=== PATIENT | female | born 1955 | race Caucasian/White ===

== ENCOUNTER → 2020-03-14 11:18 | Outpatient (BNVA) | payer MEDICARE, SELFPAY | PROVIDERS: Family Provider Family Medicine; PCP Family Medicine; Visit Provider Podiatrist Foot & Ankle Surgery | DX: L97.522 Non-pressure chronic ulcer of other part of left foot with fat layer exposed (principal); M21.41 Flat foot [pes planus] (acquired), right foot | CPT/HCPCS: 73630; 87070; 87077; 87186; 87205 ==

== ENCOUNTER → 2021-01-17 15:15 | Outpatient (BNVA) | payer MEDICARE, SELFPAY | PROVIDERS: Family Provider Family Medicine; PCP Family Medicine; Visit Provider Podiatrist Foot & Ankle Surgery | DX: L97.212 Non-pressure chronic ulcer of right calf with fat layer exposed (principal); I87.2 Venous insufficiency (chronic) (peripheral); I73.9 Peripheral vascular disease, unspecified; M25.572 Pain in left ankle and joints of left foot | CPT/HCPCS: 73610 ==

== ENCOUNTER 2021-01-27 13:17 | Outpatient (CLI) | payer MEDICARE, SELFPAY | END 2021-01-27 13:18 | disposition home or self-care (01) | LOC: WOUND 13:20 | PROVIDERS: Family Provider Family Medicine; PCP Family Medicine; Visit Provider Thoracic Surgery (Cardiothoracic Vascular Surgery) | DX: L97.812 Non-pressure chronic ulcer of other part of right lower leg with fat layer exposed (principal) | CPT/HCPCS: 11042; 99212 ==

== ENCOUNTER 2021-02-03 13:55 | Outpatient (CLI) | payer MEDICARE, SELFPAY | END 2021-02-03 13:56 | disposition home or self-care (01) | LOC: WOUND 13:56 | PROVIDERS: Family Provider Family Medicine; PCP Family Medicine; Visit Provider Nurse Practitioner Family | DX: L97.822 Non-pressure chronic ulcer of other part of left lower leg with fat layer exposed (principal) | CPT/HCPCS: 11042; 87070; 87077; 87176; 87186; 87205 ==

== ENCOUNTER 2021-02-10 13:49 | Outpatient (CLI) | payer MEDICARE, SELFPAY | END 2021-02-10 13:50 | disposition home or self-care (01) | LOC: WOUND 13:51 | PROVIDERS: Family Provider Family Medicine; PCP Family Medicine; Visit Provider Nurse Practitioner Family | DX: I96 Gangrene, not elsewhere classified (principal); L97.822 Non-pressure chronic ulcer of other part of left lower leg with fat layer exposed | CPT/HCPCS: 11042 ==

== ENCOUNTER 2021-02-17 13:50 | Outpatient (RCR) | payer MEDICARE, MEDICAID, SELFPAY | END 2021-02-19 23:59 | disposition home or self-care (01) | LOC: WOUND 13:50 | PROVIDERS: Family Provider Family Medicine; PCP Family Medicine; Visit Provider Nurse Practitioner Family | DX: L97.812 Non-pressure chronic ulcer of other part of right lower leg with fat layer exposed (principal) | CPT/HCPCS: 11042 ==

== ENCOUNTER 2021-02-22 11:22 | Emergency (ER) | payer MEDICARE, MEDICAID, SELFPAY ==
[2021-02-22 11:23] VITALS: BP 180/98; PULSE 93; RESP 18; TEMP 36.3; O2SAT 95; BMI 31.0
--- NOTE | 2021-02-22 11:37 | XRR_ITS ---
PROCEDURE INFORMATION: Exam: XR Right Knee Exam date and time: 02/22/2021 12:03 PM Age: 66 years old Clinical indication: Injury or trauma; Fall; Blunt trauma; Knee; Right; Additional info: Fall, RT knee pain TECHNIQUE: Imaging protocol: XR Right knee. Views: 3 views. COMPARISON: CR Tibia and Fibula RIGHT [id number] 11/05/2014 3:14 PM FINDINGS: Bones/joints: There is no knee joint effusion. No acute fracture or dislocation. Soft tissues: Multiple soft tissue clips are noted along the medial proximal leg. Probable soft tissue laceration or defect with subcutaneous emphysema versus air trapped beneath the bandage is noted. Vasculature: There are vascular calcifications and phleboliths. Other findings: There is a bandage medial to the knee. No gas in the knee joint. XR/XR knee RT 3V* [id number] IMPRESSION: Soft tissue abnormalities with an overlying bandage. No acute bony abnormality.
--- NOTE | 2021-02-22 11:37 | XRR_ITS ---
PROCEDURE INFORMATION: Exam: XR Right Shoulder Exam date and time: 02/22/2021 12:03 PM Age: 66 years old Clinical indication: Injury or trauma; Fall; Blunt trauma (contusions or hematomas); Shoulder; Right; Additional info: Fall, RT shoulder pain TECHNIQUE: Imaging protocol: XR Right shoulder. Views: 2 or more views. COMPARISON: No relevant prior studies available. FINDINGS: Bones/joints: There are findings consistent with chronic osteonecrosis of the right humeral head with collapse and secondary severe osteoarthritic changes of the glenohumeral joint. There are moderate to severe degenerative changes of the acromioclavicular joint. Multiple old right rib fractures are noted with mature bridging bone including the right 4th through 7th ribs. There is no dislocation. No acute bony fracture. Lungs: The right lung apex is clear. Soft tissues: Normal. XR/XR shoulder RT min 2V* [id number] IMPRESSION: 1. There are findings consistent with chronic osteonecrosis of the right humeral head with collapse and secondary severe osteoarthritic changes of the glenohumeral joint. 2. No acute bony abnormality is identified.
--- NOTE | 2021-02-22 11:38 | ED_ITS ---
HPI - Wound/Laceration General: Chief Complaint: Wound/Laceration Stated Complaint: Rt leg lac/Fall Time Seen by Provider: 02/22/21 11:30 Source: patient Mode of arrival: ambulatory Limitations: no limitations History of Present Illness: HPI narrative: 66-year-old female patient presents to the emergency department status post fall she sustained at home. She received a laceration to the right knee and is complaining of right shoulder pain, she reports her right shoulder pain is chronic but did fall on it. She reports limited range of motion chronically of the right shoulder, not able to raise her shoulder to do her hair. States need shoulder replacement but is not in good condition to have it done. She sustained right knee laceration, remains on aspirin. States bandage did the best she could, reports chronic stasis wound to the right upper leg just below the knee, she reports under the care of wound care for management. She states this morning, approximately 30 minutes to an hour prior to arrival to the ED, she let the dog in and lost her balance, she reports chronic neuropathy to the bilateral lower extremities, she states did not lose consciousness and did not hit her head. She denies neck pain headache or other injuries. Extremity Location: Right: shoulder and knee Place: home Patient tetanus UTD: No Context: accidental Associated symptoms: Reports no associated symptoms; Denies chills, fever(s), nausea or vomiting Treatments prior to arrival: bandage Review of Systems General: Reports: 10 or more systems reviewed and unremarkable except in HPI and below Const: Denies: fever(s), chills or diaphoresis Eyes: Denies: blurry vision or eye redness ENMT: Denies: throat pain, dental pain or disequilibrium Card: Denies: chest pain, palpitations or irregular heart rhythm Resp: Denies: dyspnea, productive cough, non-productive cough or wheezing GI: Denies: abdominal pain, nausea or vomiting : Denies: difficulty voiding or dysuria Musc: Reports: joint pain (rt knee and rt shoulder); Denies: neck pain, back pain, joint warmth or muscle cramps Skin/Breast: Reports: skin tenderness and other (rt knee laceration); Denies: rash or pruritus Neuro: Denies: headache(s), weakness in extremities or behavioral changes Psych: Denies: anxiety, depression or change in appetite John Paul/Lymph: Denies: easy bruising PFSH ED PFSH: Medical History Cellulitis COPD (chronic obstructive pulmonary disease) Osteoporosis Peripheral arterial disease Rheumatoid arthritis Thoracic spine pain Surgical History H/O elbow surgery LEFT nerve decomp[place] [address] Zaidi H/O hand surgery Left hand in 1984 x3, had infection drained by H/O shoulder surgery RIGHT- by Dr. Bergman in 2003 Family History Family/Other Heart disease Denies family history of Diabetes CAD (coronary artery disease) Clotting disorder Dementia Hyperlipidemia Psychiatric illness Chronic kidney disease (CKD) Suicide Anesthesia complication Bleeding disorder Family history of premature coronary artery disease Lung disease Cancer Hypertension Stroke Social History Smoking and tobacco status: former smoker Quit status (tobacco): has quit using tobacco Year quit tobacco: 1997 Alcohol intake: never Current occupational status: disabled Physical Exam Const: COMMON NORMALS: no acute distress, patient oriented x3, healthy appearing, alert and well nourished GENERAL APPEARANCE: cooperative, comfortable, well kempt, well developed and well hydrated; not ill appearing NUTRITIONAL APPEARANCE: thin ORIENTATION/CONSCIOUSNESS: Yes awake, Yes oriented to person, Yes oriented to place and Yes oriented to time HENMT: COMMON NORMALS: normocephalic, atraumatic, Normal external nose present and moist oral mucous membranes HEAD & SCALP: normal to inspection, normoc ephalic and atraumatic FACE & SINUS: normal facial exam and face symmetric NOSE: Normal external nose present THROAT: posterior oropharynx normal, tonsils normal and uvula midline Eye: COMMON NORMALS: Equal, round and reactive pupils present and EOMs intact bilaterally GENERAL EYE: appearance normal, both eyes and all related structures PUPIL: Yes Equal, round and reactive pupils present Neck/C-Spine: COMMON NORMALS: full ROM, no lymphadenopathy and supple GENERAL: Yes normal visual inspection and Yes trachea midline CERVICAL SPINE: Yes cervical ROM normal, No Cervical spine tenderness, No Paracervical muscle tenderness, No Paracervical spasm and No Trapezius muscle tenderness Lymph: LYMPHATIC: no lymphadenopathy noted Chest: COMMONS NORMALS: normal inspection of the chest Resp: COMMON NORMALS: normal respiratory effort, No retractions, No use of accessory muscles and clear to auscultation bilaterally EFFORT & INSPECTION: Yes able to speak in complete sentences AUSCULTATION: clear to auscultation bilaterally Cardio: COMMON NORMALS: regular rhythm, S1 normal heart sound present and S2 normal heart sound present RHYTHM: regular rhythm HEART SOUNDS: S1 normal heart sound present and S2 normal heart sound present GI: COMMON NORMALS: Soft to palpation and non-tender INSPECTION: Yes normal to inspection PALPATION: Yes Soft to palpation : COMMON NORMALS: Yes no CVA tenderness BLADDER/KIDNEY EXAM: Yes no CVA tenderness Back/Pelvis: COMMON NORMALS: no CVA tenderness and thoracic and lumbar spine normal to inspection Extremity: COMMON NORMALS: normal to inspection, capillary refill normal and no pedal edema GENERAL: Yes normal exam except as noted RIGHT UPPER EXTREMITY: Yes shoulder joint (pain to the anterior ac) Right shoulder: Yes Right shoulder joint inspection exam (normal), Yes palpation, Yes Right shoulder joint ROM exam (limited abduction) and Yes Right shoulder joint neurovascular exam (distally intact) EXTREMITY IMAGE (FRONT): 1. 17 cm x 4 cm laceration, SQ tissue exposed. Patella exposed, wound extends across the mid patella and medially, gaped wound with ecchymosis -not able to appreciate the patellar tendon, suspect tendon laceration Neuro: COMMON NORMALS: patient oriented x3 and no focal motor deficits S ENSORIUM/ORIENTATION: Yes alert, Yes oriented to person, Yes oriented to place and Yes oriented to time Psych: COMMON NORMALS: mental status grossly normal, Normal thought process present and cooperative APPEARANCE: Yes well kempt ACTIVITY/MOTOR BEHAVIOR: Yes appropriate eye contact THOUGHT PROCESS: Normal thought process present Skin: COMMON NORMALS: no rashes or lesions noted and turgor normal GENERAL SKIN EXAM: no rashes or lesions noted and turgor normal WOUNDS: Yes wounds noted (Chronic wound, covered to the medial upper tibia right leg, no tenderness o) OTHER: BLE with chronic venous stasis appearance, skin is thin. Course ED course: Laceration is large and deep, will need possible surgical consult due to exposed patella. Dr. Glover has assumed care due to extensive laceration identified. Vital Signs: Vital signs: Vital Signs Temperature 97.3 F L 02/22/21 11:23 Pulse Rate 93 02/22/21 11:23 Respiratory Rate 18 02/22/21 11:23 Blood Pressure 180/98 02/22/21 11:23 Pulse Oximetry 95 02/22/21 11:23 Discharge Plan Discharge Prescriptions: No Action mupirocin 2 % ointment 1 applic TOPICAL BID Qty: 30 RF: 0 cholecalciferol (vitamin D3) 350 mcg (14,000 unit) capsule PO RF: 0 cefadroxil 1 gram tablet 1,000 mg PO DAILY 14 Days Qty: 14 RF: 0 MediHoney (honey) 80 % gel 1 applic topical DAILY Qty: 44 RF: 0 Santyl 250 unit/gram ointment 1 applic TOPICAL DAILY Qty: 30 RF: 1 gabapentin 400 mg capsule 400 mg PO DAILY RF: 0 prednisone 20 mg tablet 20 mg PO DAILY RF: 0 folic acid 1 mg tablet 1 mg PO DAILY RF: 0 sulfasalazine [Azulfidine] 500 mg tablet 1 gm PO TID RF: 0 aspirin 325 mg tablet 650 mg PO Q4H RF: 0 ascorbate calcium (vitamin C) 500 mg tablet 500 mg PO DAILY RF: 0 albuterol sulfate [ProAir HFA] 90 mcg/actuation HFA aerosol inhaler 2 puff INHALATION Q6H PRNRF: 0 duloxetine 20 mg capsule,delayed release(DR/EC) 40 mg PO BID RF: 0 Coding Level of Care Code ED Vascular Sonographer for Chg Fwd Exam Comprehensive
[2021-02-22] MEDS: lidocaine 1% INJ 20 mL INJECTION (11:47)
[2021-02-22] MEDS: tetanus-dipt-pertussis 0.5 mL SDV IM (11:47)
[2021-02-22 15:07] VITALS: RESP 18
[2021-02-22] MEDS: morphine 4 mg/mL SDV 1 mL IM (15:07)
[2021-02-22] MEDS: ceFAZolin 1,000 MG in sodium chloride 0.9% (plus) 50 ML 100 MG IV (15:51)
--- NOTE | 2021-02-22 16:13 | ED_ITS ---
HPI - Wound/Laceration General: Chief Complaint: Wound/Laceration Stated Complaint: Rt leg lac/Fall Time Seen by Provider: 02/22/21 11:30 Source: patient Mode of arrival: ambulatory Limitations: no limitations History of Present Illness: HPI narrative: I took over care from Ms. Handley after the wound was too large for her to feel comfortable taking care of. Please read her note for further details. The patient has a 13 cm x 3 or 4 cm wide S shaped laceration to her right knee after a fall. Major ligaments appear intact. No fracture on x-ray Place: home Review of Systems General: Reports: 10 or more systems reviewed and unremarkable except in HPI and below Const: Denies: fatigue Eyes: Denies: change in vision, blurry vision or eye redness ENMT: Denies: throat pain, swelling of lips/tongue, ear or mastoid pain or nasal congestion Card: Denies: chest pain, palpitations, irregular heart rhythm, edema, dyspnea on exertion or orthopnea Resp: Denies: dyspnea, productive cough or non-productive cough GI: Denies: abdominal pain, diarrhea or GI cramping : Denies: flank pain, difficulty voiding, urinary frequency or urinary urgency Musc: Reports: extremity pain; Denies: neck pain, back pain, joint pain, joint redness, limited range of motion or muscle weakness Skin/Breast: Denies: rash, pruritus, erythema, skin pain or skin tenderness Neuro: Denies: headache(s), numbness in extremities, weakness in extremities, sensory changes, difficulty walking, dizziness, confusion or Slurred speech present Psych: Denies: anxiety or depression Endo: Denies: polyuria All/Imm: Denies: urticaria, throat swelling or tongue swelling PFSH ED PFSH: Medical History (Updated 02/22/21 @ 16:23 by Anthony Spicer MD) Cellulitis COPD (chronic obstructive pulmonary disease) Osteoporosis Peripheral arterial disease Rheumatoid arthritis Thoracic spine pain Surgical History H/O elbow surgery [place] [address] Zaidi H/O hand surgery Left hand in 1984 x3, had infection drained by H/O shoulder surgery RIGHT- by Dr. Bergman in 2003 Family History (Reviewed 01/17/21 @ 14:58 by JUAN Moreno Family/Other Heart disease Denies family history of Diabetes CAD (coronary artery disease) Clotting disorder Dementia Hyperlipidemia Psychiatric illness Chronic kidney disease (CKD) Suicide Anesthesia complication Bleeding disorder Family history of premature coronary artery disease Lung disease Cancer Hypertension Stroke Social History Smoking and tobacco status: former smoker Quit status (tobacco): has quit using tobacco Year quit tobacco: 1997 Alcohol intake: never Current occupational status: disabled Physical Exam Const: COMMON NORMALS: no acute distress, average body habitus, patient oriented x3, no limitations, healthy appearing, alert and well nourished GENERAL APPEARANCE: cooperative, comfortable, well kempt and well developed ORIENTATION/CONSCIOUSNESS: Yes awake, Yes oriented to person, Yes oriented to place and Yes oriented to time HENMT: COMMON NORMALS: normocephalic, external ears normal and Normal external nose present HEAD & SCALP: normal to inspection and normocephalic NOSE: Normal external nose present EXTERNAL EAR: Yes external ears normal MOUTH: Normal oral and palatal mucosa present THROAT: posterior oropharynx normal Eye: COMMON NORMALS: Equal, round and reactive pupils present and EOMs intact bilaterally GENERAL EYE: appearance normal, both eyes and all related structures PUPIL: Yes Equal, round and reactive pupils present Neck/C-Spine: COMMON NORMALS: full ROM, no lymphadenopathy, no meningeal signs and no JVD GENERAL: Yes normal visual inspection Lymph: LYMPHATIC: no lymphadenopathy noted Chest: COMMONS NORMALS: normal inspection of the chest and normal palpation of entire chest wall Resp: COMMON NORMALS: normal respiratory effort, No retractions, No use of accessory muscles, clear to auscultation bilaterally and percussion normal EFFORT & INSPECTION: Yes able to speak in complete sentences AUSCULTATION: clear to auscultation bilaterally PERCUSSION: percussion normal Cardio: COMMON NORMALS: no JVD, regular rate, regular rhythm, S1 normal heart sound present, S2 normal heart sound present and Peripheral pulses 2+ throughout RATE: regular rate RHYTHM: regular rhythm HEART SOUNDS: S1 normal heart sound present and S2 normal heart sound present PERIPHERAL PULSES: Peripheral pulses 2+ throughout GI: COMMON NORMALS: Normal to inspection, nondistended, normoactive bowel sounds present, Soft to palpation, non-tender and no masses INSPECTION: Yes normal to inspection PALPATION: Yes Soft to palpation : COMMON NORMALS: Yes no CVA tenderness BLADDER/KIDNEY EXAM: Yes no CVA tenderness Back/Pelvis: COMMON NORMALS: no CVA tenderness, thoracic and lumbar spine normal to inspection, no thoracic nor lumbar tenderness and thoraco-lumbar ROM normal Extremity: COMMON NORMALS: normal to inspection, full ROM, capillary refill normal, no joint enlargement and no pedal edema NARRATIVE EXTREMITY EXAM: Normal except right knee has a 13 x 3 to 4 cm wide S shaped laceration with a large skin flap. The patella is open. Major ligaments are intact. Neurovascularly intact distal to injury. No significant bleeding. The wound was sutured closed. I took over care from Ms. Handley after the injury was deemed too much for her to treat adequately. I discussed with Dr. Craft the patient's care and the major ligaments appear intact in the right knee however she does have a significant laceration that was 17 cm x 3 cm and irregularly S shaped with a large skin flap and exposed patella. He recommended closure with local anesthetic. I flushed the wound with 2 L sterile saline and cleaned the wound with Betadine. Used approximately 6 cc of 1% lidocaine to anesthetize as best as possible. Used 1-0 Prolene and 13 interrupted sutures to help with closure. The medial aspect of the wound has a gap which will allow for drainage as I was instructed to close it loosely for drainage. I discussed with Dr. Craft again who recommends follow-up in his clinic in 1 week. Gave her 1 g of Ancef and will discharge with Keflex to prevent infection. Also will place in a straight leg brace to help prevent tension on the wound. Recommend she follow-up with Dr. Craft in 1 week and return to the ER with any worsening symptoms or signs of infection. GENERAL: Yes normal exam except as noted Neuro: COMMON NORMALS: patient oriented x3, CN's II-XII intact bilaterally, moves all extremities, no focal motor deficits, no sensory deficits noted and gait normal SENSORIUM/ORIENTATION: Yes alert, Yes oriented to person, Yes oriented to place and Yes oriented to time MENINGEAL SIGNS: Yes no meningeal signs Psych: COMMON NORMALS: mental status grossly normal, Normal thought process present, cooperative, normal affect and speech normal APPEARANCE: Yes well kempt ATTITUDE: Yes calm SPEECH: Yes normal speech THOUGHT PROCESS: Normal thought process present Skin: COMMON NORMALS: no rashes or lesions noted GENERAL SKIN EXAM: no rashes or lesions noted Procedures Laceration Right knee: Site: lower extremity Side (If applicable): right Size (cm): 13 Description: irregular Depth: simple, single layer Local Anesthetic: lidocaine 1% Amount of anesthesia used (mL): 6 Pre-repair: wound explored and irrigated extensively Skin layer closed with: other (Prolene 1-0) Number of sutures: 13 Technique: simple, interrupted Course Vital Signs: Vital signs: Vital Signs Temperature 97.3 F L 02/22/21 11:23 Pulse Rate 93 02/22/21 11:23 Respiratory Rate 18 02/22/21 15:07 Blood Pressure 180/98 02/22/21 11:23 Pulse Oximetry 95 02/22/21 11:23 MDM - Wound/Laceration MDM Narrative: Medical decision making narrative: I took over care from Ms. Handley after the injury was deemed too much for her to treat adequately. I discussed with Dr. Craft the patient's care and the major ligaments appear intact in the right knee however she does have a significant laceration that was 17 cm x 3 cm and irregularly S shaped with a large skin flap and exposed patella. He recommended closure with local anesthetic. I flushed the wound with 2 L sterile saline and cleaned the wound with Betadine. Used approximately 6 cc of 1% lidocaine to anesthetize as best as possible. Used 1-0 Prolene and 13 interrupted sutures to help with closure. The medial aspect of the wound has a gap which will allow for drainage as I was instructed to close it loosely for drainage. I discussed with Dr. Craft again who recommends follow-up in his clinic in 1 week. Gave her 1 g of Ancef and will discharge with Keflex to prevent infection. Also will place in a straight leg brace to help prevent tension on the wound. Recommend she follow-up with Dr. Craft in 1 week and return to the ER with any worsening symptoms or signs of infection. Discharge Plan Discharge Patient Disposition: Home Clinical Impression: Laceration Condition: Stable Prescriptions: New cephalexin 500 mg capsule 500 mg PO Q12H 14 Days Qty: 28 RF: 0 hydrocodone-acetaminophen 5-325 mg tablet 1 tab PO Q6H PRN (Reason: pain) Qty: 16 RF: 0 No Action mupirocin 2 % ointment 1 applic TOPICAL BID Qty: 30 RF: 0 MediHoney (honey) 80 % gel 1 applic topical DAILY Qty: 44 RF: 0 Santyl 250 unit/gram ointment 1 applic TOPICAL DAILY Qty: 30 RF: 1 gabapentin 400 mg capsule 400 mg PO BID RF: 0 prednisone 20 mg tablet 20 mg PO DAILY RF: 0 folic acid 1 mg tablet 1 mg PO DAILY RF: 0 sulfasalazine [Azulfidine] 500 mg tablet 1 gm PO TID RF: 0 aspirin 325 mg tablet 650 mg PO Q4H RF: 0 albuterol sulfate [ProAir HFA] 90 mcg/actuation HFA aerosol inhaler 2 puff INHALATION Q6H PRN (Reason: Shortness Of Breath) RF: 0 duloxetine 20 mg capsule,delayed release(DR/EC) 40 mg PO BID RF: 0 Calcium + Vitamin D 600 mg calcium- 200 unit Tablet 1 tab PO DAILY RF: 0 Vitamin D3 25 mcg (1,000 unit) Capsule 25 mcg PO DAILY RF: 0 Discharge Orders: Discharge ED (Routine); Ordered 02/22/21 Ordered By: Anthony Spicer Referrals: Maciej West DO [Primary Care Provider] - Discharge Diet: Advance as tolerated Discharge Activity: Resume usual activity Patient Instructions: Laceration (ED), Opioid Safety Activity Restrictions/Additional Instructions: We have repaired your knee with 13 sutures. Please take the Keflex to help prevent an infection and follow-up with Dr. Craft in a week. I have placed a case management referral to help you get this appointment and if your symptoms worsen or it appears like the wound is getting infected or increasing in pain, swelling, redness or having discharge come out of it please return to the ER at any time. You may replace the bandage 2-3 times a day for the first couple days as the drainage may be significant and then go down to 2 or once a day after that if the drainage lessens. Wear the knee immobilizer to keep your knee straight so that way there is less tension on the wound and it is less likely to break open the stitches. Coding Level of Care Code ED Commercial Lending Vice President for Cristal Fwprieto Exam Comprehensive
[2021-02-22 17:11] VITALS: BP 134/74; PULSE 98; RESP 18; O2SAT 98
--- NOTE | 2021-02-26 11:20 | DCPLANNER ---
late entry - transplant case manager had message to schedule a follow up appointment for patient with ortho. radiology manager called the ortho clinic, spoke with Lynne, gave clinic patients information. radiology manager was told that patients information would be printed and reviewed. Clinic will call patient with appointment information. radiology manager also had message to schedule a follow up appointment for patient with Wound Care. Patient had a follow up appointment scheduled for 02.24.21 at [facility] - patient did attend appointment.
--- NOTE | 2021-02-28 08:33 | DCPLANNER ---
Patient has a follow up appointment scheduled for Wednesday, March 03, 2021 at 1:[address] Craft at the ortho clinic. Clinic will call patient with appointment information.
--- NOTE | 2021-03-04 15:35 | DCPLANNER ---
Patient had a follow up appointment scheduled for 03.03.[address] Craft at [facility] - patient did attend appointment.
== END 2021-02-22 17:15 | disposition home or self-care (01) ==
PROVIDERS: Emergency Provider Family Medicine; PCP Family Medicine
DX: S81.011A Laceration without foreign body, right knee, initial encounter (principal); J44.9 Chronic obstructive pulmonary disease, unspecified; Z87.891 Personal history of nicotine dependence; W19.XXXA Unspecified fall, initial encounter; Z23 Encounter for immunization
CPT/HCPCS: 12005; 29530; 73030; 73562; 90471; 90715; 96365; 99284; 99291; 99292; J0690; J2270

== ENCOUNTER 2021-02-24 15:06 | Outpatient (CLI) | payer MEDICARE, MEDICAID, SELFPAY | END 2021-02-24 15:07 | disposition home or self-care (01) | LOC: WOUND 15:09 | PROVIDERS: PCP Family Medicine; Visit Provider Nurse Practitioner Family | DX: L97.822 Non-pressure chronic ulcer of other part of left lower leg with fat layer exposed (principal) | CPT/HCPCS: 11042 ==

== ENCOUNTER 2021-03-03 14:32 | Outpatient (CLI) | payer MEDICARE, MEDICAID, SELFPAY | END 2021-03-03 14:33 | disposition home or self-care (01) | LOC: WOUND 14:33 | PROVIDERS: PCP Family Medicine; Visit Provider Nurse Practitioner Family | DX: I96 Gangrene, not elsewhere classified (principal); L97.822 Non-pressure chronic ulcer of other part of left lower leg with fat layer exposed | CPT/HCPCS: 11042 ==

== ENCOUNTER 2021-03-10 13:08 | Outpatient (CLI) | payer MEDICARE, MEDICAID, SELFPAY | END 2021-03-10 13:09 | disposition home or self-care (01) | LOC: WOUND 13:09 | PROVIDERS: PCP Family Medicine; Visit Provider Nurse Practitioner Family | DX: I73.9 Peripheral vascular disease, unspecified (principal); L97.812 Non-pressure chronic ulcer of other part of right lower leg with fat layer exposed | CPT/HCPCS: 11042 ==

== ENCOUNTER 2021-03-17 14:09 | Outpatient (CLI) | payer MEDICARE, MEDICAID, SELFPAY | END 2021-03-17 14:10 | disposition home or self-care (01) | LOC: WOUND 14:10 | PROVIDERS: PCP Family Medicine; Visit Provider Thoracic Surgery (Cardiothoracic Vascular Surgery) | DX: I73.9 Peripheral vascular disease, unspecified (principal); L97.812 Non-pressure chronic ulcer of other part of right lower leg with fat layer exposed | CPT/HCPCS: 11042 ==

== ENCOUNTER 2021-03-18 10:02 | Outpatient (CLI) | payer MEDICARE, MEDICAID, SELFPAY ==
--- NOTE | 2021-03-18 10:13 | CT_ITS ---
WS: [id number] Exam: CT chest w con* [id number] Date/Time of Exam: 03/18/2021 10:14 AM Reason For Exam: DYSPNEA, CHRONIC OBSTRUCTIVE PULMONARY DISEASE DLP: 980.[address] scans at [facility] use at least one of these dose optimization techniques: automat ed exposure control; mA and/or kV adjustment per patient size (includes targeted exams where dose is matched to clinical indication); or iterative reconstruction. 100 mL of nonionic contrast administere d intravenously for this exam. A cluster of subcentimeter micronodules identified in the lateral aspect of the right upper lobe. Als o a 7 mm pleural-based noncalcified soft tissue nodule in the posterior aspect of the right upper lob e. The lungs are fully expanded. Moderate emphysematous changes are noted. No focal infiltrate seen. No pleural or pericardial effusion. No mediastinal or hilar lymphadenopathy. The thoracic aorta is no rmal in caliber. The central pulmonary arteries are clear. The airway is patent. Mild coronary artery calcifications. There are insufficiency compression fractures involving the upper plate of T2, T4 an d T5. The fracture of the upper plate of T4 shows evidence of bony sclerosis suggesting that this cou ld be a healing or subacute fracture. No displacement noted. Advanced degeneration of the right gleno humeral joint with large joint effusion. Old bilateral rib fractures are seen. No destructive bone le sions are seen. The chest wall is intact. CT/CT chest w con* [id number] IMPRESSION: 1. Clustering of the subcentimeter subpleural micronodules seen in the lateral aspect of the right upper lobe. There is also a 7 mm noncalcified pleural-based nodule seen in the posterior aspect of the right upper lobe. Six-month follow- up chest CT recommended for surveillance. 2. No lymphadenopathy in the chest. 3. Moderate emphysematous changes noted. 4. Insufficiency compression fractures of T2, T4 and T5. The T4 fracture may re present a healing fracture or subacute fracture. No displacement noted. Advance d degenerative changes of the right glenohumeral joint.
[2021-03-18] MEDS: iohexol 300 mg/mL 100 mL Btl IV (10:54)
== END 2021-03-18 10:03 | disposition home or self-care (01) ==
LOC: RADWPI 10:06
PROVIDERS: PCP Family Medicine; Visit Provider Family Medicine
DX: R06.02 Shortness of breath (principal); J44.9 Chronic obstructive pulmonary disease, unspecified; S22.020A Wedge compression fracture of second thoracic vertebra, initial encounter for closed fracture; S22.040A Wedge compression fracture of fourth thoracic vertebra, initial encounter for closed fracture; S22.050A Wedge compression fracture of T5-T6 vertebra, initial encounter for closed fracture; X58.XXXA Exposure to other specified factors, initial encounter
CPT/HCPCS: 71260; Q9967

== ENCOUNTER 2021-03-24 14:55 | Outpatient (CLI) | payer MEDICARE, MEDICAID, SELFPAY | END 2021-03-24 14:56 | disposition home or self-care (01) | LOC: WOUND 14:56 | PROVIDERS: PCP Family Medicine; Visit Provider Thoracic Surgery (Cardiothoracic Vascular Surgery) | DX: I73.9 Peripheral vascular disease, unspecified (principal); L97.812 Non-pressure chronic ulcer of other part of right lower leg with fat layer exposed; L97.822 Non-pressure chronic ulcer of other part of left lower leg with fat layer exposed | CPT/HCPCS: 11042; 11045; 87070; 87075; 87077; 87186; 87205 ==

== ENCOUNTER 2021-03-31 14:59 | Outpatient (CLI) | payer MEDICARE, MEDICAID, SELFPAY | END 2021-03-31 15:00 | disposition home or self-care (01) | LOC: WOUND 15:01 | PROVIDERS: PCP Family Medicine; Visit Provider Thoracic Surgery (Cardiothoracic Vascular Surgery) | DX: I73.9 Peripheral vascular disease, unspecified (principal); L97.812 Non-pressure chronic ulcer of other part of right lower leg with fat layer exposed; L97.822 Non-pressure chronic ulcer of other part of left lower leg with fat layer exposed | CPT/HCPCS: 11042; 11045 ==

== ENCOUNTER 2021-04-07 15:29 | Outpatient (CLI) | payer MEDICARE, MEDICAID, SELFPAY | END 2021-04-07 15:30 | disposition home or self-care (01) | LOC: WOUND 15:30 | PROVIDERS: PCP Family Medicine; Visit Provider Thoracic Surgery (Cardiothoracic Vascular Surgery) | DX: I73.9 Peripheral vascular disease, unspecified (principal); L97.812 Non-pressure chronic ulcer of other part of right lower leg with fat layer exposed; L97.822 Non-pressure chronic ulcer of other part of left lower leg with fat layer exposed | CPT/HCPCS: 11042; 11045 ==

== ENCOUNTER 2021-04-15 10:50 | Outpatient (CLI) | payer MEDICARE, MEDICAID, SELFPAY | END 2021-04-15 10:51 | disposition home or self-care (01) | LOC: WOUND 10:51 | PROVIDERS: PCP Family Medicine; Visit Provider Nurse Practitioner Family | DX: I73.9 Peripheral vascular disease, unspecified (principal); L97.812 Non-pressure chronic ulcer of other part of right lower leg with fat layer exposed; L97.822 Non-pressure chronic ulcer of other part of left lower leg with fat layer exposed | CPT/HCPCS: 11042; 11045 ==

== ENCOUNTER 2021-04-24 13:22 | Outpatient (CLI) | payer MEDICARE, MEDICAID, SELFPAY | END 2021-04-24 13:23 | disposition home or self-care (01) | LOC: WOUND 13:23 | PROVIDERS: PCP Family Medicine; Visit Provider Thoracic Surgery (Cardiothoracic Vascular Surgery) | DX: I73.9 Peripheral vascular disease, unspecified (principal); L97.812 Non-pressure chronic ulcer of other part of right lower leg with fat layer exposed; L97.822 Non-pressure chronic ulcer of other part of left lower leg with fat layer exposed | CPT/HCPCS: 11042; 11045 ==

== ENCOUNTER 2021-05-01 14:11 | Outpatient (CLI) | payer MEDICARE, MEDICAID, SELFPAY | END 2021-05-01 14:12 | disposition home or self-care (01) | LOC: WOUND 14:11 | PROVIDERS: PCP Family Medicine; Visit Provider Thoracic Surgery (Cardiothoracic Vascular Surgery) | DX: I73.9 Peripheral vascular disease, unspecified (principal); L97.812 Non-pressure chronic ulcer of other part of right lower leg with fat layer exposed; L97.822 Non-pressure chronic ulcer of other part of left lower leg with fat layer exposed | CPT/HCPCS: 11042; 11045 ==

== ENCOUNTER 2021-05-08 14:57 | Outpatient (CLI) | payer MEDICARE, MEDICAID, SELFPAY | END 2021-05-08 14:58 | disposition home or self-care (01) | LOC: WOUND 14:58 | PROVIDERS: PCP Family Medicine; Visit Provider Thoracic Surgery (Cardiothoracic Vascular Surgery) | DX: I73.9 Peripheral vascular disease, unspecified (principal); L97.812 Non-pressure chronic ulcer of other part of right lower leg with fat layer exposed; L97.822 Non-pressure chronic ulcer of other part of left lower leg with fat layer exposed | CPT/HCPCS: 11042; 11045 ==

== ENCOUNTER 2021-05-15 08:34 | Outpatient (CLI) | payer MEDICARE, MEDICAID, SELFPAY | END 2021-05-15 08:35 | disposition home or self-care (01) | LOC: WOUND 08:35 | PROVIDERS: PCP Family Medicine; Visit Provider Nurse Practitioner Family | DX: I73.9 Peripheral vascular disease, unspecified (principal); L97.812 Non-pressure chronic ulcer of other part of right lower leg with fat layer exposed; L97.822 Non-pressure chronic ulcer of other part of left lower leg with fat layer exposed | CPT/HCPCS: 11042; 11045 ==

== ENCOUNTER 2021-05-22 08:37 | Outpatient (CLI) | payer MEDICARE, MEDICAID, SELFPAY | END 2021-05-22 08:38 | disposition home or self-care (01) | LOC: WOUND 08:38 | PROVIDERS: PCP Family Medicine; Visit Provider Nurse Practitioner Family | DX: L97.812 Non-pressure chronic ulcer of other part of right lower leg with fat layer exposed (principal); L97.822 Non-pressure chronic ulcer of other part of left lower leg with fat layer exposed | CPT/HCPCS: 11042; 11045 ==

== ENCOUNTER 2021-05-29 08:40 | Outpatient (CLI) | payer MEDICARE, MEDICAID, SELFPAY | END 2021-05-29 08:41 | disposition home or self-care (01) | LOC: WOUND 08:41 | PROVIDERS: PCP Family Medicine; Visit Provider Nurse Practitioner Family | DX: L97.812 Non-pressure chronic ulcer of other part of right lower leg with fat layer exposed (principal); L97.822 Non-pressure chronic ulcer of other part of left lower leg with fat layer exposed | CPT/HCPCS: 11042; 11045 ==

== ENCOUNTER 2021-06-06 13:17 | Outpatient (CLI) | payer MEDICARE, MEDICAID, SELFPAY ==
--- NOTE | 2021-06-06 13:32 | US_ITS ---
WS: [id number] TRANSABDOMINAL PELVIC AND TRANSVAGINAL PELVIC ULTRASOUND HISTORY: LOOSE stool, generalized ABD PAIN COMPARISON: None available. Uterus: 5.1 cm x 3.2 cm x 1.9 cm. Atrophic anteverted uterus as expected. No fibroid or mass. Endometrium: 0.2 cm. Thin homogeneous endometrium. No increased vascularity. Neither ovary is identified. No adnexal masses. No free fluid. US/US pelvic with transvaginal IMPRESSION: Age-appropriate pelvic ultrasound. No abnormality seen.
== END 2021-06-06 13:18 | disposition home or self-care (01) ==
LOC: RAD 13:20
PROVIDERS: PCP Family Medicine; Visit Provider Family Medicine
DX: R19.7 Diarrhea, unspecified (principal); R10.84 Generalized abdominal pain
CPT/HCPCS: 76830; 76856

== ENCOUNTER 2021-06-12 08:58 | Outpatient (CLI) | payer MEDICARE, MEDICAID, SELFPAY | END 2021-06-12 08:59 | disposition home or self-care (01) | LOC: WOUND 08:59 | PROVIDERS: PCP Family Medicine; Visit Provider Nurse Practitioner Family | DX: L97.812 Non-pressure chronic ulcer of other part of right lower leg with fat layer exposed (principal); L97.122 Non-pressure chronic ulcer of left thigh with fat layer exposed | CPT/HCPCS: 11042; 11045 ==

== ENCOUNTER 2021-06-13 09:06 | Outpatient (CLI) | payer MEDICARE, MEDICAID, SELFPAY ==
--- NOTE | 2021-06-13 09:12 | US_ITS ---
WS: [id number] ULTRASOUND ABDOMEN CLINICAL INFORMATION: LOOSE STOOLS/GENERALIZED ABDOMINAL PAIN COMPARISON: None. FINDINGS: Liver Size: Mild hepatomegaly Craniocaudal length: 16.4 cm. Echogenicity: Coarse Surface nodularity: None. Mass (size and location): None. Bile ducts Intrahepatic ducts: Normal. Common bile duct diameter: 0.7 cm. Gallbladder Fluid distended hydropic gallbladder measuring 11 cm in craniocaudal dimension Gallstones: None. Gallbladder sludge: None. Gallbladder wall thickening: None. Pericholecystic fluid: None. Sonographic Mata sign: Absent. Pancreas Fatty infiltration Spleen Splenomegaly: Mild Craniocaudal length: 13.1 cm. Right kidney: Normal. Hydronephrosis: None. Size: 10.0 cm x 5.3 cm x 6.1 cm Left kidney: Mild left hydronephrosis Hydronephrosis: Mild Size: 10.5 cm x 5.9 cm x 6.3 cm. Abdominal aorta and IVC Visualized portions are normal. Ascites: None. US/US abdomen complete* [id number] IMPRESSION: 1. Mild hepatomegaly and splenomegaly. Diffuse fatty infiltration liver. 2. Fluid distended gallbladder measuring 11 cm. No cholelithiasis. Normal comm on bile duct. No gallbladder wall thickening. 3. Mild hydronephrosis left kidney. Normal right kidney.
== END 2021-06-13 09:07 | disposition home or self-care (01) ==
PROVIDERS: PCP Family Medicine; Visit Provider Family Medicine
DX: R19.7 Diarrhea, unspecified (principal); R53.81 Other malaise; R10.84 Generalized abdominal pain; R16.2 Hepatomegaly with splenomegaly, not elsewhere classified; K76.0 Fatty (change of) liver, not elsewhere classified; N13.30 Unspecified hydronephrosis
CPT/HCPCS: 76700

== ENCOUNTER 2021-06-19 09:05 | Outpatient (CLI) | payer MEDICARE, MEDICAID, SELFPAY | END 2021-06-19 09:06 | disposition home or self-care (01) | LOC: WOUND 09:06 | PROVIDERS: PCP Family Medicine; Visit Provider Nurse Practitioner Family | DX: L97.812 Non-pressure chronic ulcer of other part of right lower leg with fat layer exposed (principal); L97.822 Non-pressure chronic ulcer of other part of left lower leg with fat layer exposed | CPT/HCPCS: 11042; 11045 ==

== ENCOUNTER 2021-06-26 09:08 | Outpatient (CLI) | payer MEDICARE, MEDICAID, SELFPAY | END 2021-06-26 09:09 | disposition home or self-care (01) | LOC: WOUND 09:09 | PROVIDERS: PCP Family Medicine; Visit Provider Nurse Practitioner Family | DX: L97.812 Non-pressure chronic ulcer of other part of right lower leg with fat layer exposed (principal); Z87.891 Personal history of nicotine dependence | CPT/HCPCS: 11042 ==

== ENCOUNTER 2021-07-03 09:07 | Outpatient (CLI) | payer MEDICARE, MEDICAID, SELFPAY | END 2021-07-03 09:08 | disposition home or self-care (01) | LOC: WOUND 09:08 | PROVIDERS: PCP Family Medicine; Visit Provider Emergency Medicine | DX: I87.2 Venous insufficiency (chronic) (peripheral) (principal); L97.812 Non-pressure chronic ulcer of other part of right lower leg with fat layer exposed; Z87.891 Personal history of nicotine dependence | CPT/HCPCS: 11042 ==

== ENCOUNTER 2021-07-10 08:42 | Outpatient (CLI) | payer MEDICARE, MEDICAID, SELFPAY | END 2021-07-10 08:43 | disposition home or self-care (01) | LOC: WOUND 08:43 | PROVIDERS: PCP Family Medicine; Visit Provider Nurse Practitioner Family | DX: L97.812 Non-pressure chronic ulcer of other part of right lower leg with fat layer exposed (principal); Z87.891 Personal history of nicotine dependence | CPT/HCPCS: 11042 ==

== ENCOUNTER 2021-07-17 08:01 | Outpatient (CLI) | payer MEDICARE, MEDICAID, SELFPAY | END 2021-07-17 08:02 | disposition home or self-care (01) | LOC: WOUND 08:02 | PROVIDERS: PCP Family Medicine; Visit Provider Emergency Medicine | DX: L97.822 Non-pressure chronic ulcer of other part of left lower leg with fat layer exposed (principal); Z87.891 Personal history of nicotine dependence | CPT/HCPCS: 11042 ==

== ENCOUNTER 2021-07-24 07:58 | Outpatient (CLI) | payer MEDICARE, MEDICAID, SELFPAY | END 2021-07-24 07:59 | disposition home or self-care (01) | LOC: WOUND 07:59 | PROVIDERS: PCP Family Medicine; Visit Provider Emergency Medicine | DX: M06.9 Rheumatoid arthritis, unspecified (principal); L97.812 Non-pressure chronic ulcer of other part of right lower leg with fat layer exposed; Z87.891 Personal history of nicotine dependence | CPT/HCPCS: 11042 ==

== ENCOUNTER 2021-07-31 07:52 | Outpatient (CLI) | payer MEDICARE, MEDICAID, SELFPAY | END 2021-07-31 07:53 | disposition home or self-care (01) | LOC: WOUND 07:53 | PROVIDERS: PCP Family Medicine; Visit Provider Emergency Medicine | DX: L97.822 Non-pressure chronic ulcer of other part of left lower leg with fat layer exposed (principal); Z87.891 Personal history of nicotine dependence | CPT/HCPCS: 11042 ==

== ENCOUNTER 2021-08-07 07:56 | Outpatient (CLI) | payer MEDICARE, MEDICAID, SELFPAY | END 2021-08-07 07:57 | disposition home or self-care (01) | LOC: WOUND 07:57 | PROVIDERS: PCP Family Medicine; Visit Provider Emergency Medicine | DX: L97.812 Non-pressure chronic ulcer of other part of right lower leg with fat layer exposed (principal); L97.821 Non-pressure chronic ulcer of other part of left lower leg limited to breakdown of skin; Z87.891 Personal history of nicotine dependence | CPT/HCPCS: 11042 ==

== ENCOUNTER 2021-08-14 08:10 | Outpatient (CLI) | payer MEDICARE, MEDICAID, SELFPAY | END 2021-08-14 08:11 | disposition home or self-care (01) | LOC: WOUND 08:12 | PROVIDERS: PCP Family Medicine; Visit Provider Emergency Medicine | DX: S81.822A Laceration with foreign body, left lower leg, initial encounter (principal); X58.XXXA Exposure to other specified factors, initial encounter; L97.812 Non-pressure chronic ulcer of other part of right lower leg with fat layer exposed | CPT/HCPCS: 11042; 99212 ==

== ENCOUNTER 2021-08-21 08:05 | Outpatient (CLI) | payer MEDICARE, MEDICAID, SELFPAY | END 2021-08-21 08:06 | disposition home or self-care (01) | LOC: WOUND 08:07 | PROVIDERS: PCP Family Medicine; Visit Provider Emergency Medicine | DX: I96 Gangrene, not elsewhere classified (principal); L97.812 Non-pressure chronic ulcer of other part of right lower leg with fat layer exposed; L97.821 Non-pressure chronic ulcer of other part of left lower leg limited to breakdown of skin; Z87.891 Personal history of nicotine dependence; S81.812A Laceration without foreign body, left lower leg, initial encounter; W26.8XXA Contact with other sharp object(s), not elsewhere classified, initial encounter | CPT/HCPCS: 11042; 87070; 87077; 87176; 87186; 87205; 99212 ==

== ENCOUNTER 2021-08-26 11:19 | Outpatient (CLI) | payer MEDICARE, MEDICAID, SELFPAY ==
--- NOTE | 2021-08-26 11:37 | CT_ITS ---
WS: [id number] CT scan of the chest with IV contrast, additional two-dimensional coronal and sagittal reconstruction was performed. 08/26/2021 Clinical Data: Lung nodule Comparison: CT chest, 03/18/2021 DLP: 744.[address] scans at [facility] use at least one of these dose optimization techniques: automated e xposure control; mA and/or kV adjustment per patient size (includes targeted exams where dose is matc hed to clinical indication); or iterative reconstruction. Findings: The pleural-based nodule at the posterior aspect of the right upper lobe measuring 0.6 cm is seen bes t on image 13 of 63. There has been no change. No new nodules are seen. The small micronodules at the periphery of the right upper lobe have not changed. The remainder of the lungs is clear. No masses or effusions are seen. The heart size is normal with no pericardial effusion. Minimal coron karin artery calcification is present. No pneumonia or pneumothorax is seen. The pulmonary arterial sys tem and thoracic aorta demonstrate no abnormalities or dilatations. There is no axillary or significa nt mediastinal adenopathy. The upper abdomen shows no change. The wedge compression fractures in the upper thoracic spine and os teoarthritis of the right shoulder remain the same. CT/CT chest wo con [id number] Impression: 1. No change in pleural based nodule in the posterior aspect of the right upper lobe and recommend CT follow-up in 1 year. 2. Negative for acute cardiopulmonary disease.
== END 2021-08-26 11:20 | disposition home or self-care (01) ==
PROVIDERS: PCP Family Medicine; Visit Provider Internal Medicine Critical Care Medicine
DX: R91.1 Solitary pulmonary nodule (principal)
CPT/HCPCS: 71250

== ENCOUNTER 2021-08-28 07:57 | Outpatient (CLI) | payer MEDICARE, MEDICAID, SELFPAY | END 2021-08-28 07:58 | disposition home or self-care (01) | LOC: WOUND 08:02 | PROVIDERS: PCP Family Medicine; Visit Provider Emergency Medicine | DX: A49.02 Methicillin resistant Staphylococcus aureus infection, unspecified site (principal); L97.812 Non-pressure chronic ulcer of other part of right lower leg with fat layer exposed; L97.821 Non-pressure chronic ulcer of other part of left lower leg limited to breakdown of skin; Z87.891 Personal history of nicotine dependence | CPT/HCPCS: 11042 ==

== ENCOUNTER 2021-09-04 08:04 | Outpatient (CLI) | payer MEDICARE, MEDICAID, SELFPAY | END 2021-09-04 08:05 | disposition home or self-care (01) | LOC: WOUND 08:05 | PROVIDERS: PCP Family Medicine; Visit Provider Emergency Medicine | DX: L97.812 Non-pressure chronic ulcer of other part of right lower leg with fat layer exposed (principal); L97.821 Non-pressure chronic ulcer of other part of left lower leg limited to breakdown of skin; Z87.891 Personal history of nicotine dependence; M79.662 Pain in left lower leg | CPT/HCPCS: 11042; 93971 ==

== ENCOUNTER 2021-09-04 09:05 | Outpatient (CLI) | payer MEDICARE, MEDICAID, SELFPAY ==
--- NOTE | 2021-09-04 09:12 | USCV_ITS ---
Boubacar Jenna Age: 66 Gender: F : 1955 Exam Date: 09/04/2021 09:21 Ordering Phys: Pearl Aldana DO Technologist: Asim Serrano Exam [place]: [facility] [place] Indication: LLE PAIN HISTORY: Lower extremity pain. PROCEDURES: Venous duplex imaging was performed in only the left lower extremity. The following venous structures were evaluated: common femoral vein, profunda vein, proximal portion of the greater saphenous vein, superficial femoral vein, and the popliteal vein. In addition, the posterior tibial and peroneal trunk were evaluated. Serial compression, augmentation maneuvers, and spectral Doppler flow evaluation were performed. FINDINGS: Normal 2-D Doppler and augmentation and compressibility throughout the lower extremity venous structures. Additional imaging through the proximal calf veins also reveals no thrombus. Limited evaluation of the greater saphenous vein is patent with no thrombus. There is subcutaneous left lower extremity edema noted. CONCLUSIONS No DVT left lower extremity. Dr. Antionette Miranda DO (Electronically Signed) Final Date: 04 September 2021 11:31 S
== END 2021-09-04 09:06 | disposition home or self-care (01) ==
LOC: RAD 09:08
PROVIDERS: PCP Family Medicine; Visit Provider Emergency Medicine
DX: M79.662 Pain in left lower leg (principal)
CPT/HCPCS: 93971

== ENCOUNTER 2021-09-11 08:40 | Outpatient (CLI) | payer MEDICARE, MEDICAID, SELFPAY | END 2021-09-11 08:41 | disposition home or self-care (01) | LOC: WOUND 08:41 | PROVIDERS: PCP Family Medicine; Visit Provider Emergency Medicine | DX: L97.812 Non-pressure chronic ulcer of other part of right lower leg with fat layer exposed (principal); L97.821 Non-pressure chronic ulcer of other part of left lower leg limited to breakdown of skin; Z87.891 Personal history of nicotine dependence | CPT/HCPCS: 11042 ==

== ENCOUNTER 2021-09-15 07:53 | Outpatient (CLI) | payer MEDICARE, MEDICAID, SELFPAY ==
--- NOTE | 2021-09-15 08:00 | MR_ITS ---
WS: [id number] MRI LUMBAR SPINE NONCONTRAST TECHNIQUE: Sagittal T1, T2 and STIR imaging. Axial T1 and T2 imaging. CLINICAL INFORMATION: LBP W RADICULOPATHY COMPARISON: None. FINDINGS: Mild lumbar curve. No acute compression fractures. Disc space narrowing throughout the lumbar spine. Degenerative endplate-type edema involving the inferior endplate T12-L1. L1-L2: Mild disc bulging with slight effacement of ventral thecal sac. Moderate central canal stenosi s. Mild facet arthropathy. Mild bilateral foraminal narrowing left greater than right. L2-L3: Mild disc bulging with moderate to severe central canal stenosis. Dorsal epidural fat contribu dustin to stenosis with flattening of the cauda equina nerve rootlets. Advanced facet arthropathy. Moder ate left foraminal narrowing. L3-L4: Slight anterolisthesis. Severe central canal stenosis due to mild disc bulging with facet arth ropathy and prominent dorsal epidural fat. Moderate facet arthropathy. Moderate left foraminal narrow ing. Right foramen is patent. L4-L5: Mild disc bulging with severe central canal narrowing. Prominent epidural fat narrows the thec al sac. Advanced facet arthropathy. Small bilateral foraminal protrusions with severe right and mild left foraminal narrowing. L5-S1: Grade 1 anterolisthesis with tapered narrowing of the thecal sac. Moderate right and mild left foraminal narrowing. Moderate facet arthropathy. 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 Chronic anterior wedging in the upper thoraci c spine. MR/MR lumbar spine wo con* [id number] IMPRESSION: 1. Mild lumbar curve. No acute compression. Degenerative endplate-type edema a t T12-L1 worse involving the T12 inferior endplate. 2. Multilevel moderate to severe central canal stenosis due to disc bulging an d facet arthropathy with ligamentum flavum hypertrophy in combination with prom inent epidural fat. 3. Moderate central canal stenosis L1-2, severe central canal stenosis L2-L3 L 3-L4 and L4-L5. 4. Tapered narrowing of the thecal sac at L4-L5 and L5-S1. 5. Multilevel foraminal narrowing described above worse at left L2-3, left L3- 4 and right L4-5. 6. Grade 1 anterolisthesis L5 on S1.
== END 2021-09-15 07:54 | disposition home or self-care (01) ==
PROVIDERS: PCP Family Medicine; Visit Provider Family Medicine
DX: M54.16 Radiculopathy, lumbar region (principal); G60.9 Hereditary and idiopathic neuropathy, unspecified; R60.0 Localized edema; M48.061 Spinal stenosis, lumbar region without neurogenic claudication; M47.896 Other spondylosis, lumbar region; M51.26 Other intervertebral disc displacement, lumbar region
CPT/HCPCS: 72148

== ENCOUNTER 2021-09-18 08:37 | Outpatient (CLI) | payer MEDICARE, MEDICAID, SELFPAY | END 2021-09-18 08:38 | disposition home or self-care (01) | LOC: WOUND 08:39 | PROVIDERS: PCP Family Medicine; Visit Provider Nurse Practitioner Family | DX: L97.821 Non-pressure chronic ulcer of other part of left lower leg limited to breakdown of skin (principal); M06.9 Rheumatoid arthritis, unspecified | CPT/HCPCS: 11042; 87070; 87077; 87176; 87186; 87205 ==

== ENCOUNTER → 2021-09-19 09:28 | Outpatient (BNVA) | payer MEDICARE, MEDICAID, SELFPAY | PROVIDERS: PCP Family Medicine; Visit Provider Internal Medicine Critical Care Medicine | DX: Z01.812 Encounter for preprocedural laboratory examination (principal); Z20.822 Contact with and (suspected) exposure to COVID-19 | CPT/HCPCS: 87635 ==

== ENCOUNTER → 2021-09-24 09:43 | Outpatient (BNVA) | payer MEDICARE, MEDICAID, SELFPAY | PROVIDERS: PCP Family Medicine; Visit Provider Internal Medicine Rheumatology | DX: M06.041 Rheumatoid arthritis without rheumatoid factor, right hand (principal); M06.042 Rheumatoid arthritis without rheumatoid factor, left hand; Z79.899 Other long term (current) drug therapy; M19.90 Unspecified osteoarthritis, unspecified site; Z11.59 Encounter for screening for other viral diseases; Z11.1 Encounter for screening for respiratory tuberculosis; Z79.52 Long term (current) use of systemic steroids; R91.1 Solitary pulmonary nodule; L97.212 Non-pressure chronic ulcer of right calf with fat layer exposed; L97.512 Non-pressure chronic ulcer of other part of right foot with fat layer exposed; Z71.85 Encounter for immunization safety counseling; Z87.891 Personal history of nicotine dependence; M79.89 Other specified soft tissue disorders | CPT/HCPCS: 36415; 73130; 73562; 73630; 80076; 82306; 82565; 84439; 84443; 85025; 85651; 86140; 86200; 86431; 86480; 86704; 86803; 87340; 99204; 99205 ==

== ENCOUNTER 2021-09-24 11:28 | Outpatient (CLI) | payer MEDICARE, MEDICAID, SELFPAY ==
--- NOTE | 2021-09-24 11:44 | XR_ITS ---
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 Findings: No fractures or dislocations are seen. No bone destruction or erosion is noted. There is a small buni on at the head of the left first metatarsal There is minimal calcification of the shelton of small vess els. There is a plantar spur. XR/XR foot LT min 3V* [id number] Impression: Small bunion at head of the left first metatarsal.
--- NOTE | 2021-09-24 11:44 | XR_ITS ---
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 Findings: No fractures or dislocations are seen. No bone destruction or erosion is noted. There is a small buni on at the head of the right first metatarsal.There is a plantar spur. There is minimal calcification in the shelton of small vessels. XR/XR foot RT min 3V* [id number] Impression: Small bunion at the head of the right first metatarsal.
--- NOTE | 2021-09-24 11:44 | XR_ITS ---
WS: [id number] Left knee, 3 views 09/24/2021 Clinical Data: Z79.899 - Other jail (current) drug therapy Comparison: None. Findings: No fractures or dislocations are seen. The joint spaces are normal. The patella is intact. The soft t issues are unremarkable. XR/XR knee LT 3V* [id number] Impression: Negative left knee. Kellgren-Giovany Classification: grade 0 (none): definite absence of x-ray marva nges of osteoarthritis
--- NOTE | 2021-09-24 11:44 | XR_ITS ---
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 Findings: No fractures or dislocations are seen. The soft tissues are unremarkable. The left second MCP joint i s fused. There is osteoarthritic change of the left third DIP joint. There is osteoarthritis of the base of th e left first metacarpal. There are calcifications of the shelton of small vessels. There are phlebolith s in the subcutaneous tissue adjacent to the junction of the middle and distal thirds of the ulna. XR/XR hand LT min 3V* [id number] Impression: 1. Fusion of left second MCP joint. 2. Osteoarthritis of the left third DIP joint and base of the left first metaca rpal.
--- NOTE | 2021-09-24 11:44 | XR_ITS ---
WS: [email or web address] Right hand, 3 views, 09/24/2021 Clinical Data: Z79.899 - Other rn long term care (current) drug therapy Comparison: None. Findings: No fractures or dislocations are seen. The soft tissues are unremarkable. There is osteoa rthritic narrowing of the right first through third MCP joints. There is osteoarthritis of the right third through fifth PIP joints and the second through fifth DIP joints. No periarticular demineraliza tion is present. XR/XR hand RT min 3V* [id number] Impression: Multi joint osteoarthritis.
--- NOTE | 2021-09-24 11:44 | XR_ITS ---
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 Findings: No fractures or dislocations are seen. The joint spaces are normal. The patella is intact. The soft t issues are unremarkable. There are vascular clips in the medial soft tissue of the knee proximal right leg. XR/XR knee RT 3V* [id number] Impression: Negative right knee. Kellgren-Giovany Classification: grade 0 (none): definite absence of x-ray marva nges of osteoarthritis
[2021-09-24 12:36] LABS: Basophils # 0.1 10^3/uL (0.0-0.1); Basophils % 0.9 %; Eosinophils # 0.3 10^3/uL (0.0-0.8); Eosinophils % 4.1 %; Hematocrit 39.9 % (37.0-47.0); Hemoglobin 12.7 g/dL (11.5-15.3); Lymphocytes # 1.2 10^3/uL (0.8-4.8); Lymphocytes % 17.3 %; Mean Corpuscular HGB Conc 31.8 g/dL (30.0-36.0); Mean Corpuscular Volume 97.3 fl (81-99); Mean Platelet Volume 10.1 fL (7.4-10.4); Monocytes # 0.5 10^3/uL (0.2-0.9); Monocytes % 7.2 %; Neutrophils # 4.67 10^3/uL (1.8-7.7); Neutrophils % 70.2 %; Nucleated Red Blood Cells % 0 %; Platelet Count 219 10^3/cmm (130-400); Red Cell Distribution Width 14.1 % (12.1-15.1); White Blood Count 6.7 10^3/uL (4.0-10.0)
[2021-09-24 13:38] LABS: Hepatitis B Surface Antigen Non-Reactive (Nonreactive); Hepatitis C Virus Antibody Non-Reactive (Nonreactive)
[2021-09-24 13:41] LABS: 25 Hydroxy Vitamin D 33 ng/mL (30-100); Alanine Aminotransferase 19 U/L (0-33); Albumin Level 3.8 g/dL (3.5-5.2); Alkaline Phosphatase 84 IU/L (35-105); Aspartate Amino Transferase 31 U/L (0-32); Globulin 2.8 g/dL (1.3-4.6); Glomerular Filtration Rate 123.1 mL/min (90-130); Thyroid Stimulating Hormone 2.81 uIU/mL (0.27-4.20); Total Bilirubin 0.2 mg/dL (0.15-1.2); Total Protein 6.6 g/dL (6.6-8.7)
[2021-09-24 14:11] LABS: Hepatitis B Core AB, Total Reactive (Nonreactive)
[2021-09-24 14:15] LABS: Free T4 Free Thyroxine 1.03 ng/dL (0.82-1.77)
[2021-09-25 14:05] LABS: Erythrocyte Sedimentation Rate 9 mm/hr (0-15)
[2021-09-25 16:53] LABS: Cyclic Citrullinated Peptide <16 UNITS
[2021-09-26 15:02] LABS: Quantiferon Mitogen >10.00 IU/mL; Quantiferon Nil 0.02 IU/mL; Quantiferon Plus TB1 <0.00 IU/mL; Quantiferon Plus TB2 2.94 IU/mL; Quantiferon TB Gold POSITIVE (NEGATIVE)
== END 2021-09-24 11:29 | disposition home or self-care (01) ==
LOC: RAD 11:38
PROVIDERS: PCP Family Medicine; Visit Provider Internal Medicine Rheumatology
DX: M19.90 Unspecified osteoarthritis, unspecified site (principal); Z79.899 Other long term (current) drug therapy; Z11.59 Encounter for screening for other viral diseases; M79.89 Other specified soft tissue disorders; Z11.1 Encounter for screening for respiratory tuberculosis
CPT/HCPCS: 36415; 73130; 73562; 73630; 80076; 82306; 82565; 84439; 84443; 85025; 85651; 86140; 86200; 86431; 86480; 86704; 86803; 87340

== ENCOUNTER 2021-09-25 08:19 | Outpatient (CLI) | payer MEDICARE, MEDICAID, SELFPAY | END 2021-09-25 08:20 | disposition home or self-care (01) | LOC: WOUND 08:20 | PROVIDERS: PCP Family Medicine; Visit Provider Nurse Practitioner Family | DX: L97.821 Non-pressure chronic ulcer of other part of left lower leg limited to breakdown of skin (principal); Z87.891 Personal history of nicotine dependence | CPT/HCPCS: 11042 ==

== ENCOUNTER 2021-09-25 13:54 | Outpatient (CLI) | payer MEDICARE, MEDICAID, SELFPAY ==
--- NOTE | 2021-09-25 14:15 | PFTS_ITS ---
Date of Study:09/25/21 Date of Dictation: MECHANICS: Forced vital capacity (FVC) is reduced. Forced expiratory volume in one second (FEV1) is reduced. FEV1/FVC is normal. FLOW VOLUME LOOP: Mild scooping. LUNG VOLUMES: Not measured DIFFUSING CAPACITY FOR CARBON MONOXIDE: Mild reduced. INTERPRETATION: The postbronchodilator spirometry is consistent with moderate restriction. No significant postbronchodilator response. Evidence of small airways disease by scooping of flow volume loop. Gas exchange (DLCO) is mildly reduced. MTDD
== END 2021-09-25 13:55 | disposition home or self-care (01) ==
LOC: RT 14:00
PROVIDERS: PCP Family Medicine; Visit Provider Internal Medicine Critical Care Medicine
DX: R91.1 Solitary pulmonary nodule (principal)
CPT/HCPCS: 94060; 94729; J7611

== ENCOUNTER 2021-10-02 09:25 | Outpatient (CLI) | payer MEDICARE, MEDICAID, SELFPAY | END 2021-10-02 09:26 | disposition home or self-care (01) | LOC: WOUND 09:26 | PROVIDERS: PCP Family Medicine; Visit Provider Emergency Medicine | DX: I96 Gangrene, not elsewhere classified (principal); L97.811 Non-pressure chronic ulcer of other part of right lower leg limited to breakdown of skin; L97.821 Non-pressure chronic ulcer of other part of left lower leg limited to breakdown of skin; J44.9 Chronic obstructive pulmonary disease, unspecified; M06.9 Rheumatoid arthritis, unspecified; Z87.891 Personal history of nicotine dependence | CPT/HCPCS: 97597; 99212 ==

== ENCOUNTER 2021-10-09 08:13 | Outpatient (CLI) | payer MEDICARE, MEDICAID, SELFPAY | END 2021-10-09 08:14 | disposition home or self-care (01) | LOC: WOUND 08:14 | PROVIDERS: PCP Family Medicine; Visit Provider Nurse Practitioner Family | DX: S81.822A Laceration with foreign body, left lower leg, initial encounter (principal); S81.001A Unspecified open wound, right knee, initial encounter; X58.XXXA Exposure to other specified factors, initial encounter; J44.9 Chronic obstructive pulmonary disease, unspecified; M06.9 Rheumatoid arthritis, unspecified; Z87.891 Personal history of nicotine dependence | CPT/HCPCS: 11042 ==

== ENCOUNTER 2021-10-09 11:32 | Outpatient (CLI) | payer MEDICARE, MEDICAID, SELFPAY ==
[2021-10-11 11:33] LABS: Hepatitis B Virus DNA <10 NOT DETECTED IU/mL (NOT DETECTED); Hepatitis B Virus DNA PCR <1.00 NOT DETECTED Log IU/mL (NOT DETECTED)
== END 2021-10-09 11:33 | disposition home or self-care (01) ==
LOC: LAB 11:36
PROVIDERS: PCP Family Medicine; Visit Provider Internal Medicine Rheumatology
DX: M06.041 Rheumatoid arthritis without rheumatoid factor, right hand (principal); M06.042 Rheumatoid arthritis without rheumatoid factor, left hand; R76.8 Other specified abnormal immunological findings in serum; Z79.899 Other long term (current) drug therapy; Z11.59 Encounter for screening for other viral diseases
CPT/HCPCS: 36415; 87517

== ENCOUNTER 2021-10-10 09:52 | Outpatient (CLI) | payer MEDICARE, MEDICAID, SELFPAY ==
--- NOTE | 2021-10-10 16:15 | XR_ITS ---
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 This corresponds to a T score of 2.8 and Z score of 3.7. Left femoral neck bone mineral density measures 0.783 g/cm2. This corresponds to T score of -1.8 and Z score of -0.9. Right femoral neck bone mineral density measures 0.749 g/cm2. This corresponds to a T score of -2.0 a nd Z score of -1.2. Mean femoral neck bone mineral density measures 0.766 g/cm2. This corresponds to a T score of -1.9 an d Z score of -1.1 XR/XR DEXA axial skeleton* [id number] IMPRESSION: Bone mineral density lies in the osteopenic range. Refer to detailed summary.
== END 2021-10-10 09:53 | disposition home or self-care (01) ==
PROVIDERS: PCP Family Medicine; Visit Provider Internal Medicine Rheumatology
DX: Z79.52 Long term (current) use of systemic steroids (principal); M81.0 Age-related osteoporosis without current pathological fracture
CPT/HCPCS: 77080

== ENCOUNTER → 2021-10-21 13:30 | Outpatient (BNVA) | payer MEDICARE, MEDICAID, SELFPAY | PROVIDERS: PCP Family Medicine; Referring Provider Family Medicine; Visit Provider Orthopaedic Surgery | DX: M54.9 Dorsalgia, unspecified (principal); M48.062 Spinal stenosis, lumbar region with neurogenic claudication | CPT/HCPCS: 72110 ==

== ENCOUNTER 2021-10-23 08:32 | Outpatient (CLI) | payer MEDICARE, MEDICAID, SELFPAY | END 2021-10-23 08:33 | disposition home or self-care (01) | LOC: WOUND 08:34 | PROVIDERS: PCP Family Medicine; Visit Provider Emergency Medicine | DX: S81.822A Laceration with foreign body, left lower leg, initial encounter (principal); W45.8XXA Other foreign body or object entering through skin, initial encounter; W22.8XXA Striking against or struck by other objects, initial encounter; J44.9 Chronic obstructive pulmonary disease, unspecified; M06.9 Rheumatoid arthritis, unspecified; Z87.891 Personal history of nicotine dependence | CPT/HCPCS: 11042 ==

== ENCOUNTER → 2021-11-04 08:33 | Outpatient (BNVA) | payer MEDICARE, MEDICAID, SELFPAY | PROVIDERS: PCP Family Medicine; Referring Provider Orthopaedic Surgery; Visit Provider Anesthesiology Pain Medicine | DX: G89.29 Other chronic pain (principal); M48.062 Spinal stenosis, lumbar region with neurogenic claudication; M47.816 Spondylosis without myelopathy or radiculopathy, lumbar region; M43.16 Spondylolisthesis, lumbar region; R20.2 Paresthesia of skin; M79.604 Pain in right leg; M79.605 Pain in left leg; Z79.899 Other long term (current) drug therapy; Z79.891 Long term (current) use of opiate analgesic; Z87.891 Personal history of nicotine dependence | CPT/HCPCS: 99205 ==

== ENCOUNTER 2021-11-06 09:20 | Outpatient (CLI) | payer MEDICARE, MEDICAID, SELFPAY | END 2021-11-06 09:21 | disposition home or self-care (01) | LOC: WOUND 09:21 | PROVIDERS: PCP Family Medicine; Visit Provider Nurse Practitioner Family | DX: L97.821 Non-pressure chronic ulcer of other part of left lower leg limited to breakdown of skin (principal); J44.9 Chronic obstructive pulmonary disease, unspecified; M06.9 Rheumatoid arthritis, unspecified; Z87.891 Personal history of nicotine dependence | CPT/HCPCS: 11042 ==

== ENCOUNTER 2021-11-20 08:37 | Outpatient (CLI) | payer MEDICARE, MEDICAID, SELFPAY | END 2021-11-20 08:38 | disposition home or self-care (01) | LOC: WOUND 08:39 | PROVIDERS: PCP Family Medicine; Visit Provider Nurse Practitioner Family | DX: S81.822A Laceration with foreign body, left lower leg, initial encounter (principal); X58.XXXA Exposure to other specified factors, initial encounter; J44.9 Chronic obstructive pulmonary disease, unspecified; Z87.891 Personal history of nicotine dependence | CPT/HCPCS: 11042 ==

== ENCOUNTER → 2021-11-24 13:57 | Outpatient (BNVA) | payer MEDICARE, MEDICAID, SELFPAY | PROVIDERS: PCP Family Medicine; Visit Provider Anesthesiology Pain Medicine | DX: M54.16 Radiculopathy, lumbar region (principal); Z79.891 Long term (current) use of opiate analgesic | CPT/HCPCS: 64483; 64484; J1100; J3490 ==

== ENCOUNTER 2021-12-04 09:04 | Outpatient (CLI) | payer MEDICARE, MEDICAID, SELFPAY | END 2021-12-04 09:05 | disposition home or self-care (01) | LOC: WOUND 09:05 | PROVIDERS: PCP Family Medicine; Visit Provider Emergency Medicine | DX: S81.822A Laceration with foreign body, left lower leg, initial encounter (principal); W45.8XXA Other foreign body or object entering through skin, initial encounter; J44.9 Chronic obstructive pulmonary disease, unspecified; M06.9 Rheumatoid arthritis, unspecified; Z87.891 Personal history of nicotine dependence | CPT/HCPCS: 11042 ==

== ENCOUNTER → 2021-12-08 10:32 | Outpatient (BNVA) | payer MEDICARE, MEDICAID, SELFPAY | PROVIDERS: PCP Family Medicine; Visit Provider Anesthesiology Pain Medicine | DX: M48.062 Spinal stenosis, lumbar region with neurogenic claudication (principal); M47.816 Spondylosis without myelopathy or radiculopathy, lumbar region; M43.17 Spondylolisthesis, lumbosacral region; M79.604 Pain in right leg; M79.605 Pain in left leg; Z87.891 Personal history of nicotine dependence | CPT/HCPCS: 99214 ==

== ENCOUNTER 2021-12-18 08:53 | Outpatient (CLI) | payer MEDICARE, MEDICAID, SELFPAY | END 2021-12-18 08:54 | disposition home or self-care (01) | LOC: WOUND 08:54 | PROVIDERS: PCP Family Medicine; Visit Provider Emergency Medicine | DX: S81.822A Laceration with foreign body, left lower leg, initial encounter (principal); X58.XXXA Exposure to other specified factors, initial encounter; J44.9 Chronic obstructive pulmonary disease, unspecified; M06.9 Rheumatoid arthritis, unspecified; Z87.891 Personal history of nicotine dependence | CPT/HCPCS: 11042 ==

== ENCOUNTER 2022-01-01 08:48 | Outpatient (CLI) | payer MEDICARE, MEDICAID, SELFPAY | END 2022-01-01 08:49 | disposition home or self-care (01) | LOC: WOUND 08:53 | PROVIDERS: PCP Family Medicine; Visit Provider Nurse Practitioner Family | DX: Z09 Encounter for follow-up examination after completed treatment for conditions other than malignant neoplasm (principal); Z87.891 Personal history of nicotine dependence; J44.9 Chronic obstructive pulmonary disease, unspecified | CPT/HCPCS: 99212 ==

== ENCOUNTER → 2022-01-06 14:32 | Outpatient (BNVA) | payer MEDICARE, MEDICAID, SELFPAY | PROVIDERS: PCP Family Medicine; Visit Provider Internal Medicine Rheumatology | DX: M06.041 Rheumatoid arthritis without rheumatoid factor, right hand (principal); M06.042 Rheumatoid arthritis without rheumatoid factor, left hand; Z79.899 Other long term (current) drug therapy; Z79.52 Long term (current) use of systemic steroids; Z22.7 Latent tuberculosis; L97.909 Non-pressure chronic ulcer of unspecified part of unspecified lower leg with unspecified severity; Z71.85 Encounter for immunization safety counseling | CPT/HCPCS: 80076; 82565; 85025; 86140; 99214 ==

== ENCOUNTER 2022-01-06 16:25 | Outpatient (CLI) | payer MEDICARE, MEDICAID, SELFPAY ==
[2022-01-06 16:53] LABS: Basophils # 0.1 10^3/uL (0.0-0.1); Basophils % 0.7 %; Eosinophils # 0.1 10^3/uL (0.0-0.8); Eosinophils % 1.9 %; Hematocrit 41.5 % (37.0-47.0); Hemoglobin 13.1 g/dL (11.5-15.3); Lymphocytes # 1.4 10^3/uL (0.8-4.8); Lymphocytes % 18.4 %; Mean Corpuscular HGB Conc 31.6 g/dL (30.0-36.0); Mean Corpuscular Hemoglobin 30.9 pg (28.0-34.0); Mean Corpuscular Volume 97.9 fl (81-99); Mean Platelet Volume 9.7 fL (7.4-10.4); Monocytes # 0.6 10^3/uL (0.2-0.9); Monocytes % 7.4 %; Neutrophils # 5.38 10^3/uL (1.8-7.7); Neutrophils % 71.1 %; Nucleated Red Blood Cells % 0 %; Platelet Count 292 10^3/cmm (130-400); Red Blood Count 4.24 10^6/uL (4.1-5.3); Red Cell Distribution Width 13.7 % (12.1-15.1); White Blood Count 7.6 10^3/uL (4.0-10.0)
[2022-01-06 17:49] LABS: Alanine Aminotransferase 23 U/L (0-33); Alkaline Phosphatase 131 IU/L (35-105); Aspartate Amino Transferase 29 U/L (0-32); C Reactive Protein 7.7 mg/L (0.0-4.9); Globulin 2.6 g/dL (1.3-4.6); Glomerular Filtration Rate 71.5 mL/min (90-130); Total Bilirubin 0.2 mg/dL (0.15-1.2); Total Protein 6.6 g/dL (6.6-8.7)
== END 2022-01-06 16:26 | disposition home or self-care (01) ==
LOC: LAB 16:30
PROVIDERS: PCP Family Medicine; Visit Provider Internal Medicine Rheumatology
DX: M06.041 Rheumatoid arthritis without rheumatoid factor, right hand (principal); M06.042 Rheumatoid arthritis without rheumatoid factor, left hand; Z79.899 Other long term (current) drug therapy
CPT/HCPCS: 80076; 82565; 85025; 86140

== ENCOUNTER 2022-01-21 13:14 | Outpatient (CLI) | payer MEDICARE, MEDICAID, SELFPAY ==
--- NOTE | 2022-01-21 13:39 | CT_ITS ---
WS: [id number] CT CHEST, ABDOMEN AND PELVIS WITH CONTRAST HISTORY: R FLANK PAIN/GENERALIZED ABD PAIN TECHNIQUE: Contiguous 5 mm axial imaging performed through the chest, abdomen and pelvis with IV cont rast, oral contrast has been provided. Coronal and sagittal reformats chest. Coronal and sagittal ref ormats through the abdomen and pelvis. All CT scans at [facility] use at least one of these d ose optimization techniques: automated exposure control; mA and/or kV adjustment per patient size (in cludes targeted exams where dose is matched to clinical indication); or iterative reconstruction. CONTRAST: Omnipaque 300; 95 mL IV. DLP: 2362.68 mGy.cm COMPARISON: 08/26/[address]: No change in the 4 mm nodule in the posterior superior segment RIGHT lower lobe. Subsolid n odule measuring 10 x 8 mm, image 20 series 7 RIGHT upper lobe. No additional enlarging or concerning nodules. No pneumonia. No mediastinal or hilar adenopathy. Heart size is normal. No pericardial or pl eural effusions. Mild atherosclerotic plaque within the aorta. Normal size pulmonary artery. Normal s oft tissues of the anterior chest. Mild increase in thoracic kyphosis. Mild anterior wedging of T2, T 4, T5. Severe degenerative disc space narrowing and osteochondrosis at T12-L1. Severe osteolytic barron ges involving the RIGHT humeral head. Increased sclerosis in the RIGHT scapula. Abdomen CT: Liver, gallbladder, spleen and adrenal glands are negative. Normal pancreas. No bile duct dilatation. Heavy calcification within the abdominal aorta. No aneurysm. Both kidneys are enhancing normally. 10 mm hyperdense nodule upper pole LEFT kidney stable since the prior exam. There are addit ional too small to characterize hypodensities in the LEFT kidney. No ascites or adenopathy. Moderate diffuse fecal retention throughout the colon. No small bowel obstruction. No hernia. The omar endix is not identified. Pelvic CT: No free fluid or adenopathy within the pelvis. Normally distended urinary bladder. No ingu inal hernia. Severe degenerative changes in the lumbar spine. Advanced degenerative disc disease. Complete ankylos is across L1-L2 disc space. Components of central and foraminal stenosis throughout the lumbar spine. No significant at the L4-5 and L5-S1 levels. CT/CT chest abd pel w con* IMPRESSION: 1. Subsolid nodule RIGHT upper lobe measures 10 x 8 mm. New since 08/26/2021. E robbie variant adenocarcinoma should be considered. Recommend follow-up chest CT in 6 months with contrast. The additional nodule in the posterior superior segm ent RIGHT lower lobe is stable. 2. No adenopathy. 3. Numerous compression fractures in the thoracic spine with severe degenerati ve spondylitic changes throughout the lumbar spine. Components of high-grade ce ntral and foraminal stenosis at L4-5 and L5-S1. 4. Advanced degenerative changes involving the RIGHT humeral head and glenoid. These findings have been previously described. 5. Marked diffuse constipation. 6. No ascites within the abdomen or pelvis.
[2022-01-21] MEDS: iohexol 300 mg/mL 100 mL Btl IV (15:28)
== END 2022-01-21 13:15 | disposition home or self-care (01) ==
LOC: RAD 13:15
PROVIDERS: PCP Family Medicine; Visit Provider Family Medicine
DX: R10.84 Generalized abdominal pain (principal); G80.9 Cerebral palsy, unspecified; M54.9 Dorsalgia, unspecified; M06.9 Rheumatoid arthritis, unspecified; W19.XXXA Unspecified fall, initial encounter; R91.1 Solitary pulmonary nodule; S22.009A Unspecified fracture of unspecified thoracic vertebra, initial encounter for closed fracture; M48.061 Spinal stenosis, lumbar region without neurogenic claudication; M48.07 Spinal stenosis, lumbosacral region; K59.00 Constipation, unspecified
CPT/HCPCS: 71260; 74177

== ENCOUNTER → 2022-02-06 09:42 | Outpatient (BNVA) | payer MEDICARE, MEDICAID, SELFPAY | PROVIDERS: PCP Family Medicine; Visit Provider Internal Medicine Critical Care Medicine | DX: R91.1 Solitary pulmonary nodule (principal); M06.9 Rheumatoid arthritis, unspecified; J43.9 Emphysema, unspecified; Z87.891 Personal history of nicotine dependence | CPT/HCPCS: 99214 ==

== ENCOUNTER 2022-02-22 13:09 | Emergency (ER) | payer MEDICARE, MEDICAID, SELFPAY ==
[2022-02-22 13:27] VITALS: BP 159/51; PULSE 82; RESP 18; TEMP 37.2; O2SAT 94; BMI 27.6
--- NOTE | 2022-02-22 13:48 | W.ED.ABDPA2 ---
HPI - Abdominal Pain General: Chief Complaint: Abdominal Pain Stated Complaint: severe back pain/bloated abdomen Time Seen by Provider: 02/22/22 13:42 Source: patient Mode of arrival: ambulatory Limitations: no limitations History of Present Illness: 67-year-old female presents emergency room with complaints of abdominal discomfort low back pain and constipation for the last 3 to [address] chest abdomen pelvis on January 21. She tells me that she was told she has a bowel obstruction based on that result and she had been advised to go to the emergency room shortly after that but did not up until now. She states is continuing to bother her so she decided to come in today. She denies fever sweats chills no hematochezia melena hematemesis coffee-ground emesis no dysuria urgency or frequency no recent trauma or falls. She complains of a lump in her back on the left that has been there for several months as well. She also complains of chronic low and mid to upper back pain that has been progressively worsening. No loss of bowel or bladder function no fecal incontinence no urinary retention. No radiation of pain into her lower extremities at this time. Patient is able ambulate without difficulty. MD elicited complaint: abdominal pain and other (back pain) Pertinent past history: constipation Onset (ago): month(s) Pain Consistency: constant Location: Diffuse Severity: moderate Quality: cramping Radiation: none Migration to: no migration Exacerbating factors: movement Relieving factors: nothing Associated Symptoms: Reports bloating, constipation and GI cramping; Denies anorexia, belching, change in bowel habits, change in stool character, chills, coffee ground emesis, diarrhea, dyspepsia, dysuria, excessive flatus, fever(s), heartburn, hematochezia, hematuria, hematemesis, fecal incontinence, loose stools, melena, nausea, poor appetite, syncope and vomiting Review of Systems Const: Denies: fever(s) or chills ENMT: Denies: throat pain, ear or mastoid pain, nasal discharge or nasal congestion Card: Denies: syncope Resp: Denies: dyspnea, productive cough or non-productive cough GI: Reports: constipation, bloating and GI cramping; Denies: nausea, vomiting, hematemesis, coffee ground emesis, heartburn, diarrhea, belching, excessive flatus, fecal incontinence, change in bowel habits, change in stool character, hematochezia or melena : Denies: dysuria or hematuria Skin/Breast: Denies: rash or pruritus PFSH ED PFSH: Medical History Cellulitis Chronic steroid use COPD (chronic obstructive pulmonary disease) High risk medication use Immunization counseling Latent tuberculosis 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 Bergman in 2003 History of D&C Status post colonoscopy Family History Family/Other Heart disease Denies family history of Diabetes CAD (coronary artery disease) Clotting disorder Dementia Hyperlipidemia Psychiatric illness Chronic kidney disease (CKD) Suicide Anesthesia complication Bleeding disorder Family history of premature coronary artery disease Lung disease Cancer Hypertension Stroke Social History Smoking and tobacco status: former smoker Quit status (tobacco): has quit using tobacco Year quit tobacco: 1997 Former quit date comment: Hx of 2 PPD x 30 Years, started at age 14 Second hand smoke exposure: No Smoking risk assessment/counseling performed?: No Alcohol intake: never Counseling given: No Counseling given: No Lives independently: Yes Household members: none Marital status: Current occupational status: disabled History of recent travel: No Current gender identity: Female Physical Exam Const: COMMON NORMALS: no acute distress GENERAL APPEARANCE: cooperative and comfortable ORIENTATION/CONSCIOUSNESS: Yes awake, Yes oriented to person, Yes oriented to place and Yes oriented to time HENMT: COMMON NORMALS: normocephalic, atraumatic and hearing grossly normal bilaterally HEAD & SCALP: normocephalic and atraumatic Neck/C-Spine: COMMON NORMALS: no JVD Lymph: LYMPHATIC: no lymphadenopathy noted and no lymphedema noted Resp: COMMON NORMALS: normal respiratory effort, No retractions, No use of accessory muscles and clear to auscultation bilaterally AUSCULTATION: clear to auscultation bilaterally Cardio: COMMON NORMALS: no JVD, regular rate, regular rhythm and No murmurs present (Cardio) RATE: regular rate RHYTHM: regular rhythm GI: COMMON NORMALS: Soft to palpation and No hepatosplenomegaly present AUSCULTATION: Yes normoactive bowel sounds PALPATION: Yes Soft to palpation, No Tenderness to palpation present (GI), No Guarding due to palpation present (GI) and Yes No hepatosplenomegaly present Extremity: COMMON NORMALS: normal to inspection, capillary refill normal, no clubbing, cyanosis or edema, no calf tenderness and no pedal edema Neuro: SENSORIUM/ORIENTATION: Yes oriented to person, Yes oriented to place and Yes oriented to time Skin: COMMON NORMALS: no rashes or lesions noted GENERAL SKIN EXAM: no rashes or lesions noted Course Vital Signs: Vital signs: Vital Signs Temperature 98.9 F 02/22/22 13:27 Pulse Rate 68 02/22/22 16:04 Respiratory Rate 16 02/22/22 16:04 Blood Pressure 140/71 02/22/22 16:04 Pulse Oximetry 93 02/22/22 16:04 MDM - Abdominal Pain Medical Decision Making CT done recently reviewed. There is no bowel obstruction she has a significant mild constipation she also has thoracic compression fractures and lumbar stenosis. Discussed with the patient is difficult to tell if the thoracic compression fractures are advancing on the CT she may need more advanced imaging also the stenosis is difficult to fully assess on the CT and advanced imaging may be required to further assess. I think those of the 2 most likely causes of her chronic back pain but her pain is not changed significantly she has no recent,. No emergent process present she has no signs of cauda equina syndrome. Repeat KUB of her abdomen shows constipation will recommend she use mag citrate until has relief of symptoms with that. 150 mL every 8 to 12 hours until resolved. Also noted that she had a pulmonary nodule in the most recent CT she is aware of this already and tells me it is being followed by Dr. Clinton I recommend that she continue follow-up with that. Recommend follow-up with your primary care doctor within the next 7 to 10 days sooner if her symptoms worsen. Medical Records I reviewed the patient's medical records. Lab Data : 02/22/22 14:00 02/22/22 14:00 Labs/Radiology: Radiology Impressions KUB X-Ray 02/22/22 14:08 IMPRESSION: No acute findings. Moderate colonic stool burden. Laboratory Results WBC 7.5 10^3/uL (4.0-10.0) 02/22/22 14:00 RBC 4.22 10^6/uL (4.1-5.3) 02/22/22 14:00 Hgb 12.9 g/dL (11.5-15.3) 02/22/22 14:00 Hct 40.8 % (37.0-47.0) 02/22/22 14:00 MCV 96.7 fl (81-99) 02/22/22 14:00 MCH 30.6 pg (28.0-34.0) 02/22/22 14:00 MCHC 31.6 g/dL (30.0-36.0) 02/22/22 14:00 RDW 13.4 % (12.1-15.1) 02/22/22 14:00 Plt Count 274 10^3/cmm (130-400) 02/22/22 14:00 MPV 10.3 fL (7.4-10.4) 02/22/22 14:00 Neut % (Auto) 71.5 % 02/22/22 14:00 Lymph % (Auto) 18.6 % 02/22/22 14:00 [place] % (Auto) 7.5 % 02/22/22 14:00 Eos % (Auto) 1.5 % 02/22/22 14:00 Baso % (Auto) 0.5 % 02/22/22 14:00 Neut # (Auto) 5.35 10^3/uL (1.8-7.7) 02/22/22 14:00 Lymph # (Auto) 1.4 10^3/uL (0.8-4.8) 02/22/22 14:00 [place] # (Auto) 0.6 10^3/uL (0.2-0.9) 02/22/22 14:00 Eos # (Auto) 0.1 10^3/uL (0.0-0.8) 02/22/22 14:00 Baso # (Auto) 0.0 10^3/uL (0.0-0.1) 02/22/22 14:00 Nucleated RBC % (auto) 0 % 02/22/22 14:00 Nucleated RBCs # 0.0 /100WBC 02/22/22 14:00 Sodium 139 mmol/L (136-145) 02/22/22 14:00 Potassium 4.3 mmol/L (3.5-5.1) 02/22/22 14:00 Chloride 103 mmol/L (98-107) 02/22/22 14:00 Carbon Dioxide 25 mmol/L (22-29) 02/22/22 14:00 Anion Gap 15.3 (5-19) 02/22/22 14:00 BUN 8 mg/dL (8-23) 02/22/22 14:00 Creatinine 0.5 mg/dL (0.5-0.9) 02/22/22 14:00 GFR Calculation 122.7 mL/min (90-130) 02/22/22 14:00 Glucose 128 mg/dL (65-115) H 02/22/22 14:00 Calculated Osmolality 288 mOsm/kg (285-295) 02/22/22 14:00 Lactic Acid 0.6 mmol/L (0.5-2.2) 02/22/22 14:00 Calcium 9.5 mg/dL (8.5-10.5) 02/22/22 14:00 Total Bilirubin 0.2 mg/dL (0.15-1.2) 02/22/22 14:00 AST 31 U/L (0-32) 02/22/22 14:00 ALT 18 U/L (0-33) 02/22/22 14:00 Alkaline Phosphatase 115 IU/L (35-105) H 02/22/22 14:00 Total Protein 7.2 g/dL (6.6-8.7) 02/22/22 14:00 Albumin 3.8 g/dL (3.5-5.2) 02/22/22 14:00 Globulin 3.4 g/dL (1.3-4.6) 02/22/22 14:00 Lipase 18 U/L (13-60) 02/22/22 14:00 Urine Color Yellow (Yellow) 02/22/22 14:29 Urine Appearance Clear (CLEAR) 02/22/22 14:29 Urine pH 5 (5-7) 02/22/22 14:29 Ur Specific [place] 1.010 (1.005-1.030) 02/22/22 14:29 Urine Protein Neg (Negative) 02/22/22 14:29 Urine Glucose (UA) Norm (Normal) 02/22/22 14:29 Urine Ketones Negative (Negative) 02/22/22 14:29 Urine Blood Neg (Negative) 02/22/22 14:29 Urine Nitrate Negative (Negative) 02/22/22 14:29 Urine Bilirubin Neg (Negative) 02/22/22 14:29 Urine Urobilinogen Norm mg/dL (Negative) 02/22/22 14:29 Ur Leukocyte Esterase Negative (Negative) 02/22/22 14:29 Discharge Plan Discharge Patient Disposition: Home Clinical Impression: Chronic back pain, Pulmonary nodule, Constipation, Compression fracture of thoracic vertebra Condition: Stable Prescriptions: New Citrate of Magnesia Solution 150 ml PO BID PRN (Reason: constipation) Qty: 296 0RF No Action omega-3 fatty acids 1,000 mg capsule 1,000 mg PO DAILY 0RF diclofenac sodium [Voltaren] 1 % gel 2 g topical QID PRN0RF Rx Instructions: apply to single elbow, wrist or hand; for hand includes palm/fingers/back of hand folic acid 1 mg tablet 1 mg PO DAILY 0RF sulfasalazine [Azulfidine] 500 mg tablet 1 gm PO TID 0RF aspirin 325 mg tablet 650 mg PO Q4H 0RF albuterol sulfate [ProAir HFA] 90 mcg/actuation HFA aerosol inhaler 2 puff INHALATION Q6H PRN (Reason: Shortness Of Breath) 0RF pantoprazole 40 mg tablet,delayed release (DR/EC) See Rx Instructions PO DAILY Qty: 90 3RF Rx Instructions: take in AM 30 minutes before meal PO daily; morphine 15 mg tablet 15 mg PO Q8H PRN0RF gabapentin 600 mg tablet 600 mg PO TID 0RF prenat.vits,moises,[id number] Tablet 1 tab PO DAILY 0RF prednisone 10 mg tablet 15 mg PO DAILY 0RF Anoro Ellipta 62.5-25 mcg/actuation blister with device 1 inh inhalation DAILY 30 Days Qty: 60 4RF hydroxychloroquine 200 mg tablet 200 mg PO BID Qty: 60 3RF rifampin 300 mg capsule 600 mg PO DAILY 120 Days Qty: 240 0RF Calcium + Vitamin D 600 mg calcium- 200 unit Tablet 1 tab PO DAILY 0RF Vitamin D3 25 mcg (1,000 unit) Capsule 25 mcg PO DAILY 0RF Discharge Orders: Discharge ED (Routine); Ordered 02/22/22 Ordered By: Michael Salcedo Referrals: Maciej West DO [Primary Care Provider] - Activity Restrictions/Additional Instructions: Follow-up with Dr. Hanks within the next week. Coding Level of Care Code ED Hand Braille Transcriber for Cristal Mathur
--- NOTE | 2022-02-22 14:08 | XRR_ITS ---
PROCEDURE INFORMATION: Exam: XR Abdomen Exam date and time: 02/22/2022 2:21 PM Age: 67 years old Clinical indication: Abdominal pain; Generalized; Additional info: Constipation TECHNIQUE: Imaging protocol: XR of the abdomen. Views: Frontal supine view of the abdomen. 1 View. COMPARISON: CT chest abd pel w con* 01/21/2022 3:12 PM FINDINGS: Gastrointestinal tract: Moderate colonic stool burden. No bowel dilation. Bones/joints: Unremarkable. XR/XR KUB portable [id number] IMPRESSION: No acute findings. Moderate colonic stool burden.
[2022-02-22 14:44] LABS: Add Urine Microscopic? NO; Charge for UA Resulting for Rev
[2022-02-22 14:51] LABS: Basophils % 0.5 %; Eosinophils # 0.1 10^3/uL (0.0-0.8); Eosinophils % 1.5 %; Hematocrit 40.8 % (37.0-47.0); Hemoglobin 12.9 g/dL (11.5-15.3); Lymphocytes # 1.4 10^3/uL (0.8-4.8); Lymphocytes % 18.6 %; Mean Corpuscular HGB Conc 31.6 g/dL (30.0-36.0); Mean Corpuscular Hemoglobin 30.6 pg (28.0-34.0); Mean Corpuscular Volume 96.7 fl (81-99); Mean Platelet Volume 10.3 fL (7.4-10.4); Monocytes # 0.6 10^3/uL (0.2-0.9); Monocytes % 7.5 %; Neutrophils # 5.35 10^3/uL (1.8-7.7); Neutrophils % 71.5 %; Nucleated Red Blood Cells % 0 %; Platelet Count 274 10^3/cmm (130-400); Red Blood Count 4.22 10^6/uL (4.1-5.3); Red Cell Distribution Width 13.4 % (12.1-15.1); White Blood Count 7.5 10^3/uL (4.0-10.0)
[2022-02-22 14:55] LABS: Bilirubin Urine Neg (Negative); Blood Urine Neg (Negative); Glucose Urine UA Norm (Normal); Ketones Urine Negative (Negative); Leukocyte Esterase Urine Negative (Negative); Nitrate Urine Negative (Negative); Protein Urine Neg (Negative); Urine Appearance Clear (CLEAR); Urine Color Yellow (Yellow); Urobilinogen Urine Norm (Negative); pH Urine 5 (5-7)
[2022-02-22 15:12] LABS: Alanine Aminotransferase 18 U/L (0-33); Albumin Level 3.8 g/dL (3.5-5.2); Alkaline Phosphatase 115 IU/L (35-105); Aspartate Amino Transferase 31 U/L (0-32); Blood Urea Nitrogen 8 mg/dL (8-23); Calcium 9.5 mg/dL (8.5-10.5); Carbon Dioxide 25 mmol/L (22-29); Chloride 103 mmol/L (98-107); Globulin 3.4 g/dL (1.3-4.6); Glomerular Filtration Rate 122.7 mL/min (90-130); Glucose 128 mg/dL (65-115); Lipase 18 U/L (13-60); Osmolality Calculated 288 mOsm/kg (285-295); Sodium 139 mmol/L (136-145); Total Bilirubin 0.2 mg/dL (0.15-1.2); Total Protein 7.2 g/dL (6.6-8.7)
[2022-02-22 15:13] LABS: Lactic Sepsis W/Reflex 0.6 mmol/L (0.5-2.2)
[2022-02-22 15:18] LABS: Anion Gap 15.3 (5-19); Potassium 4.3 mmol/L (3.5-5.1)
[2022-02-22 16:04] VITALS: BP 140/71; PULSE 68; RESP 16; O2SAT 93
== END 2022-02-22 16:05 | disposition home or self-care (01) ==
PROVIDERS: Physician Assistant; Emergency Provider Family Medicine; PCP Family Medicine
DX: K59.00 Constipation, unspecified (principal); M48.54XA Collapsed vertebra, not elsewhere classified, thoracic region, initial encounter for fracture; M48.061 Spinal stenosis, lumbar region without neurogenic claudication; G89.29 Other chronic pain; R91.1 Solitary pulmonary nodule
CPT/HCPCS: 74018; 80053; 81003; 83605; 83690; 85025; 99282

== ENCOUNTER 2022-03-05 12:19 | Emergency (ER) | payer MEDICARE, MEDICAID, SELFPAY ==
[2022-03-05 12:50] VITALS: BP 196/80; PULSE 69; RESP 15; TEMP 37; O2SAT 98; BMI 27.9
--- NOTE | 2022-03-05 13:08 | XR_ITS ---
WS: [id number] KUB, AP view, 03/05/2022 Clinical Data: Constipation Comparison: KUB, 02/22/2022. Findings: No abnormal intraabdominal masses or calcifications are seen. There is no dilatated small bowel or ev idence of obstruction. There is a large amount of fecal material throughout the colon. 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 There is a slight dextroscoliosis. XR/XR KUB [id number] Impression: Large amount of fecal material throughout the colon.
[2022-03-05 13:31] LABS: Add Urine Microscopic? NO; Charge for UA Resulting for Rev
[2022-03-05 13:33] LABS: Bilirubin Urine Neg (Negative); Blood Urine Neg (Negative); Glucose Urine UA Norm (Normal); Ketones Urine Negative (Negative); Leukocyte Esterase Urine Negative (Negative); Nitrate Urine Negative (Negative); Protein Urine Neg (Negative); Specific Gravity, Urine 1.005 (1.005-1.030); Urine Appearance Clear (CLEAR); Urine Color Yellow (Yellow); Urobilinogen Urine Neg (Negative); pH Urine 7 (5-7)
--- NOTE | 2022-03-05 14:12 | W.ED.GENADLT ---
Documented by User: KATY Gan 03/06/22 13:33 HPI - General Adult General: Chief complaint: General Medical Stated complaint: Constipated Time Seen by Provider: 03/05/22 13:11 History of Present Illness: Patient is a 67-year-old female who comes to the ED with constipation. Patient says she has been dealing with constipation for the past year. She states that over the last month her constipation has gotten worse. She was seen here in the ED back on February [address] of the abdomen was done and it showed she had constipation. She was discharged home with some mag citrate. Patient says she took mag citrate as instructed and is still having constipation. She may have a bowel movement every several days. She describes the bowel movement as small, brown and thin/ribbon shaped. She also endorses episodes of abdominal cramping pain that come and go throughout the day. She is able to tolerate p.o. food and fluids. Denies any fever, chills, nausea/vomiting. Associated symptoms: Deny chest pain, dyspnea, headache(s), nausea, rash, palpitations or vomiting Review of Systems Const: Denies: fever(s), chills or fatigue Eyes: Denies: change in vision or eye discomfort ENMT: Denies: throat pain, odynophagia, nasal discharge or nasal congestion Card: Denies: chest pain, palpitations, edema, swelling of feet/ankles, dyspnea on exertion or orthopnea Resp: Denies: dyspnea, productive cough or non-productive cough GI: Reports: constipation; Denies: abdominal pain, nausea, vomiting, diarrhea or hematochezia : Denies: flank pain, dysuria or hematuria Musc: Denies: neck pain, back pain or extremity swelling Skin/Breast: Denies: rash or new lesions Neuro: Denies: headache(s), numbness in extremities or weakness in extremities PFS ED PFSH: Medical History Cellulitis Chronic steroid use COPD (chronic obstructive pulmonary disease) High risk medication use Immunization counseling Latent tuberculosis 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 Bergman in 2003 History of D&C Status post colonoscopy Family History Family/Other Heart disease Denies family history of Diabetes CAD (coronary artery disease) Clotting disorder Dementia Hyperlipidemia Psychiatric illness Chronic kidney disease (CKD) Suicide Anesthesia complication Bleeding disorder Family history of premature coronary artery disease Lung disease Cancer Hypertension Stroke Social History Smoking and tobacco status: former smoker Quit status (tobacco): has quit using tobacco Year quit tobacco: 1997 Former quit date comment: Hx of 2 PPD x 30 Years, started at age 14 Second hand smoke exposure: No Smoking risk assessment/counseling performed?: No Alcohol intake: never Counseling given: No Counseling given: No Lives independently: Yes Household members: none Marital status: Current occupational status: disabled History of recent travel: No Current gender identity: Female Physical Exam Const: COMMON NORMALS: patient oriented x3 and alert GENERAL APPEARANCE: cooperative HENMT: COMMON NORMALS: normocephalic HEAD & SCALP: normocephalic MOUTH: Normal oral and palatal mucosa present THROAT: posterior oropharynx normal and uvula midline Neck/C-Spine: COMMON NORMALS: supple GENERAL: Yes normal visual inspection Resp: COMMON NORMALS: normal respiratory effort, No retractions, No use of accessory muscles and clear to auscultation bilaterally AUSCULTATION: clear to auscultation bilaterally Cardio: COMMON NORMALS: regular rate, regular rhythm, S1 normal heart sound present, S2 normal heart sound present, No gallops present (Cardio), No clicks present (Cardio), No murmurs present (Cardio) and Peripheral pulses 2+ throughout RATE: regular rate RHYTHM: regular rhythm HEART SOUNDS: S1 normal heart sound present and S2 normal heart sound present PERIPHERAL PULSES: Peripheral pulses 2+ throughout GI: COMMON NORMALS: Normal to inspection, nondistended, normoactive bowel sounds present, Soft to palpation, non-tender and no masses PALPATION: Yes Soft to palpation : COMMON NORMALS: Yes no CVA tenderness BLADDER/KIDNEY EXAM: Yes no CVA tenderness Back/Pelvis: COMMON NORMALS: no CVA tenderness Extremity: COMMON NORMALS: normal to inspection Neuro: COMMON NORMALS: patient oriented x3 and moves all extremities SENSORIUM/ORIENTATION: Yes alert Skin: GENERAL SKIN EXAM: dry skin Course Vital Signs: Vital signs: Vital Signs Temperature 98.6 F 03/05/22 12:50 Pulse Rate 65 03/05/22 15:00 Respiratory Rate 16 03/05/22 15:00 Blood Pressure 149/70 03/05/22 15:00 Pulse Oximetry 94 03/05/22 15:00 MDM - General Adult Medical Decision Making Patient is a 67-year-old female comes to the ED with chronic constipation. She has been dealing with the symptoms for well over a year. She was seen here in the ED for same complaint back on February 22 and was discharged home with a prescription for mag citrate. She says she has been taking the mag citrate and she still feels constipated. Denies any abdominal pain, fevers, nausea or vomiting. Vitals are stable. Patient appears nontoxic in no acute distress or pain. Her exam is benign and no signs of an acute abdomen. KUB shows large amount of fecal material throughout colon but no signs of obstruction. Labs were all unremarkable. I have placed an order with case management for patient to be referred to general surgery or Dr. Cox for further evaluation of constipation and for patient to get set up with a colonoscopy. She has not had a colonoscopy in [facility] over 10 years and says she missed her last appointment to get a colonoscopy within the last year. Patient diagnosed with constipation and was discharged home with a prescription for MiraLAX, mag citrate and stool softeners. She was told supportive employment case manager will contact her in the next several days to set up an appointment with either general surgery or Dr. Cox for further evaluation. Return ED precautions given. Patient is done agree with plan. Lab Data I reviewed the patient's lab results. : 03/05/22 13:32 03/05/22 13:32 Radiology Impressions KUB X-Ray 03/05/22 13:08 Impression: Large amount of fecal material throughout the colon. Laboratory Results WBC 8.7 10^3/uL (4.0-10.0) 03/05/22 13:32 RBC 4.48 10^6/uL (4.1-5.3) 03/05/22 13:32 Hgb 13.7 g/dL (11.5-15.3) 03/05/22 13:32 Hct 43.5 % (37.0-47.0) 03/05/22 13:32 MCV 97.1 fl (81-99) 03/05/22 13:32 MCH 30.6 pg (28.0-34.0) 03/05/22 13:32 MCHC 31.5 g/dL (30.0-36.0) 03/05/22 13:32 RDW 13.4 % (12.1-15.1) 03/05/22 13:32 Plt Count 296 10^3/cmm (130-400) 03/05/22 13:32 MPV 10.2 fL (7.4-10.4) 03/05/22 13:32 Neut % (Auto) 74.3 % 03/05/22 13:32 Lymph % (Auto) 17.6 % 03/05/22 13:32 [place] % (Auto) 6.6 % 03/05/22 13:32 Eos % (Auto) 0.5 % 03/05/22 13:32 Baso % (Auto) 0.7 % 03/05/22 13:32 Neut # (Auto) 6.46 10^3/uL (1.8-7.7) 03/05/22 13:32 Lymph # (Auto) 1.5 10^3/uL (0.8-4.8) 03/05/22 13:32 [place] # (Auto) 0.6 10^3/uL (0.2-0.9) 03/05/22 13:32 Eos # (Auto) 0.0 10^3/uL (0.0-0.8) 03/05/22 13:32 Baso # (Auto) 0.1 10^3/uL (0.0-0.1) 03/05/22 13:32 Nucleated RBC % (auto) 0 % 03/05/22 13:32 Nucleated RBCs # 0.0 /100WBC 03/05/22 13:32 Sodium 142 mmol/L (136-145) 03/05/22 13:32 Potassium 4.4 mmol/L (3.5-5.1) 03/05/22 13:32 Chloride 102 mmol/L (98-107) 03/05/22 13:32 Carbon Dioxide 29 mmol/L (22-29) 03/05/22 13:32 Anion Gap 15.4 (5-19) 03/05/22 13:32 BUN 8 mg/dL (8-23) 03/05/22 13:32 Creatinine 0.6 mg/dL (0.5-0.9) 03/05/22 13:32 GFR Calculation 99.4 mL/min (90-130) 03/05/22 13:32 Glucose 108 mg/dL (65-115) 03/05/22 13:32 Calculated Osmolality 293 mOsm/kg (285-295) 03/05/22 13:32 Calcium 9.8 mg/dL (8.5-10.5) 03/05/22 13:32 Total Bilirubin 0.2 mg/dL (0.15-1.2) 03/05/22 13:32 AST 35 U/L (0-32) H 03/05/22 13:32 ALT 22 U/L (0-33) 03/05/22 13:32 Alkaline Phosphatase 119 IU/L (35-105) H 03/05/22 13:32 Total Protein 7.2 g/dL (6.6-8.7) 03/05/22 13:32 Albumin 4.4 g/dL (3.5-5.2) 03/05/22 13:32 Globulin 2.8 g/dL (1.3-4.6) 03/05/22 13:32 Lipase 22 U/L (13-60) 03/05/22 13:32 Urine Color Yellow (Yellow) 03/05/22 13:23 Urine Appearance Clear (CLEAR) 03/05/22 13:23 Urine pH 7 (5-7) 03/05/22 13:23 Ur Specific [place] 1.005 (1.005-1.030) 03/05/22 13:23 Urine Protein Neg (Negative) 03/05/22 13:23 Urine Glucose (UA) Norm (Normal) 03/05/22 13:23 Urine Ketones Negative (Negative) 03/05/22 13:23 Urine Blood Neg (Negative) 03/05/22 13:23 Urine Nitrate Negative (Negative) 03/05/22 13:23 Urine Bilirubin Neg (Negative) 03/05/22 13:23 Urine Urobilinogen Neg mg/dL (Negative) 03/05/22 13:23 Ur Leukocyte Esterase Negative (Negative) 03/05/22 13:23 Discharge Plan Discharge Patient Disposition: Home Clinical Impression: Constipation Qualifiers: Constipation type: slow transit constipation Qualified Code(s): K59.01 - Slow transit constipation Condition: Stable Prescriptions: New Dulcolax Stool Softener (dss) 100 mg capsule 100 mg PO BID PRN (Reason: constipation) Qty: 20 0RF Citrate of Magnesia Solution 150 ml PO DAILY PRN (Reason: constipation) Qty: 296 0RF No Action omega-3 fatty acids 1,000 mg capsule 1,000 mg PO DAILY 0RF diclofenac sodium [Voltaren] 1 % gel 2 g topical QID PRN0RF Rx Instructions: apply to single elbow, wrist or hand; for hand includes palm/fingers/back of hand folic acid 1 mg tablet 1 mg PO DAILY 0RF sulfasalazine [Azulfidine] 500 mg tablet 1 gm PO TID 0RF aspirin 325 mg tablet 650 mg PO Q4H 0RF albuterol sulfate [ProAir HFA] 90 mcg/actuation HFA aerosol inhaler 2 puff INHALATION Q6H PRN (Reason: Shortness Of Breath) 0RF pantoprazole 40 mg tablet,delayed release (DR/EC) See Rx Instructions PO DAILY Qty: 90 3RF Rx Instructions: take in AM 30 minutes before meal PO daily; morphine 15 mg tablet 15 mg PO Q8H PRN0RF gabapentin 600 mg tablet 600 mg PO TID 0RF prenat.vits,moises,[id number] Tablet 1 tab PO DAILY 0RF prednisone 10 mg tablet 15 mg PO DAILY 0RF Anoro Ellipta 62.5-25 mcg/actuation blister with device 1 inh inhalation DAILY 30 Days Qty: 60 4RF hydroxychloroquine 200 mg tablet 200 mg PO BID Qty: 60 3RF rifampin 300 mg capsule 600 mg PO DAILY 120 Days Qty: 240 0RF Calcium + Vitamin D 600 mg calcium- 200 unit Tablet 1 tab PO DAILY 0RF Vitamin D3 25 mcg (1,000 unit) Capsule 25 mcg PO DAILY 0RF Citrate of Magnesia Solution 150 ml PO BID PRN (Reason: constipation) Qty: 296 0RF Discharge Orders: Discharge ED (Routine); Ordered 03/05/22 Ordered By: Marty Miller Referrals: Maciej West DO [Primary Care Provider] - Discharge Diet: Regular Discharge Activity: Increase activity as tolerated Patient Instructions: Constipation (ED) Activity Restrictions/Additional Instructions: Follow-up with medical provider as directed. Case management should be contacted in the next several days to set up an appointment with general surgery or Dr. Cox for further evaluation and colonoscopy. Take medications as prescribed. Make sure you drink plenty of fluids and stay hydrated. Return to the ER or your medical provider if condition worsens. Please read and understand discharge instructions. Thank you for choosing [facility] for your healthcare needs today. Please realize this is an emergency room and that we are providing you with a medical screening exam and this may not be complete and all inclusive of all the testing and or work up that you may need to determine your ailment or severity of your illness. It is very important that you follow up as instructed or that you return to the Emergency Department should you have concerns or if your condition changes or worsens in any way. Coding Level of Care Code ED Senior Trainer for Chg Fwd Exam Comprehensive Documented by User: Michael Salcedo DO 03/09/22 06:15 HPI - General Adult General: Chief complaint: General Medical Stated complaint: Constipated Time Seen by Provider: 03/05/22 13:11 [facility] ED PFSH: Medical History Cellulitis Chronic steroid use COPD (chronic obstructive pulmonary disease) High risk medication use Immunization counseling Latent tuberculosis 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 Bergman in 2003 History of D&C Status post colonoscopy Family History Family/Other Heart disease Denies family history of Diabetes CAD (coronary artery disease) Clotting disorder Dementia Hyperlipidemia Psychiatric illness Chronic kidney disease (CKD) Suicide Anesthesia complication Bleeding disorder Family history of premature coronary artery disease Lung disease Cancer Hypertension Stroke Social History Smoking and tobacco status: former smoker Quit status (tobacco): has quit using tobacco Year quit tobacco: 1997 Former quit date comment: Hx of 2 PPD x 30 Years, started at age 14 Second hand smoke exposure: No Smoking risk assessment/counseling performed?: No Alcohol intake: never Counseling given: No Counseling given: No Lives independently: Yes Household members: none Marital status: Current occupational status: disabled History of recent travel: No Current gender identity: Female Course Vital Signs: Vital signs: Vital Signs Temperature 98.6 F 03/05/22 12:50 Pulse Rate 65 03/05/22 15:00 Respiratory Rate 16 03/05/22 15:00 Blood Pressure 149/70 03/05/22 15:00 Pulse Oximetry 94 03/05/22 15:00 [facility] - General Adult Medical Decision Making Patient is a 67-year-old female comes to the ED with chronic constipation. She has been dealing with the symptoms for well over a year. She was seen here in the ED for same complaint back on February 22 and was discharged home with a prescription for mag citrate. She says she has been taking the mag citrate and she still feels constipated. Denies any abdominal pain, fevers, nausea or vomiting. Vitals are stable. Patient appears nontoxic in no acute distress or pain. Her exam is benign and no signs of an acute abdomen. KUB shows large amount of fecal material throughout colon but no signs of obstruction. Labs were all unremarkable. I have placed an order with case management for patient to be referred to general surgery or Dr. Cox for further evaluation of constipation and for patient to get set up with a colonoscopy. She has not had a colonoscopy in well over 10 years and says she missed her last appointment to get a colonoscopy within the last year. Patient diagnosed with constipation and was discharged home with a prescription for MiraLAX, mag citrate and stool softeners. She was told supportive employment case manager will contact her in the next several days to set up an appointment with either general surgery or Dr. Cox for further evaluation. Return ED precautions given. Patient is done agree with plan. Chart reviewed and patient discussed with midlevel. Agree with assessment and plan. Lab Data : 03/05/22 13:32 03/05/22 13:32 Radiology Impressions KUB X-Ray 03/05/22 13:08 Impression: Large amount of fecal material throughout the colon. Laboratory Results WBC 8.7 10^3/uL (4.0-10.0) 03/05/22 13:32 RBC 4.48 10^6/uL (4.1-5.3) 03/05/22 13:32 Hgb 13.7 g/dL (11.5-15.3) 03/05/22 13:32 Hct 43.5 % (37.0-47.0) 03/05/22 13:32 MCV 97.1 fl (81-99) 03/05/22 13:32 MCH 30.6 pg (28.0-34.0) 03/05/22 13:32 MCHC 31.5 g/dL (30.0-36.0) 03/05/22 13:32 RDW 13.4 % (12.1-15.1) 03/05/22 13:32 Plt Count 296 10^3/cmm (130-400) 03/05/22 13:32 MPV 10.2 fL (7.4-10.4) 03/05/22 13:32 Neut % (Auto) 74.3 % 03/05/22 13:32 Lymph % (Auto) 17.6 % 03/05/22 13:32 [place] % (Auto) 6.6 % 03/05/22 13:32 Eos % (Auto) 0.5 % 03/05/22 13:32 Baso % (Auto) 0.7 % 03/05/22 13:32 Neut # (Auto) 6.46 10^3/uL (1.8-7.7) 03/05/22 13:32 Lymph # (Auto) 1.5 10^3/uL (0.8-4.8) 03/05/22 13:32 [place] # (Auto) 0.6 10^3/uL (0.2-0.9) 03/05/22 13:32 Eos # (Auto) 0.0 10^3/uL (0.0-0.8) 03/05/22 13:32 Baso # (Auto) 0.1 10^3/uL (0.0-0.1) 03/05/22 13:32 Nucleated RBC % (auto) 0 % 03/05/22 13:32 Nucleated RBCs # 0.0 /100WBC 03/05/22 13:32 Sodium 142 mmol/L (136-145) 03/05/22 13:32 Potassium 4.4 mmol/L (3.5-5.1) 03/05/22 13:32 Chloride 102 mmol/L (98-107) 03/05/22 13:32 Carbon Dioxide 29 mmol/L (22-29) 03/05/22 13:32 Anion Gap 15.4 (5-19) 03/05/22 13:32 BUN 8 mg/dL (8-23) 03/05/22 13:32 Creatinine 0.6 mg/dL (0.5-0.9) 03/05/22 13:32 GFR Calculation 99.4 mL/min (90-130) 03/05/22 13:32 Glucose 108 mg/dL (65-115) 03/05/22 13:32 Calculated Osmolality 293 mOsm/kg (285-295) 03/05/22 13:32 Calcium 9.8 mg/dL (8.5-10.5) 03/05/22 13:32 Total Bilirubin 0.2 mg/dL (0.15-1.2) 03/05/22 13:32 AST 35 U/L (0-32) H 03/05/22 13:32 ALT 22 U/L (0-33) 03/05/22 13:32 Alkaline Phosphatase 119 IU/L (35-105) H 03/05/22 13:32 Total Protein 7.2 g/dL (6.6-8.7) 03/05/22 13:32 Albumin 4.4 g/dL (3.5-5.2) 03/05/22 13:32 Globulin 2.8 g/dL (1.3-4.6) 03/05/22 13:32 Lipase 22 U/L (13-60) 03/05/22 13:32 Urine Color Yellow (Yellow) 03/05/22 13:23 Urine Appearance Clear (CLEAR) 03/05/22 13:23 Urine pH 7 (5-7) 03/05/22 13:23 Ur Specific [place] 1.005 (1.005-1.030) 03/05/22 13:23 Urine Protein Neg (Negative) 03/05/22 13:23 Urine Glucose (UA) Norm (Normal) 03/05/22 13:23 Urine Ketones Negative (Negative) 03/05/22 13:23 Urine Blood Neg (Negative) 03/05/22 13:23 Urine Nitrate Negative (Negative) 03/05/22 13:23 Urine Bilirubin Neg (Negative) 03/05/22 13:23 Urine Urobilinogen Neg mg/dL (Negative) 03/05/22 13:23 Ur Leukocyte Esterase Negative (Negative) 03/05/22 13:23 Discharge Plan Discharge Patient Disposition: Home Clinical Impression: Constipation Qualifiers: Constipation type: slow transit constipation Qualified Code(s): K59.01 - Slow transit constipation Condition: Stable Prescriptions: New Dulcolax Stool Softener (dss) 100 mg capsule 100 mg PO BID PRN (Reason: constipation) Qty: 20 0RF Citrate of Magnesia Solution 150 ml PO DAILY PRN (Reason: constipation) Qty: 296 0RF No Action omega-3 fatty acids 1,000 mg capsule 1,000 mg PO DAILY 0RF diclofenac sodium [Voltaren] 1 % gel 2 g topical QID PRN0RF Rx Instructions: apply to single elbow, wrist or hand; for hand includes palm/fingers/back of hand folic acid 1 mg tablet 1 mg PO DAILY 0RF sulfasalazine [Azulfidine] 500 mg tablet 1 gm PO TID 0RF aspirin 325 mg tablet 650 mg PO Q4H 0RF albuterol sulfate [ProAir HFA] 90 mcg/actuation HFA aerosol inhaler 2 puff INHALATION Q6H PRN (Reason: Shortness Of Breath) 0RF pantoprazole 40 mg tablet,delayed release (DR/EC) See Rx Instructions PO DAILY Qty: 90 3RF Rx Instructions: take in AM 30 minutes before meal PO daily; morphine 15 mg tablet 15 mg PO Q8H PRN0RF gabapentin 600 mg tablet 600 mg PO TID 0RF prenat.vits,moises,[id number] Tablet 1 tab PO DAILY 0RF prednisone 10 mg tablet 15 mg PO DAILY 0RF Anoro Ellipta 62.5-25 mcg/actuation blister with device 1 inh inhalation DAILY 30 Days Qty: 60 4RF hydroxychloroquine 200 mg tablet 200 mg PO BID Qty: 60 3RF rifampin 300 mg capsule 600 mg PO DAILY 120 Days Qty: 240 0RF Calcium + Vitamin D 600 mg calcium- 200 unit Tablet 1 tab PO DAILY 0RF Vitamin D3 25 mcg (1,000 unit) Capsule 25 mcg PO DAILY 0RF Citrate of Magnesia Solution 150 ml PO BID PRN (Reason: constipation) Qty: 296 0RF Discharge Orders: Discharge ED (Routine); Ordered 03/05/22 Ordered By: Marty Miller Referrals: Maciej West, [Primary Care Provider] - Discharge Diet: Regular Discharge Activity: Increase activity as tolerated Patient Instructions: Constipation (ED) Activity Restrictions/Additional Instructions: Follow-up with medical provider as directed. Case management should be contacted in the next several days to set up an appointment with general surgery or Dr. Cox for further evaluation and colonoscopy. Take medications as prescribed. Make sure you drink plenty of fluids and stay hydrated. Return to the ER or your medical provider if condition worsens. Please read and understand discharge instructions. Thank you for choosing [facility] for your healthcare needs today. Please realize this is an emergency room and that we are providing you with a medical screening exam and this may not be complete and all inclusive of all the testing and or work up that you may need to determine your ailment or severity of your illness. It is very important that you follow up as instructed or that you return to the Emergency Department should you have concerns or if your condition changes or worsens in any way. Coding Level of Care Code ED Senior Trainer for Cristal Mathur Exam Comprehensive
[2022-03-05 14:13] LABS: Basophils # 0.1 10^3/uL (0.0-0.1); Basophils % 0.7 %; Eosinophils % 0.5 %; Hematocrit 43.5 % (37.0-47.0); Hemoglobin 13.7 g/dL (11.5-15.3); Lymphocytes # 1.5 10^3/uL (0.8-4.8); Lymphocytes % 17.6 %; Mean Corpuscular HGB Conc 31.5 g/dL (30.0-36.0); Mean Corpuscular Hemoglobin 30.6 pg (28.0-34.0); Mean Corpuscular Volume 97.1 fl (81-99); Mean Platelet Volume 10.2 fL (7.4-10.4); Monocytes # 0.6 10^3/uL (0.2-0.9); Monocytes % 6.6 %; Neutrophils # 6.46 10^3/uL (1.8-7.7); Neutrophils % 74.3 %; Nucleated Red Blood Cells % 0 %; Platelet Count 296 10^3/cmm (130-400); Red Blood Count 4.48 10^6/uL (4.1-5.3); Red Cell Distribution Width 13.4 % (12.1-15.1); White Blood Count 8.7 10^3/uL (4.0-10.0)
[2022-03-05 14:33] LABS: Alanine Aminotransferase 22 U/L (0-33); Albumin Level 4.4 g/dL (3.5-5.2); Alkaline Phosphatase 119 IU/L (35-105); Anion Gap 15.4 (5-19); Aspartate Amino Transferase 35 U/L (0-32); Blood Urea Nitrogen 8 mg/dL (8-23); Calcium 9.8 mg/dL (8.5-10.5); Carbon Dioxide 29 mmol/L (22-29); Chloride 102 mmol/L (98-107); Globulin 2.8 g/dL (1.3-4.6); Glomerular Filtration Rate 99.4 mL/min (90-130); Glucose 108 mg/dL (65-115); Lipase 22 U/L (13-60); Osmolality Calculated 293 mOsm/kg (285-295); Potassium 4.4 mmol/L (3.5-5.1); Sodium 142 mmol/L (136-145); Total Bilirubin 0.2 mg/dL (0.15-1.2); Total Protein 7.2 g/dL (6.6-8.7)
[2022-03-05 15:00] VITALS: BP 149/70; PULSE 65; RESP 16; O2SAT 94
--- NOTE | 2022-03-06 14:46 | DCPLANNER ---
Addendum entered by Jenna Daly 03/13/22 08:22: Clinic has not been able to reach patient to schedule a follow up appointment. Clinic mailed patient a letter asking patient to contact clinic to schedule an appointment. Addendum entered by Jenna Daly 03/12/22 08:15: rental manager sent patients information to the front office staff at general surgery, to check up on referral that was sent. Original Note: rental manager had message to schedule a follow up appointment for patient with general surgery. rental manager sent patients information to the front staff at general surgery. Patients information will be printed and reviewed. Clinic will call patient with appointment information.
== END 2022-03-05 15:01 | disposition home or self-care (01) ==
PROVIDERS: Emergency Medicine; Emergency Provider Physician Assistant; PCP Family Medicine
DX: K59.01 Slow transit constipation (principal); Z87.891 Personal history of nicotine dependence
CPT/HCPCS: 74018; 80053; 81003; 83690; 85025; 99282

== ENCOUNTER → 2022-04-01 11:00 | Outpatient (BNVA) | payer MEDICARE, MEDICAID, SELFPAY | PROVIDERS: PCP Family Medicine; Visit Provider Surgery | DX: R19.4 Change in bowel habit (principal); R22.2 Localized swelling, mass and lump, trunk | CPT/HCPCS: 99203 ==

== ENCOUNTER 2022-04-21 14:49 | Outpatient (CLI) | payer MEDICARE, MEDICAID, SELFPAY ==
--- NOTE | 2022-04-21 14:57 | XR_ITS ---
WS: [id number] Right hip, AP and frog-leg views, 04/21/2022 Clinical Data: R HIP PAIN/ACCIDENTAL FALL/BACK PAIN W/RADICULOPATHY Comparison: None. Findings: No fractures or dislocations are seen. The right hip joint is intact. The right hip shows no erosion, sclerosis, narrowing or fragmentation of the right femoral head. The soft tissues are not remarkable . The adjacent pelvis is normal. There is a large amount of fecal material throughout the colon. XR/XR hip RT 2-3V wo/w pel* [id number] Impression: 1. Negative for right hip fracture. 2. Mild osteoarthritis of the right hip. Tonnis classification: grade 1: sclerosis of femoral head and acetabulum or sli ght joint space narrowing or slight lipping at joint margins
--- NOTE | 2022-04-21 14:59 | XR_ITS ---
WS: [id number] Lumbar spine, 3 views, 04/21/2022 Clinical Data: R HIP PAIN/ACCIDENTAL FALL/LUMBAR BACK PAIN W/RADICULOPATHY Comparison: Lumbar spine, 10/21/2021. Findings: There is a compression fracture of the L1 vertebral body which has occurred since the last x-ray. The re is loss of the disc space between L1 and L2 unchanged. There is loss of disc space between T12 and L1 with significant disc degeneration and irregularity. There is osteoarthritis and degenerative dis c disease at all lumbar vertebral bodies and levels. There is a slight dextroscoliosis. The subluxation of L5 on S1 in the minimal retrolisthesis of L2 on L3 again can be seen. There is facet joint arthritis at all lumbar levels. The SI joints and transve rse processes are intact. There is calcification in the wall of the aorta without aneurysm. There is a large amount of fecal material throughout the colon. XR/XR lumbar spine 2-3V* [id number] Impression: 1. Probable recent compression fracture of L1 vertebral body. 2. Osteoarthritis at multiple levels with degenerative disc disease unchanged. 3. Dextroscoliosis, retrolisthesis of L2 on L3 and subluxation of L5 on S1 unch anged.
== END 2022-04-21 14:50 | disposition home or self-care (01) ==
PROVIDERS: PCP Family Medicine; Visit Provider Family Medicine
DX: M25.551 Pain in right hip (principal); M54.16 Radiculopathy, lumbar region; W19.XXXA Unspecified fall, initial encounter; M47.816 Spondylosis without myelopathy or radiculopathy, lumbar region; M51.36 Other intervertebral disc degeneration, lumbar region; M16.11 Unilateral primary osteoarthritis, right hip
CPT/HCPCS: 72100; 73502

== ENCOUNTER → 2022-04-22 09:34 | Outpatient (BNVA) | payer MEDICARE, MEDICAID, SELFPAY | PROVIDERS: PCP Family Medicine; Visit Provider Internal Medicine Rheumatology | DX: M06.041 Rheumatoid arthritis without rheumatoid factor, right hand (principal); M06.042 Rheumatoid arthritis without rheumatoid factor, left hand; Z79.899 Other long term (current) drug therapy; Z79.52 Long term (current) use of systemic steroids; Z71.85 Encounter for immunization safety counseling; L97.929 Non-pressure chronic ulcer of unspecified part of left lower leg with unspecified severity; L97.819 Non-pressure chronic ulcer of other part of right lower leg with unspecified severity | CPT/HCPCS: 99214 ==

== ENCOUNTER → 2022-04-28 07:56 | Outpatient (BNVA) | payer MEDICARE, MEDICAID, SELFPAY | PROVIDERS: PCP Family Medicine; Visit Provider Podiatrist Foot & Ankle Surgery | DX: L60.3 Nail dystrophy (principal); I73.9 Peripheral vascular disease, unspecified | CPT/HCPCS: 11721 ==

== ENCOUNTER → 2022-05-05 08:19 | Outpatient (BNVA) | payer MEDICARE, MEDICAID, SELFPAY | PROVIDERS: PCP Family Medicine; Visit Provider Orthopaedic Surgery | DX: S32.010A Wedge compression fracture of first lumbar vertebra, initial encounter for closed fracture (principal); W08.XXXA Fall from other furniture, initial encounter; M48.062 Spinal stenosis, lumbar region with neurogenic claudication | CPT/HCPCS: 72100; 99214 ==

== ENCOUNTER → 2022-05-08 10:48 | Outpatient (BNVA) | payer MEDICARE, MEDICAID, SELFPAY | PROVIDERS: PCP Family Medicine; Visit Provider Internal Medicine Critical Care Medicine | DX: R91.1 Solitary pulmonary nodule (principal); J43.9 Emphysema, unspecified; M06.9 Rheumatoid arthritis, unspecified; Z87.891 Personal history of nicotine dependence | CPT/HCPCS: 99214 ==

== ENCOUNTER 2022-06-10 14:37 | Outpatient (CLI) | payer MEDICARE, MEDICAID, SELFPAY ==
--- NOTE | 2022-06-10 14:45 | MR_ITS ---
WS: [id number] MRI LUMBAR SPINE NONCONTRAST HISTORY: pain COMPARISON: 09/15/2021 TECHNIQUE: Sagittal and axial multisequence imaging is submitted. Severe increase in thoracic kyphosis. Multiple chronic anterior wedge-shaped compression fractures in cluding T2, T3, T4, T5,. No retropulsion of the vertebral bodies. Mild anterior wedging of T12. Progression involving the degenerative changes at the T12-L1 disc space and endplate changes. Fusion across the L1-2 disc space with complete loss of the disc. Retrolisthes is of L2 by 4 mm. There is marked disc space narrowing and degeneration throughout the entire lumbar spine. Multilevel Schmorl's nodes. RIGHT scoliosis. Conus terminates normally at L1-2 disc level. T12-L1: Severe osteophytic ridging and disc bulging. Bilateral subarticular recess disc protrusions w ith marked facet and ligamentum flavum hypertrophy. L1-L2: Marked osteophytic ridging and annular disc bulging. Predominantly osteophyte encroachment upo n the ventral thecal sac. Mild central with moderate bilateral foraminal stenosis. L2-L3: Severe disc bulging and osteophytic ridging and facet arthritis. Asymmetric disc bulging conta cts the ventral thecal sac. Moderate to severe central stenosis. Moderate bilateral foraminal stenosi s. L3-L4: Marked annular disc bulging and osteophytic ridging. Facet joint arthritis and mild ligamentum flavum hypertrophy. Severe central canal stenosis with bilateral foraminal stenosis. Severe facet ar thritis. L4-L5: Mild diffuse annular disc bulging encroaching upon the ventral thecal sac. Severe central with moderate to severe bilateral foraminal stenosis, RIGHT greater than LEFT. Bilateral foraminal disc p rotrusions are again identified. L5-S1: Diffuse annular disc bulging. Severe central stenosis. Moderate RIGHT and mild LEFT foraminal stenosis. Grade 1 anterolisthesis of L5. Paravertebral soft tissues are negative. MR/MR lumbar spine wo con* [id number] IMPRESSION: 1. Moderate to severe multilevel degenerative changes throughout the lumbar sp ine with areas of stenosis centrally and in the foramina. Multiple disc protrus ions. 2. Progression of degenerative changes involving the disc and endplates at T12 -L1 since 09/15/2021. Additional bilateral subarticular recess disc protrusions at T12-L1. 3. Osseous fusion across the L1-L2 disc space. 4. Moderate to severe central stenosis from L2-3 to L5-S1. 5. Extensive, multilevel subarticular and foraminal stenoses. Most significant stenosis at L3-4 bilateral, on the RIGHT at L4-5 and L5-S1. 6. Grade 1 anterolisthesis of L5-S1. 7. Additional multiple thoracic spine compression fractures.
== END 2022-06-10 14:38 | disposition home or self-care (01) ==
LOC: RAD 14:40
PROVIDERS: PCP Family Medicine; Visit Provider Orthopaedic Surgery
DX: M48.062 Spinal stenosis, lumbar region with neurogenic claudication (principal); S32.010A Wedge compression fracture of first lumbar vertebra, initial encounter for closed fracture; M47.896 Other spondylosis, lumbar region
CPT/HCPCS: 72148

== ENCOUNTER → 2022-06-16 09:59 | Outpatient (BNVA) | payer MEDICARE, MEDICAID, SELFPAY | PROVIDERS: PCP Family Medicine; Visit Provider Orthopaedic Surgery | DX: M48.062 Spinal stenosis, lumbar region with neurogenic claudication (principal) | CPT/HCPCS: 99214 ==

== ENCOUNTER → 2022-06-19 09:32 | Outpatient (BNVA) | payer MEDICARE, MEDICAID, SELFPAY | PROVIDERS: PCP Family Medicine; Visit Provider Family Medicine | DX: Z22.7 Latent tuberculosis (principal); M06.041 Rheumatoid arthritis without rheumatoid factor, right hand; M06.042 Rheumatoid arthritis without rheumatoid factor, left hand | CPT/HCPCS: 80053; 81000; 85025 ==

== ENCOUNTER 2022-06-26 11:02 | Observation (INO) | payer MEDICARE, MEDICAID, SELFPAY ==
[2022-06-26] VITALS (10 sets, daily range): BP systolic 129–166; BP diastolic 65–82; PULSE 77–85; RESP 15–18; TEMP 36.9; O2SAT 92–96
--- NOTE | 2022-06-26 11:08 | ED_ITS ---
HPI - General Adult General: Chief complaint: General Medical Stated complaint: Yellow skin, Cant urinate, N/V/D Time Seen by Provider: 06/26/22 11:07 History of Present Illness: Ms. Hamlin is a 67-year-old lady with complex past medical history who presents to the emergency department due to concern over jaundice, vomiting, decreased urine output, and right upper quadrant discomfort. She underwent routine screening prior to initiation of treatment for rheumatoid arthritis and was found to have latent tuberculosis. She was initiated on rifampin (office visit 02/06 pulmonology) however did not tolerate it because of nausea and stopped taking it and thus was later initiated on isoniazid at a 05/08 pulmonology visit. She first noticed yellowing of her eyes approximately 1/2 weeks ago which family noticed as well though she is unsure of exactly when this started. She does have right flank and right upper quadrant pain though this has been going on for a number of months and she is unsure of what the cause of this is. This is aching and sharp in quality and occasionally severe though generally mild to moderate in intensity. She has noted 1 episode of nonbilious emesis this morning and over the past week has had decreased urine output with dark urine. She has also had worse leg cramping which was previously well controlled by her gabapentin. Patient has generalized chronic pain currently rated moderate to severe. Typically takes oral morphine. No other specific changes in health, exacerbating, or alleviating factors identified. No significant alcohol consumption. Patient denies frequent Tylenol use. Patient seen by PCP on 06/19/2022 and instructed to stop taking isoniazid at that time. Office lab work from 06/19/2022 reveals T bili 7.3, AST 2236, ALT 1853, alk phos 390. Plan for repeat blood work in the outpatient setting however when she presented today she was referred to the emergency department prior to blood work being obtained. Onset (ago): week(s) Location: eyes and abdomen Severity: moderate Quality: aching and sharp Pain Consistency: constant and intermittent Associated symptoms: Reports malaise, nausea, vomiting, weakness and other Review of Systems General: Reports: 10 or more systems reviewed and unremarkable except in HPI and below Const: Reports: malaise GI: Reports: nausea and vomiting [facility] ED PFSH: Medical History Cellulitis Chronic steroid use COPD (chronic obstructive pulmonary disease) High risk medication use Immunization counseling Latent tuberculosis 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 Bergman in 2003 History of D&C Status post colonoscopy Family History Family/Other Heart disease Denies family history of Diabetes CAD (coronary artery disease) Clotting disorder Dementia Hyperlipidemia Psychiatric illness Chronic kidney disease (CKD) Suicide Anesthesia complication Bleeding disorder Family history of premature coronary artery disease Lung disease Cancer Hypertension Stroke Social History Smoking and tobacco status: former smoker Quit status (tobacco): has quit using tobacco Year quit tobacco: 1997 Former quit date comment: Hx of 2 PPD x 30 Years, started at age 14 Second hand smoke exposure: No Smoking risk assessment/counseling performed?: No Alcohol intake: never Counseling given: No Counseling given: No Lives independently: Yes Household members: none Marital status: Current occupational status: disabled History of recent travel: No Current gender identity: Female Physical Exam Const: COMMON NORMALS: alert GENERAL APPEARANCE: cooperative and well developed HENMT: COMMON NORMALS: normocephalic and atraumatic HEAD & SCALP: normocephalic and atraumatic THROAT: posterior oropharynx normal Eye: SCLERA: scleral abnormal Laterality of scleral abnormality: positive bilateral scleral icterus Neck/C-Spine: COMMON NORMALS: supple GENERAL: Yes trachea midline Resp: COMMON NORMALS: normal respiratory effort and clear to auscultation bilaterally EFFORT & INSPECTION: Yes able to speak in complete sentences AUSCULTATION: clear to auscultation bilaterally Cardio: COMMON NORMALS: regular rate and regular rhythm RATE: regular rate RHYTHM: regular rhythm GI: COMMON NORMALS: Soft to palpation PALPATION: Yes Soft to palpation, Yes Tenderness to palpation present (GI) Details: RUQ, No Guarding due to palpation present (GI), No Rigid due to palpation and Yes Hepatomegaly present PERCUSSION: normal to percussion Extremity: GENERAL: Yes normal exam except as noted and No edema Neuro: COMMON NORMALS: moves all extremities SENSORIUM/ORIENTATION: Yes alert and No Orientation impaired Psych: COMMON NORMALS: mental status grossly normal and Normal thought process present THOUGHT PROCESS: Normal thought process present Skin: GENERAL SKIN EXAM: jaundice (Mild) Course ED course: - Patient was seen and evaluated by me at bedside - Patient placed on cardiac monitors, IV access obtained - Initial evaluation notable for exam as above. - Labs personally interpreted by me - Fluids, analgesia, and antiemetic given - Labs notable for no leukocytosis, normal hemoglobin. INR mildly elevated. T bili increased from prior with improving transaminitis. No evidence of urinary tract infection. - Imaging notable for no significant ultrasound findings. CT without acute pathology to explain abdominal symptoms. - Upon serial reexamination after treatment the patient was mildly improved with repeated treatment - Based on patient history, evaluation, and testing as interpreted the most likely cause of the patient's condition is likely medication side effect/toxicity - The results of ED evaluation were discussed with the patient including plan for admission due to requirement for level of care not available if discharged to prevent significant worsening/deterioration. - Admitting service was contacted and Dr Parker with the hospitalist service agreed to admit the patient - Patient was admitted without further deterioration or significant events. Note: Click bubbles or prepopulated parrish in note writing are used for assistance with data collection and billing and are inherently more limited than narrative and other text portions of this note. Please use narrative for additional clinical history and defer to narrative/free test for any case of contradictory information. If information appears in only free text or click bubble it should be considered present or absent as reported. Please contact note documentation writer for clarifications of clinical information or contradictory information. MDM is a brief summary, contradictory or erroneous seeming information should be clarified and full note should be reviewed. Vital Signs: Vital signs: Vital Signs Temperature 97.6 F 06/28/22 11:41 Pulse Rate 59 L 06/28/22 11:41 Respiratory Rate 18 06/28/22 14:40 Blood Pressure 158/83 06/28/22 11:41 Pulse Oximetry 95 06/28/22 14:40 Oxygen Delivery Mo thod 06/28/22 10:09 MDM - General Adult Medical Decision Making 59-year-old lady with history of latent TB on treatment presenting with jaundice and continued symptoms. Patient recently taken off of isoniazid for concern over toxicity including abnormal liver function. Bili increased, transaminitis improving mildly, INR is mildly elevated. Admitted for further observation and management. Medical Records I reviewed the patient's medical records. Lab Data I reviewed the patient's lab results. : 06/28/22 04:22 06/28/22 04:22 Radiology Impressions Abdomen Ultrasound 06/26/22 12:50 IMPRESSION: 1. Very minimal gallbladder hydrops as also seen on 06/13/2021. No cholelith iasis. No wall thickening or bile duct dilatation. 2. Mild coarse echotexture throughout the liver may be from hepatic steatosis. No common bile duct dilatation. Abdomen/Pelvis CT 06/26/22 13:54 IMPRESSION: 1. Negative for hydronephrosis, renal calculus or acute inflammatory process in the abdomen or pelvis. 2. Emphysematous changes. 3. Coronary artery atherosclerotic calcifications. 4. Gallbladder is somewhat prominent, ultrasound could further evaluate this as clinically indicated. 5. Constipation. 6. Degenerative changes throughout the spine. 7. Left kidney hyperdense cyst is likely hemorrhagic. COMMENTS: Consistent with the [employer]'s Incidental Findings Committee white paper (J Am Maria E Radiol 2018): Any incidental renal lesion less than 1 cm or classified as too small to characterize, or any incidental cystic renal lesion characterized as simple-appearing, is likely benign. No follow-up imaging is recommended for these lesions per consensus recommendations based on imaging criteria. Laboratory Results WBC 7.0 10^3/uL (4.0-10.0) 06/26/22 11:50 RBC 4.32 10^6/uL (4.1-5.3) 06/26/22 11:50 Hgb 13.3 g/dL (11.5-15.3) 06/26/22 11:50 Hct 38.6 % (37.0-47.0) 06/26/22 11:50 MCV 89.4 fl (81-99) 06/26/22 11:50 MCH 30.8 pg (28.0-34.0) 06/26/22 11:50 MCHC 34.5 g/dL (30.0-36.0) 06/26/22 11:50 RDW 19.9 % (12.1-15.1) H 06/26/22 11:50 Plt Count 171 10^3/cmm (130-400) 06/26/22 11:50 MPV 11.2 fL (7.4-10.4) H 06/26/22 11:50 Neut % (Auto) 75.2 % 06/26/22 11:50 Lymph % (Auto) 16.3 % 06/26/22 11:50 [place] % (Auto) 7.3 % 06/26/22 11:50 Eos % (Auto) 0.0 % 06/26/22 11:50 Baso % (Auto) 0.9 % 06/26/22 11:50 Neut # (Auto) 5.25 10^3/uL (1.8-7.7) 06/26/22 11:50 Lymph # (Auto) 1.1 10^3/uL (0.8-4.8) 06/26/22 11:50 [place] # (Auto) 0.5 10^3/uL (0.2-0.9) 06/26/22 11:50 Eos # (Auto) 0.0 10^3/uL (0.0-0.8) 06/26/22 11:50 Baso # (Auto) 0.1 10^3/uL (0.0-0.1) 06/26/22 11:50 Nucleated RBC % (auto) 0 % 06/26/22 11:50 Nucleated RBCs # 0.0 /100WBC 06/26/22 11:50 PT 19.40 SECONDS (12.1-14.9) H 06/26/22 15:34 INR 1.60 (0.8-1.2) H 06/26/22 15:34 APTT 36.9 SECONDS (23.9-36.7) H 06/26/22 15:34 Sodium 139 mmol/L (136-145) 06/26/22 11:50 Potassium 4.0 mmol/L (3.5-5.1) 06/26/22 11:50 Chloride 101 mmol/L (98-107) 06/26/22 11:50 Carbon Dioxide 26 mmol/L (22-29) 06/26/22 11:50 Anion Gap 16.0 (5-19) 06/26/22 11:50 BUN 8 mg/dL (8-23) 06/26/22 11:50 Creatinine 0.3 mg/dL (0.5-0.9) L 06/26/22 11:50 GFR Calculation 221.2 mL/min (90-130) H 06/26/22 11:50 Glucose 104 mg/dL (65-115) 06/26/22 11:50 Calculated Osmolality 287 mOsm/kg (285-295) 06/26/22 11:50 Calcium 8.8 mg/dL (8.5-10.5) 06/26/22 11:50 Magnesium 1.7 mg/dL (1.7-2.3) 06/26/22 11:50 Iron 136 ug/dL (37-145) 06/26/22 11:50 TIBC 174 mcg/dl 06/26/22 11:50 % Saturation 78.1 % (20-50) H 06/26/22 11:50 Unsat Iron Binding 38 ug/dL (112-347) L 06/26/22 11:50 Transferrin 158 mg/dL (200-360) L 06/26/22 11:50 Total Bilirubin 8.9 mg/dL (0.15-1.2) H* 06/26/22 11:50 Direct Bilirubin 6.80 mg/dL (0.00-0.30) H 06/26/22 11:50 AST 1062 U/L (0-32) H 06/26/22 11:50 ALT 1636 U/L (0-33) H 06/26/22 11:50 Alkaline Phosphatase 377 IU/L (35-105) H 06/26/22 11:50 Creatine Kinase 201 U/L (26-192) H 06/26/22 11:50 NT-Pro-B Natriuret Pep 85 pg/mL (0-125) 06/26/22 11:50 Total Protein 6.5 g/dL (6.6-8.7) L 06/26/22 11:50 Albumin 3.7 g/dL (3.5-5.2) 06/26/22 11:50 Globulin 2.8 g/dL (1.3-4.6) 06/26/22 11:50 Arclh-6-Eiiyxakiqjn 181 mg/dL (83-199) 06/26/22 16:38 Lipase 46 U/L (13-60) 06/26/22 11:50 Urine Color Yellow (Yellow) 06/26/22 12:00 Urine Appearance Clear (CLEAR) 06/26/22 12:00 Urine pH 6 (5-7) 06/26/22 12:00 Ur Specific [place] 1.010 (1.005-1.030) 06/26/22 12:00 Urine Protein Neg (Negative) 06/26/22 12:00 Urine Glucose (UA) Norm (Normal) 06/26/22 12:00 Urine Ketones Negative (Negative) 06/26/22 12:00 Urine Blood Neg (Negative) 06/26/22 12:00 Urine Nitrate Negative (Negative) 06/26/22 12:00 Urine Bilirubin 1+ (Negative) H 06/26/22 12:00 Urine Urobilinogen 1 mg/dL (Negative) H 06/26/22 12:00 Ur Leukocyte Esterase Trace (Negative) H 06/26/22 12:00 Urine RBC 0-4 /hpf (0-2) H 06/26/22 12:00 Urine WBC 0-4 /hpf (0-5) H 06/26/22 12:00 Ur Squamous Epith Cells 5-10 /hpf (0-5) H 06/26/22 12:00 Calcium Oxalate Crystal 0-4 /hpf H 06/26/22 12:00 Amorphous Sediment Not Reportable 06/26/22 12:00 Urine Bacteria 1+ /hpf (NONE) H 06/26/22 12:00 Urine Mucus Trace /hpf 06/26/22 12:00 ZEUS Screen Negative (NEGATIVE) 06/26/22 16:38 SS-A/Ro Antibody <1.0 neg AI (<1.0 NEG) 06/26/22 16:38 Anti-ds DNA IgG Ab 1 IU/mL 06/26/22 16:38 Anti-Smooth Muscle Ab Negative (NEGATIVE) 06/26/22 16:38 Hepatitis A IgM Ab Non-reactive (Nonreactive) 06/26/22 11:50 Hep Bs Antigen Non-reactive (Nonreactive) 06/26/22 11:50 Hep B Core IgM Ab Non-reactive (Nonreactive) 06/26/22 11:50 Hepatitis C Antibody Non-reactive (Nonreactive) 06/26/22 11:50 Mitochondrial DNA Scrn Negative (NEGATIVE) 06/26/22 16:38 Critical Care Time Critical Care Time: Critical Care Time: Yes Total Critical Care Time: 40 Attestation: Due to a high probability of clinically significant, possibly life threatening deterioration, the patient required my highest level of attention and preparedness to intervene emergently and I personally spent this critical care time directly and personally managing the patient. This critical care time included obtaining a history; examining the patient; pulse oximetry; ordering and review of laboratory and imaging studies; arranging urgent treatment with development of a management plan; evaluation of patient's response to treatment; frequent reassessment; and, discussions with other providers as applicable. It was exclusive of separately billable procedures. Primary system involved is hepatic/tox Discharge Plan Discharge Patient Disposition: Placed in Observation Admit Provider: Davey Parker Clinical Impression: Transaminitis, High risk medication use, Latent tuberculosis by blood test, Elevated INR, Vomiting, Elevated bilirubin, Adverse effects of medication Coding Level of Care Code ED Construction Foreman for Chg Fwd Exam Comprehensive
[2022-06-26 12:01] LABS: Basophils # 0.1 10^3/uL (0.0-0.1); Basophils % 0.9 %; Hematocrit 38.6 % (37.0-47.0); Hemoglobin 13.3 g/dL (11.5-15.3); Lymphocytes # 1.1 10^3/uL (0.8-4.8); Lymphocytes % 16.3 %; Mean Corpuscular HGB Conc 34.5 g/dL (30.0-36.0); Mean Corpuscular Hemoglobin 30.8 pg (28.0-34.0); Mean Corpuscular Volume 89.4 fl (81-99); Mean Platelet Volume 11.2 fL (7.4-10.4); Monocytes # 0.5 10^3/uL (0.2-0.9); Monocytes % 7.3 %; Neutrophils # 5.25 10^3/uL (1.8-7.7); Neutrophils % 75.2 %; Nucleated Red Blood Cells % 0 %; Platelet Count 171 10^3/cmm (130-400); Red Blood Count 4.32 10^6/uL (4.1-5.3); Red Cell Distribution Width 19.9 % (12.1-15.1)
[2022-06-26] MEDS: morphine 4 mg/mL SDV 1 mL IVP (12:08)
[2022-06-26 12:36] LABS: Albumin Level 3.7 g/dL (3.5-5.2); Alkaline Phosphatase 377 IU/L (35-105); Blood Urea Nitrogen 8 mg/dL (8-23); Calcium 8.8 mg/dL (8.5-10.5); Carbon Dioxide 26 mmol/L (22-29); Chloride 101 mmol/L (98-107); Creatine Phosphokinase 201 U/L (26-192); Globulin 2.8 g/dL (1.3-4.6); Glomerular Filtration Rate 221.2 mL/min (90-130); Glucose 104 mg/dL (65-115); Magnesium 1.7 mg/dL (1.7-2.3); NT Pro B Type Natriuretic Pept 85 pg/mL (0-125); Osmolality Calculated 287 mOsm/kg (285-295); Sodium 139 mmol/L (136-145); Total Protein 6.5 g/dL (6.6-8.7)
[2022-06-26 12:41] LABS: Hepatitis A Antibody IgM Non-Reactive (Nonreactive); Hepatitis B Core IgM Non-Reactive (Nonreactive); Hepatitis B Surface Antigen Non-Reactive (Nonreactive); Hepatitis C Virus Antibody Non-Reactive (Nonreactive)
[2022-06-26 12:43] LABS: Total Bilirubin 8.9 mg/dL (0.15-1.2)
[2022-06-26 12:46] LABS: Add Urine Microscopic? YES; Bilirubin Urine 1+ (Negative); Blood Urine Neg (Negative); Glucose Urine UA Norm (Normal); Ketones Urine Negative (Negative); Leukocyte Esterase Urine Trace (Negative); Nitrate Urine Negative (Negative); Protein Urine Neg (Negative); RBC Urine 0-4 /hpf (0-2); Urine Appearance Clear (CLEAR); Urine Color Yellow (Yellow); Urobilinogen Urine 1 mg/dL (Negative); WBC Urine 0-4 /hpf (0-5); pH Urine 6 (5-7)
[2022-06-26 12:47] LABS: Add Urine Culture? No; Bacteria Urine 1+ /hpf; Calcium Oxalate Crystals Urine 0-4 /hpf; Mucus Urine TRACE /hpf
[2022-06-26 12:48] LABS: Alanine Aminotransferase 1636 U/L (0-33)
[2022-06-26 12:49] LABS: Aspartate Amino Transferase 1062 U/L (0-32)
--- NOTE | 2022-06-26 12:50 | US_ITS ---
WS: [id number] RIGHT UPPER QUADRANT ULTRASOUND HISTORY: RUQ pain, transaminitis, elevated bili, jaundice COMPARISON: 06/13/2021 Liver: 14.4 cm in length. Normal size liver. Mild coarse echotexture. No bile duct dilatation. Portal Vein: Normal hepatopetal flow with monophasic waveform. Gallbladder: Mildly hydropic gallbladder. Gallbladder measures 4 cm in transverse diameter. There are a few low-level echoes but no stones in the gallbladder identified. CBD: 0.6 cm Pancreas: Normal size and echogenicity. Right kidney: 11.1 cm in length. Normal size and echogenicity. No hydronephrosis or mass. Aorta and IVC: Unremarkable abdominal aorta and IVC. No ascites. US/US abdomen limited [id number] IMPRESSION: 1. Very minimal gallbladder hydrops as also seen on 06/13/2021. No cholelithias is. No wall thickening or bile duct dilatation. 2. Mild coarse echotexture throughout the liver may be from hepatic steatosis. No common bile duct dilatation.
--- NOTE | 2022-06-26 13:16 | PC.PHAR ---
pt states she takes care of her own medications-pt states she stop taking all her otc vitamins on wednesday06/22/22-pt states she was on aspirin 325mg taking 650mg q4h-pt states was taking this scheduled not prn-pt states she stop taking aspirin about 2 weeks ago-pt states told the pt to stop taking the isoniazid 300mg daily on Wednesday06/19/22-pt states she takes prednisone 10mg qam rx filled on 05/13/22 60d/s for 15mg daily-notes are made in the pharmacy comments
--- NOTE | 2022-06-26 13:54 | CTR_ITS ---
PROCEDURE INFORMATION: Exam: CT Abdomen And Pelvis Without Contrast Exam date and time: 06/26/2022 2:26 PM Age: 67 years old Clinical indication: Abdominal tenderness; Patient HX: Dysuria; Additional info: Decreased uop, ? obstructive uropathy TECHNIQUE: Imaging protocol: Computed tomography of the abdomen and pelvis without contrast. Radiation optimization: All CT scans at this facility use at least one of these dose optimization techniques: automated exposure control; mA and/or kV adjustment per patient size (includes targeted exams where dose is matched to clinical indication); or iterative reconstruction. COMPARISON: CT chest abd pel w con* 01/21/2022 3:12 PM RADIATION DOSE METRICS: Total DLP (mGy-cm): 666.22 FINDINGS: Lungs: Emphysematous changes. Heart: Coronary artery atherosclerotic calcifications. Liver: Normal. No mass. Gallbladder and bile ducts: Gallbladder is somewhat prominent, ultrasound could further evaluate this as clinically indicated. Pancreas: Normal. No ductal dilation. Spleen: Normal. No splenomegaly. Adrenal glands: Normal. No mass. Kidneys and ureters: Left kidney hyperdense cyst is likely hemorrhagic. Stomach and bowel: Constipation. Appendix: No evidence of appendicitis. Intraperitoneal space: Unremarkable. No free air. No significant fluid collection. Vasculature: Unremarkable. No abdominal aortic aneurysm. Lymph nodes: Unremarkable. No enlarged lymph nodes. Urinary bladder: Unremarkable as visualized. Reproductive: Unremarkable as visualized. Bones/joints: Degenerative changes throughout the spine. Soft tissues: Unremarkable. CT/CT kidney stone [id number] IMPRESSION: 1. Negative for hydronephrosis, renal calculus or acute inflammatory process in the abdomen or pelvis. 2. Emphysematous changes. 3. Coronary artery atherosclerotic calcifications. 4. Gallbladder is somewhat prominent, ultrasound could further evaluate this as clinically indicated. 5. Constipation. 6. Degenerative changes throughout the spine. 7. Left kidney hyperdense cyst is likely hemorrhagic. COMMENTS: Consistent with the [employer]'s Incidental Findings Committee white paper (J Am Maria E Radiol 2018): Any incidental renal lesion less than 1 cm or classified as too small to characterize, or any incidental cystic renal lesion characterized as simple-appearing, is likely benign. No follow-up imaging is recommended for these lesions per consensus recommendations based on imaging criteria.
[2022-06-26 14:44] LABS: Lipase 46 U/L (13-60)
[2022-06-26] MEDS: ondansetron 2 mg/ML SDV 2 mL 4 MG IVP (15:21)
[2022-06-26] MEDS: morphine IR 15 mg Tablet 30 MG PO ×2 (15:21→21:10)
[2022-06-26] MEDS: sodium chloride 0.9% 1,000 ML 999 ML IV (15:21)
[2022-06-26 15:56] LABS: Partial Thromboplastin Time 36.9 SECONDS (23.9-36.7)
--- NOTE | 2022-06-26 16:49 | PM.HP ---
Providers/Chief Complaint Primary Care Provider: Maciej West DO Chief Complaint: Yellow skin, Cant urinate, N/V/D History of Present Illness Jenna Hamlin is a 67 year old female with rheumatoid arthritis, latent TB for which she underwent initial treatment with rifampin which she did not tolerate well, subsequently was started on isoniazid. For her rheumatoid arthritis she also uses sulfasalazine, although states has been on it since she was in her 30s. She also recently started hydroxychloroquine. She is on chronic steroid with prednisone. She had began experiencing worsening fatigue, poor appetite. Daytime sleepiness. She had seen her primary care provider on 06/19 and on laboratory evaluation found to have severe transaminitis, hyperbilirubinemia. She was instructed to stop isoniazid. Her symptoms since then had overall shown improvement, although she did have some nausea and had vomited once today. She has had more yellowing of her skin and sclerae and presented to ER today for additional evaluation. In ER she is noted to have improvement in transaminases compared to 06/19, AST down from 2236 and ALT down from 1853 to 1062 and 1636 respectively. Alkaline phosphatase with improvement from 390-377. However, bilirubin with additional increase from 7.3-8.9. INR is 1.6 Acute hepatitis panel is negative. Abdominal ultrasound with very minimal gallbladder hydrops is also seen on 06/13/2021, unchanged. No cholelithiasis. No wall thickening or bile duct dilation. Mild coarse echotexture throughout the liver may be from hepatic steatosis. No common bile duct dilation. CT abdomen pelvis with somewhat prominent gallbladder. No hydronephrosis, renal stones or acute inflammatory process in the abdomen or pelvis. Emphysema. Coronary artery atherosclerotic calcifications. Constipation. Degenerative changes throughout the spine. Left kidney hyperdense cyst, likely hemorrhagic. Review of Systems Const: Reports: change in appetite, fatigue and daytime sleepiness; Denies: fever(s), chills or body aches Eyes: Reports: yellow eyes; Denies: change in vision, eye discomfort or eye redness ENMT: Denies: throat pain, oral sores or ear or mastoid pain Card: Denies: chest pain, edema, pre-syncope or dyspnea on exertion Resp: Denies: dyspnea, productive cough, change in phlegm color or hemoptysis GI: Reports: nausea; Denies: abdominal pain, vomiting, diarrhea, constipation, hematochezia or melena : Denies: flank pain, urinary frequency or hematuria Musc: Denies: back pain, joint swelling or joint redness Skin/Breast: Denies: rash or new lesions Neuro: Denies: headache(s), numbness in extremities, weakness in extremities, dizziness, confusion or seizure-like activity Endo: Denies: polyuria or polydipsia John Paul/Lymph: Denies: easy bleeding or tender lymph nodes All/Imm: Denies: urticaria or tongue swelling Medications/Allergies Home Medications Medication Instructions Recorded Confirmed Last Taken Type albuterol sulfate 90 mcg/actuation 1 - 2 puff inhalation Q4H PRN 02/15/20 06/26/22 Unknown History aerosol inhaler (ProAir HFA) Shortness Of Breath folic acid 1 mg tablet 1 mg PO QAM 02/15/20 06/26/22 06/26/22 06:00 History cholecalciferol (vitamin D3) 25 25 mcg PO DAILY 02/22/21 06/26/22 06/22/22 History mcg (1,000 unit) capsule (Vitamin pt stop taking D3) omega-3 fatty acids 1,000 mg 2,000 mg PO DAILY 04/03/21 06/26/22 06/22/22 History capsule stop taking 06/22/22 gabapentin 600 mg tablet 600 mg PO TID 11/04/21 06/26/22 06/26/22 06:00 History prenat.vits,moises,mht-[id number]-[id number] 1 tab PO DAILY 11/04/21 06/26/22 06/22/22 History pt states stop takin aspirin 325 mg tablet 650 mg PO Q4H 04/22/22 06/26/22 2 Weeks Ago History ~06/12/22 see pharmacy comment hydroxychloroquine 200 mg tablet 200 mg PO BID #60 tabs 04/22/22 06/26/22 06/26/22 06:00 Rx sulfasalazine 500 mg tablet 1 g PO TID #180 tabs 04/22/22 06/26/22 06/26/22 06:00 Rx (Azulfidine) umeclidinium 62.5 mcg-vilanterol 1 inh inhalation DAILY 30 days #60 05/04/22 06/26/22 06/26/22 Rx 25 mcg/actuation powdr for ea inhalation (Anoro Ellipta) isoniazid 300 mg tablet 300 mg PO DAILY 30 days #30 tabs 05/08/22 06/26/22 06/19/22 Rx see pharmacy comment prednisone 10 mg tablet 10 mg PO QAM 05/08/22 06/26/22 06/26/22 06:00 History morphine 30 mg immediate release 30 mg PO Q4H PRN pain 1 month #120 06/19/22 06/26/22 06/26/22 07:00 Rx tablet tabs promethazine 25 mg tablet 25 mg PO Q6H PRN nausea and 06/19/22 06/26/22 06/25/22 Rx vomiting #30 tabs calcium carbonate 600 mg calcium 600 mg PO DAILY 06/26/22 06/26/22 06/22/22 History (1,500 mg) tablet (Calcium) stop taking 06/22/22 diclofenac sodium 1 % topical gel 2 g topical QID PRN Pain 06/26/22 06/26/22 Unknown History (Voltaren Arthritis Pain) docusate sodium 100 mg capsule 200 mg PO BEDTIME PRN constipation 06/26/22 06/26/22 Unknown History (Colace) pantoprazole 40 mg tablet,delayed 40 mg PO QAM 06/26/22 06/26/22 06/22/22 History release promethazine-DM 6.25 mg-15 mg/5 mL 5 ml PO Q4H PRN Cough 06/26/22 06/26/22 Unknown History oral syrup Allergies Allergy/AdvReac Type Severity Reaction Status Date / Time alginic acid Allergy Severe ALGY-Rash Verified 06/26/22 13:16 [From MediHoney (moises alginate-honey)] honey Allergy Severe ALGY-Rash Verified 06/26/22 13:16 [From MediHoney (moises alginate-honey)] acetaminophen Allergy Nausea Verified 06/26/22 13:16 [From Tylenol-Codeine #3] codeine Allergy Nausea Verified 06/26/22 13:16 [From Tylenol-Codeine #3] doxycycline Allergy Nausea Verified 06/26/22 13:16 erythromycin base Allergy Respiratory Verified 06/26/22 13:16 distress leflunomide Allergy Difficulty Verified 06/26/22 13:16 Breathing levofloxacin Allergy chest pain Verified 06/26/22 13:16 rifampin Allergy ADR-Nausea Verified 06/26/22 13:16 PFSH Acute PFSH: Medical History Cellulitis Chronic steroid use COPD (chronic obstructive pulmonary disease) High risk medication use Immunization counseling Latent tuberculosis 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 Bergman in 2003 History of D&C Status post colonoscopy Family History Family/Other Heart disease Denies family history of Diabetes CAD (coronary artery disease) Clotting disorder Dementia Hyperlipidemia Psychiatric illness Chronic kidney disease (CKD) Suicide Anesthesia complication Bleeding disorder Family history of premature coronary artery disease Lung disease Cancer Hypertension Stroke Social History Smoking and tobacco status: former smoker Quit status (tobacco): has quit using tobacco Year quit tobacco: 1997 Former quit date comment: Hx of 2 PPD x 30 Years, started at age 14 Second hand smoke exposure: No Smoking risk assessment/counseling performed?: No Alcohol intake: never Counseling given: No Counseling given: No Lives independently: Yes Household members: none Marital status: Current occupational status: disabled History of recent travel: No Current gender identity: Female Vitals/I&O/Wt Last Vital Signs Temp 98.4 F 06/26/22 11:19 Pulse 81 06/26/22 13:45 Resp 15 06/26/22 15:21 BP 149/71 06/26/22 13:00 Pulse Ox 96 06/26/22 15:21 O2 Del Method 06/26/22 13:00 Weight last 48 hrs Weight 69.853 kg Physical Exam Narrative: Accompanied by her friend Const: COMMON NORMALS: patient oriented x3 and alert GENERAL APPEARANCE: cooperative ORIENTATION/CONSCIOUSNESS: Yes awake HENMT: COMMON NORMALS: oropharynx normal Eye: SCLERA: scleral abnormal Laterality of scleral abnormality: positive bilateral scleral icterus Neck/C-Spine: COMMON NORMALS: no JVD Resp: COMMON NORMALS: normal respiratory effort and clear to auscultation bilaterally AUSCULTATION: clear to auscultation bilaterally Cardio: COMMON NORMALS: no JVD, regular rhythm, S1 normal heart sound present, S2 normal heart sound present and No murmurs present (Cardio) RHYTHM: regular rhythm HEART SOUNDS: S1 normal heart sound present and S2 normal heart sound present GI: COMMON NORMALS: Normal to inspection, nondistended, normoactive bowel sounds present, Soft to palpation and non-tender PALPATION: Yes Soft to palpation Extremity: COMMON NORMALS: no joint enlargement and no pedal edema Neuro: COMMON NORMALS: patient oriented x3 and moves all extremities SENSORIUM/ORIENTATION: Yes alert Skin: COMMON NORMALS: no rashes or lesions noted GENERAL SKIN EXAM: no rashes or lesions noted and jaundice OTHER: Venous stasis sequela with hemosiderin deposition and scarring on bilateral lower extremities. Data : 06/26/22 11:50 06/26/22 11:50 A&P Assessment and plan (1) Elevated bilirubin: Jaundice with worsening of direct predominant hyperbilirubinemia. T bili up to 8.9 from 7.3 on 06/19. As her transaminases are now improving, suspect that bilirubin level may be lagging behind. Isoniazid has been discontinued on 06/19. Hold sulfasalazine as well. Hold NSAIDs. Ultrasound not suggestive of acute cholecystitis, mild gallbladder fullness without suggestion of obstruction or infection. Monitor for change in symptoms. Status: Acute (2) Acute hepatitis: As above. Reassess INR. Viral hepatitis panel negative. Hold sulfasalazine. Hold aspirin as well. Was taking high-dose aspirin 650 mg every 4 hours until 2 weeks ago. Discontinue Voltaren. Additional assessment with antimitochondrial, anti-smooth muscle antibodies is requested as well. ZEUS, anti-DS DNA, SSA. As well as ZEUS. Alpha-1 antitrypsin. Transferrin and ferritin. No history of EtOH. Tylenol use. Monitor for acute liver failure. Status: Acute (3) Elevated INR: 1.6. Follow-up. Status: Acute (4) Vomiting: Continue PPI. Antiemetics. She is feeling better. Lipase normal. Status: Acute (5) Adverse effects of medication: Isoniazid possibly in combination with aspirin, sulfasalazine. Has been on sulfasalazine for her 30s. Doubt this medication caused it, but not sure if contributed as it can also cause hepatitis, acute liver failure. Status: Acute Plan Chronic steroid use COPD (chronic obstructive pulmonary disease) High risk medication use Latent tuberculosis by blood test Osteoporosis Peripheral arterial disease Rheumatoid arthritis Seronegative rheumatoid arthritis of both hands Attestations Medical Necessity Statement*: Place in observation for additional assessment of worsening hyperbilirubinemia with hepatitis related to isoniazid, monitoring for acute liver failure. Coding Level of Care Code Acute Coal Gasification Technician for Chg Fwd Diagnoses Elevated bilirubin R17 Acute hepatitis B17.9 Elevated INR R79.1 Vomiting R11.10 Adverse effects of medication T55.142C
[2022-06-26 16:52] LABS: Iron 136 ug/dL (37-145); Percent Saturation 78.1 % (20-50); Total Iron Binding Capacity 174 mcg/dl; Transferrin 158 mg/dL (200-360); Unsaturated Iron Binding 38 ug/dL (112-347)
[2022-06-26] MEDS: gabapentin 300 mg Capsule 600 MG PO (22:48)
[2022-06-27] VITALS (9 sets, daily range): BP systolic 133–156; BP diastolic 68–80; PULSE 66–100; RESP 13–18; TEMP 36.3–37.2; O2SAT 93–97
[2022-06-27 04:18] LABS: Basophils # 0.1 10^3/uL (0.0-0.1); Eosinophils % 0.5 %; Hemoglobin 11.3 g/dL (11.5-15.3); Lymphocytes # 2.2 10^3/uL (0.8-4.8); Lymphocytes % 34.9 %; Mean Corpuscular HGB Conc 34.2 g/dL (30.0-36.0); Mean Corpuscular Hemoglobin 31.2 pg (28.0-34.0); Mean Corpuscular Volume 91.2 fl (81-99); Mean Platelet Volume 11.9 fL (7.4-10.4); Monocytes # 0.7 10^3/uL (0.2-0.9); Monocytes % 11.1 %; Neutrophils # 3.24 10^3/uL (1.8-7.7); Neutrophils % 52.2 %; Nucleated Red Blood Cells % 0 %; Platelet Count 162 10^3/cmm (130-400); Red Blood Count 3.62 10^6/uL (4.1-5.3); Red Cell Distribution Width 20.2 % (12.1-15.1); White Blood Count 6.2 10^3/uL (4.0-10.0)
[2022-06-27 04:29] LABS: INR 1.62 (0.8-1.2)
[2022-06-27 04:47] LABS: Alkaline Phosphatase 277 IU/L (35-105); Anion Gap 11.9 (5-19); Blood Urea Nitrogen 10 mg/dL (8-23); Calcium 8.6 mg/dL (8.5-10.5); Carbon Dioxide 29 mmol/L (22-29); Chloride 105 mmol/L (98-107); Globulin 2.3 g/dL (1.3-4.6); Glomerular Filtration Rate 158.7 mL/min (90-130); Glucose 68 mg/dL (65-115); Osmolality Calculated 291 mOsm/kg (285-295); Potassium 3.9 mmol/L (3.5-5.1); Sodium 142 mmol/L (136-145); Total Bilirubin 6.5 mg/dL (0.15-1.2); Total Protein 5.3 g/dL (6.6-8.7); Transferrin 126 mg/dL (200-360)
[2022-06-27 05:01] LABS: Alanine Aminotransferase 1177 U/L (0-33); Aspartate Amino Transferase 773 U/L (0-32); Ferritin 1771 ng/mL (15-150)
[2022-06-27] MEDS: pantoprazole DR 40 mg Tablet PO (05:28)
[2022-06-27] MEDS: predniSONE 10 mg Tablet PO (05:28)
[2022-06-27] MEDS: folic acid 1 mg Tablet PO (05:28)
[2022-06-27] MEDS: morphine IR 15 mg Tablet 30 MG PO ×4 (07:32→21:41)
[2022-06-27] MEDS: gabapentin 300 mg Capsule 600 MG PO ×3 (08:35→20:41)
[2022-06-27 16:06] LABS: Albumin Level 2.6 g/dL (3.5-5.2); Alkaline Phosphatase 280 IU/L (35-105); Blood Urea Nitrogen 9 mg/dL (8-23); Calcium 8.2 mg/dL (8.5-10.5); Carbon Dioxide 23 mmol/L (22-29); Chloride 103 mmol/L (98-107); Globulin 2.7 g/dL (1.3-4.6); Glomerular Filtration Rate 158.7 mL/min (90-130); Glucose 147 mg/dL (65-115); Osmolality Calculated 285 mOsm/kg (285-295); Sodium 137 mmol/L (136-145); Total Protein 5.3 g/dL (6.6-8.7)
[2022-06-27 16:18] LABS: Alanine Aminotransferase 1226 U/L (0-33)
[2022-06-27 16:20] LABS: Aspartate Amino Transferase 781 U/L (0-32)
[2022-06-27 16:22] LABS: Anion Gap 15.8 (5-19); Potassium 4.8 mmol/L (3.5-5.1)
--- NOTE | 2022-06-27 19:01 | PM.PN ---
Subjective Subjective: She is overall feeling better today. Denies any new symptoms. No further nausea or vomiting. No trouble breathing. Reports prior history the iron overload was noted in the past once. Vitals/I&O/Wt Last Vital Signs Temp 98 F 06/27/22 16:00 Pulse 67 06/27/22 16:00 Resp 18 06/27/22 17:21 BP 133/73 06/27/22 16:00 Pulse Ox 95 06/27/22 17:21 O2 Del Method 06/27/22 08:00 06/27/22 06/27/22 06/27/22 06:59 14:59 22:59 Intake Total 360 / 1360 270 / 270 Balance 360 / 1360 270 / 270 Weight last 48 hrs Weight 69.853 kg Physical Exam Const: COMMON NORMALS: patient oriented x3 and alert GENERAL APPEARANCE: cooperative ORIENTATION/CONSCIOUSNESS: Yes awake HENMT: COMMON NORMALS: oropharynx normal Eye: SCLERA: scleral abnormal Laterality of scleral abnormality: positive bilateral scleral icterus Neck/C-Spine: COMMON NORMALS: no JVD Resp: COMMON NORMALS: normal respiratory effort and clear to auscultation bilaterally AUSCULTATION: clear to auscultation bilaterally Cardio: COMMON NORMALS: no JVD, regular rhythm, S1 normal heart sound present, S2 normal heart sound present and No murmurs present (Cardio) RHYTHM: regular rhythm HEART SOUNDS: S1 normal heart sound present and S2 normal heart sound present GI: COMMON NORMALS: Normal to inspection, nondistended, normoactive bowel sounds present, Soft to palpation and non-tender PALPATION: Yes Soft to palpation Extremity: COMMON NORMALS: no joint enlargement and no pedal edema Neuro: COMMON NORMALS: patient oriented x3 and moves all extremities SENSORIUM/ORIENTATION: Yes alert Skin: COMMON NORMALS: no rashes or lesions noted GENERAL SKIN EXAM: no rashes or lesions noted and jaundice OTHER: Venous stasis sequela with hemosiderin deposition and scarring on bilateral lower extremities. Data : 06/27/22 03:12 06/27/22 15:26 A&P Assessment and plan (1) Elevated INR: Noted improvement in transaminitis, and in fact bilirubinemia is better as well. However, worsening in INR up to 1.62, worsening albumin down to 3 and then 2.6 on recheck. Discussed with her liver parameters are encouraging, however, INR and albumin decreased may suggest decreased synthetic function of the liver. We will reassess again in the morning. Status: Acute (2) Acute hepatitis: Secondary to medication, isoniazid, but sulfasalazine, aspirin could contribute. Was taking high-dose aspirin 650 mg every 4 hours until 2 weeks ago. Discontinue Voltaren. Is also noted to have iron overload. Ferritin is 1771. Transferrin saturation 78.1. Hemochromatosis DNA sent. Please follow-up. If not homozygous, please follow-up for secondary causes of iron overload. Discussed with her avoiding iron, vitamin C, alcohol, raw shellfish. Will need phlebotomy weekly, target ferritin 50-100. Follow-up with hematology. Additional assessment with antimitochondrial, anti-smooth muscle antibodies is requested as well. ZEUS, anti-DS DNA, SSA. As well as ZEUS. Alpha-1 antitrypsin. No history of EtOH. Tylenol use. Monitor for acute liver failure. Status: Acute (3) Elevated bilirubin: Now improving. Jaundice with worsening of direct predominant hyperbilirubinemia. T bili improving. As her transaminases are now improving, suspect that bilirubin level may be lagging behind. Isoniazid has been discontinued on 06/19. Hold sulfasalazine as well. Hold NSAIDs. Ultrasound not suggestive of acute cholecystitis, mild gallbladder fullness without suggestion of obstruction or infection. Monitor for change in symptoms. Status: Acute (4) Vomiting: Continue PPI. Antiemetics. She is feeling better. Lipase normal. Status: Acute (5) Adverse effects of medication: Isoniazid possibly in combination with aspirin, sulfasalazine. Has been on sulfasalazine for her 30s. Doubt this medication caused it, but not sure if contributed as it can also cause hepatitis, acute liver failure. Status: Acute (6) Iron overload: Ferritin is 1771. Transferrin saturation 78.1. Hemochromatosis DNA sent. Please follow-up. If not homozygous, please follow-up for secondary causes of iron overload. Discussed with her avoiding iron, vitamin C, alcohol, raw shellfish. Will need phlebotomy weekly, target ferritin 50-100. Follow-up with hematology. Status: Acute Plan Chronic steroid use COPD (chronic obstructive pulmonary disease) High risk medication use Latent tuberculosis by blood test Osteoporosis Peripheral arterial disease Rheumatoid arthritis Seronegative rheumatoid arthritis of both hands Attestations Medical Necessity Statement*: Continue observation for reassessment of liver function and association of isoniazid related hepatitis. Coding Level of Care Code Acute [employer] Arresting Gear Officer for Chg Fwd Exam Comprehensive Diagnoses Elevated INR R79.1 Acute hepatitis B17.9 Elevated bilirubin R17 Vomiting R11.10 Adverse effects of medication T50.905A Iron overload E83.19
[2022-06-27 19:51] LABS: INR 1.58 (0.8-1.2)
[2022-06-28] VITALS (9 sets, daily range): BP systolic 124–158; BP diastolic 63–83; PULSE 59–84; RESP 15–20; TEMP 36.3–37; O2SAT 92–98
[2022-06-28 05:24] LABS: Basophils # 0.1 10^3/uL (0.0-0.1); Basophils % 0.8 %; Eosinophils % 0.6 %; Hematocrit 36.7 % (37.0-47.0); Lymphocytes # 2.4 10^3/uL (0.8-4.8); Lymphocytes % 36.7 %; Mean Corpuscular HGB Conc 32.7 g/dL (30.0-36.0); Mean Corpuscular Hemoglobin 30.7 pg (28.0-34.0); Mean Corpuscular Volume 93.9 fl (81-99); Mean Platelet Volume 11.8 fL (7.4-10.4); Monocytes # 0.6 10^3/uL (0.2-0.9); Monocytes % 8.6 %; Neutrophils # 3.43 10^3/uL (1.8-7.7); Nucleated Red Blood Cells % 0 %; Platelet Count 169 10^3/cmm (130-400); Red Blood Count 3.91 10^6/uL (4.1-5.3); Red Cell Distribution Width 20.8 % (12.1-15.1); White Blood Count 6.5 10^3/uL (4.0-10.0)
[2022-06-28 05:35] LABS: INR 1.55 (0.8-1.2)
[2022-06-28 05:54] LABS: Alkaline Phosphatase 325 IU/L (35-105); Anion Gap 10.7 (5-19); Blood Urea Nitrogen 8 mg/dL (8-23); Calcium 8.7 mg/dL (8.5-10.5); Carbon Dioxide 32 mmol/L (22-29); Chloride 103 mmol/L (98-107); Globulin 2.4 g/dL (1.3-4.6); Glomerular Filtration Rate 122.7 mL/min (90-130); Glucose 79 mg/dL (65-115); Osmolality Calculated 291 mOsm/kg (285-295); Potassium 3.7 mmol/L (3.5-5.1); Sodium 142 mmol/L (136-145); Total Bilirubin 5.8 mg/dL (0.15-1.2); Total Protein 5.4 g/dL (6.6-8.7)
[2022-06-28 06:09] LABS: Alanine Aminotransferase 1187 U/L (0-33)
[2022-06-28 06:10] LABS: Aspartate Amino Transferase 758 U/L (0-32)
[2022-06-28] MEDS: pantoprazole DR 40 mg Tablet PO (06:34)
[2022-06-28] MEDS: predniSONE 10 mg Tablet PO (06:34)
[2022-06-28] MEDS: folic acid 1 mg Tablet PO (06:34)
[2022-06-28] MEDS: morphine IR 15 mg Tablet 30 MG PO ×3 (06:36→14:22)
[2022-06-28] MEDS: gabapentin 300 mg Capsule 600 MG PO ×2 (10:01→14:23)
--- NOTE | 2022-06-28 12:40 | PM.DCS ---
Discharge Providers Date of Admission: 06/26/22 22:12 Date of Discharge: June 28, 2022 Attending Provider at Admission: Davey Parker Attending Provider at Discharge: Davey Parker Primary Care Provider: Maciej West DO Diagnoses at Discharge Discharge Diagnosis (1) Elevated INR: Status: Acute (2) Acute hepatitis: Status: Acute (3) Elevated bilirubin: Status: Acute (4) Vomiting: Status: Acute (5) Adverse effects of medication: Status: Acute (6) Iron overload: Status: Acute Reason for Visit Reason for Visit: Yellow skin, Cant urinate, N/V/D Brief History: Jenna Hamlin is a 67 year old female with rheumatoid arthritis, latent TB for which she underwent initial treatment with rifampin which she did not tolerate well, subsequently was started on isoniazid.? For her rheumatoid arthritis she also uses sulfasalazine, although states has been on it since she was in her 30s.? She also recently started hydroxychloroquine.? She is on chronic steroid with prednisone.? She had began experiencing worsening fatigue, poor appetite.? Daytime sleepiness.? She had seen her primary care provider on 06/19 and on laboratory evaluation found to have severe transaminitis, hyperbilirubinemia.? She was instructed to stop isoniazid.? Her symptoms since then had overall shown improvement, although she did have some nausea and had vomited once today.? She has had more yellowing of her skin and sclerae and presented to ER today for additional evaluation. In ER she is noted to have improvement in transaminases compared to 06/19, AST down from 2236 and ALT down from 1853 to 1062 and 1636 respectively.? Alkaline phosphatase with improvement from 390-377.? However, bilirubin with additional increase from 7.3-8.9.? INR is 1.6 Acute hepatitis panel is negative. Abdominal ultrasound with very minimal gallbladder hydrops is also seen on 06/13/2021, unchanged.? No cholelithiasis.? No wall thickening or bile duct dilation.? Mild coarse echotexture throughout the liver may be from hepatic steatosis.? No common bile duct dilation. CT abdomen pelvis with somewhat prominent gallbladder.? No hydronephrosis, renal stones or acute inflammatory process in the abdomen or pelvis.? Emphysema.? Coronary artery atherosclerotic calcifications.? Constipation.? Degenerative changes throughout the spine.? Left kidney hyperdense cyst, likely hemorrhagic. Hospital Course Hospital Course She was monitored off any potential offending medications, isoniazid, sulfasalazine, aspirin which she has also been taking at high dose 650 mg every 4 hours, Voltaren gel. Additionally she is found to have elevation of transient situation and serum ferritin raising concern for iron overload, possibility of hemochromatosis. Hemochromatosis DNA has been requested, studies pending, please follow-up results. Additional studies that were sent include AMA, anti-smooth muscle antibody, ZEUS, SSA, anti dsDNA, alpha-1 antitrypsin. In addition to not resuming potentially offending medications as above, she is also asked to avoid any iron supplements, vitamin C, alcohol, or shellfish and once out of acute episode he will likely need weekly phlebotomies to target ferritin 50-100. Please have her follow-up with hematology and hepatology. In case hemochromatosis DNA not homozygous, assess for secondary causes of iron overload. Continue follow-up with pulmonology, rheumatology with regards to TB and RA. She is otherwise feeling better. She has had no recurrence of vomiting. Right upper quadrant abdominal discomfort improving. Her liver parameters are gradually improving, AST down to 758, ALT down to 1187. T bili down to 5.8. Alk phos with some lag at 325. INR today is better at 1.55. Albumin with improvement to 3. She feels comfortable today returning home with continued outpatient follow-up. Physical Exam Const: COMMON NORMALS: patient oriented x3 and alert GENERAL APPEARANCE: cooperative ORIENTATION/CONSCIOUSNESS: Yes awake HENMT: COMMON NORMALS: oropharynx normal Neck/C-Spine: COMMON NORMALS: no JVD Resp: COMMON NORMALS: normal respiratory effort and clear to auscultation bilaterally AUSCULTATION: clear to auscultation bilaterally Cardio: COMMON NORMALS: no JVD, regular rhythm, S1 normal heart sound present, S2 normal heart sound present and No murmurs present (Cardio) RHYTHM: regular rhythm HEART SOUNDS: S1 normal heart sound present and S2 normal heart sound present GI: COMMON NORMALS: Normal to inspection, nondistended, normoactive bowel sounds present, Soft to palpation and non-tender PALPATION: Yes Soft to palpation Extremity: COMMON NORMALS: no joint enlargement and no pedal edema Neuro: COMMON NORMALS: patient oriented x3 and moves all extremities SENSORIUM/ORIENTATION: Yes alert Skin: COMMON NORMALS: no rashes or lesions noted GENERAL SKIN EXAM: no rashes or lesions noted and jaundice (Improving) OTHER: Venous stasis sequela with hemosiderin deposition and scarring on bilateral lower extremities. Discharge Data Studies Completed and Pending Completed Studies During Hospitalization Category Date Time Status CT abdomen renal stone [CT kidney stone 11925] Urgent Cat Scan 06/26/22 13:54 Completed US abdomen limited [id number] Stat Ultrasound 06/26/22 12:50 Completed Pending at discharge Category Date Time Status AMA [Mitochondrial AB Screen] Routine Lab 06/26/22 16:38 Received ZEUS Screen w/ Reflex Stat Lab 06/26/22 16:38 Received ANTI SMOOTH [Smooth Muscle AB Screen w/Refl] Routine Lab 06/26/22 16:38 Received Alpha 1 Antitrypsin Routine Lab 06/26/22 16:38 Received Anti Double Stranded DNA AB Routine Lab 06/26/22 16:38 Received Complete Blood Count w/Auto AM LABS Lab 06/29/22 04:00 Ordered Comprehensive Metabolic Panel AM LABS Lab 06/29/22 04:00 Ordered Hemochromatosis DNA Routine Lab 06/27/22 08:43 Received Prothrombin Time INR AM LABS Lab 06/29/22 04:00 Ordered SS A Ro Sjogrens Antibody Stat Lab 06/26/22 16:38 Received Radiology Impressions Abdomen Ultrasound 06/26/22 12:50 IMPRESSION: 1. Very minimal gallbladder hydrops as also seen on 06/13/2021. No cholelithiasis. No wall thickening or bile duct dilatation. 2. Mild coarse echotexture throughout the liver may be from hepatic steatosis. No common bile duct dilatation. Abdomen/Pelvis CT 06/26/22 13:54 IMPRESSION: 1. Negative for hydronephrosis, renal calculus or acute inflammatory process in the abdomen or pelvis. 2. Emphysematous changes. 3. Coronary artery atherosclerotic calcifications. 4. Gallbladder is somewhat prominent, ultrasound could further evaluate this as clinically indicated. 5. Constipation. 6. Degenerative changes throughout the spine. 7. Left kidney hyperdense cyst is likely hemorrhagic. COMMENTS: Consistent with the [employer]'s Incidental Findings Committee white paper (J Am Maria E Radiol 2018): Any incidental renal lesion less than 1 cm or classified as too small to characterize, or any incidental cystic renal lesion characterized as simple-appearing, is likely benign. No follow-up imaging is recommended for these lesions per consensus recommendations based on imaging criteria. Laboratory Results WBC 6.5 10^3/uL (4.0-10.0) 06/28/22 04:22 RBC 3.91 10^6/uL (4.1-5.3) L 06/28/22 04:22 Hgb 12.0 g/dL (11.5-15.3) 06/28/22 04:22 Hct 36.7 % (37.0-47.0) L 06/28/22 04:22 MCV 93.9 fl (81-99) 06/28/22 04:22 MCH 30.7 pg (28.0-34.0) 06/28/22 04: MCHC 32.7 g/dL (30.0-36.0) 06/28/22 04: RDW 20.8 % (12.1-15.1) H 06/28/22 04:22 Plt Count 169 10^3/cmm (130-400) 06/28/22 04:22 MPV 11.8 fL (7.4-10.4) H 06/28/22 04:22 Neut % (Auto) 53.0 % 06/28/22 04:22 Lymph % (Auto) 36.7 % 06/28/22 04:22 [place] % (Auto) 8.6 % 06/28/22 04:22 Eos % (Auto) 0.6 % 06/28/22 04:22 Baso % (Auto) 0.8 % 06/28/22 04:22 Neut # (Auto) 3.43 10^3/uL (1.8-7.7) 06/28/22 04:22 Lymph # (Auto) 2.4 10^3/uL (0.8-4.8) 06/28/22 04:22 [place] # (Auto) 0.6 10^3/uL (0.2-0.9) 06/28/22 04:22 Eos # (Auto) 0.0 10^3/uL (0.0-0.8) 06/28/22 04:22 Baso # (Auto) 0.1 10^3/uL (0.0-0.1) 06/28/22 04:22 Nucleated RBC % (auto) 0 % 06/28/22 04:22 Nucleated RBCs # 0.0 /100WBC 06/28/22 04:22 PT 18.90 SECONDS (12.1-14.9) H 06/28/22 04:22 INR 1.55 (0.8-1.2) H 06/28/22 04:22 APTT 36.9 SECONDS (23.9-36.7) H 06/26/22 15:34 Sodium 142 mmol/L (136-145) 06/28/22 04:22 Potassium 3.7 mmol/L (3.5-5.1) 06/28/22 04:22 Chloride 103 mmol/L (98-107) 06/28/22 04:22 Carbon Dioxide 32 mmol/L (22-29) H 06/28/22 04:22 Anion Gap 10.7 (5-19) 06/28/22 04:22 BUN 8 mg/dL (8-23) 06/28/22 04:22 Creatinine 0.5 mg/dL (0.5-0.9) 06/28/22 04:22 GFR Calculation 122.7 mL/min (90-130) 06/28/22 04:22 Glucose 79 mg/dL (65-115) 06/28/22 04:22 Calculated Osmolality 291 mOsm/kg (285-295) 06/28/22 04:22 Calcium 8.7 mg/dL (8.5-10.5) 06/28/22 04:22 Magnesium 1.7 mg/dL (1.7-2.3) 06/26/22 11:50 Iron 136 ug/dL (37-145) 06/26/22 11:50 TIBC 174 mcg/dl 06/26/22 11:50 % Saturation 78.1 % (20-50) H 06/26/22 11:50 Unsat Iron Binding 38 ug/dL (112-347) L 06/26/22 11:50 Transferrin 126 mg/dL (200-360) L 06/27/22 03:12 Ferritin 1771 ng/mL (15-150) H 06/27/22 03:12 Total Bilirubin 5.8 mg/dL (0.15-1.2) H 06/28/22 04:22 Direct Bilirubin 6.80 mg/dL (0.00-0.30) H 06/26/22 11:50 AST 758 U/L (0-32) H 06/28/22 04:22 ALT 1187 U/L (0-33) H 06/28/22 04:22 Alkaline Phosphatase 325 IU/L (35-105) H 06/28/22 04:22 Creatine Kinase 201 U/L (26-192) H 06/26/22 11:50 NT-Pro-B Natriuret Pep 85 pg/mL (0-125) 06/26/22 11:50 Total Protein 5.4 g/dL (6.6-8.7) L 06/28/22 04:22 Albumin 3.0 g/dL (3.5-5.2) L 06/28/22 04:22 Globulin 2.4 g/dL (1.3-4.6) 06/28/22 04: Lipase 46 U/L (13-60) 06/26/22 11:50 Urine Color Yellow (Yellow) 06/26/22 12:00 Urine Appearance Clear (CLEAR) 06/26/22 12:00 Urine pH 6 (5-7) 06/26/22 12:00 Ur Specific [place] 1.010 (1.005-1.030) 06/26/22 12:00 Urine Protein Neg (Negative) 06/26/22 12:00 Urine Glucose (UA) Norm (Normal) 06/26/22 12:00 Urine Ketones Negative (Negative) 06/26/22 12:00 Urine Blood Neg (Negative) 06/26/22 12:00 Urine Nitrate Negative (Negative) 06/26/22 12:00 Urine Bilirubin 1+ (Negative) H 06/26/22 12:00 Urine Urobilinogen 1 mg/dL (Negative) H 06/26/22 12:00 Ur Leukocyte Esterase Trace (Negative) H 06/26/22 12:00 Urine RBC 0-4 /hpf (0-2) H 06/26/22 12:00 Urine WBC 0-4 /hpf (0-5) H 06/26/22 12:00 Ur Squamous Epith Cells 5-10 /hpf (0-5) H 06/26/22 12:00 Calcium Oxalate Crystal 0-4 /hpf H 06/26/22 12:00 Amorphous Sediment Not Reportable 06/26/22 12:00 Urine Bacteria 1+ /hpf (NONE) H 06/26/22 12:00 Urine Mucus Trace /hpf 06/26/22 12:00 Hepatitis A IgM Ab Non-reactive (Nonreactive) 06/26/22 11:50 Hep Bs Antigen Non-reactive (Nonreactive) 06/26/22 11:50 Hep B Core IgM Ab Non-reactive (Nonreactive) 06/26/22 11:50 Hepatitis C Antibody Non-reactive (Nonreactive) 06/26/22 11:50 Vitals Last Vital Signs Temp 97.6 F 06/28/22 11:41 Pulse 59 L 06/28/22 11:41 Resp 17 06/28/22 11:41 BP 158/83 06/28/22 11:41 Pulse Ox 95 06/28/22 11:41 O2 Del Method 06/28/22 10:09 Discharge Plan Discharge Patient Disposition: Home Condition: Stable Prescriptions: Continued omega-3 fatty acids 1,000 mg capsule 2,000 mg PO DAILY hydroxychloroquine 200 mg tablet 200 mg PO BID Qty: 60 3RF folic acid 1 mg tablet 1 mg PO QAM albuterol sulfate [ProAir HFA] 90 mcg/actuation HFA aerosol inhaler 1 - 2 puff INHALATION Q4H PRN (Reason: Shortness Of Breath) gabapentin 600 mg tablet 600 mg PO TID prenat.vits,moises,[id number] Tablet 1 tab PO DAILY prednisone 10 mg tablet 10 mg PO QAM promethazine 25 mg tablet 25 mg PO Q6H PRN (Reason: nausea and vomiting) Qty: 30 0RF morphine 30 mg tablet 30 mg PO Q4H MDD 5 tabs PRN (Reason: pain) 30 Days Qty: 120 0RF Anoro Ellipta 62.5-25 mcg/actuation blister with device 1 inh inhalation DAILY 30 Days Qty: 60 4RF cholecalciferol (vitamin D3) [Vitamin D3] 25 mcg (1,000 unit) Capsule 25 mcg PO DAILY Calcium 600 600 mg calcium (1,500 mg) Tablet 600 mg PO DAILY promethazine-DM 6.25-15 mg/5 mL syrup 5 ml PO Q4H PRN (Reason: Cough) pantoprazole 40 mg tablet,delayed release (DR/EC) 40 mg PO QAM Rx Instructions: take in AM 30 minutes before meal Colace 100 mg capsule 200 mg PO BEDTIME PRN (Reason: constipation) Discontinued sulfasalazine [Azulfidine] 500 mg tablet 1 g PO TID Qty: 180 3RF aspirin 325 mg tablet 650 mg PO Q4H isoniazid 300 mg tablet 300 mg PO DAILY 30 Days Qty: 30 9RF Voltaren Arthritis Pain 1 % Gel 2 g TOPICAL QID PRN (Reason: Pain) Rx Instructions: apply to single elbow, wrist or hand; for hand includes palm/fingers/back of hand Discharge Orders: Discharge Order (Routine); Ordered 06/28/22 Ordered By: Davey Parker Referrals: Vadim Sparrow MD [Physician] - 2 weeks (Please contact physician's office Wednesday morning to schedule a follow up appointment. ) Maciej West, [Primary Care Provider] - 4-7 days (Please call Dr. West' office Wednesday to schedule a hospital follow up appointment. ) Lolis Clinton MD [Physician] - 2 weeks (Please call Dr. Clinton's office Wednesday to schedule follow up appointment. ) Patient Instructions: Acute Liver Failure (GEN), Jaundice (GEN), Opioid Safety Activity Restrictions/Additional Instructions: Please follow-up with your doctor for reassessment of liver parameters. Do not restart isoniazid. Please continue to hold sulfasalazine, aspirin, Voltaren gel, avoid NSAIDs. Please follow-up with your primary provider for reassessment of iron overload, follow-up on hemochromatosis DNA testing, possibly assessment for secondary causes. Please arrange with your primary doctor for weekly phlebotomy. Target ferritin levels 50-100. Discuss with your primary doctor follow-up with hematology and hepatology. Please follow-up with your primary doctor other pending studies, including ZEUS, NT dsDNA, SSA, AMA, anti-smooth muscle antibody, as well as alpha-1 antitrypsin. Avoid iron or vitamin C supplements. Avoid any alcohol. Avoid any raw shellfish. Discharge Attestations Time Spent in Discharge Care*: greater than 30 min Quality Metrics Clinical Quality Measures [ No reported AMI, CVA or VTE this stay] Coding Level of Care Code Acute Chg FW DC note Diagnoses Elevated INR R79.1 Acute hepatitis B17.9 Elevated bilirubin R17 Vomiting R11.10 Adverse effects of medication T50.905A Iron overload E83.19
[2022-06-29 11:47] LABS: Alpha 1 Antitrypsin 181 mg/dL (83-199)
[2022-06-29 13:17] LABS: SS A Ro Sjogrens Antibody <1.0 NEG AI (<1.0 NEG)
[2022-06-29 14:02] LABS: Anti-Double Strand DNA AB 1 IU/mL
[2022-06-30 12:34] LABS: Anti-Nuclear Antibody Screen NEGATIVE (NEGATIVE)
[2022-06-30 14:52] LABS: Smooth Muscle Ab Screen NEGATIVE (NEGATIVE)
--- NOTE | 2022-07-02 11:09 | DCPLANNER ---
late entry - special education case manager had message to schedule a follow up appointment with hepatology - special education case manager called patient to confirm who patient wanted special education case manager to send referral to. commercial credit portfolio manager unable to speak with patient, a voicemail was left for patient to return transplant case manager phone call.
== END 2022-06-28 14:42 | disposition home or self-care (01) ==
LOC: ER 17:26 → MEDSURG 22:21
PROVIDERS: Admitting Provider Internal Medicine; Emergency Provider Emergency Medicine; PCP Family Medicine; Visit Provider Internal Medicine
DX: R79.1 Abnormal coagulation profile (principal); B17.9 Acute viral hepatitis, unspecified; R17 Unspecified jaundice; R11.10 Vomiting, unspecified; T50.905A Adverse effect of unspecified drugs, medicaments and biological substances, initial encounter; E83.19 Other disorders of iron metabolism; Z79.52 Long term (current) use of systemic steroids; J44.9 Chronic obstructive pulmonary disease, unspecified; Z79.899 Other long term (current) drug therapy; M81.0 Age-related osteoporosis without current pathological fracture; I73.9 Peripheral vascular disease, unspecified; M06.042 Rheumatoid arthritis without rheumatoid factor, left hand; M06.041 Rheumatoid arthritis without rheumatoid factor, right hand; Z87.891 Personal history of nicotine dependence
CPT/HCPCS: 36415; 74176; 76705; 80048; 80053; 80074; 80076; 81001; 81256; 82103; 82550; 82728; 83516; 83540; 83550; 83690; 83735; 83880; 84466; 85025; 85610; 85730; 86038; 86225; 86235; 94760; 96374; 96375; 99285; G0378; J2270; J2405; J7030; J7512

== ENCOUNTER → 2022-07-22 08:01 | Outpatient (BNVA) | payer MEDICARE, MEDICAID, SELFPAY | PROVIDERS: PCP Family Medicine; Visit Provider Podiatrist Foot & Ankle Surgery | DX: L60.3 Nail dystrophy (principal); I73.9 Peripheral vascular disease, unspecified | CPT/HCPCS: 11721 ==

== ENCOUNTER → 2022-07-28 09:43 | Outpatient (BNVA) | payer MEDICARE, MEDICAID, SELFPAY | PROVIDERS: PCP Family Medicine; Visit Provider Family Medicine | DX: B17.9 Acute viral hepatitis, unspecified (principal); R79.1 Abnormal coagulation profile; E83.19 Other disorders of iron metabolism | CPT/HCPCS: 80053; 85025; 85610 ==

== ENCOUNTER 2022-08-05 18:54 | Inpatient (IN) | payer MEDICARE, MEDICAID, SELFPAY ==
[2022-07-31 08:58] VITALS: BMI 23.1
--- NOTE | 2022-07-31 09:24 | ECG_ITS ---
[facility] Test Date: 2022-07-31 Pat Name: Jenna Hamlin Department: Room: Gender: Female Rn Internal Medicine: : 1955 Requested By: Bean Alaniz Order Number: [id number] Ryoal MD: Herman Hurst M.D. Measurements Intervals [place] Rate: 63 P: 29 HI: 146 QRS: -14 QRSD: 89 T: 4 QT: 391 QTc: 402 Interpretive Statements SINUS RHYTHM WITH OCCASIONAL SUPRAVENTRICULAR PREMATURE COMPLEXES POSSIBLE RIGHT VENTRICULAR CONDUCTION DELAY [RSR (QR) IN V1/V2] MODERATE VOLTAGE CRITERIA FOR LVH, CONSIDER NORMAL VARIANT [MEETS CRITERIA IN ONE OF: R(aVL), S(V1), R(V5), R(V5/V6)+S(V1)] POSSIBLE ANTERIOR MYOCARDIAL INFARCTION , PROBABLY OLD [30 ms Q WAVE IN V3/V4, OR R < 0.2 mV IN V4] No previous ECG available for comparison Electronically Signed On 07-31-2022 14:39:51 CDT by Herman Hurst M.D. [email or web address]
--- NOTE | 2022-07-31 16:04 | P.ANESASSM_ITS ---
Pre-Anesthetic Assessment Height/Weight: Height 1.68 m Weight 64.864 kg Operation Date: 08/05/22 11:20 Proposed Procedures p Posterior Lumbar Interbody Fusion L5-S1 52676/[id number]/24363/2 [id number]/16511/13255/M48.062(Not Applicable) - Adithya Levine DO s Spinal Fusion T10 to Pelvis(Not Applicable) - Adithya Levine DO Familial anesthetic complications: none Was Beta Timothy taken within 24 hours: N/A Was Clonidine taken within 24 hours: N/A Social No alcohol and No tobacco (h/o smoking) Exam alert, oriented x 3, clear to auscultation bilaterally and regular rate & rhythm Airway Submandibular: within normal limits Cervical ROM: Other (limited extension) Mallampati: Class II Dentition: false Pulmonary Chronic Obstructive Pulmonary Disease +TB serum (latent not active), started some tx that affected liver Hepatic Hepatitis (TB tx regimen) Metabolic chronic steroids Musc/skel Lower Back Pain and Rheumatoid Arthritis (severe-on biologic) Anesthetic Plan ASA status: 3 Anesthesia: General Other: A.line, stress dose steroid, T&C 2 units Medications/Allergies Home Medications Medication Instructions Recorded Confirmed Last Taken Type albuterol sulfate 90 mcg/actuation 1 - 2 puff inhalation Q4H PRN 02/15/20 07/31/22 Unknown History aerosol inhaler (ProAir HFA) Shortness Of Breath folic acid 1 mg tablet 1 mg PO QAM 02/15/20 07/31/22 06/26/22 06:00 History gabapentin 600 mg tablet 600 mg PO TID 11/04/21 07/31/22 06/26/22 06:00 History umeclidinium 62.5 mcg-vilanterol 1 inh inhalation DAILY 30 days #60 05/04/22 07/31/22 06/26/22 Rx 25 mcg/actuation powdr for ea inhalation (Anoro Ellipta) docusate sodium 100 mg capsule 200 mg PO BEDTIME PRN constipation 06/26/22 07/31/22 Unknown History (Colace) morphine 30 mg immediate release 30 mg PO Q4H PRN pain 1 month #120 07/24/22 07/31/22 Unknown Rx tablet tabs prednisone 10 mg tablet 10 mg PO BID #60 tabs 07/24/22 07/31/22 Unknown Rx Allergies Allergy/AdvReac Type Severity Reaction Status Date / Time alginic acid Allergy Severe ALGY-Rash Verified 07/24/22 11:47 [From MediHoney (moises alginate-honey)] honey Allergy Severe ALGY-Rash Verified 07/24/22 11:47 [From MediHoney (moises alginate-honey)] acetaminophen Allergy Nausea Verified 07/24/22 11:47 [From Tylenol-Codeine #3] codeine Allergy Nausea Verified 07/24/22 11:47 [From Tylenol-Codeine #3] doxycycline Allergy Nausea Verified 07/24/22 11:47 erythromycin base Allergy Respiratory Verified 07/24/22 11:47 distress isoniazid Allergy ALGY-Anaphy Verified 07/31/22 08:53 laxis leflunomide Allergy Difficulty Verified 07/24/22 11:47 Breathing levofloxacin Allergy chest pain Verified 07/24/22 11:47 rifampin Allergy ADR-Nausea Verified 07/24/22 11:47 [facility] Anesthesia Medical History Cellulitis Chronic steroid use COPD (chronic obstructive pulmonary disease) High risk medication use Immunization counseling Latent tuberculosis 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 Bergman in 2003 History of D&C Status post colonoscopy Family History Family/Other Heart disease Denies family history of Diabetes CAD (coronary artery disease) Clotting disorder Dementia Hyperlipidemia Psychiatric illness Chronic kidney disease (CKD) Suicide Anesthesia complication Bleeding disorder Family history of premature coronary artery disease Lung disease Cancer Hypertension Stroke Social History Smoking and tobacco status: former smoker Quit status (tobacco): has quit using tobacco Year quit tobacco: 1997 Former quit date comment: Hx of 2 PPD x 30 Years, started at age 14 Second hand smoke exposure: No Smoking risk assessment/counseling performed?: No Alcohol intake: never Counseling given: No Counseling given: No Lives independently: Yes Household members: none Marital status: Current occupational status: disabled History of recent travel: No Current gender identity: Female Data Anesthesia Cardiac Studies: No Data to Display
[2022-08-05] VITALS (28 sets, daily range): BP systolic 101–173; BP diastolic 46–96; PULSE 63–80; RESP 13–20; TEMP 36.2–37.3; O2SAT 96–100; BMI 23.1
--- NOTE | 2022-08-05 | XR_ITS ---
WS: [id number] Lumbar spine, C-arm fluoroscopy, 08/05/2022 Clinical Data: T10 to pelvis instrumented fusion Comparison: None. Findings: Dr. Levine performed an extensive posterior thoracolumbar sacral fusion XR/XR lumbar spine 2-3V* [id number] Impression: Posterior thoracolumbar sacral fusion.
--- NOTE | 2022-08-05 | SCC_ITS ---
Procedure done: 1. T10 - pelvis posterolateral fusion 2. T10 to S1 instrumentation 3. lumbo pelvic instrumentation 4. Open SI joint fusion (53950) Right 5. Open SI joint fusion (43357) Left 5. L3/4 laminectomy with partial facetectomies 6. L4/5 laminectomy with partial facetectomies 7. L5/S1 laminectomy with partial facetectomies 8. computer navigation/ stereotactic for spine 9. Bone marrow aspirate from right iliac crest 10. use of autograft 11. use of allograft 15 seconds of fluoroscopic guidance, for a cumulative dose of 41.4 mGy, was provided to Dr. Levine by the radiology department. C-arm images of the lumbar spine were saved for the patient's permanent record. [email or web address]
--- NOTE | 2022-08-05 11:44 | P.ANESUD_ITS ---
Pre-Anesthetic Update Pre-Anesthetic Assessment: Date of Surgery/Procedure: 08/05/22 Proposed Procedure: Operation Date: 08/05/22 13:50 Proposed Procedures p Posterior Lumbar Interbody Fusion L5-S1 [id number]/6 [id number]/[id number]/[id number]/18806/M48.062(Not Applicable) - Adithyaancelmo Levine, DO s Spinal Fusion T10 to Pelvis(Not Applicable) - Adithyaancelmo Levine, DO Any changes to Pre-Anesthetic Assessment?: No Exam: Pre-Anes Outpt Exam: alert, oriented x 3, clear to auscultation bilaterally and regular rate & rhythm Cardiac Studies: No Data to Display
[2022-08-05] MEDS: sodium chloride 0.9% 1,000 ML 30 ML IV (13:04)
--- NOTE | 2022-08-05 13:22 | PM.HP ---
Providers/Chief Complaint Primary Care Provider: Maciej West DO Chief Complaint: PLIF L5/S1 History of Present Illness Jenna Hamlin is a 67 year old female She rates her pain 9/10 at todays visit. She explains her back pain located in the middle of her back is severe. She states she also experiences lower back pain that radiates into her bilateral lower extremities. She describes weakness,numbness and tingling in both legs.? Review of Systems General: Reports: 10 or more systems reviewed and unremarkable except in HPI and below Const: Denies: fever(s) Eyes: Denies: eye discharge ENMT: Denies: throat pain Card: Denies: chest pain Resp: Denies: dyspnea GI: Denies: nausea or vomiting : Denies: urinary incontinence Musc: Reports: back pain Skin/Breast: Denies: rash Neuro: Reports: numbness in extremities and weakness in extremities Psych: Denies: anxiety Endo: Denies: polyuria John Paul/Lymph: Denies: easy bruising All/Imm: Denies: facial swelling Medications/Allergies Home Medications Medication Instructions Recorded Confirmed Last Taken Type albuterol sulfate 90 mcg/actuation 1 - 2 puff inhalation Q4H PRN 02/15/20 08/05/22 Unknown History aerosol inhaler (ProAir HFA) Shortness Of Breath folic acid 1 mg tablet 1 mg PO QAM 02/15/20 08/05/22 08/05/22 07:00 History gabapentin 600 mg tablet 600 mg PO TID 11/04/21 08/05/22 08/05/22 07:00 History umeclidinium 62.5 mcg-vilanterol 1 inh inhalation DAILY 30 days #60 05/04/22 08/05/22 08/04/22 Rx 25 mcg/actuation powdr for ea inhalation (Anoro Ellipta) docusate sodium 100 mg capsule 200 mg PO BEDTIME PRN constipation 06/26/22 08/05/22 08/04/22 History (Colace) morphine 30 mg immediate release 30 mg PO Q4H PRN pain 1 month #120 07/24/22 08/05/22 08/05/22 10:00 Rx tablet tabs prednisone 10 mg tablet 10 mg PO BID #60 tabs 07/24/22 08/05/22 08/05/22 07:00 Rx Bone Growth Stimulator [id number] #1 ea 08/03/22 Unknown Rx Allergies Allergy/AdvReac Type Severity Reaction Status Date / Time alginic acid Allergy Severe ALGY-Rash Verified 07/24/22 11:47 [From MediHoney (moises alginate-honey)] honey Allergy Severe ALGY-Rash Verified 07/24/22 11:47 [From MediHoney (moises alginate-honey)] acetaminophen Allergy Nausea Verified 07/24/22 11:47 [From Tylenol-Codeine #3] codeine Allergy Nausea Verified 07/24/22 11:47 [From Tylenol-Codeine #3] doxycycline Allergy Nausea Verified 07/24/22 11:47 erythromycin base Allergy Respiratory Verified 07/24/22 11:47 distress isoniazid Allergy ALGY-Anaphy Verified 07/31/22 08:53 laxis leflunomide Allergy Difficulty Verified 07/24/22 11:47 Breathing levofloxacin Allergy chest pain Verified 07/24/22 11:47 rifampin Allergy ADR-Nausea Verified 07/24/22 11:47 PFSH Acute PFSH: Medical History Cellulitis Chronic steroid use COPD (chronic obstructive pulmonary disease) High risk medication use Immunization counseling Latent tuberculosis 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 Bergman in 2003 History of D&C Status post colonoscopy Family History Family/Other Heart disease Denies family history of Diabetes CAD (coronary artery disease) Clotting disorder Dementia Hyperlipidemia Psychiatric illness Chronic kidney disease (CKD) Suicide Anesthesia complication Bleeding disorder Family history of premature coronary artery disease Lung disease Cancer Hypertension Stroke Social History Smoking and tobacco status: former smoker Quit status (tobacco): has quit using tobacco Year quit tobacco: 1997 Former quit date comment: Hx of 2 PPD x 30 Years, started at age 14 Second hand smoke exposure: No Smoking risk assessment/counseling performed?: No Alcohol intake: never Counseling given: No Counseling given: No Lives independently: Yes Household members: none Marital status: Current occupational status: disabled History of recent travel: No Current gender identity: Female Vitals/I&O/Wt Last Vital Signs Temp 99.1 F 08/05/22 12:19 Pulse 66 08/05/22 12:19 Resp 18 08/05/22 12:19 BP 173/80 08/05/22 12:19 Pulse Ox 96 08/05/22 12:19 O2 Del Method 08/05/22 12:20 Physical Exam Narrative: Accompanied by her friend Const: COMMON NORMALS: patient oriented x3 and alert GENERAL APPEARANCE: cooperative ORIENTATION/CONSCIOUSNESS: Yes awake HENMT: COMMON NORMALS: oropharynx normal Eye: SCLERA: scleral abnormal Laterality of scleral abnormality: positive bilateral scleral icterus Neck/C-Spine: COMMON NORMALS: no JVD Resp: COMMON NORMALS: normal respiratory effort and clear to auscultation bilaterally AUSCULTATION: clear to auscultation bilaterally Cardio: COMMON NORMALS: no JVD, regular rhythm, S1 normal heart sound present, S2 normal heart sound present and No murmurs present (Cardio) RHYTHM: regular rhythm HEART SOUNDS: S1 normal heart sound present and S2 normal heart sound present GI: COMMON NORMALS: Normal to inspection, nondistended, normoactive bowel sounds present, Soft to palpation and non-tender PALPATION: Yes Soft to palpation Extremity: COMMON NORMALS: no joint enlargement and no pedal edema Neuro: COMMON NORMALS: patient oriented x3 and moves all extremities SENSORIUM/ORIENTATION: Yes alert Skin: COMMON NORMALS: no rashes or lesions noted GENERAL SKIN EXAM: no rashes or lesions noted and jaundice OTHER: Venous stasis sequela with hemosiderin deposition and scarring on bilateral lower extremities. A&P Assessment and plan (1) Lumbar stenosis with neurogenic claudication: [id number] with decompression Status: Acute Attestations Medical Necessity Statement*: failed conservative tx Coding Level of Care Code Acute Director Inpatient Headache Program for Chg Fwd Diagnoses Lumbar stenosis with neurogenic claudication M48.062
[2022-08-05 14:17] LABS: Anion Gap 14.9 (5-19); Blood Urea Nitrogen 10 mg/dL (8-23); Calcium 8.7 mg/dL (8.5-10.5); Carbon Dioxide 26 mmol/L (22-29); Chloride 100 mmol/L (98-107); Glomerular Filtration Rate 122.7 mL/min (90-130); Glucose 91 mg/dL (65-115); Osmolality Calculated 283 mOsm/kg (285-295); Potassium 3.9 mmol/L (3.5-5.1); Sodium 137 mmol/L (136-145)
[2022-08-05] MEDS: fentaNYL 50 mcg/mL INJ 2mL IVP (14:23)
[2022-08-05] MEDS: clindamycin 600 MG/50 ML PREMIX 100 MG IV ×2 (14:31→18:50)
[2022-08-05 14:44] LABS: Basophils % 0.3 %; Eosinophils % 0.2 %; Hemoglobin 12.8 g/dL (11.5-15.3); Lymphocytes # 1.2 10^3/uL (0.8-4.8); Lymphocytes % 11.9 %; Mean Corpuscular HGB Conc 32.8 g/dL (30.0-36.0); Mean Corpuscular Hemoglobin 32.7 pg (28.0-34.0); Mean Corpuscular Volume 99.7 fl (81-99); Mean Platelet Volume 11.3 fL (7.4-10.4); Monocytes # 0.8 10^3/uL (0.2-0.9); Monocytes % 7.8 %; Neutrophils # 8.02 10^3/uL (1.8-7.7); Neutrophils % 79.5 %; Nucleated Red Blood Cells % 0 %; Platelet Count 157 10^3/cmm (130-400); Red Blood Count 3.91 10^6/uL (4.1-5.3); Red Cell Distribution Width 13.9 % (12.1-15.1); White Blood Count 10.1 10^3/uL (4.0-10.0)
[2022-08-05] MEDS: vancomycin 1,000 MG SDV 1000 MG XX (15:30)
[2022-08-05] MEDS: heparin, porcine 1,000 unit/mL INJ 10 mL 10000 UNIT IRRIGATION (15:34)
[2022-08-05 18:06] LABS: Hematocrit 32.7 % (37.0-47.0); Hemoglobin 10.8 g/dL (11.5-15.3)
--- NOTE | 2022-08-05 19:06 | PM.OP ---
Operative Report Date of procedure: August 05, 2022 Pre-op diagnosis: Preop Diagnosis Lumbar stenosis with neurogenic claudication, DDD Lspine Post-op diagnosis: same Procedure done: 1. T10 - pelvis posterolateral fusion 2. T10 to S1 instrumentation 3. lumbo pelvic instrumentation 4. Open SI joint fusion (13484) Right 5. Open SI joint fusion ([id number]) Left 5. L3/4 laminectomy with partial facetectomies 6. L4/5 laminectomy with partial facetectomies 7. L5/S1 laminectomy with partial facetectomies 8. computer navigation/ stereotactic for spine 9. Bone marrow aspirate from right iliac crest 10. use of autograft 11. use of allograft Surgeon: Adithya Levine Global Sales Executive: Rob Rodriguez Estimated blood loss (mL): 500 Procedure: 1. T10 - pelvis posterolateral fusion 2. T10 to S1 instrumentation 3. lumbo pelvic instrumentation 4. Open SI joint fusion (81431) Right 5. Open SI joint fusion ([id number]) Left 5. L3/4 laminectomy with partial facetectomies 6. L4/5 laminectomy with partial facetectomies 7. L5/S1 laminectomy with partial facetectomies 8. computer navigation/ stereotactic for spine 9. Bone marrow aspirate from right iliac crest 10. use of autograft 11. use of allograft Patient is brought to the operative suite. After undergoing anesthesia, the patient had neuro monitoring attached. Patient was then placed in the prone position on the Tirso table. All areas of impingement were well-padded. Patient was then prepped and draped in the normal sterile fashion. Skin incision was then made over the T10 to S1. Subperiosteal dissection was made out to the transverse processes of T10 down to L5. And also exposing the sacral ala over the S1 1 L5 facet. The SI joints were also exposed. Next attention was brought to obtaining the bone marrow aspirate. The [employer] bone marrow aspirate kit was used to aspirate bone marrow aspirate. This was done by using the sharp probe to open up the bone. Aspiration was performed and then the blunt probe was then used to dissect down to through the bone tunnel. An aspirating well drawn back a millimeter approximately 20 cc of bone marrow aspirate was used. Admixed with the allograft and autograft bone that will be used. Is brought to placing the fiducial for the computer navigation. The computer navigation fiducial was hooked up to 2 pins were placed into the right iliac crest. These 2 pins were later moved at the end of the case. The C-arm was brought in and spun around the patient and then the information was linked to the computer in order to facilitate placing the screws. Next attention was brought to placing the sacral ala iliac screws. These were done bilaterally. The right side was done first. The gearshift was placed using computer navigation. And then the pedicle feeler was inserted in order to facilitate that there were no breaches. This was also placed in order to facilitate marking where the screw was going to go. Because Next the attention was brought to placing the open sacral iliac joint fusion. The exposure was done over the sacroiliac joint. Using the gearshift probe the SI joint was identified and a K wire was placed into the sacroiliac joint. Tissue protectors were passed around the sacroiliac joint pain and then a drill was placed into the sacroiliac joint going in the parallel fashion into the SI joint. Next a allograft cage was placed into the SI joint. This was done superior to the plan. The same process was repeated inferior to the pin. Next attention was placed to placing the right sacral ala iliac screw using computer navigation this is a 90 mm 9.5 mm Karissa screw. Next attention was brought to the left side.he gearshift was placed using computer navigation. And then the pedicle feeler was inserted in order to facilitate that there were no breaches. This was also placed in order to facilitate marking where the screw was going to go. Because Next the attention was brought to placing the open sacral iliac joint fusion. The exposure was done over the sacroiliac joint. Using the gearshift probe the SI joint was identified and a K wire was placed into the sacroiliac joint. Tissue protectors were passed around the sacroiliac joint pain and then a drill was placed into the sacroiliac joint going in the parallel fashion into the SI joint. Next a allograft cage was placed into the SI joint. This was done superior to the plan. The same process was repeated inferior to the pin. Next attention was placed to placing the right sacral ala iliac screw using computer navigation this is a 90 mm 9.5 mm Semmes screw. A total of 4 cages were placed into the bilateral sacral iliac joints. Next attention was brought to placing the pedicle screws. The technique for placing the pedicle screws was to use a drill followed by the gearshift probe. Followed by the ball probe to feel the superior inferior medial lateral shelton of the pedicles. Then placement of the screws. Was done at each pedicle. Screws were placed at S1 bilaterally, L5 bilaterally L4 bilaterally L3 bilaterally L2 on the left L1 on the right T12 bilaterally T11 bilaterally and T10 bilaterally. Next attention was brought to performing the laminectomy ofL3. This was done using the high-speed bur Kerrisons and curettes. Once the lamina was removed and then attention was brought to performing a partial facetectomy on the contralateral side. This was done again using the high-speed bur curettes and Kerrisons. The ligamentum flavum was taken down bilaterally from L3 to L4. Attention was then brought to the facet on the ipsilateral side. The facet was taken down. The L4 nerve was decompressed as it passed around the L4 pedicle bilateral. The laminectomy was done for purposes of decompressing the nerve The L3 nerve was identified as it traversed through the L3/4 foramen bilateral. Next attention was brought to performing the laminectomy ofL4. This was done using the high-speed bur Kerrisons and curettes. Once the lamina was removed and then attention was brought to performing a partial facetectomy on the contralateral side. This was done again using the high-speed bur curettes and Kerrisons. The ligamentum flavum was taken down bilaterally from L4 to L5. Attention was then brought to the facet on the ipsilateral side. The facet was taken down. The L5 nerve was decompressed as it passed around the L5 pedicle bilateral. The laminectomy was done for purposes of decompressing the nerve The L4 nerve was identified as it traversed through the L4/5 foramen bilateral. Next attention was brought to performing the laminectomy ofL5. This was done using the high-speed bur Kerrisons and curettes. Once the lamina was removed and then attention was brought to performing a partial facetectomy on the contralateral side. This was done again using the high-speed bur curettes and Kerrisons. The ligamentum flavum was taken down bilaterally from L5 to S1. Attention was then brought to the facet on the ipsilateral side. The facet was taken down. The S1 nerve was decompressed as it passed around the S1 pedicle bilateral. The laminectomy was done for purposes of decompressing the nerve The L5 nerve was identified as it traversed through the L5 foramen bilateral. Attention was then brought to attaching the rods to the screws placed in the T10 down to S1 bilaterally and attaching onto the sacral ala iliac screw bilaterally. Caps were torqued into position. Locking the construct in place. Wound was copiously irrigated and then attention was brought to decorticating the facets and transverse processes laterally. Bone that was taken down from the lamina was used along with osteoamp fibers and sponges were packed into the lateral gutters along the facet joints. This was done bilaterally. Wound was then closed in a layered fashion starting with the thoracolumbar fascia. 0-vicryl was used the sub cutaneous tissue was closed with 2-0 vicryl and skin with 4-0 monocryl. Glue was then used to seal the skin and a steril dressing was applied. Patient was then placed in the supine position. The endotracheal tube was removed and patient was transferred to the PACU in stable condition.
--- NOTE | 2022-08-05 19:17 | SUR.OPER ---
1915 after drapes removed, red raised hives over upper/middle back. no hives noted on bilateral legs or buttox.
--- NOTE | 2022-08-05 19:25 | SUR.OPER ---
192 pink raised hives noted from nipple line to groin, anteriorly. Dr. Pa aware and at bedside
[2022-08-05] MEDS: HYDROmorphone 1 mg/mL INJ 1 mL 0.4 MG IVP (20:22)
--- NOTE | 2022-08-05 20:27 | PM.PACU ---
PACU note Narrative: Patient brought to PACU, SV, on 10 LPM with OPA. Blood ordered in anticipation of soft BPs. In PACU initially MAPs 70 to 80 mmHg. pRBC returned to blood bank. BP slowly drifted down to MAPs of 58 to 65 mmHg when not stimulated. Patient's pre op BP 173/80 mmHg. Blood re-ordered in anticipation of further analgesic administration further lowering BP. Plan 1 give 1 unit pRBC in PACU.
--- NOTE | 2022-08-05 20:31 | ANE.PACU2 ---
Inpatient post-anesthesia follow up: Vital signs: Temperature 97.1 F Pulse Rate 71 Respiratory Rate 18 Blood Pressure 108/55 Pulse Oximetry 98 Oxygen Delivery Me thod Simple Mask Oxygen Flow Rate 6 Fraction of Inspir ed Oxygen
[2022-08-05] MEDS: gabapentin 300 mg Capsule 600 MG PO (21:57)
[2022-08-05] MEDS: ketorolac 30 mg/mL INJ IVP (21:57)
[2022-08-05] MEDS: lactated ringers 1,000 ML 90 ML IV (23:08)
[2022-08-06] VITALS (14 sets, daily range): BP systolic 106–135; BP diastolic 57–76; PULSE 65–99; RESP 16–19; TEMP 36.5–37.6; O2SAT 94–100
[2022-08-06] MEDS: clindamycin 600 MG/50 ML PREMIX 100 MG IV ×3 (02:36→17:04)
[2022-08-06] MEDS: HYDROmorphone 1 mg/mL INJ 1 mL 0.4 MG IVP ×4 (02:42→21:37)
[2022-08-06] MEDS: ondansetron 2 mg/ML SDV 2 mL 4 MG IVP (02:49)
[2022-08-06] MEDS: ketorolac 30 mg/mL INJ IVP ×2 (06:07→16:03)
[2022-08-06] MEDS: folic acid 1 mg Tablet PO (06:07)
--- NOTE | 2022-08-06 07:35 | P.PN_ITS ---
Subjective Subjective: POD 1 Patient resting comfortably. Reports moderate back pain. Denies chest pain, shortness of breath or headaches. Vitals/I&O/Wt Last Vital Signs Temp 97.7 F 08/06/22 02:00 Pulse 69 08/06/22 04:00 Resp 17 08/06/22 07:04 BP 128/66 08/06/22 04:00 Pulse Ox 96 08/06/22 04:00 O2 Del Method 08/06/22 04:00 O2 Flow Rate 3 08/05/22 20:41 08/05/22 08/06/22 08/06/22 22:59 06:59 14:59 Intake Total 1300 / 1300 804 / 2104 Output Total 1620 / 1620 1200 / 2820 Balance -320 / -320 -396 / -716 Weight last 48 hrs Weight 143 lb Physical Exam Narrative: Patient presents alert and oriented x3 with a good general appearance normal mood and affect. Mild tenderness around the incisional site with the incision appear to be clean and dry. Hemovac intact. No signs of burak thema or drainage. No signs of infection. Patient denies any fevers or chills. 4/5 motor strength both lower extremities, wiggles all digits on both lower extremities. Calves are supple no medial thigh tenderness. Pulses are 1+ at the dorsalis pedis and posterior tibial region. Good capillary refill throughout normal sensation light touch both lower extremities. Urinary Catheter Management: Pratt: Cath Placed During This Visit: yes Reason for Continuing Indwelling Catheter: Required Immobilization for Trauma or Surgery or Anesthesia Urinary Catheter Date of Insertion: 08/05/22 Urinary Catheter Time of Insertion: 14:50 Data : 08/05/22 18:00 08/05/22 13:05 A&P Assessment and plan (1) S/P spinal fusion: Physical therapy to evaluate. Mobilize today. Incentive spirometry for pulmonary toilet. patient financial services coordinator to evaluate for placement. Discontinue Hemovac drain tomorrow and hopeful discharge tomorrow. Status: Acute Attestations Medical Necessity Statement*: dc tomorrow Coding Level of Care Code Acute Dry Food Products Mixer for Rubig Fwd Diagnoses S/P spinal fusion Z98.1
[2022-08-06] MEDS: oxyCODONE 10 mg ER (12 HR) Tablet 20 MG PO ×2 (08:17→17:04)
[2022-08-06] MEDS: gabapentin 300 mg Capsule 600 MG PO ×3 (08:17→20:35)
[2022-08-06] MEDS: predniSONE 10 mg Tablet PO ×2 (08:17→17:04)
[2022-08-06] MEDS: lactated ringers 1,000 ML 90 ML IV ×2 (10:03→21:38)
--- NOTE | 2022-08-06 11:57 | XRR_ITS ---
PROCEDURE INFORMATION: Exam: XR Left Elbow Exam date and time: 08/06/2022 12:27 PM Age: 67 years old Clinical indication: Pain; Elbow; Left; Patient HX: No known trauma; Additional info: Pain and swelling TECHNIQUE: Imaging protocol: Radiologic exam of the Left elbow. Views: 1 or 2 views. COMPARISON: CR XR hand LT min 3V* [id number] 09/24/2021 11:52 AM FINDINGS: Bones/joints: Negative for acute bony abnormality. Soft tissues: Prominent soft tissues are seen in the olecranon bursa possible olecranon bursitis XR/XR elbow LT 2V [id number] IMPRESSION: 1. No acute bone abnormality. 2. Possible olecranon bursitis.
--- NOTE | 2022-08-06 18:15 | PC.NURSE ---
jones discontinued per orders at 1200, pt has not yet voided. orders received to bladder scan, 321 in bladder at this time. pt says i don't feel like i need to go, i will try in about in hour
[2022-08-07] VITALS (8 sets, daily range): BP systolic 135–161; BP diastolic 64–69; PULSE 72–92; RESP 16–22; TEMP 36.7–37.5; O2SAT 93–100
[2022-08-07] MEDS: HYDROmorphone 1 mg/mL INJ 1 mL 0.4 MG IVP (06:08)
[2022-08-07] MEDS: folic acid 1 mg Tablet PO (06:09)
--- NOTE | 2022-08-07 07:12 | PM.PN ---
Subjective Subjective: POd 2 Patient reports mild back pain legs improving.. Vitals/I&O/Wt Last Vital Signs Temp 98.3 F 08/07/22 04:15 Pulse 81 08/07/22 04:15 Resp 18 08/07/22 06:08 BP 143/69 08/07/22 04:15 Pulse Ox 100 08/07/22 04:15 O2 Del Method 08/07/22 04:15 O2 Flow Rate 3 08/05/22 20:41 08/06/22 08/07/22 08/07/22 22:59 06:59 14:59 Intake Total 1410 / 2502.5 520 / 3022.5 Output Total 100 / 650 1200 / 1850 Balance 1310 / 1852.5 -680 / 1172.5 Weight last 48 hrs Weight 143 lb Physical Exam Narrative: Macro postop patient presents alert and oriented x3 with a good general appearance normal mood and affect. Normal coordination normal stability. Mild tenderness around the incisional site with the incision appear to be clean and dry. no signs of erythema or drainage. No signs of infection. Patient denies any fevers or chills. 5/5 motor strength both lower extremities with negative straight leg raise bilaterally. Calves are supple no medial thigh tenderness. Pulses are 2+ at the dorsalis pedis and posterior tibial region. Good capillary refill throughout normal sensation light touch both lower extremities. Urinary Catheter Management: Pratt: Cath Placed During This Visit: yes, but has since been removed by the nurse Reason for Continuing Indwelling Catheter: Decision to DC Catheter Urinary Catheter Date of Insertion: 08/05/22 Urinary Catheter Time of Insertion: 14:50 Date Urinary Catheter Removed: 08/06/22 Time Urinary Catheter Discontinued: 12:00 Data : 08/05/22 18:00 08/05/22 13:05 A&P Assessment and plan (1) S/P spinal fusion: Discharged home continue to mobilize. We will see her back in the office in 1 week's time for wound check. Discharged home encourage incentive spirometry for pulmonary toilet. Status: Acute Attestations Medical Necessity Statement*: home today Coding Level of Care Code Acute Astronomy Department Chair for Chg Fwd Diagnoses S/P spinal fusion Z98.1
[2022-08-07] MEDS: oxyCODONE 10 mg ER (12 HR) Tablet 20 MG PO (10:02)
[2022-08-07] MEDS: predniSONE 10 mg Tablet PO (10:02)
[2022-08-07] MEDS: gabapentin 300 mg Capsule 600 MG PO (10:03)
[2022-08-07] MEDS: ketorolac 30 mg/mL INJ IVP (12:14)
--- NOTE | 2022-08-07 14:06 | ANE.PACU2 ---
Inpatient post-anesthesia follow up: Airway intact: Yes Vital signs: Temperature 99.5 F Pulse Rate 92 Respiratory Rate 17 Blood Pressure 161/64 Pulse Oximetry 93 Oxygen Delivery Me thod Room Air Oxygen Flow Rate 3 Fraction of Inspir ed Oxygen Hydration adequate: Yes Nausea and vomiting: No Pain level: 1 Mental status: Baseline
--- NOTE | 2022-08-11 11:52 | PM.DCS ---
Discharge Providers Date of Admission: 08/05/22 18:54 Date of Discharge: August 07, 2022 Attending Provider at Admission: Adithya Levine DO Attending Provider at Discharge: Adithya Levine DO Primary Care Provider: Maciej West DO Diagnoses at Discharge Discharge Diagnosis (1) S/P spinal fusion: Status: Acute Reason for Visit Reason for Visit: PLIF L5/S1 Hospital Course Hospital Course uneventful Physical Exam Urinary Catheter Management: Pratt: Cath Placed During This Visit: yes, but has since been removed by the nurse Reason for Continuing Indwelling Catheter: Decision to DC Catheter Urinary Catheter Date of Insertion: 08/05/22 Urinary Catheter Time of Insertion: 14:50 Date Urinary Catheter Removed: 08/06/22 Time Urinary Catheter Discontinued: 12:00 Discharge Data Studies Completed and Pending Completed Studies During Hospitalization Category Date Time Status XR elbow LT 2V [id number] Routine Exams 08/06/22 11:57 Completed XR lumbar spine 2-3V* [id number] Routine Exams 08/05/22 Completed Radiology Impressions Lumbar Spine X-Ray 08/05/22 00:00 Impression: Posterior thoracolumbar sacral fusion. Elbow X-Ray 08/06/22 11:57 IMPRESSION: 1. No acute bone abnormality. 2. Possible olecranon bursitis. Laboratory Results WBC 10.1 10^3/uL (4.0-10.0) H 08/05/22 13:05 RBC 3.91 10^6/uL (4.1-5.3) L 08/05/22 13:05 Hgb 10.8 g/dL (11.5-15.3) L 08/05/22 18:00 Hct 32.7 % (37.0-47.0) L 08/05/22 18:00 MCV 99.7 fl (81-99) H 08/05/22 13:05 MCH 32.7 pg (28.0-34.0) 08/05/22 13:05 MCHC 32.8 g/dL (30.0-36.0) 08/05/22 13:05 RDW 13.9 % (12.1-15.1) 08/05/22 13:05 Plt Count 157 10^3/cmm (130-400) 08/05/22 13:05 MPV 11.3 fL (7.4-10.4) H 08/05/22 13:05 Neut % (Auto) 79.5 % 08/05/22 13:05 Lymph % (Auto) 11.9 % 08/05/22 13:05 Will % (Auto) 7.8 % 08/05/22 13:05 Eos % (Auto) 0.2 % 08/05/22 13:05 Baso % (Auto) 0.3 % 08/05/22 13:05 Neut # (Auto) 8.02 10^3/uL (1.8-7.7) H 08/05/22 13:05 Lymph # (Auto) 1.2 10^3/uL (0.8-4.8) 08/05/22 13:05 Will # (Auto) 0.8 10^3/uL (0.2-0.9) 08/05/22 13:05 Eos # (Auto) 0.0 10^3/uL (0.0-0.8) 08/05/22 13:05 Baso # (Auto) 0.0 10^3/uL (0.0-0.1) 08/05/22 13:05 Nucleated RBC % (auto) 0 % 08/05/22 13:05 Nucleated RBCs # 0.0 /100WBC 08/05/22 13:05 Sodium 137 mmol/L (136-145) 08/05/22 13:05 Potassium 3.9 mmol/L (3.5-5.1) 08/05/22 13:05 Chloride 100 mmol/L (98-107) 08/05/22 13:05 Carbon Dioxide 26 mmol/L (22-29) 08/05/22 13:05 Anion Gap 14.9 (5-19) 08/05/22 13:05 BUN 10 mg/dL (8-23) 08/05/22 13:05 Creatinine 0.5 mg/dL (0.5-0.9) 08/05/22 13:05 GFR Calculation 122.7 mL/min (90-130) 08/05/22 13:05 Glucose 91 mg/dL (65-115) 08/05/22 13:05 Calculated Osmolality 283 mOsm/kg (285-295) L 08/05/22 13:05 Calcium 8.7 mg/dL (8.5-10.5) 08/05/22 13:05 Blood Type O Negative 08/05/22 13:05 Rho(D) Type Negative 08/05/22 13:05 Antibody Screen Negative 08/05/22 13:05 Crossmatch See Detail 08/05/22 13:05 Vitals Last Vital Signs Temp 99.5 F 08/07/22 13:45 Pulse 92 08/07/22 13:45 Resp 17 08/07/22 13:45 BP 161/64 08/07/22 13:45 Pulse Ox 93 08/07/22 13:45 O2 Del Method 08/07/22 11:58 O2 Flow Rate 3 08/07/22 10:20 Discharge Plan Discharge Patient Disposition: Home Health Service Condition: Stable Prescriptions: New oxycodone 10 mg tablet 10 mg PO Q4H PRN (Reason: pain) 7 Days Qty: 42 0RF Continued folic acid 1 mg tablet 1 mg PO QAM albuterol sulfate [ProAir HFA] 90 mcg/actuation HFA aerosol inhaler 1 - 2 puff INHALATION Q4H PRN (Reason: Shortness Of Breath) gabapentin 600 mg tablet 600 mg PO TID morphine 30 mg tablet 30 mg PO Q4H MDD 5 tabs PRN (Reason: pain) 30 Days Qty: 120 0RF prednisone 10 mg tablet 10 mg PO BID Qty: 60 1RF Rx Instructions: for arthritis/inflammation Anoro Ellipta 62.5-25 mcg/actuation blister with device 1 inh inhalation DAILY 30 Days Qty: 60 4RF (DME) Bone Growth Stimulator E0748 See Rx Instructions .Route .MEDSUPPLY Qty: 1 0RF Rx Instructions: As directed. docusate sodium [Colace] 100 mg capsule 200 mg PO BEDTIME PRN (Reason: constipation) Discharge Orders: Discharge Order (Routine); Ordered 08/07/22 Ordered By: Rob Rodriguez Other Ambulatory Orders: DME: Walker (Order) Location: None Selected Ordered By: Adithya Levine DME: Walker (Order) Location: None Selected Ordered By: Adithya eLvine Referrals: [facility] [Other] (You can call this number to see if you qualify for additional caregiver services @ home. They will ask you a series of questions and based on your answers assign points. Your total number of points will determine if how much and if you need services. ) [facility] [place] ([facility]) [Outside] Rob Rodriguez PA-C [Physician Integrated Circuit Fabricator] - 08/13/22 10:00 am Discharge Diet: Advance as tolerated Discharge Activity: Limit activity as instructed Patient Instructions: Lumbar Spinal Fusion (DC), Opioid Safety Activity Restrictions/Additional Instructions: Thank you for choosing [facility] for your care! The following is a list of instructions, from your provider, to follow upon your discharge to ensure you have the optimal recovery from your recent injury or surgery. Follow-up care is a gonzalez part of your treatment and safety. Be sure to make and go to all appointments and call your doctor if you are having problems. If you do not already have a follow-up appointment made, call Dr. Levine's] office in the next 1-3 days to make follow up appointment for 1 weeks at [phone]. It is also a good idea to know your test results and keep a list of the medicines you take. Medications will be prescribed for you at your provider's discretion. These medications are to be used as instructed; if they are taken more often that prescribed they will not be refilled early and in most cases will not be refilled at all. > When a refill is needed, you should contact sd almanza 2-3 business days before your prescription runs out. Medications will NOT be refilled by lead quality control technician providers after hours! > Many pain medications contain Tylenol (Acetaminophen). Do not consume more than 4,000 mg of Tylenol per day in total with any combination of medications. > Pain medications can cause constipation. Please use an over the counter stool softener as directed, while taking pain medications. Consult your local pharmacist with questions or recommendations on stool softeners. If constipation persists, contact our office or your primary care provider. > While under our care, you are not to receive pain medications or other controlled substances from any other provider unless our office is notified and approves. Any attempts to do so will result in refusal to prescribe any further pain medications and possible dismissal from our practice. ? Walking is essential for the healing process after surgery. We would like you to slowly advance your walking. This should be done on relatively flat clear ground (inside or out) or can be done on a treadmill. Remember this goal does not have to happen all at once, slowly increase your distance and duration. This can be broken into more more than one walk per day as tolerated. Patients who walk as directed after surgery rarely require Physical Therapy. In the unlikely event this issue arises your provider will direct hospital staff to make the appropriate arrangements. ? No lifting over 5 pounds {a gallon of milk) or bending/twisting until further notice. Each of these activities places an unnecessary amount of stress onto the body and can impede the delicate healing process. > Instead of bending at the waist, keep your back straight and bend at the knees. > Instead of twisting your torso, keep your back straight and turn your entire body with your feet. ? You may sleep in any position which makes you comfortable. Many patients find comfort sleeping in a reclining chair. It is not abnormal to have difficulty sleeping for the first several weeks following your surgery. We recommend trying Benadry! or Tylenol PM as directed to help with your sleeping difficulties. Both medications are over the counter and available without prescription. ? NO SMOKING!!! Smoking dramatically increases the probability of developing postoperative wound infections. ? Common complaints after lumbar and/or thoracic spine surgery include, but are not limited to: numbness and/or tingling in the legs, pain around the incision and surrounding tissues, muscle spasms, or stiffness of the middle to low back. Contact our office if these symptoms persist or if an acute change occurs. ? No driving for the first 3-5days, and not while taking narcotics until seen at your follow-up appointment and cleared. There are no restrictions for riding on short trips, however if you take a longer trip, arrangements should be made to make regular stops to get out of the vehicle and stretch . ? Swelling is an unfortunate event that will take place with any surgery and is the primary source of your postoperative discomfort. While walking and regular approved activities helps control inflammation, there are additional steps you can take to minimize swelling. > Place ice over the surgical site and surrounding tissue for twenty minutes, followed by applying a low/medium heat (heating pad) for an additional twenty minutes every 1-2 hours as needed for painrelief. > You may use of over the counter anti-inflammatory medications (Ibuprofen, Motrin, Aleve, Advil, etc) as directed on the package label. These types of medicines will significantly reduce the amount of discomfort you experience after surgery from swelling. It should be noted that if you have and allergy to any of these medications, or a history of ulcers or kidney disease you should consult you primary care provider prior to starting these medications. Discharge Attestations Time Spent in Discharge Care*: less than 30 min Quality Metrics Clinical Quality Measures [ No reported AMI, CVA or VTE this stay] Coding Level of Care Code Acute g FW DC note Diagnoses S/P spinal fusion Z98.1
== END 2022-08-07 13:20 | disposition home health service (06) | DRG 458 ==
LOC: MEDSURG 08-06 02:53
PROVIDERS: Anesthesiology; Admitting Provider Orthopaedic Surgery; PCP Family Medicine; Visit Provider Orthopaedic Surgery
PROC: 0RG7071 Fusion of 2 to 7 Thoracic Vertebral Joints with Autologous Tissue Substitute, Posterior Approach, Posterior Column, Open Approach (ICD-10-PCS; CPT 22612; principal; 2022-08-05 13:40)
PROC: 0RG7071 Fusion of 2 to 7 Thoracic Vertebral Joints with Autologous Tissue Substitute, Posterior Approach, Posterior Column, Open Approach (ICD-10-PCS; 2022-08-05 13:40)
DX: M48.062 Spinal stenosis, lumbar region with neurogenic claudication (principal); Z79.52 Long term (current) use of systemic steroids; J44.9 Chronic obstructive pulmonary disease, unspecified; Z22.7 Latent tuberculosis; M81.0 Age-related osteoporosis without current pathological fracture; I73.9 Peripheral vascular disease, unspecified; M06.042 Rheumatoid arthritis without rheumatoid factor, left hand; M06.041 Rheumatoid arthritis without rheumatoid factor, right hand; Z87.891 Personal history of nicotine dependence
CPT/HCPCS: 36415; 36430; 51702; 72100; 73070; 76000; 80048; 85014; 85018; 85025; 86850; 86900; 86920; 93005; 97116; 97161; 97530; C1713; J1100; J1170; J1200; J1644; J1720; J1885; J2250; J2405; J2704; J2710; J3010; J3370; J3490; J7030; J7512; P9016; P9041

== ENCOUNTER → 2022-08-13 10:02 | Outpatient (BNVA) | payer MEDICARE, MEDICAID, SELFPAY | PROVIDERS: PCP Family Medicine; Visit Provider Physician Assistant | DX: Z47.89 Encounter for other orthopedic aftercare (principal); Z98.1 Arthrodesis status; M70.22 Olecranon bursitis, left elbow | CPT/HCPCS: 99024 ==

== ENCOUNTER → 2022-08-20 09:51 | Outpatient (BNVA) | payer MEDICARE, MEDICAID, SELFPAY | PROVIDERS: PCP Family Medicine; Visit Provider Physician Assistant | DX: Z47.89 Encounter for other orthopedic aftercare (principal); Z98.1 Arthrodesis status | CPT/HCPCS: 72100; 99024 ==

== ENCOUNTER → 2022-08-28 11:52 | Outpatient (BNVA) | payer MEDICARE, MEDICAID, SELFPAY | PROVIDERS: PCP Family Medicine; Visit Provider Family Medicine | DX: L03.116 Cellulitis of left lower limb (principal); R60.9 Edema, unspecified; R74.01 Elevation of levels of liver transaminase levels; R17 Unspecified jaundice; Z23 Encounter for immunization | CPT/HCPCS: 80053; 81000; 85025 ==

== ENCOUNTER → 2022-09-02 14:19 | Outpatient (BNVA) | payer MEDICARE, MEDICAID, SELFPAY | PROVIDERS: PCP Family Medicine; Visit Provider Family Medicine | DX: L03.116 Cellulitis of left lower limb (principal) | CPT/HCPCS: 80048 ==

== ENCOUNTER → 2022-09-17 10:36 | Outpatient (BNVA) | payer MEDICARE, MEDICAID, SELFPAY | PROVIDERS: PCP Family Medicine; Visit Provider Physician Assistant | DX: Z47.89 Encounter for other orthopedic aftercare (principal); Z98.1 Arthrodesis status; M47.812 Spondylosis without myelopathy or radiculopathy, cervical region | CPT/HCPCS: 72100; 99024 ==

== ENCOUNTER → 2022-10-27 10:09 | Outpatient (BNVA) | payer MEDICARE, MEDICAID, SELFPAY | PROVIDERS: PCP Family Medicine; Visit Provider Podiatrist Foot & Ankle Surgery | DX: I73.9 Peripheral vascular disease, unspecified (principal); L60.3 Nail dystrophy | CPT/HCPCS: 11721 ==

== ENCOUNTER → 2022-10-28 15:23 | Outpatient (BNVA) | payer MEDICARE, MEDICAID, SELFPAY | PROVIDERS: PCP Family Medicine; Visit Provider Orthopaedic Surgery | DX: S43.101A Unspecified dislocation of right acromioclavicular joint, initial encounter (principal) | CPT/HCPCS: 73030; 99213 ==

== ENCOUNTER → 2023-01-22 11:20 | Outpatient (BNVA) | payer MEDICARE, MEDICAID, SELFPAY | PROVIDERS: PCP Family Medicine; Visit Provider Family Medicine | DX: E83.19 Other disorders of iron metabolism (principal); G62.9 Polyneuropathy, unspecified; M06.9 Rheumatoid arthritis, unspecified; M81.0 Age-related osteoporosis without current pathological fracture; Z79.899 Other long term (current) drug therapy; H91.90 Unspecified hearing loss, unspecified ear | CPT/HCPCS: 80053; 82306; 82607; 83036; 84443; 85025; 86140 ==

== ENCOUNTER → 2023-02-09 09:58 | Outpatient (BNVA) | payer MEDICARE, MEDICAID, SELFPAY | PROVIDERS: PCP Family Medicine; Visit Provider Podiatrist Foot & Ankle Surgery | DX: I73.9 Peripheral vascular disease, unspecified (principal); L60.8 Other nail disorders; L60.3 Nail dystrophy | CPT/HCPCS: 11721 ==

== ENCOUNTER → 2023-02-23 08:37 | Outpatient (BNVA) | payer MEDICARE, MEDICAID, SELFPAY | PROVIDERS: PCP Family Medicine; Visit Provider Nurse Practitioner Family | DX: J02.9 Acute pharyngitis, unspecified (principal); J44.1 Chronic obstructive pulmonary disease with (acute) exacerbation | CPT/HCPCS: 87071; 87880 ==

== ENCOUNTER → 2023-03-16 13:23 | Outpatient (BNVA) | payer MEDICARE, MEDICAID, SELFPAY | PROVIDERS: PCP Family Medicine; Visit Provider Family Medicine | DX: J18.9 Pneumonia, unspecified organism (principal); J43.9 Emphysema, unspecified; R91.1 Solitary pulmonary nodule | CPT/HCPCS: 71046 ==

== ENCOUNTER → 2023-03-30 10:22 | Outpatient (BNVA) | payer MEDICARE, MEDICAID, SELFPAY | PROVIDERS: PCP Family Medicine; Visit Provider Physician Assistant | DX: M48.062 Spinal stenosis, lumbar region with neurogenic claudication (principal) | CPT/HCPCS: 72070; 72100; 99213 ==

== ENCOUNTER 2023-04-06 11:55 | Emergency (ER) | payer MEDICARE, MEDICAID, SELFPAY ==
--- NOTE | 2023-04-06 12:33 | ED_ITS ---
HPI - Wound/Laceration General: Chief Complaint: Wound/Laceration Stated Complaint: Left leg lac Time Seen by Provider: 04/06/23 12:17 Source: patient Mode of arrival: ambulatory Limitations: no limitations History of Present Illness: Patient is a 68-year-old female presents to ED today for evaluation and treatment of a left leg laceration that she sustained just prior to arrival after cutting it on a piece of plexiglass at [employer]. She states she has a longstanding of running into things staining lacerations. She states her skin is so thin that sutures are not an option as they easily ripped out leaving the wound to have heal by secondary intent. She states she has a healing wound to her right lower leg that she actually just saw Dr. West for this morning. Onset (ago): hour(s) Extremity Location: Left: lower leg Place: other (while shopping) Patient tetanus UTD: Yes Context: accidental Associated symptoms: Reports no associated symptoms Treatments prior to arrival: bandage Review of Systems Musc: Reports: extremity pain Skin/Breast: Reports: other (laceration left lower leg) Neuro: Denies: numbness in extremities or sensory changes [facility] ED PFSH: Medical History Cellulitis Chronic steroid use COPD (chronic obstructive pulmonary disease) High risk medication use Immunization counseling Latent tuberculosis 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 Bergman in 2003 History of D&C S/P spinal fusion Status post colonoscopy Family History Family/Other Heart disease Denies family history of Diabetes CAD (coronary artery disease) Clotting disorder Dementia Hyperlipidemia Psychiatric illness Chronic kidney disease (CKD) Suicide Anesthesia complication Bleeding disorder Family history of premature coronary artery disease Lung disease Cancer Hypertension Stroke Social History Smoking and tobacco status: former smoker Quit status (tobacco): has quit using tobacco Year quit tobacco: 1997 Former quit date comment: Hx of 2 PPD x 30 Years, started at age 14 Second hand smoke exposure: No Smoking risk assessment/counseling performed?: No Alcohol intake: never Counseling given: No Substance/Drug Use: never Counseling given: No Lives independently: Yes Household members: none Housing: House Marital status: Number of children: 0 Highest education level completed: 11th Grade service: No Current occupational status: disabled Pets and animals: Yes Do you think of yourself as: Straight/Heterosexual Current gender identity: Female Physical Exam Const: COMMON NORMALS: no acute distress, average body habitus, patient oriented x3, no limitations, alert and well nourished Extremity: COMMON NORMALS: full ROM, capillary refill normal, no joint enlargement and no clubbing, cyanosis or edema GENERAL: Yes normal exam except as noted LEFT LOWER EXTREMITY: Yes lower leg OTHER: large laceration approximately 10cm to lateral aspect of L lower leg; laceration mainly affecting subcutaneous but there is one area that is down to the muscle fascia; fascia is intact Neuro: COMMON NORMALS: patient oriented x3 SENSORIUM/ORIENTATION: Yes alert Procedures Laceration Laceration 1: Site: lower extremity Side (If applicable): left Size (cm): 10.0 Description: flap and irregular Depth: simple, single layer Pre-repair: wound explored and irrigated extensively Skin layer closed with: other (steri-strips) MDM - Wound/Laceration Medical Decision Making Patient refuses to have the wound closed by any other method other than Steri- Strips stating in the past the sutures have been unsuccessful. There is at least one area to her wound that is deeper that would benefit from a stitch but she refuses. Wound was copiously irrigated and repaired as requested with steri- strips. Wound care and infection precautions discussed. Recommend follow up with primary care. Return to ED precautions discussed. Discharge Plan Discharge Patient Disposition: Home Clinical Impression: Laceration of left leg Qualifiers: Encounter type: initial encounter Qualified Code(s): S81.812A - Laceration without foreign body, left lower leg, initial encounter Condition: Stable Prescriptions: No Action albuterol sulfate [ProAir HFA] 90 mcg/actuation HFA aerosol inhaler 1 - 2 puff INHALATION Q4H PRN (Reason: Shortness Of Breath) fluconazole [Diflucan] 100 mg tablet 100 mg PO DAILY Qty: 10 0RF silver sulfadiazine [Silvadene] 1 % cream 1 applic topical .q3days Qty: 50 0RF Rx Instructions: apply a 1.5 mm thickness for dressing changes. gabapentin 600 mg tablet 900 mg PO TID 30 Days Qty: 135 3RF pregabalin [Lyrica] 75 mg capsule 75 mg PO BID Qty: 60 5RF furosemide 20 mg tablet 60 mg PO QAM Qty: 90 0RF morphine 30 mg tablet 30 mg PO Q4H MDD 5 tabs PRN (Reason: pain) 30 Days Qty: 120 0RF prednisone 20 mg tablet 20 mg PO DAILY Qty: 10 0RF promethazine 25 mg tablet 25 mg PO TID PRN (Reason: nausea and vomiting) Qty: 30 1RF Anoro Ellipta 62.5-25 mcg/actuation blister with device 1 inh inhalation DAILY 30 Days Qty: 60 4RF (DME) Bone Growth Stimulator E0748 See Rx Instructions .Route .MEDSUPPLY Qty: 1 0RF Rx Instructions: As directed. Anoro Ellipta 62.5-25 mcg/actuation blister with device 1 inh inhalation DAILY Qty: 60 5RF folic acid 1 mg tablet See Rx Instructions .ROUTE .COMPLEX Qty: 30 11RF Dose Instruction: TAKE ONE TABLET BY MOUTH EVERY DAY Rx Instructions: TAKE ONE TABLET BY MOUTH EVERY DAY cholecalciferol (vitamin D3) 25 mcg (1,000 unit) tablet See Rx Instructions .ROUTE .COMPLEX Qty: 90 3RF Dose Instruction: TAKE ONE TABLET BY MOUTH EVERY DAY Rx Instructions: TAKE ONE TABLET BY MOUTH EVERY DAY sulfasalazine 500 mg tablet See Rx Instructions .ROUTE .COMPLEX Qty: 180 5RF Dose Instruction: TAKE TWO TABLETS BY MOUTH THREE TIMES DAILY FOR ARTHRITIS Rx Instructions: TAKE TWO TABLETS BY MOUTH THREE TIMES DAILY FOR ARTHRITIS hydroxychloroquine 200 mg tablet See Rx Instructions .ROUTE .COMPLEX Qty: 60 5RF Dose Instruction: TAKE ONE TABLET BY MOUTH TWICE DAILY Rx Instructions: TAKE ONE TABLET BY MOUTH TWICE DAILY prednisone 10 mg tablet See Rx Instructions .ROUTE .COMPLEX Qty: 60 5RF Dose Instruction: TAKE ONE TABLET BY MOUTH TWICE DAILY FOR ARTHRITIS / INFLAMMATION Rx Instructions: TAKE ONE TABLET BY MOUTH TWICE DAILY FOR ARTHRITIS / INFLAMMATION docusate sodium [Colace] 100 mg capsule 200 mg PO BEDTIME PRN (Reason: constipation) Discharge Orders: Discharge ED (Routine); Ordered 04/06/23 Ordered By: Humera Humphries Referrals: Maciej West, [Primary Care Provider] - Patient Instructions: Laceration (DC) Activity Restrictions/Additional Instructions: Keep wound/laceration clean with warm soap and water twice daily. Monitor for signs of infection such as redness, swelling, increased pain, or drainage. Please seek medical re-evaluation if these occur. Coding Level of Care Code ED Group Managing Director for Cristal Mathur
== END 2023-04-06 13:50 | disposition home or self-care (01) ==
PROVIDERS: Emergency Provider Physician Assistant; PCP Family Medicine
DX: S81.812A Laceration without foreign body, left lower leg, initial encounter (principal); Z87.891 Personal history of nicotine dependence; J44.9 Chronic obstructive pulmonary disease, unspecified; W25.XXXA Contact with sharp glass, initial encounter; Y92.512 Supermarket, store or market as the place of occurrence of the external cause
CPT/HCPCS: 99282

== ENCOUNTER → 2023-05-17 08:29 | Outpatient (BNVA) | payer MEDICARE, MEDICAID, SELFPAY | PROVIDERS: PCP Family Medicine; Visit Provider Internal Medicine Pulmonary Disease | DX: R91.1 Solitary pulmonary nodule (principal); M06.9 Rheumatoid arthritis, unspecified; J43.9 Emphysema, unspecified; Z87.891 Personal history of nicotine dependence; Z22.7 Latent tuberculosis | CPT/HCPCS: 99214 ==

== ENCOUNTER 2023-06-08 13:16 | Outpatient (CLI) | payer MEDICARE, MEDICAID, SELFPAY ==
--- NOTE | 2023-06-08 13:30 | CTR_ITS ---
PROCEDURE INFORMATION: Exam: CT Chest Without Contrast; Diagnostic Exam date and time: 06/08/2023 1:26 PM Age: 68 years old Clinical indication: Condition or disease; Lung condition and disease; Pneumonia; Prior surgery; Surgery date: 6+ months; Surgery type: Back; Additional info: Follow up TECHNIQUE: Imaging protocol: Diagnostic computed tomography of the chest without contrast. Radiation optimization: All CT scans at this facility use at least one of these dose optimization techniques: automated exposure control; mA and/or kV adjustment per patient size (includes targeted exams where dose is matched to clinical indication); or iterative reconstruction. REPORTING DATA: Count of CT and Cardiac NM exams in prior 12 months: This patient has received [address] and 0 known cardiac nuclear medicine studies in the 12 months prior to the current study. COMPARISON: CT chest abdpel w/*[id number] 01/21/2022 3:12 PM RADIATION DOSE METRICS: Total DLP (mGy-cm): 283 FINDINGS: Lungs: Upper lung predominant emphysematous changes. Mild biapical pleuroparenchymal scarring. Resolved right upper lobe ground-glass nodule. Mild tree-in-bud nodularity at the lower lobes, best appreciated on the right on axial image 27 of series 4. Small area also at the right upper lobe on axial image 11 of series 4. No consolidation. No mass. Pleural spaces: Unremarkable. No pneumothorax. No pleural effusion. Heart: Unremarkable. No cardiomegaly. No pericardial effusion. Coronary arteries: Moderate coronary artery calcification. Lymph nodes: Unremarkable. No enlarged lymph nodes. Vasculature: Moderate systemic atherosclerotic calcification without aortic aneurysm. Kidneys and ureters: 1.5 cm hyperdense left renal cyst with internal attenuation averaging 100 Hounsfield units. Bones/joints: No acute fracture. Severe right glenohumeral joint degenerative changes. Stable anterior wedge compression deformities of the T2, T4, and T5 vertebral bodies. Mild degenerative changes along the spine. Partially visualized instrumented posterior fusion changes from T10 to the lumbar spine beyond the field of view. Soft tissues: Unremarkable. CT/CT chest wo con [id number] IMPRESSION: 1. Mild multifocal tree-in-bud nodularity likely represents infectious or inflammatory bronchiolitis. Recommend follow-up CT in 3-6 months. 2. Atherosclerosis with moderate coronary artery calcification. 3. Severe right glenohumeral joint osteoarthritis. COMMENTS: 1. Consistent with the [place] [employer]'s Incidental Findings Committee white paper (J Am Maria E Radiol 2018): Any incidental renal lesion less than 1 cm or classified as too small to characterize, or any incidental cystic renal lesion characterized as simple-appearing, is likely benign. No follow-up imaging is recommended for these lesions per consensus recommendations based on imaging criteria. 2. In the absence of a history or active diagnosis of lung cancer, it is recommended that this patient with emphysema be evaluated for enrollment in a low dose CT lung cancer screening program.
== END 2023-06-08 13:17 | disposition home or self-care (01) ==
PROVIDERS: PCP Family Medicine; Visit Provider Internal Medicine Pulmonary Disease
DX: R91.1 Solitary pulmonary nodule (principal); I25.10 Atherosclerotic heart disease of native coronary artery without angina pectoris; M19.011 Primary osteoarthritis, right shoulder
CPT/HCPCS: 71250

== ENCOUNTER 2023-07-06 23:35 | Emergency (ER) | payer MEDICARE, MEDICAID, SELFPAY ==
[2023-07-06 23:35] VITALS: BP 160/11; PULSE 101; RESP 18; TEMP 36.7; O2SAT 94; BMI 26.6
--- NOTE | 2023-07-06 23:37 | ED_ITS ---
HPI - Extremity Injury (Lower) General: Chief Complaint: Wound/Laceration Stated Complaint: LEG LAC Time Seen by Provider: 07/06/23 23:36 History of Present Illness: 68-year-old female comes in today for complaints of injury to the right lower leg. Patient was setting and her dog ran into her leg causing a skin tear to the backside of her leg. Patient has a history of rheumatoid arthritis and chronic prednisone use. This most likely is caused friability to her skin. Patient appears nontoxic. Patient appears in mild pain at rest. Review of Systems General: Reports: 10 or more systems reviewed and unremarkable except in HPI and below Musc: Reports: extremity pain; Denies: neck pain or back pain Skin/Breast: Reports: new lesions PFSH ED PFSH: Medical History Cellulitis Chronic steroid use COPD (chronic obstructive pulmonary disease) High risk medication use Immunization counseling Latent tuberculosis 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 Bergman in 2003 History of D&C S/P spinal fusion Status post colonoscopy Family History Family/Other Heart disease Denies family history of Diabetes CAD (coronary artery disease) Clotting disorder Dementia Hyperlipidemia Psychiatric illness Chronic kidney disease (CKD) Suicide Anesthesia complication Bleeding disorder Family history of premature coronary artery disease Lung disease Cancer Hypertension Stroke Social History Smoking and tobacco status: former smoker Quit status (tobacco): has quit using tobacco Year quit tobacco: 1997 Former quit date comment: Hx of 2 PPD x 30 Years, started at age 14 Second hand smoke exposure: No Smoking risk assessment/counseling performed?: No Alcohol intake: never Counseling given: No Substance/Drug Use: never Counseling given: No Lives independently: Yes Household members: none Housing: House Marital status: Number of children: 0 Highest education level completed: 11th Grade service: No Current occupational status: disabled Pets and animals: Yes Do you think of yourself as: Straight/Heterosexual Current gender identity: Female Physical Exam Const: COMMON NORMALS: alert HENMT: COMMON NORMALS: normocephalic HEAD & SCALP: normocephalic Neck/C-Spine: COMMON NORMALS: full ROM Resp: COMMON NORMALS: normal respiratory effort and clear to auscultation bilaterally AUSCULTATION: clear to auscultation bilaterally Cardio: COMMON NORMALS: regular rate and regular rhythm RATE: regular rate RHYTHM: regular rhythm Extremity: RIGHT LOWER EXTREMITY: Yes lower leg (15 cm irregular skin tear posterior right lower leg) Neuro: SENSORIUM/ORIENTATION: Yes alert Skin: TRAUMA: laceration (Irregular skin tear 15 cm right lower leg) Course Vital Signs: Vital signs: Vital Signs Temperature 98.1 F 07/06/23 23:35 Pulse Rate 101 H 07/06/23 23:35 Respiratory Rate 18 07/06/23 23:35 Blood Pressure 160/11 07/06/23 23:35 Pulse Oximetry 94 07/06/23 23:35 Oxygen Delivery Me thod Room Air 07/06/23 23:35 MDM - Extremity Injury (Lower) Medical Decision Making 68-year-old female comes in with injury to the right lower leg. On exam patient has a skin tear to the right lower leg. The size of the skin tear is approximately 15 cm and irregular. Distal pulses are intact. Cap refill is intact. No other injury is noted. Wound was cleaned and nonstick dressing was applied to the wound site with straightening of the skin tear and maintaining approximation with Steri-Strips. Reviewed further treatment and exam with patient with recommendations for follow-up with primary care and possible wound speciality follow-up. Patient reported understanding of care plan and need for follow-up or return to the ER. Patient was written a prescription for cephalexin to use as needed for signs of infection. Discharge Plan Discharge Patient Disposition: Home Clinical Impression: Skin tear of right lower leg without complication Qualifiers: Encounter type: initial encounter Qualified Code(s): S81.811A - Laceration without foreign body, right lower leg, initial encounter Condition: Stable Prescriptions: New cephalexin 500 mg capsule 500 mg PO TID 7 Days Qty: 21 0RF No Action albuterol sulfate [ProAir HFA] 90 mcg/actuation HFA aerosol inhaler 1 - 2 puff INHALATION Q4H PRN (Reason: Shortness Of Breath) fluconazole [Diflucan] 100 mg tablet 100 mg PO DAILY Qty: 10 0RF silver sulfadiazine [Silvadene] 1 % cream 1 applic topical .q3days Qty: 50 0RF Rx Instructions: apply a 1.5 mm thickness for dressing changes. pregabalin [Lyrica] 75 mg capsule 75 mg PO BID Qty: 60 5RF cephalexin 500 mg capsule 500 mg PO TID Qty: 21 0RF cephalexin 500 mg capsule 500 mg PO TID Qty: 9 0RF furosemide 20 mg tablet 60 mg PO QAM Qty: 90 0RF prednisone 20 mg tablet 20 mg PO DAILY Qty: 10 0RF promethazine 25 mg tablet 25 mg PO TID PRN (Reason: nausea and vomiting) Qty: 30 1RF morphine 30 mg tablet 30 mg PO Q4H MDD 5 tabs PRN (Reason: pain) 30 Days Qty: 120 0RF Anoro Ellipta 62.5-25 mcg/actuation blister with device 1 inh inhalation DAILY 30 Days Qty: 60 4RF (DME) Bone Growth Stimulator E0748 See Rx Instructions .Route .MEDSUPPLY Qty: 1 0RF Rx Instructions: As directed. folic acid 1 mg tablet See Rx Instructions .ROUTE .COMPLEX Qty: 30 11RF Dose Instruction: TAKE ONE TABLET BY MOUTH EVERY DAY Rx Instructions: TAKE ONE TABLET BY MOUTH EVERY DAY cholecalciferol (vitamin D3) 25 mcg (1,000 unit) tablet See Rx Instructions .ROUTE .COMPLEX Qty: 90 3RF Dose Instruction: TAKE ONE TABLET BY MOUTH EVERY DAY Rx Instructions: TAKE ONE TABLET BY MOUTH EVERY DAY sulfasalazine 500 mg tablet See Rx Instructions .ROUTE .COMPLEX Qty: 180 5RF Dose Instruction: TAKE TWO TABLETS BY MOUTH THREE TIMES DAILY FOR ARTHRITIS Rx Instructions: TAKE TWO TABLETS BY MOUTH THREE TIMES DAILY FOR ARTHRITIS hydroxychloroquine 200 mg tablet See Rx Instructions .ROUTE .COMPLEX Qty: 60 5RF Dose Instruction: TAKE ONE TABLET BY MOUTH TWICE DAILY Rx Instructions: TAKE ONE TABLET BY MOUTH TWICE DAILY prednisone 10 mg tablet See Rx Instructions .ROUTE .COMPLEX Qty: 60 5RF Dose Instruction: TAKE ONE TABLET BY MOUTH TWICE DAILY FOR ARTHRITIS / INFLAMMATION Rx Instructions: TAKE ONE TABLET BY MOUTH TWICE DAILY FOR ARTHRITIS / INFLAMMATION Anoro Ellipta 62.5-25 mcg/actuation blister with device See Rx Instructions .ROUTE .COMPLEX Qty: 60 5RF Dose Instruction: USE 1 INHALATION INTO LUNGS DAILY FOR LUNG DISEASE Rx Instructions: USE 1 INHALATION INTO LUNGS DAILY FOR LUNG DISEASE gabapentin 600 mg tablet See Rx Instructions .ROUTE .COMPLEX Qty: 135 3RF Dose Instruction: TAKE 1 AND 1/2 TABLETS BY MOUTH THREE TIMES DAILY Rx Instructions: TAKE 1 AND 1/2 TABLETS BY MOUTH THREE TIMES DAILY docusate sodium [Colace] 100 mg capsule 200 mg PO BEDTIME PRN (Reason: constipation) Discharge Orders: Discharge ED (Routine); Ordered 07/07/23 Ordered By: Odilon De Referrals: Maciej West DO [Primary Care Provider] - Discharge Diet: Usual diet Discharge Activity: Increase activity as tolerated Patient Instructions: Skin Tear (ED) Activity Restrictions/Additional Instructions: Change dressing if it becomes wet or soiled. Reapply Steri-Strips if they come off. Use a nonstick pad to the wound site to protect skin tearing. Use cephalexin 500 mg for signs of infection. Signs of infection include fever, increasing redness and swelling, purulent drainage. Return to the ER as needed. Follow-up with primary care in 3 days for recheck. Coding Level of Care Code ED Patient Centered Care Specialist for Cristal Mathur
[2023-07-07 00:20] VITALS: BP 151/80; PULSE 90; RESP 18; O2SAT 94
== END 2023-07-07 00:20 | disposition home or self-care (01) ==
PROVIDERS: Emergency Provider Nurse Practitioner Family; PCP Family Medicine
DX: S81.811A Laceration without foreign body, right lower leg, initial encounter (principal); W22.8XXA Striking against or struck by other objects, initial encounter
CPT/HCPCS: 99283

== ENCOUNTER → 2023-08-06 10:21 | Outpatient (BNVA) | payer MEDICARE, MEDICAID, SELFPAY | PROVIDERS: PCP Family Medicine; Visit Provider Family Medicine | DX: E83.19 Other disorders of iron metabolism (principal); M25.571 Pain in right ankle and joints of right foot | CPT/HCPCS: 83540; 85025 ==

== ENCOUNTER → 2023-08-09 11:04 | Outpatient (BNVA) | payer MEDICARE, MEDICAID, SELFPAY | PROVIDERS: PCP Family Medicine; Visit Provider Family Medicine | DX: M25.519 Pain in unspecified shoulder; R58 Hemorrhage, not elsewhere classified; M19.011 Primary osteoarthritis, right shoulder | CPT/HCPCS: 73030 ==

== ENCOUNTER → 2023-08-17 15:20 | Outpatient (BNVA) | payer MEDICARE, MEDICAID, SELFPAY | PROVIDERS: PCP Family Medicine; Visit Provider Podiatrist Foot & Ankle Surgery | DX: L60.3 Nail dystrophy (principal); I73.9 Peripheral vascular disease, unspecified | CPT/HCPCS: 11721 ==

== ENCOUNTER 2023-09-30 13:25 | Outpatient (CLI) | payer MEDICARE, MEDICAID, SELFPAY ==
--- NOTE | 2023-09-30 13:45 | USCV_ITS ---
Jenna Hamlin Age: 68 Gender: F : 1955 Exam Date: 09/30/2023 14:01 Ordering Phys: Maciej West DO Technologist: MARCY [place] [facility] [place]: EDEMA, CHEST PAIN BP: 144 / 74 HR: 78 Rhythm: Sinus Technical Quality: Adequate MEASUREMENTS (Male / Female) Normal Values 2D ECHO LVOT Diameter 2.0 cm LV Ejection Fraction MOD 2C 58.4 % LV Ejection Fraction 2C AL 60.1 % LA Diameter 3.5 cm LA Width 2.9 cm LA Height 4.9 cm RA Width 3.4 cm RA Height 3.5 cm Aorta at Sinotubular Diameter 1.8 cm M-MODE Aortic Annulus Diameter 2.4 cm LA Ao Ratio MM 1.4 MV E Point Septal Separation 0.3 cm DOPPLER AV Peak Velocity 210.0 cm/s LVOT Peak Velocity 120.0 cm/s AV Area Cont Eq vti 1.6 cm squared AV Area Cont Eq pk 1.7 cm squared MV Peak Velocity 167.0 cm/s MV Area PHT 2.7 cm squared Mitral E to A Ratio 0.7 MV E' Velocity 40.6 cm/s Mitral E to MV E' Ratio 17.1 Mitral E to LV E' Lateral Ratio 17.4 Mitral E to LV E' Septal Ratio 17.1 TR Peak Velocity 235.7 cm/s TR Peak Gradient 22.2 mmHg TR Mean Velocity 185.0 cm/s TR Mean Gradient 14.6 mmHg TR Velocity Time Integral 74.0 cm TV Peak E Velocity 67.0 cm/s Right Atrial Pressure 8.0 mmHg Pulmonary Artery Systolic Pressu 30.2 mmHg PV Peak Velocity 127.0 cm/s RV Acceleration Time 0.2 s RV Ejection Time 0.3 s RV AcT/ET 0.5 FINDINGS Left Ventricle Normal left ventricular size and systolic function, EF 61 %. Mild left ventricular hypertrophy. No regional wall motion abnormalities. Grade I/IV diastolic dysfunction (abnormal relaxation filling pattern), normal to mildly elevated filling pressures. Right Ventricle The right ventricle is normal in size and function. Right Atrium The right atrium is normal in size. Left Atrium Mildly increased left atrial size. Mitral Valve Thickened mitral valve. Mild mitral annular calcification. Aortic Valve No gross abnormalities noted Tricuspid Valve Trace tricuspid valve regurgitation. Estimated pulmonary artery peak systolic pressure 30 mmHg Pulmonic Valve No gross abnormalities noted Pericardium Normal pericardium without effusion. Aorta Normal aortic annulus size. IVC Inferior vena cava not visualized. CONCLUSIONS Normal left ventricular size and systolic function, EF 61 %. Mild left ventricular hypertrophy. No regional wall motion abnormalities. Grade I/IV diastolic dysfunction (abnormal relaxation filling pattern), normal to mildly elevated filling pressures. Mildly increased left atrial size. Thickened mitral valve. Mild mitral annular calcification. Trace tricuspid valve regurgitation. Estimated pulmonary artery peak systolic pressure 30 mmHg. Normal pericardium without effusion. No similar previous studies are available for comparison Dr Chris Gore MD [facility] (Electronically Signed) Final Date: 01 October 2023 08:23 S
== END 2023-09-30 13:26 | disposition home or self-care (01) ==
LOC: RAD 13:25
PROVIDERS: PCP Family Medicine; Visit Provider Family Medicine
DX: R06.00 Dyspnea, unspecified (principal); R60.9 Edema, unspecified
CPT/HCPCS: 93306

== ENCOUNTER → 2023-11-09 11:16 | Outpatient (BNVA) | payer MEDICARE, MEDICAID, SELFPAY | PROVIDERS: PCP Family Medicine; Visit Provider Podiatrist Foot & Ankle Surgery | DX: L60.3 Nail dystrophy (principal); I73.9 Peripheral vascular disease, unspecified; L85.1 Acquired keratosis [keratoderma] palmaris et plantaris | CPT/HCPCS: 11721; 17110 ==

== ENCOUNTER → 2023-11-29 10:18 | Outpatient (BNVA) | payer MEDICARE, MEDICAID, SELFPAY | PROVIDERS: PCP Family Medicine; Visit Provider Internal Medicine Pulmonary Disease | DX: M06.9 Rheumatoid arthritis, unspecified (principal); J43.9 Emphysema, unspecified; R91.8 Other nonspecific abnormal finding of lung field; Z87.891 Personal history of nicotine dependence | CPT/HCPCS: 99214 ==

== ENCOUNTER → 2023-12-14 11:06 | Outpatient (BNVA) | payer MEDICARE, MEDICAID, SELFPAY | PROVIDERS: PCP Family Medicine; Visit Provider Family Medicine | DX: M06.9 Rheumatoid arthritis, unspecified (principal); M19.072 Primary osteoarthritis, left ankle and foot; W19.XXXA Unspecified fall, initial encounter; J43.9 Emphysema, unspecified; M79.672 Pain in left foot | CPT/HCPCS: 73630 ==

== ENCOUNTER 2023-12-17 11:58 | Outpatient (CLI) | payer MEDICARE, MEDICAID, SELFPAY ==
--- NOTE | 2023-12-17 12:00 | CT_ITS ---
WS: [id number] CT chest wo con [id number] HISTORY: to follow up on previous lesions TECHNIQUE: Axial imaging performed through the thorax. Coronal and sagittal reformats are submitted. All CT scans at [facility] use at least one of these dose optimization techniques: automated exposure control; mA and/or kV adjustment per patient size (includes targeted exams where dose is mat ched to clinical indication); or iterative reconstruction. CONTRAST: None DLP: 1904.83 mGy.cm COMPARISON: 06/08/2023 Lungs and central airway: Hyperinflated lungs. No mass, pulmonary nodule or pneumonia. There is mild interstitial thickening. Mild reticular nodular changes in the superior segment RIGHT lower lobe. The re has been moderate improvement in the additional bilateral lower lobe tree-in-bud reticular nodular airspace disease otherwise. No endobronchial lesions. Mild central bronchiectasis in the lower lung parrish. Pleura: Normal. No pleural effusion. Heart and pericardium: Normal size heart with no pericardial effusion. Mediastinum and chandler: No mediastinum or hilar adenopathy. Vessels: Atherosclerosis aorta. Chest wall and lower neck: No soft tissue masses. Upper abdomen: No adrenal mass. Stable high density nodule superior pole LEFT kidney measures 1.4 cm. Density is increased within this mass since 2020 through suggesting interval hemorrhage. Osseous structures: Posterior fusion hardware in the lower thoracic and upper lumbar spines. Bones ar e osteopenic. Multiple osteoporotic compression fractures. IMPRESSION: 1. Moderate improvement in the bilateral lower lobe tree-in-bud airspace disease since 06/08/2023. Mi nimal residual reticular nodular tree-in-bud airspace disease in the superior segment RIGHT lower lob e consistent with mild bronchiolitis. 2. Hyperexpansion. No pneumonia.
== END 2023-12-17 11:59 | disposition home or self-care (01) ==
LOC: RAD 11:58
PROVIDERS: PCP Family Medicine; Visit Provider Internal Medicine Pulmonary Disease
DX: R91.1 Solitary pulmonary nodule (principal); J98.4 Other disorders of lung
CPT/HCPCS: 71250

== ENCOUNTER → 2023-12-27 09:15 | Outpatient (BNVA) | payer MEDICARE, MEDICAID, SELFPAY | PROVIDERS: PCP Family Medicine; Visit Provider Podiatrist Foot & Ankle Surgery | DX: L97.521 Non-pressure chronic ulcer of other part of left foot limited to breakdown of skin (principal); I73.9 Peripheral vascular disease, unspecified | CPT/HCPCS: 99213 ==

== ENCOUNTER → 2024-01-17 09:45 | Outpatient (BNVA) | payer MEDICARE, MEDICAID, SELFPAY | PROVIDERS: PCP Family Medicine; Visit Provider Podiatrist Foot & Ankle Surgery | DX: L97.521 Non-pressure chronic ulcer of other part of left foot limited to breakdown of skin (principal); I73.9 Peripheral vascular disease, unspecified; Q82.8 Other specified congenital malformations of skin | CPT/HCPCS: 99213 ==

== ENCOUNTER → 2024-01-27 12:35 | Outpatient (BNVA) | payer MEDICARE, MEDICAID, SELFPAY | PROVIDERS: PCP Family Medicine; Visit Provider Family Medicine | DX: Z79.899 Other long term (current) drug therapy (principal); I73.9 Peripheral vascular disease, unspecified; M81.0 Age-related osteoporosis without current pathological fracture; G62.9 Polyneuropathy, unspecified; R60.9 Edema, unspecified; E03.9 Hypothyroidism, unspecified; E55.9 Vitamin D deficiency, unspecified; L97.929 Non-pressure chronic ulcer of unspecified part of left lower leg with unspecified severity | CPT/HCPCS: 80053; 82607; 82652; 84443; 85025 ==

== ENCOUNTER → 2024-01-31 13:44 | Outpatient (BNVA) | payer MEDICARE, MEDICAID, SELFPAY | PROVIDERS: PCP Family Medicine; Visit Provider Podiatrist Foot & Ankle Surgery | DX: L97.521 Non-pressure chronic ulcer of other part of left foot limited to breakdown of skin (principal); I73.9 Peripheral vascular disease, unspecified; Q82.8 Other specified congenital malformations of skin | CPT/HCPCS: 99213 ==

== ENCOUNTER 2024-02-23 10:44 | Outpatient (CLI) | payer MEDICARE, MEDICAID, SELFPAY ==
--- NOTE | 2024-02-23 10:50 | XR_ITS ---
WS: [id number] Examination: XR shoulder LT min 2V* [id number] Reason for Exam: M25.512 - Pain in left shoulder Date: February 23, 2024 Comparison: January 24, 2009. FINDINGS: Bone density is maintained. There is no displaced fracture. There is no dislocation The AC joint is intact on these nonstress views. There is a bony abnormality that appears to involve the anterior aspect of the left fourth rib a bony mass possibly osteochondroma may be present. Surgical changes to the thoracic spine are noted. IMPRESSION: I see no fracture or dislocation of the left shoulder There is evidence of a bony abnormality thought to involve the anterior left fourth rib. Rib detail i mages are recommended for further evaluation.
--- NOTE | 2024-02-23 10:50 | XR_ITS ---
WS: [id number] Examination: XR cervical spine 3V* [id number] Reason for Exam: M25.512 - Pain in left shoulder Date: February 23, 2024 Comparison: August 17, 2011 Findings: The bone density is diminished with osteopenia. The NOELLE and the C1-2 relationship are intact. There is no prevertebral swelling I see no wedging or compression. The disc space heights appear generally maintained. Subtle C3-4 anterolisthesis is noted. Impression: There is no wedging or compression Subtle C3-4 anterolisthesis is noted.
--- NOTE | 2024-02-23 10:50 | XR_ITS ---
WS: [id number] Examination: XR ribs RT 2V* [id number] Reason for Exam: M25.512 - Pain in left shoulder Date: February 23, 2024 Comparison: None. Findings: Severe chronic changes are noted involving the right glenohumeral joint with disrupted AC joint. Stents of surgical changes to the thoracolumbar spine are noted The heart is enlarged. Chronic changes are present The bone density is diminished multiple rib deformities are noted involving the first 6 ribs consiste nt with fracture. The second and third rib fractures have been noted previously the others may be new . Impression: Severe chronic deformity of the right shoulder and AC joint are noted There is diffuse osteopenia with multiple right rib fractures. The second and third rib fractures hav e been noted previously..
== END 2024-02-23 10:45 | disposition home or self-care (01) ==
LOC: RAD 10:46
PROVIDERS: PCP Family Medicine; Visit Provider Family Medicine
DX: M25.512 Pain in left shoulder (principal); M54.2 Cervicalgia; W19.XXXA Unspecified fall, initial encounter; R07.81 Pleurodynia; S22.41XA Multiple fractures of ribs, right side, initial encounter for closed fracture; M43.12 Spondylolisthesis, cervical region
CPT/HCPCS: 71100; 72040; 73030

== ENCOUNTER → 2024-03-13 11:10 | Outpatient (BNVA) | payer MEDICARE, MEDICAID, SELFPAY | PROVIDERS: PCP Family Medicine; Visit Provider Podiatrist Foot & Ankle Surgery | DX: L97.521 Non-pressure chronic ulcer of other part of left foot limited to breakdown of skin (principal); I73.9 Peripheral vascular disease, unspecified | CPT/HCPCS: 99213 ==

== ENCOUNTER 2024-04-25 22:16 | Inpatient (IN) | payer MEDICARE, MEDICAID, SELFPAY ==
[2024-04-25] VITALS (7 sets, daily range): BP systolic 118–127; BP diastolic 37–68; PULSE 86–97; RESP 18–20; TEMP 37.7; O2SAT 93–98
--- NOTE | 2024-04-25 22:24 | XRR_ITS ---
PROCEDURE INFORMATION: Exam: XR Chest Exam date and time: 04/25/2024 10:30 PM Age: 69 years old Clinical indication: Shortness of breath; Prior surgery; Surgery date: 6+ months; Surgery type: Spine TECHNIQUE: Imaging protocol: Radiologic exam of the chest. Views: 1 view. COMPARISON: CT chest [facility] [id number] 12/17/2023 12:12 PM FINDINGS: Lungs: Bibasilar left greater than right atelectasis versus infiltrate. Emphysematous changes. Pleural spaces: Trace bilateral left greater than right pleural effusions. Heart/Mediastinum: Borderline cardiomegaly. Bones/joints: Lumbar spine surgical hardware. Severe right glenohumeral joint osteoarthritis. XR/XR chest 1V portable [id number] IMPRESSION: 1. Trace bilateral left greater than right pleural effusions. 2. Bibasilar left greater than right atelectasis versus infiltrate. 3. Borderline cardiomegaly. 4. Emphysematous changes. 5. Lumbar spine surgical hardware. 6. Severe right glenohumeral joint osteoarthritis.
--- NOTE | 2024-04-25 22:26 | ECG_ITS ---
[facility] Test Date: 2024-04-25 Pat Name: Jenna Hamlin Department: Room: Gender: Female Cat Skinner: : 1955 Requested By: Anita Lowry Order Number: [id number] Royal MD: Herman Hurst M.D. Measurements Intervals [place] Rate: 87 P: 29 NV: 163 QRS: -19 QRSD: 92 T: 38 QT: 337 QTc: 406 Interpretive Statements SINUS RHYTHM POSSIBLE ANTERIOR MYOCARDIAL INFARCTION , PROBABLY OLD [30 ms Q WAVE IN V3/V4, OR R < 0.2 mV IN V4] Compared to ECG 07/31/2022 09:24:32 No significant changes Electronically Signed On 04-26-2024 18:15:52 CDT by Herman Hurst M.D. [email or web address]
--- NOTE | 2024-04-25 22:29 | W.ED.GENADLT ---
HPI - General Adult General: Chief complaint: General Medical Stated complaint: difficulty breathing Time Seen by Provider: 04/25/24 22:21 History of Present Illness: 69-year-old female with history of COPD, and peripheral artery disease who presents to the emergency room with shortness of breath for the last 3 days. She has had a cough and worsening shortness of breath over that time. Today she said she developed some pain in her right low back that went down her leg and upper back. No dysuria. EMS report that she was hypoxemic on their presentation and slightly hypotensive. She was also febrile. EMS reports a temp of 100.5 at home. She is 99.8 on presentation here. She does not use oxygen at home. No altered mental status. No nausea or vomiting. No focal motor deficits Review of Systems Narrative: Constitutional symptoms: Negative except as documented in HPI. Skin symptoms: Negative except as documented in HPI. Eye symptoms: Negative except as documented in HPI. ENMT symptoms: Negative except as documented in HPI. Respiratory symptoms: Negative except as documented in HPI. Cardiovascular symptoms: Negative except as documented in HPI. Gastrointestinal symptoms: Negative except as documented in HPI. Genitourinary symptoms: Negative except as documented in HPI. Musculoskeletal symptoms: Negative except as documented in HPI. Neurologic symptoms: Negative except as documented in HPI. Psychiatric symptoms: Negative except as documented in HPI. Endocrine symptoms: Negative except as documented in HPI. [facility] ED PFSH: Medical History Latent tuberculosis by blood test Immunization counseling Chronic steroid use High risk medication use Seronegative rheumatoid arthritis of both hands Peripheral arterial disease Rheumatoid arthritis Osteoporosis COPD (chronic obstructive pulmonary disease) Cellulitis Surgical History S/P spinal fusion Status post colonoscopy History of D&C H/O hand surgery Left hand in 1984 x3, had infection drained by H/O elbow surgery LEFT nerve decompression [place] [address] Zaidi H/O shoulder surgery RIGHT- by Dr. Bergman in 2003 Family History Family/Other Heart disease Denies family history of Diabetes CAD (coronary artery disease) Clotting disorder Dementia Hyperlipidemia Psychiatric illness Chronic kidney disease (CKD) Suicide Anesthesia complication Bleeding disorder Family history of premature coronary artery disease Lung disease Cancer Hypertension Stroke Social History Smoking and tobacco/nicotine status: former use of tobacco/nicotine Quit status (tobacco/nicotine): has quit using Year quit tobacco: 1997 Former quit date comment: Hx of 2 PPD x 30 Years, started at age 14 Second hand smoke exposure: No Alcohol intake: never Substance/Drug Use: never Lives independently: Yes Household members: none Housing: House Marital status: Number of children: 0 Highest education level completed: 11th Grade service: No Current occupational status: disabled Pets and animals: Yes Do you think of yourself as: Straight/Heterosexual Current gender identity: Female Physical Exam Narrative: EXAM NARRATIVE: General: Alert, no acute distress. Skin: Warm, dry. Head: Normocephalic, atraumatic. Neck: Supple, trachea midline. Eye: Extraocular movements are intact. Ears, nose, mouth and throat: Oral mucosa moist. Cardiovascular: Regular rate and rhythm, Normal peripheral perfusion. Respiratory: coarse, scattered wheeze, mild increased wob. tachypnea, breath sounds are equal, Symmetrical chest wall expansion. Gastrointestinal: Soft, Nontender, Non distended, Normal bowel sounds. Musculoskeletal: Normal ROM, no deformity. Neurological: Alert and oriented to person, place, time, and situation, No focal neurological deficit observed. Psychiatric: Cooperative, appropriate mood & affect. Course Vital Signs: Vital signs: Vital Signs Temperature 99.8 F H 04/25/24 22:17 Pulse Rate 96 04/25/24 23:30 Respiratory Rate 20 H 04/25/24 23:30 Blood Pressure 127/39 04/25/24 23:30 Pulse Oximetry 97 04/25/24 23:30 Oxygen Delivery Me thod Nasal Cannula 04/25/24 23:30 Oxygen Flow Rate 4 04/25/24 23:30 [facility] - General Adult Medical Decision Making Differential diagnosis for patient with shortness of breath includes but is not limited to and based on the above HPI, review of systems and physical exam: Pneumonia. Bronchitis. Asthma or COPD with acute exacerbation. Acute coronary syndrome / [place]. Pulmonary embolism. Anxiety. Congestive heart failure. Viral infections including influenza and Covid-19. Atrial fibrillation. Anxiety. Pleural effusion. Pneumothorax. Workup: Lab work, chest X-ray and EKG ordered to evaluate, rule in and rule out above pathologies EKG: Time 2230 rate 87 normal sinus rhythm, No ST-T changes, no ectopy, normal NC & QRS intervals, This was reviewed and interpreted by myself the ER physician at 2233 Chest x-ray: Bilateral basilar atelectasis versus infiltrate. This was reviewed and interpreted by myself the ER physician. I also reviewed the radiologist report Lab Review: Laboratory results were reviewed and interpreted by myself the emergency room physician. Mild leukocytosis with a white count of 11.5. Hemoglobin 14.2. BUN and creatinine are 13 and 0.9. Respiratory panel is negative. AB.3 with a sat of 95% on 4 L nasal cannula. Some mild CO2 retention. Hypoxemia corrected with supplemental nasal cannula. I reviewed the patient's medical record. Consultation: I spoke with Dr. Fonseca with the hospitalist group. He agrees to admission to observation for now. Reexamination: Patient remained stable. Currently with no increased work of breathing. Stable on 4 L nasal cannula. No altered mental status. No focal motor deficits. Assessment and plan: COPD with acute exacerbation Hypoxemia Pneumonia -Stable on 4 L nasal cannula ? IV Solu-Medrol and 2 updrafts ? Patient has extensive antibiotic allergies. I ended up giving meropenem. -I discussed the patient with the hospitalist on-call who is admitting the patient. - Discussed findings and plan with patient. Answered any questions. - All laboratory values were reviewed and interpreted personally by myself, the ER physician - All imaging was reviewed and interpreted personally by myself, the ER physician. - Evaluation and treatment of this problem were appropriate in the emergency setting -I spent a total of >35 minutes of critical care time managing the patient, independent of any other practitioner. -The time involved in the performance of separately reportable procedures was not counted towards critical care time. Lab Data 04/25/24 22:47 04/25/24 22:47 Radiology Impressions Chest X-Ray 04/25/24 22:24 IMPRESSION: 1. Trace bilateral left greater than right pleural effusions. 2. Bibasilar left greater than right atelectasis versus infiltrate. 3. Borderline cardiomegaly. 4. Emphysematous changes. 5. Lumbar spine surgical hardware. 6. Severe right glenohumeral joint osteoarthritis. Laboratory Results WBC 11.51 10^3/uL (3.29-11.43) H 04/25/24 22:47 RBC 4.66 10^6/uL (3.85-5.65) 04/25/24 22:47 Hgb 14.20 g/dL (11.27-16.99) 04/25/24 22:47 Hct 46.9 % (36-47) 04/25/24 22:47 MCV 100.6 fl (85-98) H 04/25/24 22:47 MCH 30.5 pg (27-33) 04/25/24 22:47 MCHC 30.3 g/dL (30-55) 04/25/24 22:47 RDW 14.5 % (12.1-15.1) 04/25/24 22:47 Plt Count 148 10^3/cmm (157-399) L 04/25/24 22:47 MPV 10.1 fL (7.4-10.4) 04/25/24 22:47 Neut % (Auto) 74.0 % 04/25/24 22:47 Lymph % (Auto) 12.3 % 04/25/24 22:47 Charles % (Auto) 11.5 % 04/25/24 22:47 Eos % (Auto) 0.8 % 04/25/24 22:47 Baso % (Auto) 0.5 % 04/25/24 22:47 Neut # (Auto) 8.53 10^3/uL (1.8-7.7) H 04/25/24 22:47 Lymph # (Auto) 1.4 10^3/uL (0.8-4.8) 04/25/24 22:47 Charles # (Auto) 1.3 10^3/uL (0.2-0.9) H 04/25/24 22:47 Eos # (Auto) 0.1 10^3/uL (0.0-0.8) 04/25/24 22:47 Baso # (Auto) 0.1 10^3/uL (0.0-0.1) 04/25/24 22:47 Nucleated RBC % (auto) 0 % 04/25/24 22:47 Nucleated RBCs # 0.0 /100WBC 04/25/24 22:47 Specimen Type Arterial 04/25/24 10:43 Sample Site Brachial, right 04/25/24 10:43 ABG pH 7.38 (7.35-7.45) 04/25/24 10:43 ABG pCO2 52.4 mmHg (35-45) H 04/25/24 10:43 ABG pO2 78.1 mmHg (80.0-100.0) L 04/25/24 10:43 ABG PO2/FiO2 Ratio 0 04/25/24 10:43 ABG HCO3 31.2 mmol/L (22-26) H 04/25/24 10:43 ABG O2 Saturation 95.1 04/25/24 10:43 ABG Base Excess 4.8 mmol/L (-2.0-2.0) H 04/25/24 10:43 Simón Test Pos 04/25/24 10:43 A-a O2 Gradient 12.7 mmHg (5-10) H 04/25/24 10:43 Hematocrit 42.2 % (37-47) 04/25/24 10:43 Hgb O2 Saturation 93.3 % (95-100) L 04/25/24 10:43 Carboxyhemoglobin 0.9 %THgb (0.4-20.1) 04/25/24 10:43 Methemoglobin 0.9 % (0.4-1.5) 04/25/24 10:43 Total Hemoglobin 13.8 g/dL (12-16) 04/25/24 10:43 Sodium 141.0 mmol/L (131-143) 04/25/24 10:43 Potassium 3.6 mmol/L (3.5-5.0) 04/25/24 10:43 Glucose 96.0 mg/dL (70-115) 04/25/24 10:43 Ionized Calcium 1.2 mmol/L (1.1-1.4) 04/25/24 10:43 O2 Delivery Device Nc 04/25/24 10:43 O2 Liters/Min 3.5 % 04/25/24 10:43 FiO2 34.0 % 04/25/24 10:43 Rest Room Maid ID Monro 04/25/24 10:43 Sodium 143 mmol/L (136-145) 04/25/24 22:47 Potassium 3.8 mmol/L (3.5-5.1) 04/25/24 22:47 Chloride 101 mmol/L (98-107) 04/25/24 22:47 Carbon Dioxide 27 mmol/L (22-29) 04/25/24 22:47 Anion Gap 18.8 (5-19) 04/25/24 22:47 BUN 13 mg/dL (8-23) 04/25/24 22:47 Creatinine 0.9 mg/dL (0.5-0.9) 04/25/24 22:47 GFR Calculation 61.9 mL/min (90-130) L 04/25/24 22:47 Glucose 79 mg/dL (65-115) 04/25/24 22:47 Calculated Osmolality 295 mOsm/kg (285-295) 04/25/24 22:47 Lactic Acid 2.9 mmol/L (0.5-2.2) H 04/25/24 22:47 Calcium 8.7 mg/dL (8.5-10.5) 04/25/24 22:47 Total Bilirubin 0.3 mg/dL (0.15-1.2) 04/25/24 22:47 AST 27 U/L (0-32) 04/25/24 22:47 ALT 17 U/L (0-33) 04/25/24 22:47 Alkaline Phosphatase 119 U/L (35-105) H 04/25/24 22:47 Troponin T Baseline 46 ng/L (0-10) H 04/25/24 22:47 C-Reactive Protein 43.3 mg/L (0.0-4.9) H 04/25/24 22:47 NT-Pro-B Natriuret Pep 297 pg/mL (0-125) H 04/25/24 22:47 Total Protein 6.7 g/dL (6.6-8.7) 04/25/24 22:47 Albumin 3.9 g/dL (3.5-5.2) 04/25/24 22:47 Globulin 2.8 g/dL (1.3-4.6) 04/25/24 22:47 Adenovirus (PCR) Not detected (NOT DETECT) 04/25/24 23:16 C. pneumoniae DNA (PCR) Not detected (NOT DETECT) 04/25/24 23:16 Coronavirus 229E (PCR) Not detected (NOT DETECT) 04/25/24 23:16 Human Metapneumovir PCR Not detected (NOT DETECT) 04/25/24 23:16 Influenza A (H1) PCR Not detected (NOT DETECT) 04/25/24 23:16 Influ A (H1/09) PCR Not detected (NOT DETECT) 04/25/24 23:16 Influenza A (H3) PCR Not detected (NOT DETECT) 04/25/24 23:16 Influenza Type A (PCR) Not detected (NOT DETECT) 04/25/24 23:16 Influenza Type B (PCR) Not detected (NOT DETECT) 04/25/24 23:16 M. pneumoniae (PCR) Not detected (NOT DETECT) 04/25/24 23:16 Parainfluenza 1 (PCR) Not detected (NOT DETECT) 04/25/24 23:16 Parainfluenza 2 (PCR) Not detected (NOT DETECT) 04/25/24 23:16 Parainfluenza 3 (PCR) Not detected (NOT DETECT) 04/25/24 23:16 Parainfluenza 4 (PCR) Not detected (NOT DETECT) 04/25/24 23:16 RSV Type A (PCR) Not detected (NOT DETECT) 04/25/24 23:16 RSV Type B (PCR) Not detected (NOT DETECT) 04/25/24 23:16 Entero/Rhino (PCR) Not detected (NOT DETECT) 04/25/24 23:16 SARS-CoV-2 (PCR) Not detected (NOT DETECT) 04/25/24 23:16 All radiology interpretation(s) finalized by discharge Discharge Plan Discharge Patient Disposition: Admitted As Inpatient Clinical Impression: COPD with acute exacerbation, Hypoxemia Pneumonia Qualifiers: Pneumonia type: due to unspecified organism Laterality: unspecified laterality Lung location: unspecified part of lung Qualified Code(s): J18.9 - Pneumonia, unspecified organism Condition: Stable Coding Level of Care Code ED Dolly Pusher for Cristal Mathur
[2024-04-25] MEDS: methylPREDNISolone sod succ 125 mg/2 mL INJ IVP (22:44)
[2024-04-25] MEDS: albuterol 2.5 mg/3 mL Neb INHALATION (22:45)
[2024-04-25] MEDS: ipratropium-albuterol 3 mL Neb INHALATION (22:45)
[2024-04-25 22:53] LABS: Basophils # 0.1 10^3/uL (0.0-0.1); Basophils % 0.5 %; Eosinophils # 0.1 10^3/uL (0.0-0.8); Eosinophils % 0.8 %; Hematocrit 46.9 % (36-47); Lymphocytes # 1.4 10^3/uL (0.8-4.8); Lymphocytes % 12.3 %; Mean Corpuscular HGB Conc 30.3 g/dL (30-55); Mean Corpuscular Hemoglobin 30.5 pg (27-33); Mean Corpuscular Volume 100.6 fl (85-98); Mean Platelet Volume 10.1 fL (7.4-10.4); Monocytes # 1.3 10^3/uL (0.2-0.9); Monocytes % 11.5 %; Neutrophils # 8.53 10^3/uL (1.8-7.7); Nucleated Red Blood Cells % 0 %; Platelet Count 148 10^3/cmm (157-399); Red Blood Count 4.66 10^6/uL (3.85-5.65); Red Cell Distribution Width 14.5 % (12.1-15.1); White Blood Count 11.51 10^3/uL (3.29-11.43)
[2024-04-25 22:55] LABS: ABG PCO2 52.4 mmHg (35-45); ABG PH Result 7.38 (7.35-7.45); Alveolar-Arterial Oxygen Gradi 12.7 mmHg (5-10); Arterial Blood Gas Hematocrit 42.2 % (37-47); Base Excess ABG 4.8 mmol/L (-2.0-2.0); Blood Gas Allen Test Pos; Blood Gas LPM 3.5 %; Blood Gas Operator Identificat MONRO; Blood Gas Sample Site Brachial, right; Blood Gas Sample Type Arterial; Carboxyhemoglobin 0.9 %THgb (0.4-20.1); HCO3 ABG 31.2 mmol/L (22-26); HGB O2 Sat 93.3 % (95-100); Ionized Calcium Level - ABG 1.2 mmol/L (1.1-1.4); Methemoglobin 0.9 % (0.4-1.5); Oxygen Device NC; Oxygen Saturation ABG 95.1; PO2 ABG 78.1 mmHg (80.0-100.0); PO2 FiO2 Ratio Arterial Blood 0; Potassium Level - ABG 3.6 mmol/L (3.5-5.0); Total Hemoglobin 13.8 g/dL (12-16)
[2024-04-25 23:10] LABS: Lactic Sepsis W/Reflex 2.9 mmol/L (0.5-2.2)
[2024-04-25 23:12] LABS: Alanine Aminotransferase 17 U/L (0-33); Albumin Level 3.9 g/dL (3.5-5.2); Alkaline Phosphatase 119 U/L (35-105); Anion Gap 18.8 (5-19); Aspartate Amino Transferase 27 U/L (0-32); Blood Urea Nitrogen 13 mg/dL (8-23); C Reactive Protein 43.3 mg/L (0.0-4.9); Calcium 8.7 mg/dL (8.5-10.5); Carbon Dioxide 27 mmol/L (22-29); Chloride 101 mmol/L (98-107); Globulin 2.8 g/dL (1.3-4.6); Glomerular Filtration Rate 61.9 mL/min (90-130); Glucose 79 mg/dL (65-115); Osmolality Calculated 295 mOsm/kg (285-295); Potassium 3.8 mmol/L (3.5-5.1); Sodium 143 mmol/L (136-145); Total Bilirubin 0.3 mg/dL (0.15-1.2); Total Protein 6.7 g/dL (6.6-8.7)
[2024-04-25 23:19] LABS: Troponin(5th) Baseline 46 ng/L (0-10)
[2024-04-25 23:29] LABS: NT Pro B Type Natriuretic Pept 297 pg/mL (0-125)
[2024-04-26] VITALS (22 sets, daily range): BP systolic 114–154; BP diastolic 42–76; PULSE 77–101; RESP 16–20; TEMP 36.9–38.1; O2SAT 83–98; BMI 26.8
--- NOTE | 2024-04-26 00:32 | ECG_ITS ---
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 Measurements Intervals [place] Rate: 88 P: 34 LA: 161 QRS: -13 QRSD: 92 T: 41 QT: 338 QTc: 410 Interpretive Statements SINUS RHYTHM POSSIBLE ANTERIOR MYOCARDIAL INFARCTION , PROBABLY OLD [30 ms Q WAVE IN V3/V4, OR R < 0.2 mV IN V4] Compared to ECG 04/25/2024 22:31:30 No significant changes Electronically Signed On 04-26-2024 18:19:42 CDT by Herman Hurst M.D. [id number]
[2024-04-26 00:38] LABS: Reflex Lactate Order REFLEX LACTIC ORDERD
[2024-04-26] MEDS: meropenem 500 MG in sodium chloride 0.9% (plus) 50 ML 100 MG IV (00:47)
[2024-04-26 01:02] LABS: Adenovirus Not Detected (NOT DETECT); Chlamydia Pneumoniae Not Detected (NOT DETECT); Coronavirus 229E,HKU1,NL63,OC4 Not Detected (NOT DETECT); Human Metapneumovirus Not Detected (NOT DETECT); Human Rhinovirus/Enterovirus Not Detected (NOT DETECT); Influenza A Not Detected (NOT DETECT); Influenza A H1 Not Detected (NOT DETECT); Influenza A H1-2009 Not Detected (NOT DETECT); Influenza A H3 Not Detected (NOT DETECT); Influenza B Not Detected (NOT DETECT); Mycoplasma Pneumoniae Not Detected (NOT DETECT); Parainfluenza Virus Type 1 Not Detected (NOT DETECT); Parainfluenza Virus Type 2 Not Detected (NOT DETECT); Parainfluenza Virus Type 3 Not Detected (NOT DETECT); Parainfluenza Virus Type 4 Not Detected (NOT DETECT); Respiratory Syncytial Virus A Not Detected (NOT DETECT); Respiratory Syncytial Virus B Not Detected (NOT DETECT); SARS-COV-2 Not Detected (NOT DETECT)
[2024-04-26 01:29] LABS: Troponin 5 2HR 35.47 ng/L (0-10)
[2024-04-26 01:30] LABS: Lactic Acid level (Lactate) 1.6 mmol/L (0.5-2.2); Troponin 5 2HR Delta -10.53 ABS# (0-10)
--- NOTE | 2024-04-26 01:40 | P.HP_ITS ---
Providers/Chief Complaint 2 Admitting Physician: Marty Fonseca MD Primary Care Provider: Maciej West DO Chief Complaint: difficulty breathing History of Present Illness Jenna Hamlin is a 69 year old female with a past medical history significant for COPD, rheumatoid arthritis on chronic prednisone, peripheral arterial disease, and osteoporosis who presents to the emergency department via EMS with shortness of breath. Patient states she has felt off for about a week. She reports she developed shortness of breath with cough about 3 days ago. She reports the cough feels wet but it has been nonproductive so far. She endorses associated symptoms of diffuse pain, worse in her right hip with radiating pain down her now leg. She notes she has a history of rheumatoid arthritis. She reports exertion worsens her symptoms. Rest seems to improve. Denies other alleviating or aggravating factors. Per report, EMS found patient to be febrile and hypoxic requiring supplemental oxygen support. Patient denies prior home oxygen needs. Her temperature was reported 100.5 by EMS evaluation. Review of Systems 2 Narrative: A complete review of systems was obtained and is negative except as stated in HPI. Medications/Allergies Home Medications Medication Instructions Recorded Confirmed Last Taken Type mupirocin 2 % topical ointment 1 applic topical BID wound care 07/23/23 04/26/24 Unknown Rx #150 grams albuterol sulfate 90 mcg/actuation See Rx Instructions .Route 11/08/23 04/26/24 Unknown Rx aerosol inhaler .COMPLEX #8.5 grams folic acid 1 mg tablet See Rx Instructions .Route 11/08/23 04/26/24 Unknown Rx .COMPLEX #30 tabs calcium carbonate (Calcium 500) 500 mg PO DAILY 11/29/23 04/26/24 Unknown History furosemide 20 mg tablet 60 mg PO QAM PRN Edema 11/29/23 04/26/24 Unknown History cholecalciferol (vitamin D3) 25 See Rx Instructions .Route 01/03/24 04/26/24 Unknown Rx mcg (1,000 unit) tablet .COMPLEX #90 ea gabapentin 600 mg tablet See Rx Instructions .Route 01/03/24 04/26/24 Unknown Rx .COMPLEX #135 tabs pregabalin 75 mg capsule (Lyrica) 75 mg PO BID neuropathy #60 caps 01/03/24 04/26/24 Unknown Rx hydroxychloroquine 200 mg tablet See Rx Instructions .Route 02/01/24 04/26/24 Unknown Rx .COMPLEX #60 tabs prednisone 10 mg tablet See Rx Instructions .Route 02/01/24 04/26/24 Unknown Rx .COMPLEX #60 tabs sulfasalazine 500 mg tablet See Rx Instructions .Route 02/01/24 04/26/24 Unknown Rx .COMPLEX #180 tabs promethazine 25 mg tablet 25 mg PO TID PRN nausea and 02/18/24 04/26/24 Unknown Rx vomiting #30 tabs promethazine-DM 6.25 mg-15 mg/5 mL 5 - 10 ml PO Q4H cough/rib 03/03/24 04/26/24 Unknown Rx oral syrup fractures #473 mL morphine 30 mg immediate release 30 mg PO Q4H PRN pain 1 month #180 04/05/24 04/26/24 Unknown Rx tablet tabs umeclidinium 62.5 mcg-vilanterol See Rx Instructions .Route 04/05/24 04/26/24 Unknown Rx 25 mcg/actuation powdr for .COMPLEX #60 ea inhalation (Anoro Ellipta) Allergies Allergy/AdvReac Type Severity Reaction Status Date / Time alginic acid Allergy Severe ALGY-Rash Verified 04/25/24 22:27 [From MediHoney (moises alginate-honey)] honey Allergy Severe ALGY-Rash Verified 04/25/24 22:27 [From MediHoney (moises alginate-honey)] acetaminophen Allergy Nausea Verified 04/25/24 22:27 [From Tylenol-Codeine #3] codeine Allergy Nausea Verified 04/25/24 22:27 [From Tylenol-Codeine #3] doxycycline Allergy Nausea Verified 04/25/24 22:27 erythromycin base Allergy Respiratory Verified 04/25/24 22:27 distress isoniazid Allergy ALGY-Anaphy Verified 04/25/24 22:27 laxis leflunomide Allergy Difficulty Verified 04/25/24 22:27 Breathing levofloxacin Allergy chest pain Verified 04/25/24 22:27 rifampin Allergy ADR-Nausea Verified 04/25/24 22:27 PFSH Acute 2 PFSH: Medical History Latent tuberculosis by blood test Immunization counseling Chronic steroid use High risk medication use Seronegative rheumatoid arthritis of both hands Peripheral arterial disease Rheumatoid arthritis Osteoporosis COPD (chronic obstructive pulmonary disease) Cellulitis Surgical History S/P spinal fusion Status post colonoscopy History of D&C H/O hand surgery Left hand in 1984 x3, had infection drained by H/O elbow surgery LEFT nerve decomp[place] [address] Zaidi H/O shoulder surgery RIGHT- by Dr. Bergman in 2003 Family History Family/Other Heart disease Denies family history of Diabetes CAD (coronary artery disease) Clotting disorder Dementia Hyperlipidemia Psychiatric illness Chronic kidney disease (CKD) Suicide Anesthesia complication Bleeding disorder Family history of premature coronary artery disease Lung disease Cancer Hypertension Stroke Social History Smoking and tobacco/nicotine status: former use of tobacco/nicotine Quit status (tobacco/nicotine): has quit using Year quit tobacco: 1997 Former quit date comment: Hx of 2 PPD x 30 Years, started at age 14 Second hand smoke exposure: No Alcohol intake: never Substance/Drug Use: never Lives independently: Yes Household members: none Housing: House Marital status: Number of children: 0 Highest education level completed: 11th Grade service: No Current occupational status: disabled Pets and animals: Yes Do you think of yourself as: Straight/Heterosexual Current gender identity: Female Vitals/I&O/Wt Last Vital Signs Temp 99.8 F H 04/25/24 22:17 Pulse 96 04/25/24 23:30 Resp 20 H 04/25/24 23:30 BP 127/39 04/25/24 23:30 Pulse Ox 97 04/25/24 23:30 O2 Del Method Nasal Cannula 04/25/24 23:30 O2 Flow Rate 4 04/25/24 23:30 Physical Exam 2 Narrative: General: Patient is awake. Acutely ill appearing. Head: Normocephalic. Atraumatic. EOM intact. Neck: No JVD. Cardiovascular: RRR. No gallops. No murmurs. Trace peripheral edema. Lungs: Breath sounds are diminished in bilateral bases. There is faint end expiratory wheezing present. Conversational dyspnea. On 4 L nasal cannula. Skin: No jaundice. No rashes. Abdomen: Normal bowel sounds, abdomen soft and nontender. Genito Urinary: Genital exam not performed since complaints not related. Rectal: Rectal exam not performed since no symptoms indicated blood loss. Extremities: No cyanosis or clubbing. Musculoskeletal: No swollen or erythematous joints. Neurological: Moves all 4 extremities. No myoclonus. Data 04/25/24 22:47 04/25/24 22:47 Micro: Microbiology 04/25/24 22:41 Blood Culture - Preliminary Blood SPECIMEN COLLECTED 04/25/24 22:47 Blood Culture - Preliminary Blood SPECIMEN COLLECTED A&P Assessment and plan (1) Community acquired pneumonia: Bibasilar infiltrates noted on chest x-ray Procalcitonin 0.63; CRP 57.4 Bacterial antigens requested Status post meropenem in the ED Start ceftriaxone Allergy noted erythromycin and doxycycline Supportive care Sputum culture if possible (2) Acute exacerbation of chronic obstructive pulmonary disease (COPD): Acute COPD exacerbation with acute hypoxic respiratory insufficiency Patient on chronic prednisone therapy for rheumatoid arthritis Start IV methylprednisolone Start nebulized Pulmicort Start scheduled DuoNebs Supplemental oxygen support Supportive care (3) Acute exacerbation of congestive heart failure: Acute on chronic diastolic heart failure with preserved ejection fraction exacerbation TTE (09/30/2023) s/f LVEF 61%, mild LVH, grade I/IV diastolic dysfunction Hold home Lasix as needed dosing Start Lasix 40 mg IV daily in a.m. Strict I's and O's Daily weights (4) Myocardial injury: Acute myocardial injury secondary to pneumonia and COPD Telemetry monitoring (5) Rheumatoid arthritis: Continue home sulfasalazine Continue home hydroxychloroquine Patient on both pregabalin and gabapentin, continue both for now Plan DVT prophylaxis: Lovenox CODE STATUS: Full code Attestations 2 Medical Necessity Statement*: Patient presents with shortness of breath, fever, and hypoxia, found to have community-acquired pneumonia, COPD exacerbation, and acute on chronic heart failure with expected hospitalization not to cross 2 midnights for IV antibiotics, IV steroids, breathing treatments, and IV Lasix. Coding Level of Care Code Acute Code for [facility] Diagnoses Community acquired pneumonia J18.9 Acute exacerbation of chronic obstructive pulmonary disease (COPD) J44.1 Acute exacerbation of congestive heart failure I50.9 Myocardial injury I5A Rheumatoid arthritis M06.9
[2024-04-26 01:56] LABS: C Reactive Protein 57.4 mg/L (0.0-4.9)
[2024-04-26 02:04] LABS: Procalcitonin 0.63 ng/mL (0-0.5)
[2024-04-26] MEDS: cefTRIAXone 1,000 MG in sodium chloride 0.9% (plus) 50 ML 100 MG IV (03:30)
[2024-04-26] MEDS: hydroxychloroquine 200 mg Tablet PO ×2 (03:36→21:11)
[2024-04-26] MEDS: morphine IR 15 mg Tablet 30 MG PO ×3 (03:36→14:31)
--- NOTE | 2024-04-26 04:02 | XRR_ITS ---
PROCEDURE INFORMATION: Exam: XR Right Hip Exam date and time: 04/26/2024 5:06 AM Age: 69 years old Clinical indication: Hip pain; Right hip; Additional info: Severe right hip pain TECHNIQUE: Imaging protocol: Radiologic exam of the right hip. Views: 1 view hip with pelvis when performed. COMPARISON: CT kidney stone [id number] 06/26/2022 2:26 PM FINDINGS: Bones/joints: Mild articular surface narrowing and spurring. No fracture or dislocation.. No acute fracture. Soft tissues: Unremarkable. XR/XR hip RT 2-3V wo/w pel* [id number] IMPRESSION: No acute findings.
[2024-04-26] MEDS: ipratropium-albuterol 3 mL Neb INHALATION ×4 (04:03→19:41)
--- NOTE | 2024-04-26 04:26 | ECG_ITS ---
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 Measurements Intervals [place] Rate: 87 P: 42 MN: 167 QRS: -12 QRSD: 94 T: 41 QT: 345 QTc: 417 Interpretive Statements SINUS RHYTHM LOW QRS VOLTAGE IN PRECORDIAL LEADS [QRS DEFLECTION < 1.0 mV IN CHEST LEADS] INCOMPLETE RIGHT BUNDLE BRANCH BLOCK [90+ ms QRS DURATION, TERMINAL R IN V1/V2, 40+ ms S IN I/aVL/V4/V5/V6] POSSIBLE ANTERIOR MYOCARDIAL INFARCTION , PROBABLY OLD [30 ms Q WAVE IN V3/V4, OR R < 0.2 mV IN V4] Compared to ECG 04/26/2024 00:32:02 Low QRS voltage now present Incomplete right bundle-branch block now present Myocardial infarct finding still present Electronically Signed On 04-26-2024 18:19:18 CDT by Herman Hurst M.D. [id number]
[2024-04-26 05:19] LABS: Troponin 5 6HR 26.57 ng/L (0-10)
[2024-04-26 05:20] LABS: Troponin 5 6HR Delta -19.43 ng/L (0-12)
[2024-04-26] MEDS: methylPREDNISolone sod succ 40 mg/mL INJ IVP ×4 (05:51→22:27)
[2024-04-26] MEDS: budesonide 0.5 mg/2 mL Neb INHALATION ×2 (08:21→19:41)
[2024-04-26] MEDS: pregabalin 75 mg Capsule PO ×2 (08:44→17:43)
[2024-04-26] MEDS: sulfaSALAzine 500 mg Tablet 1000 MG PO ×3 (08:44→21:12)
[2024-04-26] MEDS: folic acid 1 mg Tablet PO (08:44)
[2024-04-26] MEDS: gabapentin 300 mg Capsule 900 MG PO ×3 (08:44→21:11)
[2024-04-26] MEDS: FUROsemide 10 mg/mL SDV 4mL 40 MG IVP (09:20)
[2024-04-26 10:52] LABS: Bilirubin Urine Neg (Negative); Blood Urine Neg (Negative); Glucose Urine UA Norm (Normal); Ketones Urine Negative (Negative); Leukocyte Esterase Urine Negative (Negative); Nitrate Urine Negative (Negative); Protein Urine Neg (Negative); Specific Gravity, Urine 1.015 (1.005-1.030); Urine Appearance Clear (CLEAR); Urine Color Yellow (Yellow); Urobilinogen Urine Norm (Negative); pH Urine 6 (5-7)
[2024-04-26 10:54] LABS: Add Urine Culture? No; Squamous Epithelial Cell Urine 0-4 /hpf (0-5)
--- NOTE | 2024-04-26 11:28 | CT_ITS ---
WS: [id number] CT RIGHT HIP, NONCONTRAST HISTORY: hip pain, fall a couple months ago. Technique: All CT scans at [facility] use at least one of these dose optimization techniques: automated exposure control; mA and/or kV adjustment per patient size (includes targeted exams where dose is matched to clinical indication); or iterative reconstruction. DLP: 495.42 mGy.cm COMPARISON: Radiograph 04/26/2024 Bones are mildly osteopenic. Femoral head is normally seated in the acetabulum. No acute or healing f ractures identified at the RIGHT hip. There is very minimal narrowing of the hip joint. No significan t subchondral cystic changes. Pubic rami are normal. There is mild muscle atrophy involving the glute us giulia and medius. Dystrophic calcifications in the soft tissue lateral to the RIGHT hip. Pratt c atheter in the urinary bladder. CT/CT hip RT wo con* [id number] IMPRESSION: No acute or chronic/healed RIGHT hip fracture. Minimal degenerative joint disease.
--- NOTE | 2024-04-26 11:56 | PM.MISC ---
Miscellaneous Note Note: seen today complains of hip pain will check ct hip lactic 2.9 on admission, pt refusing to move hip, is nonweightbearing at this time. crp 57.4 will check ESR must r/o septic arthritis of hip.
--- NOTE | 2024-04-26 13:33 | CT_ITS ---
WS: [id number] CT CHEST, ABDOMEN AND PELVIS WITH CONTRAST HISTORY: bacteremia TECHNIQUE: Contiguous 5 mm axial imaging performed through the chest, abdomen and pelvis IV contrast, oral contrast has has not been provided. Coronal and sagittal reformats chest. Coronal and sagittal reformats through the abdomen and pelvis. All CT scans at [facility] use at least one of thes e dose optimization techniques: automated exposure control; mA and/or kV adjustment per patient size (includes targeted exams where dose is matched to clinical indication); or iterative reconstruction. CONTRAST: Omnipaque 350; 100 mL IV. DLP: 2545.88 mGy.cm COMPARISON: Chest CT 12/17/[address]: Mild dependent changes and very mild pleural thickening at the lung bases. Superimposed on chronic emphysema. No dense area of consolidation or pneumonia. No endobronchial lesion. Mild atheros clerosis thoracic aorta. Normal size pulmonary artery. Heart is normal size with increased pericardia l fat. Small hiatal hernia. No adenopathy. Advanced degenerative joint disease involving the RIGHT shoulder. There is loss of joint space with s clerotic changes in subchondral cysts. There is a lucency through the glenoid consistent with prior f racture. Age-indeterminate. Increased synovial fluid LEFT shoulder joint. No rib fracture. Marked increase in thoracic kyphosis. Osteopenia. Hardware is noted from the mid thoracic spine to th e sacrum. Numerous compression fractures throughout the thoracic spine. No paraspinal inflammatory ch anges are noted by CT. Abdomen CT: Normal liver. No intrahepatic duct dilatation. Normally distended gallbladder. Very sligh t hyperemia involving the region of the cystic duct. Common bile duct is not dilated. No adrenal mass . Normal spleen. Atrophic pancreas. No renal obstruction or abscess. Subcentimeter slightly complex 1 .0 cm mass upper pole LEFT kidney is probably a complex cyst. Present on the prior study. There are f ew scattered hypodensities which are too small to characterize. No adenopathy or ascites. Moderate atherosclerosis aorta. No inflammatory changes surrounding the spi ne. Pelvic CT: Atrophic uterus. Pratt catheter in good position. Extensive orthopedic hardware. CT/CT chest abdpel w/*[id number] IMPRESSION: 1. No pneumonia. Mild dependent changes at the lung bases. 2. No mediastinal or hilar adenopathy. 3. Chronic emphysema. 4. Normally distended gallbladder. No common bile duct dilatation. No stones i dentified. 5. No renal obstruction. 6. No ascites or adenopathy in the abdomen or pelvis. 7. Pratt catheter in place.
--- NOTE | 2024-04-26 13:43 | CT_ITS ---
WS: [id number] CT RIGHT HIP, POST CONTRAST. HISTORY: Possible septic joint. Technique: All CT scans at [facility] use at least one of these dose optimization techniques: automated exposure control; mA and/or kV adjustment per patient size (includes targeted exams where dose is matched to clinical indication); or iterative reconstruction. DLP: 2545.88 mGy.cm COMPARISON: Noncontrast CT hip 04/26/2024 Images are obtained post contrast of the RIGHT hip. There is no significant joint effusion or fluid i dentified. There is very mild synovial thickening surrounding the hip with out adjacent inflammation. The extent of synovial thickening is symmetric to the LEFT hip as seen on the CT of of the pelvis pe rformed at the same time. There is no fluid collection or abscess. Moderate muscle atrophy involving the RIGHT gluteus medius and giulia lateral to the hip. There are no inflammatory changes in the sof t tissues surrounding the hip. CT/CT hip RT w con [id number] IMPRESSION: 1. Negative RIGHT hip for significant joint effusion. 2. There is very mild synovial thickening but very similar to the LEFT hip as seen on the pelvis CT obtained on the same day. 3. Muscle atrophy involving the gluteus medius and giulia. 4. No abscess or abnormal enhancement.
[2024-04-26] MEDS: iohexol 350 mg/mL 500 mL Btl (per mL) IV (14:19)
[2024-04-26] MEDS: vancomycin 750 MG in sodium chloride 0.9% 250 ML 250 MG IV (14:31)
[2024-04-26] MEDS: meropenem 1,000 MG in sodium chloride 0.9% (plus) 50 ML 100 MG IV (14:31)
[2024-04-26] MEDS: ketorolac 30 mg/mL INJ 15 MG IVP (17:56)
[2024-04-26] MEDS: enoxaparin 40 mg/0.4 mL Syringe SUBCUT (21:12)
[2024-04-26] MEDS: ondansetron 2 mg/ML SDV 2 mL 4 MG IVP (22:34)
[2024-04-27] VITALS (19 sets, daily range): BP systolic 123–159; BP diastolic 64–85; PULSE 57–100; RESP 16–19; TEMP 36.7–37.4; O2SAT 90–93
[2024-04-27] MEDS: ipratropium-albuterol 3 mL Neb INHALATION ×6 (00:25→20:00)
[2024-04-27] MEDS: meropenem 1,000 MG in sodium chloride 0.9% (plus) 50 ML 100 MG IV ×2 (01:36→14:48)
[2024-04-27] MEDS: vancomycin 750 MG in sodium chloride 0.9% 250 ML 250 MG IV ×2 (02:12→14:45)
[2024-04-27] MEDS: methylPREDNISolone sod succ 40 mg/mL INJ IVP ×4 (04:39→23:19)
[2024-04-27] MEDS: morphine IR 15 mg Tablet 30 MG PO ×4 (04:43→19:45)
[2024-04-27 05:51] LABS: Basophils % 0.2 %; Hematocrit 41.8 % (36-47); Lymphocytes # 0.3 10^3/uL (0.8-4.8); Mean Corpuscular HGB Conc 31.3 g/dL (30-55); Mean Corpuscular Hemoglobin 30.5 pg (27-33); Mean Corpuscular Volume 97.2 fl (85-98); Mean Platelet Volume 10.4 fL (7.4-10.4); Neutrophils # 12.91 10^3/uL (1.8-7.7); Neutrophils % 90.1 %; Nucleated Red Blood Cells % 0 %; Platelet Count 125 10^3/cmm (157-399); Red Cell Distribution Width 14.6 % (12.1-15.1); White Blood Count 14.33 10^3/uL (3.29-11.43)
[2024-04-27 06:12] LABS: Blood Urea Nitrogen 19 mg/dL (8-23); Calcium 8.7 mg/dL (8.5-10.5); Carbon Dioxide 30 mmol/L (22-29); Chloride 97 mmol/L (98-107); Creatinine Clr Calc Pharmacy 71.1339; Glomerular Filtration Rate 82.7 mL/min (90-130); Glucose 126 mg/dL (65-115); Magnesium 2.2 mg/dL (1.7-2.3); Osmolality Calculated 288 mOsm/kg (285-295); Sodium 137 mmol/L (136-145)
[2024-04-27] MEDS: budesonide 0.5 mg/2 mL Neb INHALATION ×2 (07:53→20:00)
--- NOTE | 2024-04-27 08:08 | P.PN_ITS ---
Subjective 2 Subjective: 2/4 bcx positive for staph aureus complains of right hip pain, back pain (some of it is chronic) has right knee swelling and warmth reports a hx of staph infections in past sees dr levine as outpatient for back febrile yesterday 100.6 Vitals/I&O/Wt Last Vital Signs Temp 99.3 F 04/27/24 07:14 Pulse 93 04/27/24 07:54 Resp 18 04/27/24 07:54 BP 135/80 04/27/24 07:14 Pulse Ox 91 04/27/24 07:54 O2 Del Method Nasal Cannula 04/27/24 07:54 O2 Flow Rate 3 04/27/24 07:54 04/26/24 04/27/24 04/27/24 22:59 06:59 14:59 Intake Total 418.333 / 780.000 300 / 1080.000 Output Total 800 / 2650 700 / 3350 Balance -381.667 / -1870.000 -400 / -2270.000 Weight last 48 hrs Weight 83.206 kg Weight 75.325 kg Weight 75.342 kg Physical Exam 2 Narrative: General: Patient is awake alert oriented x3, on 2L NC Head: Normocephalic. Atraumatic. EOM intact. Cardiovascular: RRR. No gallops. No murmurs. no edema Lungs: Breath sounds are diminished in bilateral bases. There is faint end expiratory wheezing present. on 2L NC Abdomen: Normal bowel sounds, abdomen soft and nontender. Extremities: No cyanosis or clubbing. Neurological: Moves all 4 extremities. No myoclonus. Right knee warmth present, significant edema noted at knee. Right hip on medial rotation elicits pain and limited ROM, right hip external rotation is ok, straight leg raise negative. Skin: Several tiny lesions and abrasions (from her dog scratching her). Urinary Catheter Management: Pratt: Cath Placed During This Visit: yes Reason for Continuing Indwelling Catheter: Other Urinary Catheter Date of Insertion: 04/26/24 Urinary Catheter Time of Insertion: 09:45 Data 04/27/24 05:26 04/27/24 05:26 Micro: Microbiology 04/25/24 22:47 Blood Culture - Preliminary Blood NEGATIVE TO DATE 04/26/24 15:36 Blood Culture - Preliminary Blood SPECIMEN COLLECTED 04/26/24 15:36 Blood Culture - Preliminary Blood SPECIMEN COLLECTED 04/25/24 22:41 Blood Culture - Preliminary Blood Staphylococcus aureus 04/25/24 10:15 Bacterial Antigens - Final Urine,Clean Catch A&P Assessment and plan (1) High risk medication use: (2) Acute exacerbation of congestive heart failure: (3) Chronic steroid use: (4) Leukocytosis: (5) Rheumatoid arthritis: (6) Knee pain: (7) Bacteremia: (8) Staph aureus infection: (9) Pneumonia: (10) Hypoxemia: (11) COPD with acute exacerbation: (12) Rib pain on right side: Plan #Staph aureus bacteremia #Right knee effusion, rule out septic arthritis #Right hip pain #History of chronic back pain status post lumbar spinal fusion #Rheumatoid arthritis #Immunocompromise status #Thrombocytopenia #Sepsis criteria met on admission #COPD exacerbation #Bilateral basilar pneumonia ? Patient septic on admission. Lactic acid elevated 2.9, hypoxic, tachycardic ? Developed a fever day 1 hospital stay. Has not been able to walk secondary to pain in right hip. Does have chronic back pain and has had lumbar spinal fusion done in the past. Follows with Dr. Levine as an outpatient. Immunocompromise status. History of rheumatoid arthritis. Has been on steroids at home. Presented for mainly hip pain however was also found to be in respiratory distress with elevated procalcitonin requiring 4 L nasal cannula and is not on any oxygen at home as per patient. Was admitted for COPD exacerbation, bilateral basilar pneumonia as infiltrate seen on chest x-ray. CT right hip with and without contrast was performed with no significant enhancement. No effusion seen. Patient does have quite a few skin lesions from scratches from her dog some of them are fresh wounds. No drainage or pus noted. Wound care provided. ? Right knee significantly swollen with warmth. Will perform arthrocentesis today and obtain synovial fluid analysis. ? Blood cultures repeated 04/26, pending. ? Urinalysis negative. ? Procalcitonin 0.63 on admission. Will follow. ? Patient still requiring 2 L nasal cannula. Does have underlying COPD. ? Also has history of diastolic heart failure. Is on Lasix at home. ? Will place on Lasix 20 IV daily. Will repeat transthoracic echo. ? hold hydroxychloroquine while treating sepsis - low platelet most likely 2/2 to infection - check bnp - consult ortho - resp viral panel negative FUll COde dvt ppx: heparin sub c BID Attestations 2 Medical Necessity Statement*: > 2midnight stay for mgmt and workup of staph bacteremia Diagnoses High risk medication use Z79.899 Acute exacerbation of congestive heart failure I50.9 Chronic steroid use Leukocytosis D72.829 Rheumatoid arthritis M06.9 Knee pain M25.569 Bacteremia R78.81 Staph aureus infection A49.01 Pneumonia J18.9 Hypoxemia R09.02 COPD with acute exacerbation J44.1 Rib pain on right side R07.81
[2024-04-27] MEDS: FUROsemide 10 mg/mL SDV 4mL 40 MG IVP (08:37)
[2024-04-27] MEDS: pregabalin 75 mg Capsule PO ×2 (08:38→18:00)
[2024-04-27] MEDS: gabapentin 300 mg Capsule 900 MG PO ×3 (08:38→21:36)
[2024-04-27] MEDS: hydroxychloroquine 200 mg Tablet PO (08:38)
[2024-04-27] MEDS: folic acid 1 mg Tablet PO (08:38)
[2024-04-27] MEDS: sulfaSALAzine 500 mg Tablet 1000 MG PO ×3 (08:38→21:36)
--- NOTE | 2024-04-27 11:00 | US_ITS ---
WS: [id number] ULTRASOUND-GUIDED KNEE ASPIRATION INDICATION: RIGHT knee effusion TECHNIQUE: The procedure including risk, benefits, and complications were discussed with the patient who agreed to proceed. Using sterile technique patient was prepped and draped in the usual sterile fa shion. After 1% lidocaine, using ultrasound guidance, an 18-gauge spinal needle was advanced into the suprapatellar effusion. 20 cc of clear yellow synovial fluid was aspirated. No immediate complicatio ns. Fluid sent to laboratory for requested diagnostic tests . US/US guide [facility] asp a/c/h [id number] IMPRESSION: Uncomplicated ultrasound-guided RIGHT knee aspiration
--- NOTE | 2024-04-27 11:06 | CT_ITS ---
WS: [id number] CT LUMBAR SPINE, noncontrast. HISTORY: BACK PAIN TECHNIQUE: Contiguous 2.0 mm axial imaging are performed. These images are reformatted from the prior CT pelvis and abdomen. Sagittal and coronal reformats are submitted and reviewed. All CT scans at [facility] use at least one of these dose optimization techniques: automated exposure control; mA and/or kV adjustment per patient size (includes targeted exams where dose is matched to clinical i ndication); or iterative reconstruction. IV contrast: None DLP: Reconstructed images. No additional dose of radiation. COMPARISON: 04/26/2024 This examination is significantly limited by extensive lumbar fusion hardware which extends from T10- S2. Extensive long Jeffries rods and pedicle screws are identified. Taking into consideration the l imitations of this examination there is no loosening or movement of the screws. Long sacral screws ex tend to the SI joints. Large bilateral laminectomy defects noted at L4-5. L1-2: No significant stenosis. Facet arthritis. L2-3: Mild retrolisthesis of L2. Annular disc bulging encroaching upon the ventral thecal sac. Centra l and bilateral subarticular recess and foraminal encroachment. The exact extent of the stenosis is o bscured by artifact. L3-4: Diffuse annular disc bulging and osteophytic ridging. LEFT foraminal disc protrusion. Central a nd LEFT subarticular recess and LEFT foraminal stenosis. L4-5: Large posterior laminectomy defect. Central to RIGHT paracentral disc protrusion. L5-S1: Large posterior laminectomy defect. Disc bulging. There are no areas of abnormal enhancement. No soft tissue mass or fluid collections identified. Ther e is no psoas muscle abscess. Satisfactory postoperative changes along the posterior lumbar spine. CT/CT lumbar spine recon [id number] IMPRESSION: 1. There is extensive gen and pedicle screw fixation from T10-S2. 2. Prior large laminectomy defects at L4-5 and L5-S1. 3. No enhancing masses. No inflammatory stranding identified. 4. Osteophytosis and disc disease resulting in stenoses as above. The exact ex tent of nerve root involvement is difficult to confirm with this amount of dise ase and artifact. 5. There is a component of central, bilateral subarticular recess and foramina l stenosis at L2-3. 6. Central LEFT subarticular recess and LEFT foraminal stenosis at least mild at L3-4. 7. Central to RIGHT paracentral disc protrusion at L4-5 with encroachment upon the traversing RIGHT L5 nerve root.
--- NOTE | 2024-04-27 12:30 | USCV_ITS ---
Jenna Hamlin Age: 69 Gender: F : 1955 Exam Date: 04/27/2024 18:03 Ordering Phys: Netta Fowler MD Technologist: KIERA Exam Location: [facility] [place] Indication: SOB, febrile 100.5F, hypoxia, history of COPD, history of PAD. No history of cardiac intervention per patient. BP: 136 / 82 HR: 87 Rhythm: Sinus Technical Quality: Suboptimal MEASUREMENTS (Male / Female) Normal Values 2D ECHO LV Diastolic Diameter PLAX 3.7 cm 4.2 - 5.9 / 3.9 - 5.3 cm IVS Diastolic Thickness 1.4 cm 0.6 - 1.0 / 0.6 - 0.9 cm IVS Systolic Thickness 1.6 cm LVPW Diastolic Thickness 1.8 cm 0.6 - 1.0 / 0.6 - 0.9 cm LVPW Systolic Thickness 2.1 cm LVOT Diameter 1.8 cm LV Ejection Fraction 2D Teich 56.1 % LV Ejection Fraction MOD 2C 64.9 % LV Ejection Fraction 2C AL 64.4 % LA Diameter 4.0 cm LA Sys Volume AL 54.6 cm cubed LA Sys Volume Index AL 27.4 cm cubed/m squared Aorta at Sinotubular Diameter 2.8 cm IVC Diameter 1.8 cm M-MODE LA Ao Ratio MM 1.6 AV Cusp Separation MM 1.4 cm DOPPLER AV Peak Velocity 182.0 cm/s LVOT Peak Velocity 112.0 cm/s AV Area Cont Eq vti 1.7 cm squared AV Area Cont Eq pk 1.6 cm squared MV Peak Velocity 176.0 cm/s MV Area PHT 2.1 cm squared Mitral E to A Ratio 0.8 TR Peak Velocity 296.0 cm/s TR Peak Gradient 35.0 mmHg TV Peak E Velocity 61.0 cm/s Right Atrial Pressure 10.0 mmHg Pulmonary Artery Systolic Pressu 45.0 mmHg PV Peak Velocity 132.0 cm/s FINDINGS Left Ventricle Normal left ventricular cavity size. Moderate left ventricular hypertrophy. Normal left ventricular systolic function. No regional wall motion abnormalities. Grade I/IV diastolic dysfunction (abnormal relaxation filling pattern), normal to mildly elevated filling pressures. Left ventricular ejection fraction is estimated at 65 %. Right Ventricle Normal right ventricular size and systolic function. Mild pulmonary hypertension, RVSP 45 mmHg. Right Atrium The right atrium is normal in size. Left Atrium Mildly increased left atrial size. Mitral Valve Structurally normal mitral valve. Trace mitral valve regurgitation. Aortic Valve Structurally normal aortic valve without significant sclerosis or stenosis. There is no aortic regurgitation. Tricuspid Valve Structurally normal tricuspid valve. Trace to mild tricuspid valve regurgitation. Pulmonic Valve Pulmonic valve not well visualized. Pericardium Normal pericardium without effusion. Aorta Normal ascending aorta dimension. IVC Inferior vena cava not visualized. CONCLUSIONS Normal left ventricular cavity size. Moderate left ventricular hypertrophy. Normal left ventricular systolic function. No regional wall motion abnormalities. Grade I/IV diastolic dysfunction (abnormal relaxation filling pattern), normal to mildly elevated filling pressures. Left ventricular ejection fraction is estimated at 65 %. Normal right ventricular size and systolic function. Mild pulmonary hypertension, RVSP 45 mmHg. Mildly increased left atrial size. Structurally normal mitral valve. Trace mitral valve regurgitation. Previous study 10/01/2023. No change. Dr. Richard Amado MD (Electronically Signed) Final Date: 28 April 2024 08:57 S
--- NOTE | 2024-04-27 12:58 | P.CONIM_ITS ---
Providers/Reason For Consult 2 Consulting Physician/Specialty*: Hospitalist Reason for Consult*: Hip pain Attending Physician: Netta Fowler MD Primary Care Provider: Maciej West DO History of Present Illness History of Present Illness Jenna Hamlin is a 69 year old female who was walking to the mailbox and stated that she had sharp pain rating down her leg like a sciatica and she could barely walk. Pain has eased up since has been in the hospital. CT scan of her spine was evaluated that everything appears to be in good position. Patient has blood cultures were positive for staph. She does have some effusion of her knee which are getting an aspirate of. Review of Systems 2 Const: Denies: fever(s) or chills Eyes: Denies: change in vision Card: Denies: chest pain or palpitations Resp: Denies: dyspnea or productive cough GI: Denies: abdominal pain, nausea or vomiting : Denies: flank pain Musc: Denies: joint warmth Skin/Breast: Reports: erythema, dry skin, nail changes and change in hair; Denies: rash, pruritus, sores or changes in skin color Neuro: Reports: numbness in extremities, sensory changes and difficulty walking; Denies: headache(s) Psych: Denies: anxiety or depression John Paul/Lymph: Denies: easy bruising All/Imm: Denies: acute wheezing Medications/Allergies Home Medications Medication Instructions Recorded Confirmed Last Taken Type mupirocin 2 % topical ointment 1 applic topical BID wound care 07/23/23 04/26/24 Unknown Rx #150 grams albuterol sulfate 90 mcg/actuation See Rx Instructions .Route 11/08/23 04/26/24 Unknown Rx aerosol inhaler .COMPLEX #8.5 grams folic acid 1 mg tablet See Rx Instructions .Route 11/08/23 04/26/24 Unknown Rx .COMPLEX #30 tabs calcium carbonate (Calcium 500) 500 mg PO DAILY 11/29/23 04/26/24 Unknown History furosemide 20 mg tablet 60 mg PO QAM PRN Edema 11/29/23 04/26/24 Unknown History cholecalciferol (vitamin D3) 25 See Rx Instructions .Route 01/03/24 04/26/24 Unknown Rx mcg (1,000 unit) tablet .COMPLEX #90 ea gabapentin 600 mg tablet See Rx Instructions .Route 01/03/24 04/26/24 Unknown Rx .COMPLEX #135 tabs pregabalin 75 mg capsule (Lyrica) 75 mg PO BID neuropathy #60 caps 01/03/24 04/26/24 Unknown Rx hydroxychloroquine 200 mg tablet See Rx Instructions .Route 02/01/24 04/26/24 Unknown Rx .COMPLEX #60 tabs prednisone 10 mg tablet See Rx Instructions .Route 02/01/24 04/26/24 Unknown Rx .COMPLEX #60 tabs sulfasalazine 500 mg tablet See Rx Instructions .Route 02/01/24 04/26/24 Unknown Rx .COMPLEX #180 tabs promethazine 25 mg tablet 25 mg PO TID PRN nausea and 02/18/24 04/26/24 Unknown Rx vomiting #30 tabs promethazine-DM 6.25 mg-15 mg/5 mL 5 - 10 ml PO Q4H cough/rib 03/03/24 04/26/24 Unknown Rx oral syrup fractures #473 mL morphine 30 mg immediate release 30 mg PO Q4H PRN pain 1 month #180 04/05/24 04/26/24 Unknown Rx tablet tabs umeclidinium 62.5 mcg-vilanterol See Rx Instructions .Route 04/05/24 04/26/24 Unknown Rx 25 mcg/actuation powdr for .COMPLEX #60 ea inhalation (Anoro Ellipta) Allergies Allergy/AdvReac Type Severity Reaction Status Date / Time alginic acid Allergy Severe ALGY-Rash Verified 04/25/24 22:27 [From MediHoney (moises alginate-honey)] honey Allergy Severe ALGY-Rash Verified 04/25/24 22:27 [From MediHoney (moises alginate-honey)] acetaminophen Allergy Nausea Verified 04/25/24 22:27 [From Tylenol-Codeine #3] codeine Allergy Nausea Verified 04/25/24 22:27 [From Tylenol-Codeine #3] doxycycline Allergy Nausea Verified 04/25/24 22:27 erythromycin base Allergy Respiratory Verified 04/25/24 22:27 distress isoniazid Allergy ALGY-Anaphy Verified 04/25/24 22:27 laxis leflunomide Allergy Difficulty Verified 04/25/24 22:27 Breathing levofloxacin Allergy chest pain Verified 04/25/24 22:27 rifampin Allergy ADR-Nausea Verified 04/25/24 22:27 Current Medications Generic Name Dose Route Start Last Admin Trade Name Freq PRN Reason Stop Dose Admin Albuterol/Ipratropium 3 ml 04/26/24 04:00 04/27/24 11:25 Ipratropium-Albuterol 3 Ml Neb INHALATION 3 ml Q4H.RESPIRATORY DESTINEE Administration Budesonide 0.5 mg 04/26/24 08:00 04/27/24 07:53 Budesonide 0.5 Mg/2 Ml Neb INHALATION 0.5 mg BID.RESPIRATORY DESTINEE Administration Docusate Sodium 100 mg 04/26/24 09:00 04/27/24 08:43 Docusate Sodium 100 Mg Capsule PO Not Given BID DESTINEE Enoxaparin Sodium 40 mg 04/26/24 21:00 04/26/24 21:12 Enoxaparin 40 Mg/0.4 Ml Syringe SUBCUT 40 mg Q24H DESTINEE Administration Folic Acid 1 mg 04/26/24 09:00 04/27/24 08:38 Folic Acid 1 Mg Tablet PO 1 mg DAILY DESTINEE Administration Furosemide 40 mg 04/26/24 09:00 04/27/24 08:37 Furosemide 10 Mg/Ml Sdv 4ml IVP 40 mg DAILY DESTINEE Administration Gabapentin 900 mg 04/26/24 09:00 04/27/24 08:38 Gabapentin 300 Mg Capsule PO 900 mg TID DESTINEE Administration Hydroxychloroquine Sulfate 200 mg 04/26/24 20:00 04/27/24 08:38 Hydroxychloroquine 200 Mg Tablet PO 200 mg Q12H DESTINEE Administration Vancomycin HCl 750 mg/ Sodium 250 mls @ 250 mls/hr 04/26/24 14:00 04/27/24 03:21 Chloride IV Infused Q12H DESTINEE Infusion Protocol As Directed Meropenem 1,000 mg/ Sodium 50 mls @ 100 mls/hr 04/26/24 14:30 04/27/24 02:12 Chloride IV Infused Q12H DESTINEE Infusion Protocol Methylprednisolone Sodium Succinate 40 mg 04/26/24 05:00 04/27/24 11:26 Methylprednisolone Sod Succ 40 Mg/Ml Inj IVP 40 mg Q6H DESTINEE Administration Morphine Sulfate 30 mg 04/26/24 02:24 04/27/24 08:41 Morphine Ir 15 Mg Tablet PO 30 mg Q4H PRN Administration SEVERE PAIN Ondansetron HCl 4 mg 04/26/24 02:24 04/26/24 22:34 Ondansetron 2 Mg/Ml Sdv 2 Ml IVP 4 mg Q8H PRN Administration vomiting, or N/V if npo Pregabalin 75 mg 04/26/24 09:00 04/27/24 08:38 Pregabalin 75 Mg Capsule PO 75 mg BID DESTINEE Administration Sulfasalazine 1,000 mg 04/26/24 09:00 04/27/24 08:38 Sulfasalazine 500 Mg Tablet PO 1,000 mg TID DESTINEE Administration PFSH Acute 2 PFSH: Medical History Latent tuberculosis by blood test Immunization counseling Chronic steroid use High risk medication use Seronegative rheumatoid arthritis of both hands Peripheral arterial disease Rheumatoid arthritis Osteoporosis COPD (chronic obstructive pulmonary disease) Cellulitis Surgical History S/P spinal fusion Status post colonoscopy History of D&C H/O hand surgery Left hand in 1984 x3, had infection drained by H/O elbow surgery LEFT nerve decomp[place] [address] Zaidi H/O shoulder surgery RIGHT- by Dr. Bergman in 2003 Family History Family/Other Heart disease Denies family history of Diabetes CAD (coronary artery disease) Clotting disorder Dementia Hyperlipidemia Psychiatric illness Chronic kidney disease (CKD) Suicide Anesthesia complication Bleeding disorder Family history of premature coronary artery disease Lung disease Cancer Hypertension Stroke Social History Smoking and tobacco/nicotine status: former use of tobacco/nicotine Quit status (tobacco/nicotine): has quit using Year quit tobacco: 1997 Former quit date comment: Hx of 2 PPD x 30 Years, started at age 14 Second hand smoke exposure: No Alcohol intake: never Substance/Drug Use: never Lives independently: Yes Household members: none Housing: House Marital status: Number of children: 0 Highest education level completed: 11th Grade service: No Current occupational status: disabled Pets and animals: Yes Do you think of yourself as: Straight/Heterosexual Current gender identity: Female Vitals/I&O/Wt Last Vital Signs Temp 98.1 F 04/27/24 11:04 Pulse 63 04/27/24 11:28 Resp 18 04/27/24 11:20 BP 123/68 06/06/24 11:04 Pulse Ox 92 04/27/24 11:20 O2 Del Method Nasal Cannula 04/27/24 11:20 O2 Flow Rate 3 04/27/24 11:20 04/26/24 04/27/24 04/27/24 22:59 06:59 14:59 Intake Total 418.333 / 780.000 300 / 1080.000 240 / 240 Output Total 800 / 2650 700 / 3350 Balance -381.667 / -1870.000 -400 / -2270.000 240 / 240 Weight last 48 hrs Weight 183 lb 7 oz Weight 166 lb 1 oz Weight 166 lb 1.6 oz Physical Exam 2 Narrative: Patient's pain it appears to be localized in her ischial tuberosity area of her right pelvis. She does have a slight knee effusion. However she does have a scar over the knee patient stated that that knee is typically swollen. Urinary Catheter Management: Pratt: Cath Placed During This Visit: yes Reason for Continuing Indwelling Catheter: Other Urinary Catheter Date of Insertion: 04/26/24 Urinary Catheter Time of Insertion: 09:45 Data 04/27/24 05:26 04/27/24 05:26 Micro: Microbiology 04/25/24 22:47 Blood Culture - Preliminary Blood NEGATIVE TO DATE 04/26/24 15:36 Blood Culture - Preliminary Blood SPECIMEN COLLECTED 04/26/24 15:36 Blood Culture - Preliminary Blood SPECIMEN COLLECTED 04/25/24 22:41 Blood Culture - Preliminary Blood Staphylococcus aureus 04/25/24 10:15 Bacterial Antigens - Final Urine,Clean Catch A&P Assessment and plan (1) Status post lumbar spinal fusion: Sounds like her radicular pain down her leg is improved significantly. At this point I would watch along. Will await results of the knee aspirate. Coding Level of Care Code Acute Code for Chg Fwd Diagnoses Status post lumbar spinal fusion Z98.1
[2024-04-27 13:19] LABS: NT Pro B Type Natriuretic Pept 484 pg/mL (0-125)
[2024-04-27 13:53] LABS: RBC Synovial Fluid 0 10^3/uL (0-0); Synovial Fluid Mononuclear # 0.033 10^3/uL; Synovial Fluid Polynuclear # 0.029 10^3/uL; WBC Synovial Fluid 62 /uL (0-150)
[2024-04-27 14:03] LABS: Appearance Synovial Fluid HAZY (CLEAR); Color Synovial Fluid PALE YELLOW (PALE YELLOW); Cyto Order Verification No Order; PATH Referal YES
[2024-04-27 14:33] LABS: Albumin Synovial Fluid 2 gm/dL; Total Protein Synovial Fluid 3.4 g/dL; Triglycerides Synovial Fluid 25 mg/dL
[2024-04-27 14:39] LABS: pH Synovial Fluid 8.5 (7.0-7.5)
[2024-04-27 14:40] LABS: Glucose Synovial Fluid 145 mg/dL
[2024-04-27] MEDS: enoxaparin 40 mg/0.4 mL Syringe SUBCUT (21:36)
[2024-04-28] VITALS (19 sets, daily range): BP systolic 139–158; BP diastolic 65–91; PULSE 68–98; RESP 16–20; TEMP 36.3–36.8; O2SAT 89–95; BMI 28.9
[2024-04-28] MEDS: ipratropium-albuterol 3 mL Neb INHALATION ×5 (00:40→20:15)
[2024-04-28] MEDS: meropenem 1,000 MG in sodium chloride 0.9% (plus) 50 ML 100 MG IV ×2 (01:40→15:13)
[2024-04-28] MEDS: vancomycin 750 MG in sodium chloride 0.9% 250 ML 250 MG IV ×2 (02:10→15:06)
[2024-04-28] MEDS: morphine IR 15 mg Tablet 30 MG PO ×4 (03:48→20:31)
[2024-04-28] MEDS: methylPREDNISolone sod succ 40 mg/mL INJ IVP ×4 (05:21→23:04)
[2024-04-28 06:33] LABS: Basophils % 0.1 %; Hematocrit 44.3 % (36-47); Lymphocytes # 0.3 10^3/uL (0.8-4.8); Lymphocytes % 2.4 %; Mean Corpuscular HGB Conc 31.4 g/dL (30-55); Mean Corpuscular Hemoglobin 30.5 pg (27-33); Mean Corpuscular Volume 97.4 fl (85-98); Mean Platelet Volume 10.8 fL (7.4-10.4); Monocytes # 0.5 10^3/uL (0.2-0.9); Monocytes % 4.2 %; Neutrophils # 10.07 10^3/uL (1.8-7.7); Neutrophils % 92.9 %; Nucleated Red Blood Cells % 0 %; Platelet Count 124 10^3/cmm (157-399); Red Blood Count 4.55 10^6/uL (3.85-5.65); Red Cell Distribution Width 13.9 % (12.1-15.1); White Blood Count 10.84 10^3/uL (3.29-11.43)
[2024-04-28 07:01] LABS: Alanine Aminotransferase 11 U/L (0-33); Albumin Level 3.2 g/dL (3.5-5.2); Alkaline Phosphatase 86 U/L (35-105); Anion Gap 14.1 (5-19); Aspartate Amino Transferase 15 U/L (0-32); Blood Urea Nitrogen 21 mg/dL (8-23); Calcium 8.8 mg/dL (8.5-10.5); Carbon Dioxide 31 mmol/L (22-29); Chloride 98 mmol/L (98-107); Creatinine Clr Calc Pharmacy 70.3397; Globulin 3.5 g/dL (1.3-4.6); Glomerular Filtration Rate 98.8 mL/min (90-130); Glucose 135 mg/dL (65-115); Magnesium 2.2 mg/dL (1.7-2.3); Osmolality Calculated 293 mOsm/kg (285-295); Potassium 4.1 mmol/L (3.5-5.1); Sodium 139 mmol/L (136-145); Total Bilirubin 0.3 mg/dL (0.15-1.2); Total Protein 6.7 g/dL (6.6-8.7)
--- NOTE | 2024-04-28 08:00 | XR_ITS ---
WS: [id number] XR chest 1V portable [id number] REASON FOR EXAM: follow up FINDINGS: Compared to the previous examination of 04/25/2024, there appears to be increasing left pleural effusio n with progressive lung consolidation atelectasis and/or infiltrate. The right chest remains unchanged. No other interval change or new finding. XR/XR chest 1V portable [id number] IMPRESSION: Progression of abnormality in the left hemithorax.
[2024-04-28] MEDS: budesonide 0.5 mg/2 mL Neb INHALATION ×2 (08:09→20:15)
[2024-04-28] MEDS: folic acid 1 mg Tablet PO (09:10)
[2024-04-28] MEDS: sulfaSALAzine 500 mg Tablet 1000 MG PO (09:10)
[2024-04-28] MEDS: gabapentin 300 mg Capsule 900 MG PO ×3 (09:10→20:32)
[2024-04-28] MEDS: pregabalin 75 mg Capsule PO ×2 (09:10→16:59)
[2024-04-28] MEDS: FUROsemide 10 mg/mL SDV 4mL 40 MG IVP (09:52)
--- NOTE | 2024-04-28 11:52 | MR_ITS ---
WS: [id number] EXAMINATION: MR hip RT wo/w con [id number] ORDER DATE: 04/28/2024 11:52 AM COMPARISON: CT 04/26/2024 HISTORY: extreme hip pain TECHNIQUE: Coronal STIR of the Pelvis. Coronal proton density, coronal T1, axial T2 fat sat, axial T1 , sagittal T2 fat sat, and sagittal T1 performed of the hip. After contrast, axial T1 fat sat, coron al T1 fat sat, and sagittal T1 fat sat were performed. FINDINGS: Some images are graded by patient motion and susceptibility artifact from lower lumbar and sacroiliac fusion . Moderate degenerative narrowing RIGHT hip. No significant joint effusion. No evidence of osteomyeli tis in the RIGHT hip. No evidence of avascular necrosis or subchondral collapse. Fatty atrophy involv ing the gluteus medius and giulia as seen on the recent CT. Small amount of fluid and edema along the semimembranosus tendon and biceps femoris at the ischial tuberosity. Small amount of fluid and edema partially visualized along the RIGHT distal psoas extending along the RIGHT iliac wing. This extends this extends along the RIGHT pelvic sidewall and involves the iliac i s muscle and iliopsoas tendon. This may be inflammatory but recommend follow-up contrast-enhanced CT abdomen pelvis to exclude abscess or hematoma. This is incompletely evaluated and only partially incl uded on the study. This does not appear to be present on the recent CT chest abdomen pelvisa In addition patchy T2 signal normality in the RIGHT proximal femur with enhancement. This is nonspeci fic and metastatic disease not entirely excluded. No cortical destruction on the recent CT. This is a symmetric compared to the LEFT proximal femur. Consider further evaluation with bone scan or follow-u p MRI RIGHT hip and femur in 4 to 6 weeks Pratt catheter. MR/MR hip RT wo/w con [id number] IMPRESSION: Some images degraded by motion and susceptibility artifact from valorie or fusion 1. No evidence of acute fracture or avascular necrosis. 2. No evidence of osteomyelitis in the RIGHT hip. 3. Slightly patchy bone marrow signal in the proximal femur with enhancement m ay be due to normal bone marrow signal but asymmetric compared to the LEFT. No bony destruction on the recent CT. Consider follow-up with bone scan to assess activity and to assess for other sites of uptake to exclude metastatic disease. Alternatively this could be followed up in 4 to 6 weeks with MRI RIGHT hip and femur. 4. Fluid and edema with enhancement along the RIGHT ischial tuberosity involvi ng the proximal biceps femoris long head and semimembranosus tendons at the isc hial tuberosity likely due to recent fall with muscle strain. 5. Partially visualized fluid and edema along the distal RIGHT psoas extending along the RIGHT pelvic sidewall involving the iliacus and iliopsoas. This is i ncompletely evaluated and recommend contrast-enhanced CT abdomen pelvis follow- up to assess for developing abscess or hematoma. Also recommend RIGHT lower ext remity ultrasound to exclude DVT if not previously performed 6. Small amount of edema in the soft tissues about the RIGHT hip likely due to recent fall. 7. Chronic atrophy of the gluteus medius and giulia. 8. No joint effusion to indicate septic joint. 9. No other acute findings
--- NOTE | 2024-04-28 12:05 | US_ITS ---
WS: [id number] ULTRASOUND BILATERAL CHEST INDICATION: Thoracentesis TECHNIQUE: Ultrasound bilateral chest. US/US chest [id number] IMPRESSION: Tiny bilateral pleural effusions with compressive atelectasis in th e lung bases. The abnormality on the recent radiograph LEFT lower lobe appears to represent atelectatic/consolidated lung. Insufficient fluid to perform thora centesis.
--- NOTE | 2024-04-28 13:07 | PM.PN ---
Subjective Subjective: Patient is continue to have right hip pain around her ischial tuberosity area. Knee cultures appear to be negative. Vitals/I&O/Wt Last Vital Signs Temp 97.4 F L 04/28/24 12:00 Pulse 81 04/28/24 12:00 Resp 18 04/28/24 12:00 BP 151/90 04/28/24 12:00 Pulse Ox 95 04/28/24 12:00 O2 Del Method Nasal Cannula 04/28/24 11:53 O2 Flow Rate 3 04/28/24 11:53 04/27/24 04/28/24 04/28/24 22:59 06:59 14:59 Intake Total 1020 / 1500 780 / 2280 480 / 480 Output Total 2600 / 2600 2200 / 4800 Balance -1580 / -1100 -1420 / -2520 480 / 480 Weight last 48 hrs Weight 179 lb 3.2 oz Weight 179 lb 1.6 oz Weight 183 lb 7 oz Physical Exam Narrative: Patient has pain in her right hip. Urinary Catheter Management: Pratt: Cath Placed During This Visit: yes Reason for Continuing Indwelling Catheter: Other Urinary Catheter Date of Insertion: 04/26/24 Urinary Catheter Time of Insertion: 09:45 Data 04/28/24 05:46 04/28/24 05:46 Micro: Microbiology 04/25/24 22:41 Blood Culture - Final Blood Methicillin Resis Staph Aureus 04/26/24 15:36 Blood Culture - Preliminary Blood NEGATIVE TO DATE 04/26/24 15:36 Blood Culture - Preliminary Blood NEGATIVE TO DATE A&P Assessment and plan (1) Hip pain: Patient is complaining of right hip pain. At this point to discuss doing an MRI of her hip to further evaluate was going on. Qualifiers: Laterality: right Qualified Code(s): M25.551 - Pain in right hip Attestations Medical Necessity Statement*: Per primary service Coding Level of Care Code Acute Code for [facility] Diagnoses Pain of right hip M25.551 Laterality: right
--- NOTE | 2024-04-28 13:41 | P.PN_ITS ---
Subjective 2 Subjective: Seen this morning. Patient still complains of right hip pain. Knee synovial fluid analysis reviewed. Patient afebrile overnight. Repeat blood cultures negative to date. On 3 L nasal cannula Repeat chest x-ray pending this morning. Normal white count today. CT hip reviewed CT lumbar spine reviewed. Vitals/I&O/Wt Last Vital Signs Temp 97.4 F L 04/28/24 12:00 Pulse 81 04/28/24 12:00 Resp 18 04/28/24 13:22 BP 151/90 04/28/24 12:00 Pulse Ox 95 04/28/24 12:00 O2 Del Method Nasal Cannula 04/28/24 11:53 O2 Flow Rate 3 04/28/24 11:53 04/27/24 04/28/24 04/28/24 22:59 06:59 14:59 Intake Total 1020 / 1500 780 / 2280 480 / 480 Output Total 2600 / 2600 2200 / 4800 Balance -1580 / -1100 -1420 / -2520 480 / 480 Weight last 48 hrs Weight 81.284 kg Weight 81.238 kg Weight 83.206 kg Physical Exam 2 Narrative: General: Patient is awake alert oriented x3, on 2L NC Head: Normocephalic. Atraumatic. EOM intact. Cardiovascular: RRR. No gallops. No murmurs. no edema Lungs: Breath sounds are diminished in bilateral bases. There is faint end expiratory wheezing present. on 2L NC Abdomen: Normal bowel sounds, abdomen soft and nontender. Extremities: No cyanosis or clubbing. Neurological: Moves all 4 extremities. No myoclonus. Right knee appears better. No warmth noted, no erythema noted. No edema noted. Right hip limited range of motion secondary to pain. Skin: Several tiny lesions and abrasions (from her dog scratching her). Urinary Catheter Management: Pratt: Cath Placed During This Visit: yes Reason for Continuing Indwelling Catheter: Other Urinary Catheter Date of Insertion: 04/26/24 Urinary Catheter Time of Insertion: 09:45 Data 04/28/24 05:46 04/28/24 05:46 Micro: Microbiology 04/25/24 22:41 Blood Culture - Final Blood Methicillin Resis Staph Aureus 04/26/24 15:36 Blood Culture - Preliminary Blood NEGATIVE TO DATE 04/26/24 15:36 Blood Culture - Preliminary Blood NEGATIVE TO DATE A&P Assessment and plan (1) High risk medication use: (2) Acute exacerbation of congestive heart failure: (3) Chronic steroid use: (4) Leukocytosis: (5) Rheumatoid arthritis: (6) Knee pain: (7) Bacteremia: (8) Staph aureus infection: (9) Pneumonia: (10) Hypoxemia: (11) COPD with acute exacerbation: (12) Rib pain on right side: Plan #Staph aureus bacteremia #Right knee effusion, rule out septic arthritis #Right hip pain #History of chronic back pain status post lumbar spinal fusion #Rheumatoid arthritis #Immunocompromise status #Thrombocytopenia #Sepsis criteria met on admission #COPD exacerbation #Bilateral basilar pneumonia ? Patient septic on admission. Lactic acid elevated 2.9, hypoxic, tachycardic ? Developed a fever day 1 hospital stay. Has not been able to walk secondary to pain in right hip. Does have chronic back pain and has had lumbar spinal fusion done in the past. Follows with Dr. Levine as an outpatient. Immunocompromise status. History of rheumatoid arthritis. Has been on steroids at home. Presented for mainly hip pain however was also found to be in respiratory distress with elevated procalcitonin requiring 4 L nasal cannula and is not on any oxygen at home as per patient. Was admitted for COPD exacerbation, bilateral basilar pneumonia as infiltrate seen on chest x-ray. CT right hip with and without contrast was performed with no significant enhancement. No effusion seen. Patient does have quite a few skin lesions from scratches from her dog some of them are fresh wounds. No drainage or pus noted. Wound care provided. ? Right knee significantly swollen with warmth. Will perform arthrocentesis today and obtain synovial fluid analysis. - complete ? Blood cultures repeated 04/26, pending. ? Urinalysis negative. ? Procalcitonin 0.63 on admission. Will follow. ? Patient still requiring 2 L nasal cannula. Does have underlying COPD. ? Also has history of diastolic heart failure. Is on Lasix at home. ? Will place on Lasix 20 IV daily. Will repeat transthoracic echo. ? hold hydroxychloroquine while treating sepsis, hold sulfasalazine - low platelet most likely 2/2 to infection - check bnp - consult ortho - - resp viral panel negative - check hip mri today - knee synovial fluid reviewed- - check mrsa nares - continue vanc + meropenem FUll COde dvt ppx: heparin sub c BID Attestations 2 Medical Necessity Statement*: > 2midnight stay for mgmt and workup of staph bacteremia Diagnoses High risk medication use Z79.899 Acute exacerbation of congestive heart failure I50.9 Chronic steroid use Leukocytosis D72.829 Rheumatoid arthritis M06.9 Knee pain M25.569 Bacteremia R78.81 Staph aureus infection A49.01 Pneumonia J18.9 Hypoxemia R09.02 COPD with acute exacerbation J44.1 Rib pain on right side R07.81
[2024-04-28 13:46] LABS: Vancomycin Trough 9.9 ug/mL (10-15)
[2024-04-28] MEDS: gadobenate dimeglumine 20 mL vial IV (14:24)
--- NOTE | 2024-04-28 16:07 | CTR_ITS ---
PROCEDURE INFORMATION: Exam: CT Right Lower Extremity With Contrast; Thigh Exam date and time: 04/28/2024 9:21 PM Age: 69 years old Clinical indication: Yes, it is localized; Patient HX: Fluid/edema noted to distal psoas muscle and ishial tuberosity on hip mri performed earlier today. ; Additional info: Psoas abscess rule out? , Include soft tissue TECHNIQUE: Imaging protocol: CT of the right lower extremity with intravenous contrast was performed. Exam focused on the thigh. Radiation optimization: All CT scans at this facility use at least one of these dose optimization techniques: automated exposure control; mA and/or kV adjustment per patient size (includes targeted exams where dose is matched to clinical indication); or iterative reconstruction. Contrast material: OMNI 350; Contrast volume: 100 ml; Contrast route: INTRAVENOUS (IV); COMPARISON: MR hip RT wo/w con [id number] 04/28/2024 2:01 PM RADIATION DOSE METRICS: Total DLP (mGy-cm): 758.76 FINDINGS: Note that the pelvis, including the right psoas muscle is mostly outside the field of view. Bones/joints: Right hip and femur are intact without evidence of acute fracture or aggressive osseous lesion. There is solid periosteal reaction along the anteromedial aspect of the distal femoral shaft compatible with sequela of remote trauma or stress reaction/stress fracture. There is curvilinear sclerosis and distortion of the trabecula of the posterior lateral tibial plateau suspicious for insufficiency fracture. Moderate-large knee joint effusion.Moderate tricompartmental osteoarthritis with marginal osteophytes. Soft tissues: No evidence of fluid collection or hematoma. Moderate gluteus minimus and medius muscular fatty atrophy. There is thickening of the hamstring tendon origin compatible with tendinosis. CT/CT femur RT w con [id number] IMPRESSION: 1. Suspected lateral tibial plateau insufficiency fracture. Correlation with MRI of the right knee is recommended. 2. Right hemipelvis, including the psoas muscle is mostly outside the field of view. Consider CT of the abdomen and pelvis with contrast.
[2024-04-28] MEDS: enoxaparin 40 mg/0.4 mL Syringe SUBCUT (20:31)
[2024-04-28] MEDS: iohexol 350 mg/mL 500 mL Btl (per mL) IV (21:23)
[2024-04-29] VITALS (26 sets, daily range): BP systolic 124–182; BP diastolic 67–98; PULSE 67–96; RESP 17–20; TEMP 36.3–36.9; O2SAT 91–96
[2024-04-29] MEDS: ipratropium-albuterol 3 mL Neb INHALATION ×6 (00:44→19:22)
[2024-04-29] MEDS: meropenem 1,000 MG in sodium chloride 0.9% (plus) 50 ML 100 MG IV ×2 (02:07→17:22)
[2024-04-29 02:34] LABS: Bacillus cereus group Not Detected (NOT DETECT); Bacillus subtillis group Not Detected (NOT DETECT); Corynebacterium Not Detected (NOT DETECT); Cutibacterium acnes (P.acnes) Not Detected (NOT DETECT); Enterococcus Not Detected (NOT DETECT); Enterococcus faecalis Not Detected (NOT DETECT); Enterococcus faecium Not Detected (NOT DETECT); Lactobacillus species Not Detected (NOT DETECT); Listeria Not Detected (NOT DETECT); Listeria monocytogenes Not Detected (NOT DETECT); Micrococcus Not Detected (NOT DETECT); Pan Candida Not Detected (NOT DETECT); Pan Gram-Negative Not Detected (NOT DETECT); Staphylococcus epidermidis Not Detected (NOT DETECT); Staphylococcus lugdunensis Not Detected (NOT DETECT); Staphylococcus species Detected (NOT DETECT); Streptococcus agalactiae Not Detected (NOT DETECT); Streptococcus anginosus group Not Detected (NOT DETECT); Streptococcus pneumoniae Not Detected (NOT DETECT); Streptococcus pyogenes Not Detected (NOT DETECT); Streptococcus species Not Detected (NOT DETECT); mecA Detected (NOT DETECT); mecC Not Detected (NOT DETECT)
[2024-04-29] MEDS: vancomycin 750 MG in sodium chloride 0.9% 250 ML 250 MG IV ×2 (02:39→15:35)
[2024-04-29] MEDS: morphine IR 15 mg Tablet 30 MG PO ×4 (05:21→20:28)
[2024-04-29] MEDS: methylPREDNISolone sod succ 40 mg/mL INJ IVP ×4 (05:21→23:53)
[2024-04-29] MEDS: budesonide 0.5 mg/2 mL Neb INHALATION (07:45)
--- NOTE | 2024-04-29 09:04 | USR_ITS ---
PROCEDURE INFORMATION: Exam: US Duplex Lower Extremity Veins, Bilateral Exam date and time: 04/29/2024 11:16 AM Age: 69 years old Clinical indication: Screening exam; R/O dvt; Prior surgery; Surgery date: 6+ months; Surgery type: Patient states she had a vein removed in her right leg. Unable to visualize RT gsv located at below knee. TECHNIQUE: Imaging protocol: Real-time duplex ultrasound of the bilateral extremities with 2-D jay scale, color Doppler flow and spectral waveform analysis including responses to compression and other maneuvers (when performed) with image documentation. Complete exam focused on the lower extremity veins. COMPARISON: CT femur RT w con [id number] 04/28/2024 9:21 PM FINDINGS: Right deep veins: Unremarkable. The common femoral, femoral, proximal profunda femoral, popliteal, posterior tibial and peroneal veins are patent without thrombus. Normal Doppler waveforms. Normal compressibility and/or augmentation response. Left deep veins: Unremarkable. The common femoral, femoral, proximal profunda femoral, popliteal, posterior tibial and peroneal veins are patent without thrombus. Normal Doppler waveforms. Normal compressibility and/or augmentation response. Superficial veins: Greater saphenous veins at the saphenofemoral junctions are patent bilaterally without thrombus. Soft tissues: Unremarkable. US/[place] [id number] IMPRESSION: No sonographic evidence of deep venous thrombosis.
[2024-04-29] MEDS: pregabalin 75 mg Capsule PO ×2 (09:21→17:35)
[2024-04-29] MEDS: gabapentin 300 mg Capsule 900 MG PO ×3 (09:22→20:26)
[2024-04-29] MEDS: folic acid 1 mg Tablet PO (09:22)
[2024-04-29] MEDS: docusate sodium 100 mg Capsule PO (09:22)
[2024-04-29] MEDS: FUROsemide 10 mg/mL SDV 4mL 40 MG IVP (09:23)
[2024-04-29 09:32] LABS: Basophils % 0.1 %; Lymphocytes # 0.3 10^3/uL (0.8-4.8); Lymphocytes % 2.8 %; Mean Corpuscular HGB Conc 32.1 g/dL (30-55); Mean Corpuscular Hemoglobin 30.7 pg (27-33); Mean Corpuscular Volume 95.6 fl (85-98); Mean Platelet Volume 10.8 fL (7.4-10.4); Monocytes # 0.6 10^3/uL (0.2-0.9); Monocytes % 5.6 %; Neutrophils # 9.02 10^3/uL (1.8-7.7); Nucleated Red Blood Cells % 0 %; Platelet Count 147 10^3/cmm (157-399); Red Blood Count 5.02 10^6/uL (3.85-5.65); Red Cell Distribution Width 13.9 % (12.1-15.1); White Blood Count 9.92 10^3/uL (3.29-11.43)
[2024-04-29 09:49] LABS: Alanine Aminotransferase 11 U/L (0-33); Albumin Level 3.4 g/dL (3.5-5.2); Alkaline Phosphatase 101 U/L (35-105); Anion Gap 15.6 (5-19); Aspartate Amino Transferase 16 U/L (0-32); Blood Urea Nitrogen 19 mg/dL (8-23); Calcium 8.9 mg/dL (8.5-10.5); Carbon Dioxide 31 mmol/L (22-29); Chloride 96 mmol/L (98-107); Creatinine Clr Calc Pharmacy 70.3959; Glucose 182 mg/dL (65-115); Magnesium 2.3 mg/dL (1.7-2.3); Osmolality Calculated 295 mOsm/kg (285-295); Potassium 3.6 mmol/L (3.5-5.1); Sodium 139 mmol/L (136-145); Total Bilirubin 0.3 mg/dL (0.15-1.2); Total Protein 7.4 g/dL (6.6-8.7)
--- NOTE | 2024-04-29 10:12 | P.PN_ITS ---
Subjective 2 Subjective: seen this am repeat bcx positive for gm + clusters repeat cultures ordered today mri hip reviewed ct femur reviewed source unknown at this point talked with cardio to request GORDY venous dopplers neg for dvt Vitals/I&O/Wt Last Vital Signs Temp 97.4 F L 04/29/24 07:33 Pulse 79 04/29/24 07:56 Resp 17 04/29/24 09:30 BP 158/71 04/29/24 07:33 Pulse Ox 95 04/29/24 07:45 O2 Del Method Nasal Cannula 04/29/24 07:45 O2 Flow Rate 3 04/29/24 07:45 04/28/24 04/29/24 04/29/24 22:59 06:59 14:59 Intake Total 2180 / 2900 540 / 3440 120 / 120 Output Total 4700 / 4700 1700 / 6400 Balance -2520 / -1800 -1160 / -2960 120 / 120 Weight last 48 hrs Weight 81.42 kg Weight 81.42 kg Weight 81.284 kg Weight 81.238 kg Physical Exam 2 Narrative: General: Patient is awake alert oriented x3, on 2L NC Head: Normocephalic. Atraumatic. EOM intact. Cardiovascular: RRR. No gallops. No murmurs. no edema Lungs: Breath sounds are diminished in bilateral bases. There is faint end expiratory wheezing present. on 2L NC Abdomen: Normal bowel sounds, abdomen soft and nontender. Extremities: No cyanosis or clubbing. Neurological: Moves all 4 extremities. No myoclonus. Right knee appears better. No warmth noted, no erythema noted. No edema noted. Right hip limited range of motion secondary to pain. Skin: Several tiny lesions and abrasions (from her dog scratching her). Urinary Catheter Management: Pratt: Cath Placed During This Visit: yes Reason for Continuing Indwelling Catheter: Chronic Indwelling Urinary Catheter on Admission Urinary Catheter Date of Insertion: 04/26/24 Urinary Catheter Time of Insertion: 09:45 Data 04/29/24 08:50 04/29/24 08:50 Micro: Microbiology 04/29/24 08:50 Blood Culture - Preliminary Blood SPECIMEN COLLECTED 04/29/24 08:50 Blood Culture - Preliminary Blood SPECIMEN COLLECTED 04/26/24 15:36 Blood Culture - Preliminary Blood 04/25/24 22:41 Blood Culture - Final Blood Methicillin Resis Staph Aureus Attestation for Other Data: I personally reviewed and interpreted the following: Other data: Microbiology 04/29/24 08:50 Blood Blood Culture - Preliminary SPECIMEN COLLECTED 04/29/24 08:50 Blood Blood Culture - Preliminary SPECIMEN COLLECTED 04/26/24 15:36 Blood Blood Culture - Preliminary 04/25/24 22:41 Blood Blood Culture - Final Methicillin Resis Staph Aureus 04/26/24 15:36 Blood Blood Culture - Preliminary NEGATIVE TO DATE 04/25/24 22:47 Blood Blood Culture - Preliminary NEGATIVE TO DATE 04/25/24 10:15 Urine,Clean Catch Bacterial Antigens - Final A&P Assessment and plan (1) High risk medication use: (2) Acute exacerbation of congestive heart failure: (3) Chronic steroid use: (4) Leukocytosis: (5) Rheumatoid arthritis: (6) Knee pain: (7) Bacteremia: (8) Staph aureus infection: (9) Pneumonia: (10) Hypoxemia: (11) COPD with acute exacerbation: (12) Rib pain on right side: Plan #Persistent MRSA bacteremia #Right knee effusion, rule out septic arthritis #Right hip pain #History of chronic back pain status post lumbar spinal fusion #Rheumatoid arthritis #Immunocompromise status #Thrombocytopenia #Sepsis criteria met on admission #COPD exacerbation #Bilateral basilar pneumonia ? Patient septic on admission. Lactic acid elevated 2.9, hypoxic, tachycardic ? Developed a fever day 1 hospital stay. Has not been able to walk secondary to pain in right hip. Does have chronic back pain and has had lumbar spinal fusion done in the past. Follows with Dr. Levine as an outpatient. Immunocompromise status. History of rheumatoid arthritis. Has been on steroids at home. Presented for mainly hip pain however was also found to be in respiratory distress with elevated procalcitonin requiring 4 L nasal cannula and is not on any oxygen at home as per patient. Was admitted for COPD exacerbation, bilateral basilar pneumonia as infiltrate seen on chest x-ray. CT right hip with and without contrast was performed with no significant enhancement. No effusion seen. Patient does have quite a few skin lesions from scratches from her dog some of them are fresh wounds. No drainage or pus noted. Wound care provided. ? Right knee significantly swollen with warmth. Will perform arthrocentesis today and obtain synovial fluid analysis. - complete ? Blood cultures repeated 04/26, pending. ? Urinalysis negative. ? Procalcitonin 0.63 on admission. Will follow. ? Patient still requiring 2 L nasal cannula. Does have underlying COPD. ? Also has history of diastolic heart failure. Is on Lasix at home. ? Will place on Lasix 20 IV daily. Will repeat transthoracic echo. ? hold hydroxychloroquine while treating sepsis, hold sulfasalazine - low platelet most likely 2/2 to infection - check bnp - consult ortho - - resp viral panel negative - check hip mri today - completed - knee synovial fluid reviewed- - check mrsa nares - continue vanc + meropenem FUll COde dvt ppx: heparin sub c BID Todays plan 04/29/2024 - plan for GORDY wednesday. cardiology consulted - check tagged WBC scan wednesday - venous dopplers reviewed - check labs in am - continue vanc + meropenem - continue lasix 40 iv daily - cxr showed pleural effusion on left. us thora ordered however no fluid to drain, left lung atelectatic Attestations 2 Medical Necessity Statement*: > 2midnight stay for mgmt and workup of mrsa bacteremia Diagnoses High risk medication use Z79.899 Acute exacerbation of congestive heart failure I50.9 Chronic steroid use Leukocytosis D72.829 Rheumatoid arthritis M06.9 Knee pain M25.569 Bacteremia R78.81 Staph aureus infection A49.01 Pneumonia J18.9 Hypoxemia R09.02 COPD with acute exacerbation J44.1 Rib pain on right side R07.81
--- NOTE | 2024-04-29 16:14 | P.CONIM_ITS ---
Providers/Reason For Consult 2 Consulting Physician/Specialty*: ALONDRA Gore MD/cardiology Reason for Consult*: Patient with MRSA positive blood culture, consider GORDY to rule out endocarditis Requesting Physician: Dr. Fowler Attending Physician: Netta Fowler MD Primary Care Provider: Maciej West DO History of Present Illness History of Present Illness Jenna Hamlin is a 69 year old female,, is admitted to the hospital through the emergency room, where she presented with complaints of cough, shortness of breath and low-grade fever. Her blood culture grew methicillin-resistant Staph aureus. Source of infection is not identified yet. Cardiology consult is requested for considering a GORDY to look for any evidence of endocarditis This patient is known to have rheumatoid arthritis, peripheral artery disease, COPD, chronic recurrent cellulitis of the lower extremities, chronic venous stasis, chronic steroid use, multiple spontaneous fractures requiring several orthopedic surgeries, presented to the hospital with 3-day history of cough, shortness of breath and low-grade fever. She has no history of coronary heart murmur or endocarditis. Denies any chest pain or shortness of breath. She has no history for any upper GI bleed or gastric ulcers. Has no difficulty in swallowing. No history for any CVA. Review of Systems 2 Narrative: CONSTITUTIONAL: Low-grade fever as mentioned above EYES: No blurring of vision or other visual disturbances lately. ENT: No hoarseness of voice, auditory disturbances or sore throat. CARDIOVASCULAR: As mentioned above. RESPIRATORY: Cough and shortness of breath as mentioned above GASTROINTESTINAL: No hematemesis or melena. GENITOURINARY: No dysuria or hematuria. INTEGUMENTARY: No skin rashes or history of skin cancer. NEURO: No transient ischemic attacks or amaurosis. PSYCHIATRIC: No history of psychosis or major depression. HEMATOLOGIC: No bleeding disorders or significant anemia. ENDOCRINE: No history of polyuria or polydipsia. MUSCULOSKELETAL: No recent joint pain or swelling. ALLERGY/IMMUNOLOGY: As mentioned above. Medications/Allergies Home Medications Medication Instructions Recorded Confirmed Last Taken Type mupirocin 2 % topical ointment 1 applic topical BID wound care 07/23/23 04/26/24 Unknown Rx #150 grams albuterol sulfate 90 mcg/actuation See Rx Instructions .Route 11/08/23 04/26/24 Unknown Rx aerosol inhaler .COMPLEX #8.5 grams folic acid 1 mg tablet See Rx Instructions .Route 11/08/23 04/26/24 Unknown Rx .COMPLEX #30 tabs calcium carbonate (Calcium 500) 500 mg PO DAILY 11/29/23 04/26/24 Unknown History furosemide 20 mg tablet 60 mg PO QAM PRN Edema 11/29/23 04/26/24 Unknown History cholecalciferol (vitamin D3) 25 See Rx Instructions .Route 01/03/24 04/26/24 Unknown Rx mcg (1,000 unit) tablet .COMPLEX #90 ea gabapentin 600 mg tablet See Rx Instructions .Route 01/03/24 04/26/24 Unknown Rx .COMPLEX #135 tabs pregabalin 75 mg capsule (Lyrica) 75 mg PO BID neuropathy #60 caps 01/03/24 04/26/24 Unknown Rx hydroxychloroquine 200 mg tablet See Rx Instructions .Route 02/01/24 04/26/24 Unknown Rx .COMPLEX #60 tabs prednisone 10 mg tablet See Rx Instructions .Route 02/01/24 04/26/24 Unknown Rx .COMPLEX #60 tabs sulfasalazine 500 mg tablet See Rx Instructions .Route 02/01/24 04/26/24 Unknown Rx .COMPLEX #180 tabs promethazine 25 mg tablet 25 mg PO TID PRN nausea and 02/18/24 04/26/24 Unknown Rx vomiting #30 tabs promethazine-DM 6.25 mg-15 mg/5 mL 5 - 10 ml PO Q4H cough/rib 03/03/24 04/26/24 Unknown Rx oral syrup fractures #473 mL morphine 30 mg immediate release 30 mg PO Q4H PRN pain 1 month #180 04/05/24 04/26/24 Unknown Rx tablet tabs umeclidinium 62.5 mcg-vilanterol See Rx Instructions .Route 04/05/24 04/26/24 Unknown Rx 25 mcg/actuation powdr for .COMPLEX #60 ea inhalation (Anoro Ellipta) Allergies Allergy/AdvReac Type Severity Reaction Status Date / Time alginic acid Allergy Severe ALGY-Rash Verified 04/25/24 22:27 [From MediHoney (moises alginate-honey)] honey Allergy Severe ALGY-Rash Verified 04/25/24 22:27 [From MediHoney (moises alginate-honey)] acetaminophen Allergy Nausea Verified 04/25/24 22:27 [From Tylenol-Codeine #3] codeine Allergy Nausea Verified 04/25/24 22:27 [From Tylenol-Codeine #3] doxycycline Allergy Nausea Verified 04/25/24 22:27 erythromycin base Allergy Respiratory Verified 04/25/24 22:27 distress isoniazid Allergy ALGY-Anaphy Verified 04/25/24 22:27 laxis leflunomide Allergy Difficulty Verified 04/25/24 22:27 Breathing levofloxacin Allergy chest pain Verified 04/25/24 22:27 rifampin Allergy ADR-Nausea Verified 04/25/24 22:27 Current Medications Generic Name Dose Route Start Last Admin Trade Name Freq PRN Reason Stop Dose Admin Albuterol/Ipratropium 3 ml 04/26/24 04:00 04/29/24 11:10 Ipratropium-Albuterol 3 Ml Neb INHALATION 3 ml Q4H.RESPIRATORY DESTINEE Administration Docusate Sodium 100 mg 04/26/24 09:00 04/29/24 09:22 Docusate Sodium 100 Mg Capsule PO 100 mg BID DESTINEE Administration Enoxaparin Sodium 40 mg 04/26/24 21:00 04/28/24 20:31 Enoxaparin 40 Mg/0.4 Ml Syringe SUBCUT 40 mg Q24H DESTINEE Administration Folic Acid 1 mg 04/26/24 09:00 04/29/24 09:22 Folic Acid 1 Mg Tablet PO 1 mg DAILY DESTINEE Administration Gabapentin 900 mg 04/26/24 09:00 04/29/24 15:35 Gabapentin 300 Mg Capsule PO 900 mg TID DESTINEE Administration Vancomycin HCl 750 mg/ Sodium 250 mls @ 250 mls/hr 04/26/24 14:00 04/29/24 15:35 Chloride IV 250 mls/hr Q12H DESTINEE Administration Protocol As Directed Meropenem 1,000 mg/ Sodium 50 mls @ 100 mls/hr 04/26/24 14:30 04/29/24 02:35 Chloride IV Infused Q12H DESTINEE Infusion Protocol Methylprednisolone Sodium Succinate 40 mg 04/26/24 05:00 04/29/24 11:59 Methylprednisolone Sod Succ 40 Mg/Ml Inj IVP 40 mg Q6H DESTINEE Administration Morphine Sulfate 30 mg 04/26/24 02:24 04/29/24 15:35 Morphine Ir 15 Mg Tablet PO 30 mg Q4H PRN Administration SEVERE PAIN Ondansetron HCl 4 mg 04/26/24 02:24 04/26/24 22:34 Ondansetron 2 Mg/Ml Sdv 2 Ml IVP 4 mg Q8H PRN Administration vomiting, or N/V if npo Pregabalin 75 mg 04/26/24 09:00 04/29/24 09:21 Pregabalin 75 Mg Capsule PO 75 mg BID DESTINEE Administration Sulfasalazine 1,000 mg 04/26/24 09:00 04/28/24 09:10 Sulfasalazine 500 Mg Tablet PO 1,000 mg TID DESTINEE Administration PFSH Acute 2 PFSH: Medical History Latent tuberculosis by blood test Immunization counseling Chronic steroid use High risk medication use Seronegative rheumatoid arthritis of both hands Peripheral arterial disease Rheumatoid arthritis Osteoporosis COPD (chronic obstructive pulmonary disease) Cellulitis Surgical History S/P spinal fusion Status post colonoscopy History of D&C H/O hand surgery Left hand in 1984 x3, had infection drained by H/O elbow surgery LEFT nerve decompression [place] [address] Zaidi H/O shoulder surgery RIGHT- by Dr. Bergman in 2003 Family History Family/Other Heart disease Denies family history of Diabetes CAD (coronary artery disease) Clotting disorder Dementia Hyperlipidemia Psychiatric illness Chronic kidney disease (CKD) Suicide Anesthesia complication Bleeding disorder Family history of premature coronary artery disease Lung disease Cancer Hypertension Stroke Social History Smoking and tobacco/nicotine status: former use of tobacco/nicotine Quit status (tobacco/nicotine): has quit using Year quit tobacco: 1997 Former quit date comment: Hx of 2 PPD x 30 Years, started at age 14 Second hand smoke exposure: No Alcohol intake: never Substance/Drug Use: never Lives independently: Yes Household members: none Housing: House Marital status: Number of children: 0 Highest education level completed: 11th Grade service: No Current occupational status: disabled Pets and animals: Yes Do you think of yourself as: Straight/Heterosexual Current gender identity: Female Vitals/I&O/Wt Last Vital Signs Temp 98.3 F 04/29/24 15:23 Pulse 75 04/29/24 15:23 Resp 17 04/29/24 15:35 BP 157/83 04/29/24 15:23 Pulse Ox 91 04/29/24 15:23 O2 Del Method Nasal Cannula 04/29/24 15:23 O2 Flow Rate 3 04/29/24 15:09 04/29/24 04/29/24 04/29/24 06:59 14:59 22:59 Intake Total 540 / 3440 360 / 360 Output Total 1700 / 6400 1500 / 1500 Balance -1160 / -2960 -1140 / -1140 Weight last 48 hrs Weight 179 lb 8 oz Weight 179 lb 8 oz Weight 179 lb 3.2 oz Weight 179 lb 1.6 oz Physical Exam 2 Narrative: GENERAL: The patient is alert and oriented times three. Not in any acute distress. HEENT: No significant pallor, icterus or lymphadenopathy.Oral cavity: There are no mucous membrane lesions. NECK: Trachea appears to be central. No masses noted. No JVD or thyromegaly appreciated. RESPIRATORY: Chest is symmetrical. No intercostals muscle retraction or any accessory muscle activation. There is no chest wall tenderness. Breath sounds are heard bilaterally. Few coarse rales in the bases. BREASTS: Deferred. HEART: The heart sounds are normal. No S3 or S4. No significant murmurs. No pericardial rub ABDOMEN: No vessel pulsations or distention. No tenderness. No organomegaly appreciated. Bowel sounds are normally heard. : Deferred. RECTAL: Deferred. LYMPHATIC: No lymphadenopathy noted in the neck. EXTREMITIES: No edema or cyanosis. No clubbing. MUSCULOSKELETAL: No acute joint deformities or swelling SKIN: There are no significant rashes or ecchymosis NEUROPSYCHIATRIC: The patient is alert and oriented x3. Appears to be in a good mood. No tremors or rigidity noted. Urinary Catheter Management: Pratt: Cath Placed During This Visit: yes Reason for Continuing Indwelling Catheter: Chronic Indwelling Urinary Catheter on Admission Urinary Catheter Date of Insertion: 04/26/24 Urinary Catheter Time of Insertion: 09:45 Data 04/30/24 05:04 04/30/24 05:04 Other Labs: Laboratory Last Values WBC 9.92 10^3/uL (3.29-11.43) 04/29/24 08:50 RBC 5.02 10^6/uL (3.85-5.65) 04/29/24 08:50 Hgb 15.40 g/dL (11.27-16.99) 04/29/24 08:50 Hct 48.0 % (36-47) H 04/29/24 08:50 MCV 95.6 fl (85-98) 04/29/24 08:50 MCH 30.7 pg (27-33) 04/29/24 08:50 MCHC 32.1 g/dL (30-55) 04/29/24 08:50 RDW 13.9 % (12.1-15.1) 04/29/24 08:50 Plt Count 147 10^3/cmm (157-399) L 04/29/24 08:50 MPV 10.8 fL (7.4-10.4) H 04/29/24 08:50 Neut % (Auto) 91.0 % 04/29/24 08:50 Lymph % (Auto) 2.8 % 04/29/24 08:50 [place] % (Auto) 5.6 % 04/29/24 08:50 Eos % (Auto) 0.0 % 04/29/24 08:50 Baso % (Auto) 0.1 % 04/29/24 08:50 Neut # (Auto) 9.02 10^3/uL (1.8-7.7) H 04/29/24 08:50 Lymph # (Auto) 0.3 10^3/uL (0.8-4.8) L 04/29/24 08:50 [place] # (Auto) 0.6 10^3/uL (0.2-0.9) 04/29/24 08:50 Eos # (Auto) 0.0 10^3/uL (0.0-0.8) 04/29/24 08:50 Baso # (Auto) 0.0 10^3/uL (0.0-0.1) 04/29/24 08:50 Nucleated RBC % (auto) 0 % 04/29/24 08:50 Nucleated RBCs # 0.0 /100WBC 04/29/24 08:50 Specimen Type Arterial 04/25/24 10:43 Sample Site Brachial, right 04/25/24 10:43 ABG pH 7.38 (7.35-7.45) 04/25/24 10:43 ABG pCO2 52.4 mmHg (35-45) H 04/25/24 10:43 ABG pO2 78.1 mmHg (80.0-100.0) L 04/25/24 10:43 ABG PO2/FiO2 Ratio 0 04/25/24 10:43 ABG HCO3 31.2 mmol/L (22-26) H 04/25/24 10:43 ABG O2 Saturation 95.1 04/25/24 10:43 ABG Base Excess 4.8 mmol/L (-2.0-2.0) H 04/25/24 10:43 Simón Test Pos 04/25/24 10:43 A-a O2 Gradient 12.7 mmHg (5-10) H 04/25/24 10:43 Hematocrit 42.2 % (37-47) 04/25/24 10:43 Hgb O2 Saturation 93.3 % (95-100) L 04/25/24 10:43 Carboxyhemoglobin 0.9 %THgb (0.4-20.1) 04/25/24 10:43 Methemoglobin 0.9 % (0.4-1.5) 04/25/24 10:43 Total Hemoglobin 13.8 g/dL (12-16) 04/25/24 10:43 Sodium 141.0 mmol/L (131-143) 04/25/24 10:43 Potassium 3.6 mmol/L (3.5-5.0) 04/25/24 10:43 Glucose 96.0 mg/dL (70-115) 04/25/24 10:43 Ionized Calcium 1.2 mmol/L (1.1-1.4) 04/25/24 10:43 O2 Delivery Device Nc 04/25/24 10:43 O2 Liters/Min 3.5 % 04/25/24 10:43 FiO2 34.0 % 04/25/24 10:43 [employer] Reg[employer] ID [place] 04/25/24 10:43 Sodium 139 mmol/L (136-145) 04/29/24 08:50 Potassium 3.6 mmol/L (3.5-5.1) 04/29/24 08:50 Chloride 96 mmol/L (98-107) L 04/29/24 08:50 Carbon Dioxide 31 mmol/L (22-29) H 04/29/24 08:50 Anion Gap 15.6 (5-19) 04/29/24 08:50 BUN 19 mg/dL (8-23) 04/29/24 08:50 Creatinine 0.5 mg/dL (0.5-0.9) 04/29/24 08:50 GFR Calculation 122.0 mL/min (90-130) 04/29/24 08:50 Glucose 182 mg/dL (65-115) H 04/29/24 08:50 Calculated Osmolality 295 mOsm/kg (285-295) 04/29/24 08:50 Lactic Acid 2.9 mmol/L (0.5-2.2) H 04/25/24 22:47 Lactic Acid (Sepsis) 1.6 mmol/L (0.5-2.2) 04/26/24 00:47 Calcium 8.9 mg/dL (8.5-10.5) 04/29/24 08:50 Magnesium 2.3 mg/dL (1.7-2.3) 04/29/24 08:50 Total Bilirubin 0.3 mg/dL (0.15-1.2) 04/29/24 08:50 AST 16 U/L (0-32) 04/29/24 08:50 ALT 11 U/L (0-33) 04/29/24 08:50 Alkaline Phosphatase 101 U/L (35-105) 04/29/24 08:50 Troponin T Baseline 46 ng/L (0-10) H 04/25/24 22:47 Troponin T 120 Minute 35.47 ng/L (0-10) H 04/26/24 00:47 Delta Troponin T -10.53 ABS# (0-10) L 04/26/24 00:47 Troponin T Hi Sens 6Hr 26.57 ng/L (0-10) H 04/26/24 04:37 Troponin T Hi Sens 6Hr Delta -19.43 ng/L (0-12) L 04/26/24 04:37 C-Reactive Protein 57.4 mg/L (0.0-4.9) H 04/26/24 00:47 NT-Pro-B Natriuret Pep 484 pg/mL (0-125) H 04/27/24 05:21 Total Protein 7.4 g/dL (6.6-8.7) 04/29/24 08:50 Albumin 3.4 g/dL (3.5-5.2) L 04/29/24 08:50 Globulin 4.0 g/dL (1.3-4.6) 04/29/24 08:50 Procalcitonin 0.63 ng/mL (0-0.5) H 04/26/24 00:47 Urine Color Yellow (Yellow) 04/26/24 10:15 Urine Appearance Clear (CLEAR) 04/26/24 10:15 Urine pH 6 (5-7) 04/26/24 10:15 Ur Specific [place] 1.015 (1.005-1.030) 04/26/24 10:15 Urine Protein Neg (Negative) 04/26/24 10:15 Urine Glucose (UA) Norm (Normal) 04/26/24 10:15 Urine Ketones Negative (Negative) 04/26/24 10:15 Urine Blood Neg (Negative) 04/26/24 10:15 Urine Nitrate Negative (Negative) 04/26/24 10:15 Urine Bilirubin Neg (Negative) 04/26/24 10:15 Urine Urobilinogen Norm mg/dL (Negative) 04/26/24 10:15 Ur Leukocyte Esterase Negative (Negative) 04/26/24 10:15 Urine RBC None /hpf (0-2) 04/26/24 10:15 Urine WBC None /hpf (0-5) 04/26/24 10:15 Ur Squamous Epith Cells 0-4 /hpf (0-5) H 04/26/24 10:15 Amorphous Sediment Not Reportable 04/26/24 10:15 Urine Bacteria None /hpf (NONE) 04/26/24 10:15 Urine Mucus None /hpf 04/26/24 10:15 Synovial Color Pale yellow (PALE YELLOW) 04/27/24 13:15 Synovial Appearance Hazy (CLEAR) 04/27/24 13:15 Synovial pH 8.5 (7.0-7.5) H 04/27/24 13:15 Synovial WBC 62 /uL (0-150) 04/27/24 13:15 Synovial RBC 0 10^3/uL (0-0) 04/27/24 13:15 Synovial Mononuclear 0.033 10^3/uL 04/27/24 13:15 Synov Polynuclear WBCs 0.029 10^3/uL 04/27/24 13:15 Synovial Other Cells TNP 04/27/24 13:15 Synovial Polynuclear % 46.800 % 04/27/24 13:15 Synovial Mononuclear % 53.200 % 04/27/24 13:15 Synovial Specific Grav 1.025 04/27/24 13:15 Synovial Glucose 145 mg/dL 04/27/24 13:15 Synovial Total Protein 3.4 g/dL 04/27/24 13:15 Synovial Albumin 2 gm/dL 04/27/24 13:15 Synovial LDH 156.0 U/L 04/27/24 13:15 Synovial Triglycerides 25 mg/dL 04/27/24 13:15 Vancomycin Trough 9.9 ug/mL (10-15) L 04/28/24 13:19 Adenovirus (PCR) Not detected (NOT DETECT) 04/25/24 23:16 C. pneumoniae DNA (PCR) Not detected (NOT DETECT) 04/25/24 23:16 Coronavirus 229E (PCR) Not detected (NOT DETECT) 04/25/24 23:16 Human Metapneumovir PCR Not detected (NOT DETECT) 04/25/24 23:16 Influenza A (H1) PCR Not detected (NOT DETECT) 04/25/24 23:16 Influ A (H1/09) PCR Not detected (NOT DETECT) 04/25/24 23:16 Influenza A (H3) PCR Not detected (NOT DETECT) 04/25/24 23:16 Influenza Type A (PCR) Not detected (NOT DETECT) 04/25/24 23:16 Influenza Type B (PCR) Not detected (NOT DETECT) 04/25/24 23:16 M. pneumoniae (PCR) Not detected (NOT DETECT) 04/25/24 23:16 Parainfluenza 1 (PCR) Not detected (NOT DETECT) 04/25/24 23:16 Parainfluenza 2 (PCR) Not detected (NOT DETECT) 04/25/24 23:16 Parainfluenza 3 (PCR) Not detected (NOT DETECT) 04/25/24 23:16 Parainfluenza 4 (PCR) Not detected (NOT DETECT) 04/25/24 23:16 RSV Type A (PCR) Not detected (NOT DETECT) 04/25/24 23:16 RSV Type B (PCR) Not detected (NOT DETECT) 04/25/24 23:16 Entero/Rhino (PCR) Not detected (NOT DETECT) 04/25/24 23:16 SARS-CoV-2 (PCR) Not detected (NOT DETECT) 04/25/24 23:16 Path Cons w/Slide Yes 04/27/24 13:15 Micro: Microbiology 04/29/24 08:50 Blood Culture - Preliminary Blood SPECIMEN COLLECTED 04/29/24 08:50 Blood Culture - Preliminary Blood SPECIMEN COLLECTED 04/26/24 15:36 Blood Culture - Preliminary Blood Other data: The EKG from 04/26/2024 showed Normal sinus rhythm with a poor R wave progression. Incomplete right bundle branch block pattern. Low voltage complex in the precordial leads Echocardiogram from 04/27/2024 Normal left ventricular cavity size. Moderate left ventricular hypertrophy. Normal left ventricular systolic function. No regional wall motion abnormalities. Grade I/IV diastolic dysfunction (abnormal relaxation filling pattern), normal to mildly elevated filling pressures. Left ventricular ejection fraction is estimated at 65 %. Normal right ventricular size and systolic function. Mild pulmonary hypertension, RVSP 45 mmHg. Mildly increased left atrial size. Structurally normal mitral valve. Trace mitral valve regurgitation. Previous study 10/01/2023. No change. A&P Assessment and plan (1) MRSA bacteremia: The source of infection is no clear. Pneumonia, cellulitis, endocarditis etc. are considerations. A GORDY might be appropriate to rule out endocarditis. Patient apparently had MRSA in the past. (2) Left lower lobe consolidation: The chest x-ray shows worsening of the left lower lobe consolidation. Patient is on IV antibiotics (3) Chronic venous stasis: May continue on the conservative measures (4) Diastolic heart failure: May be treated with a careful IV diuresis Qualifiers: Heart failure chronicity: acute Qualified Code(s): I50.31 - Acute diastolic (congestive) heart failure (5) Benign hypertension: Need to optimize the antihypertensive medications. Plan Based on the results of the above tests and the patient's clinical progress, further recommendations will be made. Thank you for the opportunity to evaluate this patient and make these recommendations Consult Attestations 2 Medical Necessity Statement: Deferred to the primary Coding Level of Care Code 51463 Diagnoses MRSA bacteremia R78.81; B95.62 Left lower lobe consolidation J18.1 Chronic venous stasis I87.8 Acute diastolic heart failure I50.31 Heart failure chronicity: acute Benign hypertension I10
[2024-04-29] MEDS: hyDRALAzine 20 mg/mL INJ 1 mL 10 MG IVP (20:05)
[2024-04-29] MEDS: enoxaparin 40 mg/0.4 mL Syringe SUBCUT (20:26)
[2024-04-30] VITALS (19 sets, daily range): BP systolic 150–176; BP diastolic 74–93; PULSE 70–98; RESP 16–18; TEMP 36.4–36.7; O2SAT 90–98
[2024-04-30] MEDS: ipratropium-albuterol 3 mL Neb INHALATION ×5 (01:03→20:23)
[2024-04-30 01:43] LABS: Vancomycin Trough 11.8 ug/mL (10-15)
[2024-04-30] MEDS: vancomycin 750 MG in sodium chloride 0.9% 250 ML 250 MG IV ×2 (01:57→14:07)
[2024-04-30] MEDS: morphine IR 15 mg Tablet 30 MG PO ×4 (02:03→20:06)
[2024-04-30] MEDS: methylPREDNISolone sod succ 40 mg/mL INJ IVP ×4 (04:05→22:17)
[2024-04-30 05:17] LABS: Basophils % 0.1 %; Hematocrit 45.3 % (36-47); Lymphocytes # 0.4 10^3/uL (0.8-4.8); Lymphocytes % 4.9 %; Mean Corpuscular Hemoglobin 30.2 pg (27-33); Mean Corpuscular Volume 94.4 fl (85-98); Mean Platelet Volume 10.6 fL (7.4-10.4); Monocytes # 0.7 10^3/uL (0.2-0.9); Monocytes % 7.9 %; Neutrophils # 7.15 10^3/uL (1.8-7.7); Nucleated Red Blood Cells % 0 %; Platelet Count 147 10^3/cmm (157-399); Red Cell Distribution Width 13.7 % (12.1-15.1); White Blood Count 8.32 10^3/uL (3.29-11.43)
[2024-04-30] MEDS: meropenem 1,000 MG in sodium chloride 0.9% (plus) 50 ML 100 MG IV (05:21)
[2024-04-30 05:45] LABS: Anion Gap 12.8 (5-19); Blood Urea Nitrogen 18 mg/dL (8-23); Calcium 8.9 mg/dL (8.5-10.5); Carbon Dioxide 31 mmol/L (22-29); Chloride 99 mmol/L (98-107); Creatinine Clr Calc Pharmacy 70.3959; Glucose 141 mg/dL (65-115); Magnesium 2.4 mg/dL (1.7-2.3); Osmolality Calculated 292 mOsm/kg (285-295); Potassium 3.8 mmol/L (3.5-5.1); Sodium 139 mmol/L (136-145)
[2024-04-30] MEDS: gabapentin 300 mg Capsule 900 MG PO ×3 (07:53→20:05)
[2024-04-30] MEDS: FUROsemide 10 mg/mL SDV 4mL 40 MG IVP (07:55)
[2024-04-30] MEDS: folic acid 1 mg Tablet PO (07:56)
[2024-04-30] MEDS: docusate sodium 100 mg Capsule PO (07:56)
[2024-04-30] MEDS: pregabalin 75 mg Capsule PO ×2 (07:56→17:24)
--- NOTE | 2024-04-30 10:36 | P.PN_ITS ---
Subjective 2 Subjective: seen this am repeat bcx pending starting to feel slightly better hip pain has improved. Vitals/I&O/Wt Last Vital Signs Temp 97.8 F 04/30/24 07:25 Pulse 98 04/30/24 08:41 Resp 16 04/30/24 08:41 BP 150/85 04/30/24 07:25 Pulse Ox 98 04/30/24 08:41 O2 Del Method Nasal Cannula 04/30/24 08:41 O2 Flow Rate 3 04/30/24 08:41 04/29/24 04/30/24 04/30/24 22:59 06:59 14:59 Intake Total 1260 / 1620 1500 / 3120 120 / 120 Output Total 1800 / 3300 1800 / 5100 Balance -540 / -1680 -300 / -1980 120 / 120 Weight last 48 hrs Weight 80.876 kg Weight 81.42 kg Weight 81.42 kg Physical Exam 2 Narrative: General: Patient is awake alert oriented x3, on 2L NC Head: Normocephalic. Atraumatic. EOM intact. Cardiovascular: RRR. No gallops. No murmurs. no edema Lungs: Breath sounds are diminished in bilateral bases. There is faint end expiratory wheezing present. on 2L NC Abdomen: Normal bowel sounds, abdomen soft and nontender. Extremities: No cyanosis or clubbing. Neurological: Moves all 4 extremities. No myoclonus. Right knee appears better. No warmth noted, no erythema noted. No edema noted. Right hip limited range of motion secondary to pain however improved. Skin: Several tiny lesions and abrasions (from her dog scratching her). Urinary Catheter Management: Pratt: Cath Placed During This Visit: yes Reason for Continuing Indwelling Catheter: Accurate Measurement of Urinary Output in Critically Ill Patients Urinary Catheter Date of Insertion: 04/26/24 Urinary Catheter Time of Insertion: 09:45 Data 04/30/24 05:04 04/30/24 05:04 Micro: Microbiology 04/29/24 08:50 Blood Culture - Preliminary Blood NEGATIVE TO DATE 04/29/24 08:50 Blood Culture - Preliminary Blood NEGATIVE TO DATE A&P Assessment and plan (1) High risk medication use: (2) Acute exacerbation of congestive heart failure: (3) Chronic steroid use: (4) Leukocytosis: (5) Rheumatoid arthritis: (6) Knee pain: (7) Bacteremia: (8) Staph aureus infection: (9) Pneumonia: (10) Hypoxemia: (11) COPD with acute exacerbation: (12) Rib pain on right side: Plan #Persistent MRSA bacteremia #Right knee effusion, rule out septic arthritis #Right hip pain #History of chronic back pain status post lumbar spinal fusion #Rheumatoid arthritis #Immunocompromise status #Thrombocytopenia #Sepsis criteria met on admission #COPD exacerbation #Bilateral basilar pneumonia ? Patient septic on admission. Lactic acid elevated 2.9, hypoxic, tachycardic ? Developed a fever day 1 hospital stay. Has not been able to walk secondary to pain in right hip. Does have chronic back pain and has had lumbar spinal fusion done in the past. Follows with Dr. Levine as an outpatient. Immunocompromise status. History of rheumatoid arthritis. Has been on steroids at home. Presented for mainly hip pain however was also found to be in respiratory distress with elevated procalcitonin requiring 4 L nasal cannula and is not on any oxygen at home as per patient. Was admitted for COPD exacerbation, bilateral basilar pneumonia as infiltrate seen on chest x-ray. CT right hip with and without contrast was performed with no significant enhancement. No effusion seen. Patient does have quite a few skin lesions from scratches from her dog some of them are fresh wounds. No drainage or pus noted. Wound care provided. ? Right knee significantly swollen with warmth. Will perform arthrocentesis today and obtain synovial fluid analysis. - complete ? Blood cultures repeated 04/26, pending. ? Urinalysis negative. ? Procalcitonin 0.63 on admission. Will follow. ? Patient still requiring 2 L nasal cannula. Does have underlying COPD. ? Also has history of diastolic heart failure. Is on Lasix at home. ? Will place on Lasix 20 IV daily. Will repeat transthoracic echo. ? hold hydroxychloroquine while treating sepsis, hold sulfasalazine - low platelet most likely 2/2 to infection - check bnp - consult ortho - - resp viral panel negative - check hip mri today - completed - knee synovial fluid reviewed- - check mrsa nares - continue vanc + meropenem FUll COde dvt ppx: heparin sub c BID Todays plan 04/30/2024 - plan for GORDY wednesday. cardiology consulted. - venous dopplers reviewed - check labs in am - continue vanc + meropenem - continue lasix 40 iv daily - cxr showed pleural effusion on left. us thora ordered however no fluid to drain, left lung atelectatic - Possible sources, cellulitis, pneumonia, psoas developing abscess? Consider re-imaging ct abd pelvix with contrast Wednesday - ENdocarditis not ruled out definitively. - Recommend ID consult on Wednesday - Patient will need 6 weeks IV vanco after last negative blood culture - BCx 04/29 pending. Attestations 2 Medical Necessity Statement*: > 2midnight stay for mgmt and workup of mrsa bacteremia Diagnoses High risk medication use Z79.899 Acute exacerbation of congestive heart failure I50.9 Chronic steroid use Leukocytosis D72.829 Rheumatoid arthritis M06.9 Knee pain M25.569 Bacteremia R78.81 Staph aureus infection A49.01 Pneumonia J18.9 Hypoxemia R09.02 COPD with acute exacerbation J44.1 Rib pain on right side R07.81
--- NOTE | 2024-04-30 19:14 | P.PN_ITS ---
Subjective 2 Subjective: Patient is remaining afebrile. Denies any chest pain or shortness of breath. The blood pressure is moderately elevated Medications: Medication Review Details: Current Medications Albuterol/Ipratropium (Ipratropium-Albuterol 3 Ml Neb) 3 ml INHALATION Q4H.RESPIRATORY [facility] Last Admin: 04/30/24 15:27 Dose: 3 ml Docusate Sodium (Docusate Sodium 100 Mg Capsule) 100 mg PO BID [facility] Last Admin: 04/30/24 17:24 Dose: Not Given Enoxaparin Sodium (Enoxaparin 40 Mg/0.4 Ml Syringe) 40 mg SUBCUT Q24H [facility] Last Admin: 04/29/24 20:26 Dose: 40 mg Folic Acid (Folic Acid 1 Mg Tablet) 1 mg PO DAILY [facility] Last Admin: 04/30/24 07:56 Dose: 1 mg Furosemide (Furosemide 10 Mg/Ml Sdv 4ml) 40 mg IVP DAILY [facility] Last Admin: 04/30/24 07:55 Dose: 40 mg Gabapentin (Gabapentin 300 Mg Capsule) 900 mg PO TID [facility] Last Admin: 04/30/24 15:56 Dose: 900 mg Vancomycin HCl 750 mg/ Sodium (Chloride) 250 mls @ 250 mls/hr IV Q12H [facility]; Protocol Last Infusion: 04/30/24 15:58 Dose: Infused Methylprednisolone Sodium Succinate (Methylprednisolone Sod Succ 40 Mg/Ml Inj) 40 mg IVP Q6H [facility] Last Admin: 04/30/24 17:23 Dose: 40 mg Morphine Sulfate (Morphine Ir 15 Mg Tablet) 30 mg PO Q4H PRN PRN Reason: SEVERE PAIN Last Admin: 04/30/24 14:26 Dose: 30 mg Ondansetron HCl (Ondansetron 2 Mg/Ml Sdv 2 Ml) 4 mg IVP Q8H PRN PRN Reason: vomiting, or N/V if npo Last Admin: 04/26/24 22:34 Dose: 4 mg Ondansetron HCl (Ondansetron 4 Mg Tablet) 4 mg PO Q8H PRN PRN Reason: NAUSEA Pregabalin (Pregabalin 75 Mg Capsule) 75 mg PO BID [facility] Last Admin: 04/30/24 17:24 Dose: 75 mg Promethazine HCl (Promethazine 25 Mg Tablet) 25 mg PO Q6H PRN PRN Reason: NAUSEA Sulfasalazine (Sulfasalazine 500 Mg Tablet) 1,000 mg PO TID [facility] Last Admin: 04/28/24 09:10 Dose: 1,000 mg Vitals/I&O/Wt Last Vital Signs Temp 97.6 F 04/30/24 15:21 Pulse 75 04/30/24 15:28 Resp 18 04/30/24 15:28 BP 163/93 04/30/24 15:21 Pulse Ox 96 04/30/24 15:28 O2 Del Method Nasal Cannula 04/30/24 15:28 O2 Flow Rate 1 04/30/24 15:28 04/30/24 04/30/24 04/30/24 06:59 14:59 22:59 Intake Total 1500 / 3120 360 / 360 490 / 850 Output Total 1800 / 5100 900 / 900 1200 / 2100 Balance -300 / -1980 -540 / -540 -710 / -1250 Weight last 48 hrs Weight 178 lb 4.8 oz Weight 179 lb 8 oz Weight 179 lb 8 oz Physical Exam 2 Narrative: GENERAL: The patient is alert and oriented times three. Not in any acute distress. HEENT: No significant pallor, icterus or lymphadenopathy.Oral cavity: There are no mucous membrane lesions. NECK: Trachea appears to be central. No masses noted. No JVD or thyromegaly appreciated. RESPIRATORY: Chest is symmetrical. No intercostals muscle retraction or any accessory muscle activation. There is no chest wall tenderness. Breath sounds are heard bilaterally. Few coarse rales in the bases. BREASTS: Deferred. HEART: The heart sounds are normal. No S3 or S4. No significant murmurs. No pericardial rub ABDOMEN: No vessel pulsations or distention. No tenderness. No organomegaly appreciated. Bowel sounds are normally heard. : Deferred. RECTAL: Deferred. LYMPHATIC: No lymphadenopathy noted in the neck. EXTREMITIES: No edema or cyanosis. No clubbing. MUSCULOSKELETAL: No acute joint deformities or swelling SKIN: There are no significant rashes or ecchymosis NEUROPSYCHIATRIC: The patient is alert and oriented x3. Appears to be in a good mood. No tremors or rigidity noted. Urinary Catheter Management: Pratt: Cath Placed During This Visit: yes Reason for Continuing Indwelling Catheter: Other Urinary Catheter Date of Insertion: 04/26/24 Urinary Catheter Time of Insertion: 09:45 Data 04/30/24 05:04 04/30/24 05:04 Other Labs: Laboratory Last Values WBC 8.32 10^3/uL (3.29-11.43) 04/30/24 05:04 RBC 4.80 10^6/uL (3.85-5.65) 04/30/24 05:04 Hgb 14.50 g/dL (11.27-16.99) 04/30/24 05:04 Hct 45.3 % (36-47) 04/30/24 05:04 MCV 94.4 fl (85-98) 04/30/24 05:04 MCH 30.2 pg (27-33) 04/30/24 05:04 MCHC 32.0 g/dL (30-55) 04/30/24 05:04 RDW 13.7 % (12.1-15.1) 04/30/24 05:04 Plt Count 147 10^3/cmm (157-399) L 04/30/24 05:04 MPV 10.6 fL (7.4-10.4) H 04/30/24 05:04 Neut % (Auto) 86.0 % 04/30/24 05:04 Lymph % (Auto) 4.9 % 04/30/24 05:04 [place] % (Auto) 7.9 % 04/30/24 05:04 Eos % (Auto) 0.0 % 04/30/24 05:04 Baso % (Auto) 0.1 % 04/30/24 05:04 Neut # (Auto) 7.15 10^3/uL (1.8-7.7) 04/30/24 05:04 Lymph # (Auto) 0.4 10^3/uL (0.8-4.8) L 04/30/24 05:04 [place] # (Auto) 0.7 10^3/uL (0.2-0.9) 04/30/24 05:04 Eos # (Auto) 0.0 10^3/uL (0.0-0.8) 04/30/24 05:04 Baso # (Auto) 0.0 10^3/uL (0.0-0.1) 04/30/24 05:04 Nucleated RBC % (auto) 0 % 04/30/24 05:04 Nucleated RBCs # 0.0 /100WBC 04/30/24 05:04 Specimen Type Arterial 04/25/24 10:43 Sample Site Brachial, right 04/25/24 10:43 ABG pH 7.38 (7.35-7.45) 04/25/24 10:43 ABG pCO2 52.4 mmHg (35-45) H 04/25/24 10:43 ABG pO2 78.1 mmHg (80.0-100.0) L 04/25/24 10:43 ABG PO2/FiO2 Ratio 0 04/25/24 10:43 ABG HCO3 31.2 mmol/L (22-26) H 04/25/24 10:43 ABG O2 Saturation 95.1 04/25/24 10:43 ABG Base Excess 4.8 mmol/L (-2.0-2.0) H 04/25/24 10:43 Simón Test Pos 04/25/24 10:43 A-a O2 Gradient 12.7 mmHg (5-10) H 04/25/24 10:43 Hematocrit 42.2 % (37-47) 04/25/24 10:43 Hgb O2 Saturation 93.3 % (95-100) L 04/25/24 10:43 Carboxyhemoglobin 0.9 %THgb (0.4-20.1) 04/25/24 10:43 Methemoglobin 0.9 % (0.4-1.5) 04/25/24 10:43 Total Hemoglobin 13.8 g/dL (12-16) 04/25/24 10:43 Sodium 141.0 mmol/L (131-143) 04/25/24 10:43 Potassium 3.6 mmol/L (3.5-5.0) 04/25/24 10:43 Glucose 96.0 mg/dL (70-115) 04/25/24 10:43 Ionized Calcium 1.2 mmol/L (1.1-1.4) 04/25/24 10:43 O2 Delivery Device Nc 04/25/24 10:43 O2 Liters/Min 3.5 % 04/25/24 10:43 FiO2 34.0 % 04/25/24 10:43 Teleprinter Installer ID Monro 04/25/24 10:43 Sodium 139 mmol/L (136-145) 04/30/24 05:04 Potassium 3.8 mmol/L (3.5-5.1) 04/30/24 05:04 Chloride 99 mmol/L (98-107) 04/30/24 05:04 Carbon Dioxide 31 mmol/L (22-29) H 04/30/24 05:04 Anion Gap 12.8 (5-19) 04/30/24 05:04 BUN 18 mg/dL (8-23) 04/30/24 05:04 Creatinine 0.5 mg/dL (0.5-0.9) 04/30/24 05:04 GFR Calculation 122.0 mL/min (90-130) 04/30/24 05:04 Glucose 141 mg/dL (65-115) H 04/30/24 05:04 Calculated Osmolality 292 mOsm/kg (285-295) 04/30/24 05:04 Lactic Acid 2.9 mmol/L (0.5-2.2) H 04/25/24 22:47 Lactic Acid (Sepsis) 1.6 mmol/L (0.5-2.2) 04/26/24 00:47 Calcium 8.9 mg/dL (8.5-10.5) 04/30/24 05:04 Magnesium 2.4 mg/dL (1.7-2.3) H 04/30/24 05:04 Total Bilirubin 0.3 mg/dL (0.15-1.2) 04/29/24 08:50 AST 16 U/L (0-32) 04/29/24 08:50 ALT 11 U/L (0-33) 04/29/24 08:50 Alkaline Phosphatase 101 U/L (35-105) 04/29/24 08:50 Troponin T Baseline 46 ng/L (0-10) H 04/25/24 22:47 Troponin T 120 Minute 35.47 ng/L (0-10) H 04/26/24 00:47 Delta Troponin T -10.53 ABS# (0-10) L 04/26/24 00:47 Troponin T Hi Sens 6Hr 26.57 ng/L (0-10) H 04/26/24 04:37 Troponin T Hi Sens 6Hr Delta -19.43 ng/L (0-12) L 04/26/24 04:37 C-Reactive Protein 57.4 mg/L (0.0-4.9) H 04/26/24 00:47 NT-Pro-B Natriuret Pep 484 pg/mL (0-125) H 04/27/24 05:21 Total Protein 7.4 g/dL (6.6-8.7) 04/29/24 08:50 Albumin 3.4 g/dL (3.5-5.2) L 04/29/24 08:50 Globulin 4.0 g/dL (1.3-4.6) 04/29/24 08:50 Procalcitonin 0.63 ng/mL (0-0.5) H 04/26/24 00:47 Urine Color Yellow (Yellow) 04/26/24 10:15 Urine Appearance Clear (CLEAR) 04/26/24 10:15 Urine pH 6 (5-7) 04/26/24 10:15 Ur Specific Roslyn 1.015 (1.005-1.030) 04/26/24 10:15 Urine Protein Neg (Negative) 04/26/24 10:15 Urine Glucose (UA) Norm (Normal) 04/26/24 10:15 Urine Ketones Negative (Negative) 04/26/24 10:15 Urine Blood Neg (Negative) 04/26/24 10:15 Urine Nitrate Negative (Negative) 04/26/24 10:15 Urine Bilirubin Neg (Negative) 04/26/24 10:15 Urine Urobilinogen Norm mg/dL (Negative) 04/26/24 10:15 Ur Leukocyte Esterase Negative (Negative) 04/26/24 10:15 Urine RBC None /hpf (0-2) 04/26/24 10:15 Urine WBC None /hpf (0-5) 04/26/24 10:15 Ur Squamous Epith Cells 0-4 /hpf (0-5) H 04/26/24 10:15 Amorphous Sediment Not Reportable 04/26/24 10:15 Urine Bacteria None /hpf (NONE) 04/26/24 10:15 Urine Mucus None /hpf 04/26/24 10:15 Synovial Color Pale yellow (PALE YELLOW) 04/27/24 13:15 Synovial Appearance Hazy (CLEAR) 04/27/24 13:15 Synovial pH 8.5 (7.0-7.5) H 04/27/24 13:15 Synovial WBC 62 /uL (0-150) 04/27/24 13:15 Synovial RBC 0 10^3/uL (0-0) 04/27/24 13:15 Synovial Mononuclear 0.033 10^3/uL 04/27/24 13:15 Synov Polynuclear WBCs 0.029 10^3/uL 04/27/24 13:15 Synovial Other Cells TNP 04/27/24 13:15 Synovial Polynuclear % 46.800 % 04/27/24 13:15 Synovial Mononuclear % 53.200 % 04/27/24 13:15 Synovial Specific Grav 1.025 04/27/24 13:15 Synovial Glucose 145 mg/dL 04/27/24 13:15 Synovial Total Protein 3.4 g/dL 04/27/24 13:15 Synovial Albumin 2 gm/dL 04/27/24 13:15 Synovial LDH 156.0 U/L 04/27/24 13:15 Synovial Triglycerides 25 mg/dL 04/27/24 13:15 Vancomycin Trough 11.8 ug/mL (10-15) 04/30/24 01:20 Adenovirus (PCR) Not detected (NOT DETECT) 04/25/24 23:16 C. pneumoniae DNA (PCR) Not detected (NOT DETECT) 04/25/24 23:16 Coronavirus 229E (PCR) Not detected (NOT DETECT) 04/25/24 23:16 Human Metapneumovir PCR Not detected (NOT DETECT) 04/25/24 23:16 Influenza A (H1) PCR Not detected (NOT DETECT) 04/25/24 23:16 Influ A (H1/09) PCR Not detected (NOT DETECT) 04/25/24 23:16 Influenza A (H3) PCR Not detected (NOT DETECT) 04/25/24 23:16 Influenza Type A (PCR) Not detected (NOT DETECT) 04/25/24 23:16 Influenza Type B (PCR) Not detected (NOT DETECT) 04/25/24 23:16 M. pneumoniae (PCR) Not detected (NOT DETECT) 04/25/24 23:16 Parainfluenza 1 (PCR) Not detected (NOT DETECT) 04/25/24 23:16 Parainfluenza 2 (PCR) Not detected (NOT DETECT) 04/25/24 23:16 Parainfluenza 3 (PCR) Not detected (NOT DETECT) 04/25/24 23:16 Parainfluenza 4 (PCR) Not detected (NOT DETECT) 04/25/24 23:16 RSV Type A (PCR) Not detected (NOT DETECT) 04/25/24 23:16 RSV Type B (PCR) Not detected (NOT DETECT) 04/25/24 23:16 Entero/Rhino (PCR) Not detected (NOT DETECT) 04/25/24 23:16 SARS-CoV-2 (PCR) Not detected (NOT DETECT) 04/25/24 23:16 Path Cons w/Slide Yes 04/27/24 13:15 Micro: Microbiology 04/26/24 15:36 Blood Culture - Preliminary Blood Methicillin Resis Staph Aureus 04/25/24 22:47 Blood Culture - Final Blood Methicillin Resis Staph Aureus 04/29/24 15:42 Urine Culture - Preliminary Urine Catheterized 04/29/24 08:50 Blood Culture - Preliminary Blood NEGATIVE TO DATE 04/29/24 08:50 Blood Culture - Preliminary Blood NEGATIVE TO DATE A&P Assessment and plan (1) MRSA bacteremia: The source of infection is no clear. Pneumonia, cellulitis, endocarditis etc. are considerations. A GORDY might be appropriate to rule out endocarditis. Patient apparently had MRSA in the past. She is remaining afebrile. (2) Left lower lobe consolidation: The chest x-ray shows worsening of the left lower lobe consolidation. Patient is on IV antibiotics. She is off oxygen. Has no severe cough. (3) Chronic venous stasis: May continue on the conservative measures (4) Diastolic heart failure: May be treated with a careful IV diuresis. The heart failure is compensated at this time Qualifiers: Heart failure chronicity: acute Qualified Code(s): I50.31 - Acute diastolic (congestive) heart failure (5) Benign hypertension: Patient has stage II hypertension. I may start her on amlodipine 5 mg p.o. daily Plan Patient is scheduled to have an ID consult tomorrow. The need for GORDY will be decided afterwards. The patient is not very keen to have this test at this time. She would like to have it as a last resort Discussed with Dr. Fowler May continue on the current management Attestations 2 Medical Necessity Statement*: Deferred to the primary Coding Level of Care Code 01026 Diagnoses MRSA bacteremia R78.81; B95.62 Left lower lobe consolidation J18.1 Chronic venous stasis I87.8 Acute diastolic heart failure I50.31 Heart failure chronicity: acute Benign hypertension I10
[2024-04-30] MEDS: enoxaparin 40 mg/0.4 mL Syringe SUBCUT (20:05)
[2024-05-01] VITALS (22 sets, daily range): BP systolic 131–176; BP diastolic 75–92; PULSE 72–105; RESP 15–19; TEMP 36.3–36.9; O2SAT 90–95
[2024-05-01] MEDS: ipratropium-albuterol 3 mL Neb INHALATION ×6 (00:20→23:42)
[2024-05-01] MEDS: vancomycin 750 MG in sodium chloride 0.9% 250 ML 250 MG IV (01:36)
[2024-05-01] MEDS: morphine IR 15 mg Tablet 30 MG PO ×5 (02:07→21:22)
[2024-05-01] MEDS: methylPREDNISolone sod succ 40 mg/mL INJ IVP ×2 (04:47→10:50)
[2024-05-01 05:57] LABS: Basophils % 0.2 %; Hematocrit 43.9 % (36-47); Lymphocytes # 0.7 10^3/uL (0.8-4.8); Lymphocytes % 9.2 %; Mean Corpuscular HGB Conc 32.3 g/dL (30-55); Mean Corpuscular Hemoglobin 30.5 pg (27-33); Mean Corpuscular Volume 94.4 fl (85-98); Mean Platelet Volume 10.8 fL (7.4-10.4); Monocytes # 0.6 10^3/uL (0.2-0.9); Monocytes % 6.8 %; Neutrophils % 81.9 %; Nucleated Red Blood Cells % 0 %; Platelet Count 143 10^3/cmm (157-399); Red Blood Count 4.65 10^6/uL (3.85-5.65); Red Cell Distribution Width 13.8 % (12.1-15.1); White Blood Count 8.06 10^3/uL (3.29-11.43)
[2024-05-01 06:20] LABS: Alanine Aminotransferase 13 U/L (0-33); Albumin Level 3.2 g/dL (3.5-5.2); Alkaline Phosphatase 76 U/L (35-105); Anion Gap 12.7 (5-19); Aspartate Amino Transferase 12 U/L (0-32); Blood Urea Nitrogen 22 mg/dL (8-23); Calcium 8.5 mg/dL (8.5-10.5); Carbon Dioxide 31 mmol/L (22-29); Chloride 100 mmol/L (98-107); Creatinine Clr Calc Pharmacy 69.7026; Glomerular Filtration Rate 157.8 mL/min (90-130); Glucose 141 mg/dL (65-115); Magnesium 2.5 mg/dL (1.7-2.3); Osmolality Calculated 296 mOsm/kg (285-295); Potassium 3.7 mmol/L (3.5-5.1); Sodium 140 mmol/L (136-145); Total Bilirubin 0.2 mg/dL (0.15-1.2); Total Protein 6.2 g/dL (6.6-8.7)
[2024-05-01] MEDS: gabapentin 300 mg Capsule 900 MG PO ×3 (08:18→21:21)
[2024-05-01] MEDS: docusate sodium 100 mg Capsule PO (08:18)
[2024-05-01] MEDS: amlodipine 5 mg Tablet PO (08:18)
[2024-05-01] MEDS: pregabalin 75 mg Capsule PO ×2 (08:18→17:07)
[2024-05-01] MEDS: folic acid 1 mg Tablet PO (08:18)
[2024-05-01] MEDS: FUROsemide 10 mg/mL SDV 4mL 40 MG IVP (08:19)
--- NOTE | 2024-05-01 12:27 | CTR_ITS ---
PROCEDURE INFORMATION: Exam: CT Abdomen And Pelvis With Contrast Exam date and time: 05/01/2024 3:51 PM Age: 69 years old Clinical indication: Nausea; Prior surgery; Surgery date: 6+ months; Surgery type: Back; Additional info: Possibility of psoas abscess, persistent bactermia TECHNIQUE: Imaging protocol: Computed tomography of the abdomen and pelvis with contrast. Radiation optimization: All CT scans at this facility use at least one of these dose optimization techniques: automated exposure control; mA and/or kV adjustment per patient size (includes targeted exams where dose is matched to clinical indication); or iterative reconstruction. Contrast material: OMNI 350; Contrast volume: 100 ml; Contrast route: INTRAVENOUS (IV); COMPARISON: CT chest abdpel w/*[id number] 04/26/2024 1:55 PM RADIATION DOSE METRICS: Total DLP (mGy-cm): 358.97 FINDINGS: Lungs: Patchy atelectasis involves both lung bases. Liver: Normal. No mass. Gallbladder and bile ducts: Normal. No calcified stones. No ductal dilation. Pancreas: Normal. No ductal dilation. Spleen: Normal. No splenomegaly. Adrenal glands: Normal. No mass. Kidneys and ureters: Normal. No hydronephrosis. Stomach and bowel: A large amount of stool is noted throughout the entire colon. Appendix: No evidence of appendicitis. Intraperitoneal space: Unremarkable. No free air. No significant fluid collection. Vasculature: Unremarkable. No abdominal aortic aneurysm. Lymph nodes: Unremarkable. No enlarged lymph nodes. Urinary bladder: A Pratt catheter is in good position within the bladder. Reproductive: Unremarkable as visualized. Bones/joints: There is extensive metallic hardware throughout the lumbar spine. Soft tissues: Unremarkable. CT/CT abdomen pelvis w con* [id number] IMPRESSION: 1. Constipation 2. Bibasilar atelectasis 3. Extensive surgical change involving the lumbar spine
[2024-05-01 13:02] LABS: Iron 66 ug/dL (37-145); Percent Saturation 39.2 % (20-50); Total Iron Binding Capacity 168 mcg/dl; Unsaturated Iron Binding 102 ug/dL (112-347)
[2024-05-01 13:09] LABS: Procalcitonin 0.17 ng/mL (0-0.5)
[2024-05-01] MEDS: vancomycin 1,000 MG in sodium chloride 0.9% 250 ML 250 MG IV (13:42)
--- NOTE | 2024-05-01 14:00 | PC.SOCIAL ---
IMM updated IMM dated and given to patient, copy placed in chart.
--- NOTE | 2024-05-01 15:43 | P.PN_ITS ---
Subjective 2 Subjective: Hospital course: Appreciate improving Giurgius and patient sitting comfortably in bed. States feeling a lot better. Pain is better. Denies any nausea, vomiting, headache. Has remained afebrile. Vitals/I&O/Wt Last Vital Signs Temp 97.4 F L 05/01/24 11:15 Pulse 85 05/01/24 11:22 Resp 18 05/01/24 12:37 BP 162/92 05/01/24 11:15 Pulse Ox 94 05/01/24 11:22 O2 Del Method Room Air 05/01/24 11:22 O2 Flow Rate 1 04/30/24 15:28 05/01/24 05/01/24 05/01/24 06:59 14:59 22:59 Intake Total 250 / 1340 720 / 720 Output Total 800 / 3900 800 / 800 Balance -550 / -2560 -80 / -80 Weight last 48 hrs Weight 79.742 kg Weight 80.876 kg Physical Exam 2 Narrative: General: Patient is awake alert oriented x3,No acute distress, on room air Head: Normocephalic. Atraumatic. EOM intact. Cardiovascular: RRR. No gallops. No murmurs. no edema Lungs: Breath sounds are diminished in bilateral bases. There is faint end expiratory wheezing present. on 2L NC Abdomen: Normal bowel sounds, abdomen soft and nontender. Extremities: No cyanosis or clubbing. Neurological: Moves all 4 extremities. No myoclonus. Right knee:No warmth noted, no erythema noted. No edema noted. Right hip limited range of motion secondary to pain however improved. Skin: Several tiny lesions and abrasions in various stages of healing. Urinary Catheter Management: Pratt: Cath Placed During This Visit: yes Reason for Continuing Indwelling Catheter: Other Urinary Catheter Date of Insertion: 04/26/24 Urinary Catheter Time of Insertion: 09:45 Data 05/01/24 05:21 05/01/24 05:21 Micro: Microbiology 04/29/24 15:42 Urine Culture - Final Urine Catheterized 04/26/24 15:36 Blood Culture - Preliminary Blood Methicillin Resis Staph Aureus 04/26/24 15:36 Blood Culture - Preliminary Blood Methicillin Resis Staph Aureus 04/25/24 22:47 Blood Culture - Final Blood Methicillin Resis Staph Aureus A&P Assessment and plan (1) Staph aureus infection: MRSA bacteremia. Blood culture from 04/29 so far negative. Patient still undergoing source evaluation. Has had multiple imaging including CT abdomen pelvis, MRI hip, CT femur, joint aspiration which ruled out septic arthritis. MRI hip done few days ago concerning for possibility of psoas abscess. No concerns for empyema for now as minimal fluid seen on ultrasound chest. Patient does have history of being on oral steroids 10 mg twice daily for a long time. 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 DC Pratt catheter. CT abdomen pelvis with contrast for further evaluation of psoas abscess. Patient is on room air now. Appreciate CT chest done on 04/26 with no concerns for pneumonia. Continue with IV vancomycin. Will request with pharmacy for target trough of between 15-20. Appreciate ID recommendations. (2) Bacteremia: (3) Acute exacerbation of congestive heart failure: Currently seem to have resolved. Start on fluid restriction up to 1500 cc. DC Lasix. DC Pratt catheter. Strict input output charting, daily weights. Echocardiogram during this hospitalization shows a normal EF, grade 1 diastolic dysfunction, mild pulmonary hypertension with RSVP of 45 mmHg. (4) Chronic steroid use: (5) High risk medication use: (6) Rheumatoid arthritis: Given concerns for possible exacerbation leading to knee and rib pain patient has been on Solu-Medrol 40 mg IV every 6 hours. Patient takes prednisone 10 mg twice daily at home. Wean down to 40 mg IV daily. Will plan to wean down to home dose of prednisone within next 24 to 48 hours. (7) Hypoxemia: Resolved. Most likely combination of CHF and COPD exacerbation. Also concerns for pneumonia on admission. So far seem to have resolved. (8) Pneumonia: (9) COPD with acute exacerbation: (10) Rib pain on right side: (11) Knee pain: Plan Regular diet Lovenox for DVT prophylaxis Protonix for PUD prophylaxis Attestations 2 Medical Necessity Statement*: Requires further hospitalization for further evaluation of MRSA bacteremia while patient requires source evaluation. Diagnoses Staph aureus infection A49.01 Bacteremia R78.81 Acute exacerbation of congestive heart failure I50.9 Chronic steroid use High risk medication use Z79.899 Rheumatoid arthritis M06.9 Hypoxemia R09.02 Pneumonia J18.9 COPD with acute exacerbation J44.1 Rib pain on right side R07.81 Knee pain M25.569
[2024-05-01] MEDS: iohexol 350 mg/mL 500 mL Btl (per mL) IV (15:55)
--- NOTE | 2024-05-01 16:05 | PC.NURSE ---
Skin tear to L. Elbow noted. Per the [employer] and pt, the pt got off the table for her CT and plopped down into the wheelchair and bumped her L. Elbow on the arm of the wheelchair and caused the skin tear. Skin placed back and 2x2 gauze and coban was applied.
[2024-05-01] MEDS: pantoprazole DR 40 mg Tablet PO (17:07)
[2024-05-01 17:24] LABS: Methicillin-Resist S.aureu PCR NOT DETECTED (NOT DETECTED)
[2024-05-01] MEDS: enoxaparin 40 mg/0.4 mL Syringe SUBCUT (21:22)
[2024-05-02] VITALS (17 sets, daily range): BP systolic 119–144; BP diastolic 64–78; PULSE 77–89; RESP 16–18; TEMP 36.3–37; O2SAT 90–95
[2024-05-02] MEDS: vancomycin 1,000 MG in sodium chloride 0.9% 250 ML 250 MG IV ×2 (02:10→14:53)
[2024-05-02] MEDS: ipratropium-albuterol 3 mL Neb INHALATION ×4 (04:01→19:38)
[2024-05-02 05:31] LABS: Basophils # 0.1 10^3/uL (0.0-0.1); Basophils % 0.7 %; Eosinophils # 0.1 10^3/uL (0.0-0.8); Eosinophils % 0.6 %; Hematocrit 45.1 % (36-47); Lymphocytes # 1.5 10^3/uL (0.8-4.8); Lymphocytes % 14.4 %; Mean Corpuscular HGB Conc 31.5 g/dL (30-55); Mean Corpuscular Hemoglobin 30.3 pg (27-33); Mean Corpuscular Volume 96.4 fl (85-98); Mean Platelet Volume 10.7 fL (7.4-10.4); Monocytes # 0.9 10^3/uL (0.2-0.9); Monocytes % 8.9 %; Neutrophils # 7.44 10^3/uL (1.8-7.7); Nucleated Red Blood Cells % 0 %; Platelet Count 166 10^3/cmm (157-399); Red Blood Count 4.68 10^6/uL (3.85-5.65); Red Cell Distribution Width 14.1 % (12.1-15.1); White Blood Count 10.47 10^3/uL (3.29-11.43)
[2024-05-02 05:50] LABS: Estmated Average Glucose 123; Hemoglobin A1C 5.9 % (4.0-6.0)
[2024-05-02 05:57] LABS: Chol HDL Ratio 4.33 mg/dL (0.0-4.40); Cholesterol 221 mg/dL (0-200); HDL Cholesterol 51 mg/dL (60-100); LDL Cholesterol Calculated 135 mg/dL (50-129); Magnesium 2.6 mg/dL (1.7-2.3); Triglycerides 175 mg/dL (0-150); VLDL Cholestrol Calculation 35 mg/dL (0-30)
--- NOTE | 2024-05-02 05:57 | P.CONIM_ITS ---
Providers/Reason For Consult 2 Consulting Physician/Specialty*: She Trejo MD / Infectious Disease Reason for Consult*: Persistent MRSA bacteremia Requesting Physician: Netta Fowler MD Attending Physician: Tony Dennison MD Primary Care Provider: Maciej West DO History of Present Illness History of Present Illness Jenna Hamlin is a 69 year old female with a past medical history significant for COPD, rheumatoid arthritis on sulfasalazine + chronic prednisone, peripheral arterial disease, LTBI presents to the hospital on April 26, 2024 with chief complaints of shortness of breath. She also complained of pain in her right hip radiating down her leg. She was noted to be febrile with Tmax of 100.5 upon initial evaluation. She was found to be hypoxic requiring supplemental oxygen but has subsequently been able to be weaned down to room air. She was diagnosed with community-acquired pneumonia with bibasilar infiltrates noted on chest x- ray. She was started on treatment with ceftriaxone. She also started treatment for acute on chronic COPD exacerbation with IV steroids and scheduled nebulization. Her blood culture eventually returned positive for MRSA. Orthopedics was consulted due to noted swelling around the right knee and persistent pain at right hip raising concern for septic arthritis. She underwent synovial fluid aspiration of the knee joint on April 27, 2024 which revealed WBCs at 62, not concerning for septic arthritis. Right hip MRI performed on April 28 was without evidence of acute fracture or avascular necrosis. There was no evidence of osteomyelitis of the right hip. Nonspecific changes at proximal femur. There was fluid and edema with enhancement along the right ischial tuberosity and surrounding tendons which were thought to be related to muscle strain. Note was made of partially visualized fluid and edema along the distal right psoas extending along the right pelvic sidewall involving the iliac us and iliopsoas. Concern for possible abscess for which CT of the abdomen and pelvis was recommended. There was no joint effusion to indicate septic joint. CT of the abdomen and pelvis showed extensive metallic hardware throughout the lumbar spine. Soft tissues were noted to be unremarkable. Thoracentesis was ordered for pleural effusions, however insufficient fluid was available. She has a history of recurrent folliculitis and skin infections. Noted past history of rifampin resistance. She started treatment with vancomycin IV on April 26, 2024, last trough obtained on April 30 at 11.8. Previously low trough at 9.9 on April 28, 2024. Denies h/o IVDU Review of Systems 2 General: Reports: 10 or more systems reviewed and unremarkable except in HPI and below Const: Denies: fever(s), chills or body aches Eyes: Denies: change in vision, blurry vision or photophobia ENMT: Reports: hoarseness; Denies: throat pain, enlarged tonsils, odynophagia or nasal congestion Card: Denies: chest pain, palpitations, irregular heart rhythm, edema, swelling of feet/ankles, lightheadedness, pre-syncope, dyspnea on exertion or orthopnea Resp: Denies: dyspnea, productive cough, non-productive cough, wheezing, stridor, pain on inspiration, change in phlegm color, hemoptysis or chest congestion GI: Denies: abdominal pain, nausea, vomiting, hematemesis, coffee ground emesis, dysphagia, heartburn, diarrhea, constipation, GI cramping, change in stool character, hematochezia or melena : Denies: flank pain, difficulty voiding, dysuria, urinary frequency, urinary urgency, urinary hesitancy or hematuria Musc: Denies: neck pain, back pain, extremity pain, joint swelling, joint warmth or deformity Neuro: Denies: headache(s), numbness in extremities, weakness in extremities, sensory changes, difficulty walking, frequent falls, dizziness, vertigo, behavioral changes, Slurred speech present or seizure-like activity Psych: Denies: anxiety, depression, suicidal ideation or homicidal ideation Endo: Denies: polyuria, polydipsia, tired all the time, cold intolerance or hot flashes John Paul/Lymph: Denies: easy bruising or easy bleeding Medications/Allergies Home Medications Medication Instructions Recorded Confirmed Last Taken Type mupirocin 2 % topical ointment 1 applic topical BID wound care 07/23/23 04/26/24 Unknown Rx #150 grams albuterol sulfate 90 mcg/actuation See Rx Instructions .Route 11/08/23 04/26/24 Unknown Rx aerosol inhaler .COMPLEX #8.5 grams folic acid 1 mg tablet See Rx Instructions .Route 11/08/23 04/26/24 Unknown Rx .COMPLEX #30 tabs calcium carbonate (Calcium 500) 500 mg PO DAILY 11/29/23 04/26/24 Unknown History furosemide 20 mg tablet 60 mg PO QAM PRN Edema 11/29/23 04/26/24 Unknown History cholecalciferol (vitamin D3) 25 See Rx Instructions .Route 01/03/24 04/26/24 Unknown Rx mcg (1,000 unit) tablet .COMPLEX #90 ea gabapentin 600 mg tablet See Rx Instructions .Route 01/03/24 04/26/24 Unknown Rx .COMPLEX #135 tabs pregabalin 75 mg capsule (Lyrica) 75 mg PO BID neuropathy #60 caps 01/03/24 04/26/24 Unknown Rx hydroxychloroquine 200 mg tablet See Rx Instructions .Route 02/01/24 04/26/24 Unknown Rx .COMPLEX #60 tabs prednisone 10 mg tablet See Rx Instructions .Route 02/01/24 04/26/24 Unknown Rx .COMPLEX #60 tabs sulfasalazine 500 mg tablet See Rx Instructions .Route 02/01/24 04/26/24 Unknown Rx .COMPLEX #180 tabs promethazine 25 mg tablet 25 mg PO TID PRN nausea and 02/18/24 04/26/24 Unknown Rx vomiting #30 tabs promethazine-DM 6.25 mg-15 mg/5 mL 5 - 10 ml PO Q4H cough/rib 03/03/24 04/26/24 Unknown Rx oral syrup fractures #473 mL morphine 30 mg immediate release 30 mg PO Q4H PRN pain 1 month #180 04/05/24 04/26/24 Unknown Rx tablet tabs umeclidinium 62.5 mcg-vilanterol See Rx Instructions .Route 04/05/24 04/26/24 Unknown Rx 25 mcg/actuation powdr for .COMPLEX #60 ea inhalation (Anoro Ellipta) Allergies Allergy/AdvReac Type Severity Reaction Status Date / Time alginic acid Allergy Severe ALGY-Rash Verified 04/25/24 22:27 [From MediHoney (moises alginate-honey)] honey Allergy Severe ALGY-Rash Verified 04/25/24 22:27 [From MediHoney (moises alginate-honey)] acetaminophen Allergy Nausea Verified 04/25/24 22:27 [From Tylenol-Codeine #3] codeine Allergy Nausea Verified 04/25/24 22:27 [From Tylenol-Codeine #3] doxycycline Allergy Nausea Verified 04/25/24 22:27 erythromycin base Allergy Respiratory Verified 04/25/24 22:27 distress isoniazid Allergy ALGY-Anaphy Verified 04/25/24 22:27 laxis leflunomide Allergy Difficulty Verified 04/25/24 22:27 Breathing levofloxacin Allergy chest pain Verified 04/25/24 22:27 rifampin Allergy ADR-Nausea Verified 04/25/24 22:27 Current Medications Generic Name Dose Route Start Last Admin Trade Name Freq PRN Reason Stop Dose Admin Albuterol/Ipratropium 3 ml 04/26/24 04:00 05/02/24 04:01 Ipratropium-Albuterol 3 Ml Neb INHALATION 3 ml Q4H.RESPIRATORY DESTINEE Administration Docusate Sodium 100 mg 04/26/24 09:00 05/01/24 17:02 Docusate Sodium 100 Mg Capsule PO Not Given BID DESTINEE Enoxaparin Sodium 40 mg 04/26/24 21:00 05/01/24 21:22 Enoxaparin 40 Mg/0.4 Ml Syringe SUBCUT 40 mg Q24H DESTINEE Administration Folic Acid 1 mg 04/26/24 09:00 05/01/24 08:18 Folic Acid 1 Mg Tablet PO 1 mg DAILY DESTINEE Administration Gabapentin 900 mg 04/26/24 09:00 05/01/24 21:21 Gabapentin 300 Mg Capsule PO 900 mg TID DESTINEE Administration Vancomycin HCl 1,000 mg/ 250 mls @ 250 mls/hr 05/01/24 14:00 05/02/24 03:10 Sodium Chloride IV Infused Q12H DESTINEE Infusion Morphine Sulfate 30 mg 05/01/24 12:35 05/01/24 21:22 Morphine Ir 15 Mg Tablet PO 30 mg Q4H PRN Administration pain Ondansetron HCl 4 mg 04/26/24 02:24 04/26/24 22:34 Ondansetron 2 Mg/Ml Sdv 2 Ml IVP 4 mg Q8H PRN Administration vomiting, or N/V if npo Pantoprazole Sodium 40 mg 05/01/24 16:00 05/01/24 17:[address] 40 Mg Tablet PO 40 mg DAILY DESTINEE Administration Pregabalin 75 mg 04/26/24 09:00 05/01/24 17:07 Pregabalin 75 Mg Capsule PO 75 mg BID DESTINEE Administration Sulfasalazine 1,000 mg 04/26/24 09:00 04/28/24 09:10 Sulfasalazine 500 Mg Tablet PO 1,000 mg TID DESTINEE Administration PFSH Acute 2 PFSH: Medical History Latent tuberculosis by blood test Immunization counseling Chronic steroid use High risk medication use Seronegative rheumatoid arthritis of both hands Peripheral arterial disease Rheumatoid arthritis Osteoporosis COPD (chronic obstructive pulmonary disease) Cellulitis Surgical History S/P spinal fusion Status post colonoscopy History of D&C H/O hand surgery Left hand in 1984 x3, had infection drained by H/O elbow surgery LEFT nerve decomp[place] [address] Zaidi H/O shoulder surgery RIGHT- by Dr. Bergman in 2003 Family History Family/Other Heart disease Denies family history of Diabetes CAD (coronary artery disease) Clotting disorder Dementia Hyperlipidemia Psychiatric illness Chronic kidney disease (CKD) Suicide Anesthesia complication Bleeding disorder Family history of premature coronary artery disease Lung disease Cancer Hypertension Stroke Social History Smoking and tobacco/nicotine status: former use of tobacco/nicotine Quit status (tobacco/nicotine): has quit using Year quit tobacco: 1997 Former quit date comment: Hx of 2 PPD x 30 Years, started at age 14 Second hand smoke exposure: No Alcohol intake: never Substance/Drug Use: never Lives independently: Yes Household members: none Housing: House Marital status: Number of children: 0 Highest education level completed: 11th Grade service: No Current occupational status: disabled Pets and animals: Yes Do you think of yourself as: Straight/Heterosexual Current gender identity: Female Vitals/I&O/Wt Last Vital Signs Temp 97.3 F L 05/02/24 04:00 Pulse 80 05/02/24 04:05 Resp 16 05/02/24 04:05 BP 119/64 05/02/24 04:00 Pulse Ox 94 05/02/24 04:05 O2 Del Method Room Air 05/02/24 04:05 O2 Flow Rate 1 04/30/24 15:28 05/01/24 05/01/24 05/02/24 14:59 22:59 06:59 Intake Total 970 / 970 960 / 1930 610 / 2540 Output Total 800 / 800 1000 / 1800 Balance 170 / 170 -40 / 130 610 / 740 Weight last 48 hrs Weight 82.236 kg Weight 79.742 kg Weight 80.876 kg Physical Exam 2 Narrative: General: No acute distress, AO x3 HEENT: PERRLA, pupils bilaterally equal and reactive, pallors not present Chest: Normal vesicular breath sounds, no added sounds, equal good air entry bilaterally CVS: S1-S2 regular, no murmurs, no tachycardia, no gallops, no rubs Abdomen: Soft, nontender, no organomegaly, bowel sounds present Neuro: No focal deficits, no facial deformity, AO x3, power 5/5 in all limbs Urinary Catheter Management: Pratt: Cath Placed During This Visit: yes, but has since been removed by the nurse Reason for Continuing Indwelling Catheter: Decision to DC Catheter Urinary Catheter Date of Insertion: 04/26/24 Urinary Catheter Time of Insertion: 09:45 Date Urinary Catheter Removed: 05/01/24 Time Urinary Catheter Discontinued: 16:21 Data 05/02/24 05:06 05/02/24 05:06 Micro: Microbiology 04/29/24 15:42 Urine Culture - Final Urine Catheterized 04/26/24 15:36 Blood Culture - Preliminary Blood Methicillin Resis Staph Aureus 04/26/24 15:36 Blood Culture - Preliminary Blood Methicillin Resis Staph Aureus Spec #: [id number] Maria E: 04/25/24-2240 Status: COMP Req #: [id number] Recd: 04/25/24-[address]: Anita Silva MD Src: Blood SpDesc: Ordered: Bcult Procedure Result Verified Site Blood Culture Final 04/28/24-1004 3 OF 4 BOTTLES POSITIVE DIRECT GRAM STAIN: GRAM POSITIVE COCCI IDENTIFICATION BY DIRECT PCR Organism 1 Methicillin Resis Staph Aureus Growth 3 BOTTLES Gram Stain Charge Charge for Gram Stain CRITICAL RESULT YES/NO: YES CRITICAL CALLED BY: RT TO AND READ BACK BY: IZA DATE: 04/26/24 TIME: 1219 2ND CRITICAL RES YES/NO: YES 2ND CRITICAL CALLED BY: RT 2ND TO AND READ BACK BY: POLO DATE: 04/28/24 2ND CRITICAL TIME: 1003 MRSA M.I.C. RX --------- ------ * Ampicillin >8 R * Ciprofloxacin <=1 S * Clindamycin <=0.5 S * Erythromycin <=0.5 S * Gentamicin <=4 S * Levofloxacin <=1 S * Linezolid 4 S * Oxacillin >2 R * Penicillin >8 R * Rifampin >2 R * Tetracycline <=4 S * Trimethoprim/Sulfamethoxazole <=0.5/9.5 S Vancomycin 2 S Daptomycin 1 S Blood Culture Preliminary (changed) 04/26/24-121 2 OF 4 BOTTLES POSITIVE DIRECT GRAM STAIN: GRAM POSITIVE COCCI IDENTIFICATION BY DIRECT PCR RESULTS TO FOLLOW Organism 1 Staphylococcus aureus Growth 2 BOTTLES Gram Stain Charge Charge for Gram Stain CRITICAL RESULT YES/NO: YES CRITICAL CALLED BY: RT TO AND READ BACK BY: CRIME DATE: 04/26/24 TIME: 121 NAME: Jenna Hamlin LOC: [facility] U #: [id number] AGE/SX: 69/F ROOM: [facility] E04/26/24 [facility] DR: Tony Dennison MD : 1955 BED: 1 D IS: FAX #: STATUS: ADM IN TLOC: Spec #: [id number] Maria E: 04/26/24153 Status: RES Req #: [id number] Recd: 04/26/[address]: Netta Fowler MD Src: Blood SpDesc: Ordered: Bcult Procedure Result Verified Site Blood Culture Preliminary 05/01/24-818 2 OF 3 BOTTLES POSITIVE GRAM STAIN: GRAM POSITIVE COCCI IN CLUSTERS AND CHAINS SEEN IDENTIFICATION BY DIRECT PCR SENSITIVITIES REPORTED ON CULTURE [id number] Organism 1 Methicillin Resis Staph Aureus Growth 2 BOTTLES Gram Stain Charge Charge for Gram Stain CRITICAL RESULT YES/NO: YES CRITICAL CALLED BY: SCIENTIFIC DIRECTOR TO AND READ BACK BY: LATOYA DATE: 04/29/24 TIME: 0235 Blood Culture Preliminary (changed) 04/30/24-1508 1 OF 3 BOTTLES POSITIVE GRAM STAIN: GRAM POSITIVE COCCI IN CLUSTERS AND CHAINS SEEN IDENTIFICATION BY DIRECT PCR SENSITIVITIES REPORTED ON CULTURE [id number] Organism 1 Methicillin Resis Staph Aureus Growth 1 BOTTLE Gram Stain Charge Charge for Gram Stain CRITICAL RESULT YES/NO: YES CRITICAL CALLED BY: SCIENTIFIC DIRECTOR TO AND READ BACK BY: [email or web address] DATE: 04/29/24 TIME: 0235 Blood Culture Preliminary (changed) 04/29/24-235 1 OF 4 BOTTLES POSITIVE GRAM STAIN: GRAM POSITIVE COCCI IN CLUSTERS AND CHAINS SEEN RESULTS TO FOLLOW CRITICAL RESULT YES/NO: YES CRITICAL CALLED BY: V TO AND READ BACK BY: LATOYA DATE: 04/29/24 TIME: 234 NAME: Jenna Hamlin LOC: [facility] #: [id number] AGE/SX: 69/F ROOM: [facility] R E04/26/[address]: Tony Dennison MD : 1955 BED: 1 D IS: FAX #: STATUS: ADM IN TLOC: Spec #: [id number] Maria E: 04/26/24 Status: RES Req #: [id number] Recd: 04/26/[address]: Netta Fowler MD Src: Blood SpDesc: Ordered: Bcult Procedure Result Verified Site Blood Culture Preliminary 05/01/24 2 OF 3 BOTTLES POSITIVE DIRECT GRAM STAIN: GRAM POSITIVE COCCI IN CLUSTERS Organism 1 Methicillin Resis Staph Aureus Growth 2 BOTTLES Gram Stain Charge Charge for Gram Stain CRITICAL RESULT YES/NO: YES CRITICAL CALLED BY: SCIENTIFIC DIRECTOR TO AND READ BACK BY: LATOYA DATE: 04/29/24 TIME: 234 NAME: Jenna Hamlin LOC: [facility] #: [id number] AGE/SX: 69/F ROOM: [facility] R E04/26/[address]: Tony Dennison MD : 1955 BED: 1 D IS: FAX #: STATUS: ADM IN TLOC: Spec #: [id number] Maria E: 04/29/24 Status: RES Req #: [id number] Recd: 04/29/[address]: Marty Fonseca MD Src: Blood SpDesc: Ordered: Bcult Procedure Result Verified Site Blood Culture Preliminary 04/30/24 NEGATIVE TO DATE Blood Culture Preliminary (changed) 04/29/24 SPECIMEN COLLECTED Spec #: [id number] Maria E: 04/29/24 Status: COMP Req #: [id number] Recd: 04/29/24-[address]: Netta Fowler MD Src: Urine Cath SpDesc: Ordered: UC Procedure Result Verified Site Urine Culture Final 05/01/24-0948 NO GROWTH ON DAY 2 Urine Culture Preliminary (changed) 04/30/24-1150 NO GROWTH AT 18-24 HOURS Other data: Date of Service: 04/27/24 Procedure(s): CV. echo complete* [id number] FINDINGS Left Ventricle Normal left ventricular cavity size. Moderate left ventricular hypertrophy. Normal left ventricular systolic function. No regional wall motion abnormalities. Grade I/IV diastolic dysfunction (abnormal relaxation filling pattern), normal to mildly elevated filling pressures. Left ventricular ejection fraction is estimated at 65 %. Right Ventricle Normal right ventricular size and systolic function. Mild pulmonary hypertension, RVSP 45 mmHg. Right Atrium The right atrium is normal in size. Left Atrium Mildly increased left atrial size. Mitral Valve Structurally normal mitral valve. Trace mitral valve regurgitation. Aortic Valve Structurally normal aortic valve without significant sclerosis or stenosis. There is no aortic regurgitation. Tricuspid Valve Structurally normal tricuspid valve. Trace to mild tricuspid valve regurgitation. Pulmonic Valve Pulmonic valve not well visualized. Pericardium Normal pericardium without effusion. Aorta Normal ascending aorta dimension. IVC Inferior vena cava not visualized. CONCLUSIONS Normal left ventricular cavity size. Moderate left ventricular hypertrophy. Normal left ventricular systolic function. No regional wall motion abnormalities. Grade I/IV diastolic dysfunction (abnormal relaxation filling pattern), normal to mildly elevated filling pressures. Left ventricular ejection fraction is estimated at 65 %. Normal right ventricular size and systolic function. Mild pulmonary hypertension, RVSP 45 mmHg. Mildly increased left atrial size. Structurally normal mitral valve. Trace mitral valve regurgitation. Previous study 10/01/2023. No change. Date of Service: 04/26/24 Procedure(s): XR hip RT 2-3V wo/w pel* [id number] XR/XR hip RT 2-3V wo/w pel* [id number] IMPRESSION: No acute findings. Date of Service: 04/26/24 Procedure(s): CT hip RT wo con* [id number] CT/CT hip RT wo con* [id number] IMPRESSION: No acute or chronic/healed RIGHT hip fracture. Minimal degenerative joint disease Date of Service: 04/26/24 Procedure(s): CT chest abdpel w/*[id number] IMPRESSION: 1. No pneumonia. Mild dependent changes at the lung bases. 2. No mediastinal or hilar adenopathy. 3. Chronic emphysema. 4. Normally distended gallbladder. No common bile duct dilatation. No stones identified. 5. No renal obstruction. 6. No ascites or adenopathy in the abdomen or pelvis. 7. Pratt catheter in place. Date of Service: 04/26/24 Procedure(s): CT hip RT w con [id number] CT/CT hip RT w con 11187 IMPRESSION: 1. Negative RIGHT hip for significant joint effusion. 2. There is very mild synovial thickening but very similar to the LEFT hip as seen on the pelvis CT obtained on the same day. 3. Muscle atrophy involving the gluteus medius and giulia. 4. No abscess or abnormal enhancement. Date of Service: 04/27/24 Procedure(s): CT lumbar spine recon 22369 CT/CT lumbar spine recon [id number] IMPRESSION: 1. There is extensive gen and pedicle screw fixation from T10-S2. 2. Prior large laminectomy defects at L4-5 and L5-S1. 3. No enhancing masses. No inflammatory stranding identified. 4. Osteophytosis and disc disease resulting in stenoses as above. The exact extent of nerve root involvement is difficult to confirm with this amount of disease and artifact. 5. There is a component of central, bilateral subarticular recess and foraminal stenosis at L2-3. 6. Central LEFT subarticular recess and LEFT foraminal stenosis at least mild at L3-4. 7. Central to RIGHT paracentral disc protrusion at L4-5 with encroachment upon the traversing RIGHT L5 nerve root. Date of Service: 04/28/24 Procedure(s): MR hip RT wo/w con [id number] MR/MR hip RT wo/w con [id number] IMPRESSION: Some images degraded by motion and susceptibility artifact from prior fusion 1. No evidence of acute fracture or avascular necrosis. 2. No evidence of osteomyelitis in the RIGHT hip. 3. Slightly patchy bone marrow signal in the proximal femur with enhancement may be due to normal bone marrow signal but asymmetric compared to the LEFT. No bony destruction on the recent CT. Consider follow-up with bone scan to assess activity and to assess for other sites of uptake to exclude metastatic disease. Alternatively this could be followed up in 4 to 6 weeks with MRI RIGHT hip and femur. 4. Fluid and edema with enhancement along the RIGHT ischial tuberosity involving the proximal biceps femoris long head and semimembranosus tendons at the ischial tuberosity likely due to recent fall with muscle strain. 5. Partially visualized fluid and edema along the distal RIGHT psoas extending along the RIGHT pelvic sidewall involving the iliacus and iliopsoas. This is incompletely evaluated and recommend contrast-enhanced CT abdomen pelvis follow- up to assess for developing abscess or hematoma. Also recommend RIGHT lower extremity ultrasound to exclude DVT if not previously performed 6. Small amount of edema in the soft tissues about the RIGHT hip likely due to recent fall. 7. Chronic atrophy of the gluteus medius and giulia. 8. No joint effusion to indicate septic joint. 9. No other acute findings Date of Service: 04/28/24 Procedure(s): CT femur RT w con [id number] CT/CT femur RT w con [id number] IMPRESSION: 1. Suspected lateral tibial plateau insufficiency fracture. Correlation with MRI of the right knee is recommended. 2. Right hemipelvis, including the psoas muscle is mostly outside the field of view. Consider CT of the abdomen and pelvis with contrast. Date of Service: 04/29/24 Procedure(s): [place] [id number] US/[place] [id number] IMPRESSION: No sonographic evidence of deep venous thrombosis. Date of Service: 05/01/24 Procedure(s): CT abdomen pelvis w con* [id number] CT/CT abdomen pelvis w con* [id number] IMPRESSION: 1. Constipation 2. Bibasilar atelectasis 3. Extensive surgical change involving the lumbar spine A&P Assessment and plan (1) MRSA bacteremia: 69-year-old lady with HPI as described above, chronically on prednisone currently admitted to the hospital with chief complaints of MRSA bacteremia. Extensive source evaluation has not been able to delineate an obvious source. May be related to multiple folliculitis and SSTI as the patient has been having over the past several years. Most recently she had a draining wound over her right leg 2 weeks ago. She has extensive lumbar hardware. CT of the lumbar spine did not show any gross signs of discitis osteomyelitis or hardware loosening. Initially some concern for right leg arthritis, however synovial fluid aspirate was benign. MRI of the right hip he continued to complain of persistent pain, initially some concern for psoas abscess. Serial CTs have not demonstrated any intra-abdominal or intramuscular collections. Likely that her joint pains and inflammatory changes are related to known rheumatoid arthritis. TTE without any gross vegetations. No history of IV drug use. Patient declined GORDY. She reports remote history of rheumatic fever diagnosed when she was 9 years old, however as far as she is aware does not have any valvular issues. Blood culture negative positive from April 25 and April 26, 2024. Started IV vancomycin on April 26, 2024, subsequently clear culture noted on April 29, 2024. Plan: Continue IV vancomycin with target trough of 15-20 Dose has recently been increased as previous 2 troughs were below 15 Plan treatment course for total 6 weeks (04/29-06/10), will plan to treat longer given high-grade bacteremia and history of rheumatic fever, deferred GORDY. While on above antibiotics, to obtain weekly CBC, creatinine, LFT and vancomycin trough and fax to infectious disease clinic. Case management working on trying to arrange home health to enable above. Okay to place PICC line today given clearance of cultures since April 29 No contraindication from infectious disease standpoint to continue her long-term steroids for rheumatoid arthritis. Follow-up in ID clinic on June 06. Consult Attestations 2 Medical Necessity Statement: Per admitting attending note Coding Level of Care Code Acute Code for Chg Fwd High MDM includes number and complexity of problems actively addressed during encounter, amount and/or complexity of data reviewed/ordered and described risk of complication, morbidity or mortality of management as documented Diagnoses MRSA bacteremia R78.81; B95.62
[2024-05-02 06:00] LABS: Alanine Aminotransferase 14 U/L (0-33); Albumin Level 3.1 g/dL (3.5-5.2); Alkaline Phosphatase 81 U/L (35-105); Anion Gap 12.4 (5-19); Aspartate Amino Transferase 16 U/L (0-32); Blood Urea Nitrogen 27 mg/dL (8-23); Calcium 8.7 mg/dL (8.5-10.5); Carbon Dioxide 32 mmol/L (22-29); Chloride 98 mmol/L (98-107); Creatinine Clr Calc Pharmacy 70.7331; Globulin 3.1 g/dL (1.3-4.6); Glomerular Filtration Rate 82.7 mL/min (90-130); Glucose 90 mg/dL (65-115); Osmolality Calculated 291 mOsm/kg (285-295); Potassium 4.4 mmol/L (3.5-5.1); Sodium 138 mmol/L (136-145); Total Bilirubin 0.3 mg/dL (0.15-1.2); Total Protein 6.2 g/dL (6.6-8.7)
[2024-05-02 06:10] LABS: Folate Level > 20.0 ng/mL (4.8-37.3)
[2024-05-02] MEDS: morphine IR 15 mg Tablet 30 MG PO ×4 (06:38→19:24)
[2024-05-02] MEDS: folic acid 1 mg Tablet PO (08:50)
[2024-05-02] MEDS: amlodipine 5 mg Tablet 10 MG PO (08:50)
[2024-05-02] MEDS: pantoprazole DR 40 mg Tablet PO (08:50)
[2024-05-02] MEDS: gabapentin 300 mg Capsule 900 MG PO ×3 (08:50→21:06)
[2024-05-02] MEDS: methylPREDNISolone sod succ 40 mg/mL INJ IVP (08:51)
[2024-05-02] MEDS: pregabalin 75 mg Capsule PO ×2 (08:51→17:25)
--- NOTE | 2024-05-02 08:59 | XR_ITS ---
WS: [id number] CHEST XRAY TECHNIQUE: Portable chest. CLINICAL INFORMATION: PICC PLACEMENT COMPARISON: 04/28/2024 FINDINGS: LEFT PICC line with tip at the SVC/RA junction in good position. No pneumothorax. No other significan t changes compared to previous. XR/XR chest 1V portable [id number] IMPRESSION: See above
--- NOTE | 2024-05-02 13:14 | PICC.NOTE ---
5Fr Single lumen PICC placed to the left Brachial vein. Referred to vascular access nurse for PICC placement due to greater that 5 weeks antibiotics. Risks and benefits discussed and informed consent obtained. Lt arm assessed with Brachial vein measuring 5 mm, straight, and apparent best choice for placement. Using sterile technique and MST, lt Brachial vein accessed x 1 stick. Mid-arm circumference measured 10 cm from lt AC 27.5cm. Trimmed cath 47cm with 3 cm external length noted. CXR shows tip in lower 1/3 SVC, in good position for use per radiologist. Line secured with stat-lock. Insertion site covered with Biopatch and TSM. Report given to bedside nurse, Jeanne Lujan RN. PICC line attempted in Rt Brachial vein without success. Access to vein went smoothly on 1st attempt, but was unable to be threaded through to the SVC. The line would stop or loop around. CXR verified looping. I called for assistance from Lizbet Benavides RN and this was the same case for her. After many unsuccessful passes, the line on this rt side was aborted. Site held with 4x4s then wrapped with coban. Pt tolerated the procedure well and was in good spirits.
--- NOTE | 2024-05-02 13:38 | P.PN_ITS ---
Subjective 2 Subjective: No acute events overnight. Patient has remained hemodynamically stable and afebrile. Denies any new complaints. Appetite has been improving. Seen while getting PICC line placed today. Vitals/I&O/Wt Last Vital Signs Temp 97.3 F L 05/02/24 04:00 Pulse 88 05/02/24 08:10 Resp 16 05/02/24 11:04 BP 119/64 05/02/24 04:00 Pulse Ox 90 05/02/24 08:00 O2 Del Method Room Air 05/02/24 08:00 O2 Flow Rate 1 04/30/24 15:28 05/01/24 05/02/24 05/02/24 22:59 06:59 14:59 Intake Total 960 / 1930 610 / 2540 240 / 240 Output Total 1000 / 1800 Balance -40 / 130 610 / 740 240 / 240 Weight last 48 hrs Weight 82.236 kg Weight 82.236 kg Weight 79.742 kg Physical Exam 2 Narrative: General: Patient is awake alert oriented x3,No acute distress, on room air Head: Normocephalic. Atraumatic. EOM intact. Cardiovascular: RRR. No gallops. No murmurs. no edema Lungs: Breath sounds are diminished in bilateral bases. There is faint end expiratory wheezing present. on 2L NC Abdomen: Normal bowel sounds, abdomen soft and nontender. Extremities: No cyanosis or clubbing. Neurological: Moves all 4 extremities. No myoclonus. Right knee:No warmth noted, no erythema noted. No edema noted. Right hip limited range of motion secondary to pain however improved. Skin: Several tiny lesions and abrasions in various stages of healing. Urinary Catheter Management: Pratt: Cath Placed During This Visit: yes, but has since been removed by the nurse Reason for Continuing Indwelling Catheter: Decision to DC Catheter Urinary Catheter Date of Insertion: 04/26/24 Urinary Catheter Time of Insertion: 09:45 Date Urinary Catheter Removed: 05/01/24 Time Urinary Catheter Discontinued: 16:21 Data 05/02/24 05:06 05/02/24 05:06 Micro: Microbiology 04/29/24 15:42 Urine Culture - Final Urine Catheterized A&P Assessment and plan (1) MRSA bacteremia: (2) Staph aureus infection: MRSA bacteremia. Blood culture from 04/29 so far negative. Patient still undergoing source evaluation. Has had multiple imaging including CT abdomen pelvis, MRI hip, CT femur, joint aspiration which ruled out septic arthritis. MRI hip done few days ago concerning for possibility of psoas abscess. No concerns for empyema for now as minimal fluid seen on ultrasound chest. Patient does have history of being on oral steroids 10 mg twice daily for a long time. 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 DC Pratt catheter. CT abdomen pelvis with contrast for further evaluation of psoas abscess. Patient is on room air now. Appreciate CT chest done on 04/26 with no concerns for pneumonia. Continue with IV vancomycin. Will request with pharmacy for target trough of between 15-20. Appreciate ID recommendations. (3) Bacteremia: (4) Acute exacerbation of congestive heart failure: Currently seem to have resolved. Start on fluid restriction up to 1500 cc. DC Lasix. DC Pratt catheter. Strict input output charting, daily weights. Echocardiogram during this hospitalization shows a normal EF, grade 1 diastolic dysfunction, mild pulmonary hypertension with RSVP of 45 mmHg. (5) Chronic steroid use: (6) High risk medication use: (7) Rheumatoid arthritis: Given concerns for possible exacerbation leading to knee and rib pain patient has been on Solu-Medrol 40 mg IV every 6 hours. Patient takes prednisone 10 mg twice daily at home. Wean down to 40 mg IV daily. Will plan to wean down to home dose of prednisone within next 24 to 48 hours. (8) Hypoxemia: Resolved. Most likely combination of CHF and COPD exacerbation. Also concerns for pneumonia on admission. So far seem to have resolved. (9) Pneumonia: (10) COPD with acute exacerbation: (11) Rib pain on right side: (12) Knee pain: Plan Regular diet Lovenox for DVT prophylaxis Protonix for PUD prophylaxis Plan for the day: Appreciate ID recommendations. Blood cultures from 04/29 so far reported negative. Plan for PICC line placement today. Most likely plan to discharge on IV vancomycin 1 g twice daily. Target trough 15-20. Appreciate trough done today. Will consult pharmacy for further adjustment to the dose of vancomycin. Change IV Solu-Medrol to home dose of prednisone. Attestations 2 Medical Necessity Statement*: Requires further hospitalization for further workup and management of MRSA bacteremia while outpatient antibiotics are set up Diagnoses MRSA bacteremia R78.81; B95.62 Staph aureus infection A49.01 Bacteremia R78.81 Acute exacerbation of congestive heart failure I50.9 Chronic steroid use High risk medication use Z79.899 Rheumatoid arthritis M06.9 Hypoxemia R09.02 Pneumonia J18.9 COPD with acute exacerbation J44.1 Rib pain on right side R07.81 Knee pain M25.569
[2024-05-02] MEDS: predniSONE 10 mg Tablet PO (17:25)
[2024-05-02] MEDS: enoxaparin 40 mg/0.4 mL Syringe SUBCUT (21:06)
[2024-05-03] VITALS (13 sets, daily range): BP systolic 127–158; BP diastolic 50–87; PULSE 70–83; RESP 16–18; TEMP 36.4–37.2; O2SAT 92–95
[2024-05-03] MEDS: ipratropium-albuterol 3 mL Neb INHALATION ×2 (00:17→11:23)
[2024-05-03] MEDS: vancomycin 1,000 MG in sodium chloride 0.9% 250 ML 250 MG IV ×2 (02:05→13:57)
[2024-05-03 05:18] LABS: Basophils # 0.1 10^3/uL (0.0-0.1); Basophils % 0.5 %; Eosinophils # 0.1 10^3/uL (0.0-0.8); Eosinophils % 0.6 %; Hematocrit 41.4 % (36-47); Lymphocytes # 1.2 10^3/uL (0.8-4.8); Lymphocytes % 12.6 %; Mean Corpuscular HGB Conc 31.6 g/dL (30-55); Mean Corpuscular Hemoglobin 30.6 pg (27-33); Mean Corpuscular Volume 96.7 fl (85-98); Mean Platelet Volume 10.6 fL (7.4-10.4); Monocytes # 0.7 10^3/uL (0.2-0.9); Monocytes % 7.2 %; Neutrophils # 7.04 10^3/uL (1.8-7.7); Neutrophils % 73.2 %; Nucleated Red Blood Cells % 0 %; Platelet Count 141 10^3/cmm (157-399); Red Blood Count 4.28 10^6/uL (3.85-5.65); White Blood Count 9.62 10^3/uL (3.29-11.43)
[2024-05-03 05:42] LABS: Alanine Aminotransferase 14 U/L (0-33); Alkaline Phosphatase 81 U/L (35-105); Aspartate Amino Transferase 17 U/L (0-32); Blood Urea Nitrogen 21 mg/dL (8-23); Calcium 8.5 mg/dL (8.5-10.5); Carbon Dioxide 28 mmol/L (22-29); Chloride 99 mmol/L (98-107); Creatinine Clr Calc Pharmacy 70.7356; Globulin 2.9 g/dL (1.3-4.6); Glucose 98 mg/dL (65-115); Osmolality Calculated 289 mOsm/kg (285-295); Sodium 138 mmol/L (136-145); Total Bilirubin 0.3 mg/dL (0.15-1.2); Total Protein 5.9 g/dL (6.6-8.7)
[2024-05-03 05:43] LABS: Magnesium 2.6 mg/dL (1.7-2.3)
[2024-05-03 05:48] LABS: Slide Review Slide Review Perform
[2024-05-03] MEDS: pregabalin 75 mg Capsule PO (08:14)
[2024-05-03] MEDS: gabapentin 300 mg Capsule 900 MG PO (08:14)
[2024-05-03] MEDS: predniSONE 10 mg Tablet PO (08:14)
[2024-05-03] MEDS: morphine IR 15 mg Tablet 30 MG PO ×2 (08:15→13:44)
[2024-05-03] MEDS: folic acid 1 mg Tablet PO (08:15)
[2024-05-03] MEDS: pantoprazole DR 40 mg Tablet PO (08:15)
[2024-05-03] MEDS: amlodipine 5 mg Tablet 10 MG PO (08:15)
--- NOTE | 2024-05-03 09:26 | PC.SOCIAL ---
IMM Update pg 2 of [facility] udpated and reviewed w/ patient. Copy provided and copy dated, initialed and placed in chart.
--- NOTE | 2024-05-03 10:46 | P.DS_ITS ---
Discharge Providers Date of Admission: 04/26/24 01:24 Date of Discharge: May 03, 2024 Attending Provider at Admission: Marty Fonseca MD Attending Provider at Discharge: Tony Dennison MD Consults: Cardiology: Dr. Gore Orthopedics: Dr. Levine ID: Dr. Trejo Primary Care Provider: Maciej West DO Diagnoses at Discharge Discharge Diagnosis (1) MRSA bacteremia: Status: Acute Reason for Visit Reason for Visit: difficulty breathing Brief History: History as per the HPI: Jenna Hamlin is a 69 year old female with a past medical history significant for COPD, rheumatoid arthritis on chronic prednisone, peripheral arterial disease, and osteoporosis who presents to the emergency department via EMS with shortness of breath. Patient states she has felt off for about a week. She reports she developed shortness of breath with cough about 3 days ago. She reports the cough feels wet but it has been nonproductive so far. She endorses associated symptoms of diffuse pain, worse in her right hip with radiating pain down her now leg. She notes she has a history of rheumatoid arthritis. She reports exertion worsens her symptoms. Rest seems to improve. Denies other alleviating or aggravating factors. Per report, EMS found patient to be febrile and hypoxic requiring supplemental oxygen support. Patient denies prior home oxygen needs. Her temperature was reported 100.5 by EMS evaluation. Hospital Course Hospital Course Patient was admitted to the hospital further evaluation and management of comm unity-acquired pneumonia with concerns for acute exacerbation of COPD and mild congestive heart failure. She was started on broad-spectrum antibiotics along with nebulization treatment, IV steroids and diuretics. During hospitalization she was found to have blood cultures positive for MRSA from admission on 04/25 which remain positive on 04/26 cultures as well. Patient continued to complain of right hip pain. Multiple workup was done for possible source evaluation for MRSA bacteremia including MRI hip, CT femur, CT abdomen pelvis. There was some concern for psoas abscess on MRI hip which was ruled out by repeat CT abdomen pelvis. Patient's blood culture from 04/29 is so far negative and patient has remained afebrile for over 4 to 5 days. Cardiology was consulted for possible GORDY to rule out infective endocarditis but patient was hesitant to undergo anesthesia. TTE was done which showed EF of 65% with grade 1 diastolic dysfunction with RVSP of 45 mmHg. Septic arthritis was ruled out with arthrocentesis. Patient underwent chest ultrasound which ruled out significant pleural effusion which was checked for possibility of empyema. She has been discharged in hemodynamically stable condition with home health on IV vancomycin twice daily for next 6 weeks with target trough level of 15-20. She is to follow-up with a primary care provider within next 1 week and with ID clinic on set appointment. Physical Exam Narrative: General: Patient is awake alert oriented x3,No acute distress, on room air Head: Normocephalic. Atraumatic. EOM intact. Cardiovascular: RRR. No gallops. No murmurs. no edema Lungs: Breath sounds are diminished in bilateral bases. There is faint end expiratory wheezing present. on 2L NC Abdomen: Normal bowel sounds, abdomen soft and nontender. Extremities: No cyanosis or clubbing. Neurological: Moves all 4 extremities. No myoclonus. Right knee:No warmth noted, no erythema noted. No edema noted. Right hip limited range of motion secondary to pain however improved. Skin: Several tiny lesions and abrasions in various stages of healing. Urinary Catheter Management: Pratt: Cath Placed During This Visit: yes, but has since been removed by the nurse Reason for Continuing Indwelling Catheter: Decision to DC Catheter Urinary Catheter Date of Insertion: 04/26/24 Urinary Catheter Time of Insertion: 09:45 Date Urinary Catheter Removed: 05/01/24 Time Urinary Catheter Discontinued: 16:21 Discharge Data Studies Completed and Pending Completed Studies During Hospitalization Category Date Time Status CT abdomen pelvis w con* [id number] Routine Cat Scan 05/01/24 12:[address] chest abdomen pelvis [CT chest abdpel w/*[id number] Cat Scan 04/26/24 13:33 Completed ] Stat CT femur RT w con [id number] Stat Cat Scan 04/28/24 16:[address] hip RT w con [id number] Stat Cat Scan 04/26/24 13:[address] hip RT wo con* [id number] Stat Cat Scan 04/26/24 11:28 Completed CXRP [XR chest 1V portable [id number]] Routine Exams 05/02/24 08:59 Completed XR chest 1V portable [id number] Routine Exams 04/28/24 08:00 Completed XR chest 1V portable [id number] Stat Exams 04/25/24 22:24 Completed XR hip RT 2-3V wo/w pel* [id number] Routine Exams 04/26/24 04:02 Completed MR hip RT wo/w con [id number] Urgent MRI 04/28/24 11:52 Completed CV. echo complete* [id number] Routine Ultrasound 04/27/24 12:30 [place] chest [id number] Urgent Ultrasound 04/28/24 12:05 Completed [facility] asp [facility]/c/h [id number] Stat Ultrasound 04/27/24 11:00 Completed US venous duplex lower extremity bilat [CV venous Ultrasound 04/29/24 09:04 [place] [id number]] Routine Pending at discharge Category Date Time Status Blood Culture Routine Lab 04/29/24 08:50 Results Complete Blood Count w/Auto AM LABS Lab 05/04/24 04:00 Ordered Comprehensive Metabolic Panel AM LABS Lab 05/04/24 04:00 Ordered MAG [Magnesium] AM LABS Lab 05/04/24 04:00 Ordered Sputum Culture and Gram Stain Routine Lab 04/26/24 02:32 Uncollected Sputum Culture and Gram Stain Stat Lab 04/26/24 13:39 Uncollected Vancomycin Trough Timed Lab 05/03/24 13:00 Ordered Radiology Impressions Hip/Pelvis X-Ray 04/26/24 04:02 IMPRESSION: No acute findings. Chest/Abdomen/Pelvis CT 04/26/24 13:33 IMPRESSION: 1. No pneumonia. Mild dependent changes at the lung bases. 2. No mediastinal or hilar adenopathy. 3. Chronic emphysema. 4. Normally distended gallbladder. No common bile duct dilatation. No stones identified. 5. No renal obstruction. 6. No ascites or adenopathy in the abdomen or pelvis. 7. Pratt catheter in place. Hip CT 04/26/24 13:43 IMPRESSION: 1. Negative RIGHT hip for significant joint effusion. 2. There is very mild synovial thickening but very similar to the LEFT hip as seen on the pelvis CT obtained on the same day. 3. Muscle atrophy involving the gluteus medius and giulia. 4. No abscess or abnormal enhancement. Needle Aspiration US 04/27/24 11:00 IMPRESSION: Uncomplicated ultrasound-guided RIGHT knee aspiration Lumbar Spine CT 04/27/24 11:06 IMPRESSION: 1. There is extensive gen and pedicle screw fixation from T10-S2. 2. Prior large laminectomy defects at L4-5 and L5-S1. 3. No enhancing masses. No inflammatory stranding identified. 4. Osteophytosis and disc disease resulting in stenoses as above. The exact extent of nerve root involvement is difficult to confirm with this amount of disease and artifact. 5. There is a component of central, bilateral subarticular recess and foraminal stenosis at L2-3. 6. Central LEFT subarticular recess and LEFT foraminal stenosis at least mild at L3-4. 7. Central to RIGHT paracentral disc protrusion at L4-5 with encroachment upon the traversing RIGHT L5 nerve root. Hip MRI 04/28/24 11:52 IMPRESSION: Some images degraded by motion and susceptibility artifact from prior fusion 1. No evidence of acute fracture or avascular necrosis. 2. No evidence of osteomyelitis in the RIGHT hip. 3. Slightly patchy bone marrow signal in the proximal femur with enhancement may be due to normal bone marrow signal but asymmetric compared to the LEFT. No bony destruction on the recent CT. Consider follow-up with bone scan to assess activity and to assess for other sites of uptake to exclude metastatic disease. Alternatively this could be followed up in 4 to 6 weeks with MRI RIGHT hip and femur. 4. Fluid and edema with enhancement along the RIGHT ischial tuberosity involving the proximal biceps femoris long head and semimembranosus tendons at the ischial tuberosity likely due to recent fall with muscle strain. 5. Partially visualized fluid and edema along the distal RIGHT psoas extending along the RIGHT pelvic sidewall involving the iliacus and iliopsoas. This is incompletely evaluated and recommend contrast-enhanced CT abdomen pelvis follow- up to assess for developing abscess or hematoma. Also recommend RIGHT lower extremity ultrasound to exclude DVT if not previously performed 6. Small amount of edema in the soft tissues about the RIGHT hip likely due to recent fall. 7. Chronic atrophy of the gluteus medius and giulia. 8. No joint effusion to indicate septic joint. 9. No other acute findings Chest Ultrasound 04/28/24 12:05 IMPRESSION: Tiny bilateral pleural effusions with compressive atelectasis in the lung bases. The abnormality on the recent radiograph LEFT lower lobe appears to represent atelectatic/consolidated lung. Insufficient fluid to perform thoracentesis. Femur CT 04/28/24 16:07 IMPRESSION: 1. Suspected lateral tibial plateau insufficiency fracture. Correlation with MRI of the right knee is recommended. 2. Right hemipelvis, including the psoas muscle is mostly outside the field of view. Consider CT of the abdomen and pelvis with contrast. Venous Duplex 04/29/24 09:04 IMPRESSION: No sonographic evidence of deep venous thrombosis. Abdomen/Pelvis CT 05/01/24 12:27 IMPRESSION: 1. Constipation 2. Bibasilar atelectasis 3. Extensive surgical change involving the lumbar spine Echocardiogram: CONCLUSIONS Normal left ventricular cavity size. Moderate left ventricular hypertrophy. Normal left ventricular systolic function. No regional wall motion abnormalities. Grade I/IV diastolic dysfunction (abnormal relaxation filling pattern), normal to mildly elevated filling pressures. Left ventricular ejection fraction is estimated at 65 %. Normal right ventricular size and systolic function. Mild pulmonary hypertension, RVSP 45 mmHg. Mildly increased left atrial size. Structurally normal mitral valve. Trace mitral valve regurgitation. Previous study 10/01/2023. No change. Dr. Richard Amado MD (Electronically Signed) Final Date: 28 April 2024 08:57 Microbiology 04/26/24 15:36 Blood Blood Culture - Final Methicillin Resis Staph Aureus 04/26/24 15:36 Blood Blood Culture - Final Methicillin Resis Staph Aureus 04/29/24 15:42 Urine Catheterized Urine Culture - Final 04/25/24 22:47 Blood Blood Culture - Final Methicillin Resis Staph Aureus 04/29/24 08:50 Blood Blood Culture - Preliminary NEGATIVE TO DATE 04/29/24 08:50 Blood Blood Culture - Preliminary NEGATIVE TO DATE 04/25/24 22:41 Blood Blood Culture - Final Methicillin Resis Staph Aureus 04/25/24 10:15 Urine,Clean Catch Bacterial Antigens - Final Laboratory Results WBC 9.62 10^3/uL (3.29-11.43) 05/03/24 04:47 RBC 4.28 10^6/uL (3.85-5.65) 05/03/24 04:47 Hgb 13.10 g/dL (11.27-16.99) 05/03/24 04:47 Hct 41.4 % (36-47) 05/03/24 04:47 MCV 96.7 fl (85-98) 05/03/24 04:47 MCH 30.6 pg (27-33) 05/03/24 04:47 MCHC 31.6 g/dL (30-55) 05/03/24 04:47 RDW 14.0 % (12.1-15.1) 05/03/24 04:47 Plt Count 141 10^3/cmm (157-399) L 05/03/24 04:47 MPV 10.6 fL (7.4-10.4) H 05/03/24 04:47 Neut % (Auto) 73.2 % 05/03/24 04:47 Lymph % (Auto) 12.6 % 05/03/24 04:47 [place] % (Auto) 7.2 % 05/03/24 04:47 Eos % (Auto) 0.6 % 05/03/24 04:47 Baso % (Auto) 0.5 % 05/03/24 04:47 Neut # (Auto) 7.04 10^3/uL (1.8-7.7) 05/03/24 04:47 Lymph # (Auto) 1.2 10^3/uL (0.8-4.8) 05/03/24 04:47 [place] # (Auto) 0.7 10^3/uL (0.2-0.9) 05/03/24 04:47 Eos # (Auto) 0.1 10^3/uL (0.0-0.8) 05/03/24 04:47 Baso # (Auto) 0.1 10^3/uL (0.0-0.1) 05/03/24 04:47 Nucleated RBC % (auto) 0 % 05/03/24 04:47 Nucleated RBCs # 0.0 /100WBC 05/03/24 04:47 Specimen Type Arterial 04/25/24 10:43 Sample Site Brachial, right 04/25/24 10:43 ABG pH 7.38 (7.35-7.45) 04/25/24 10:43 ABG pCO2 52.4 mmHg (35-45) H 04/25/24 10:43 ABG pO2 78.1 mmHg (80.0-100.0) L 04/25/24 10:43 ABG PO2/FiO2 Ratio 0 04/25/24 10:43 ABG HCO3 31.2 mmol/L (22-26) H 04/25/24 10:43 ABG O2 Saturation 95.1 04/25/24 10:43 ABG Base Excess 4.8 mmol/L (-2.0-2.0) H 04/25/24 10:43 Simón Test Pos 04/25/24 10:43 A-a O2 Gradient 12.7 mmHg (5-10) H 04/25/24 10:43 Hematocrit 42.2 % (37-47) 04/25/24 10:43 Hgb O2 Saturation 93.3 % (95-100) L 04/25/24 10:43 Carboxyhemoglobin 0.9 %THgb (0.4-20.1) 04/25/24 10:43 Methemoglobin 0.9 % (0.4-1.5) 04/25/24 10:43 Total Hemoglobin 13.8 g/dL (12-16) 04/25/24 10:43 Sodium 141.0 mmol/L (131-143) 04/25/24 10:43 Potassium 3.6 mmol/L (3.5-5.0) 04/25/24 10:43 Glucose 96.0 mg/dL (70-115) 04/25/24 10:43 Ionized Calcium 1.2 mmol/L (1.1-1.4) 04/25/24 10:43 O2 Delivery Device Nc 04/25/24 10:43 O2 Liters/Min 3.5 % 04/25/24 10:43 FiO2 34.0 % 04/25/24 10:[address] Officer ID [place] 04/25/24 10:43 Sodium 138 mmol/L (136-145) 05/03/24 04:47 Potassium 4.0 mmol/L (3.5-5.1) 05/03/24 04:47 Chloride 99 mmol/L (98-107) 05/03/24 04:47 Carbon Dioxide 28 mmol/L (22-29) 05/03/24 04:47 Anion Gap 15.0 (5-19) 05/03/24 04:47 BUN 21 mg/dL (8-23) 05/03/24 04:47 Creatinine 0.5 mg/dL (0.5-0.9) 05/03/24 04:47 GFR Calculation 122.0 mL/min (90-130) 05/03/24 04:47 Glucose 98 mg/dL (65-115) 05/03/24 04:47 Estimat Average Glucose 123 05/02/24 05:06 Hemoglobin A1c 5.9 % (4.0-6.0) 05/02/24 05:06 Calculated Osmolality 289 mOsm/kg (285-295) 05/03/24 04:47 Lactic Acid 2.9 mmol/L (0.5-2.2) H 04/25/24 22:47 Lactic Acid (Sepsis) 1.6 mmol/L (0.5-2.2) 04/26/24 00:47 Calcium 8.5 mg/dL (8.5-10.5) 05/03/24 04:47 Magnesium 2.6 mg/dL (1.7-2.3) H 05/03/24 04:47 Iron 66 ug/dL (37-145) 05/01/24 05:21 TIBC 168 mcg/dl 05/01/24 05:21 % Saturation 39.2 % (20-50) 05/01/24 05:21 Unsat Iron Binding 102 ug/dL (112-347) L 05/01/24 05:21 Total Bilirubin 0.3 mg/dL (0.15-1.2) 05/03/24 04:47 AST 17 U/L (0-32) 05/03/24 04:47 ALT 14 U/L (0-33) 05/03/24 04:47 Alkaline Phosphatase 81 U/L (35-105) 05/03/24 04:47 Troponin T Baseline 46 ng/L (0-10) H 04/25/24 22:47 Troponin T 120 Minute 35.47 ng/L (0-10) H 04/26/24 00:47 Delta Troponin T -10.53 ABS# (0-10) L 04/26/24 00:47 Troponin T Hi Sens 6Hr 26.57 ng/L (0-10) H 04/26/24 04:37 Troponin T Hi Sens 6Hr Delta -19.43 ng/L (0-12) L 04/26/24 04:37 C-Reactive Protein 57.4 mg/L (0.0-4.9) H 04/26/24 00:47 NT-Pro-B Natriuret Pep 484 pg/mL (0-125) H 04/27/24 05:21 Total Protein 5.9 g/dL (6.6-8.7) L 05/03/24 04:47 Albumin 3.0 g/dL (3.5-5.2) L 05/03/24 04:47 Globulin 2.9 g/dL (1.3-4.6) 05/03/24 04:47 Triglycerides 175 mg/dL (0-150) H 05/02/24 05:06 Cholesterol 221 mg/dL (0-200) H 05/02/24 05:06 LDL Cholesterol, Calc 135 mg/dL (50-129) H 05/02/24 05:06 Total VLDL Cholesterol 35 mg/dL (0-30) H 05/02/24 05:06 HDL Cholesterol 51 mg/dL (60-100) L 05/02/24 05:06 Cholesterol/HDL Ratio 4.33 mg/dL (0.0-4.40) 05/02/24 05:06 Folate > 20.0 ng/mL (4.8-37.3) 05/02/24 05:06 Procalcitonin 0.17 ng/mL (0-0.5) 05/01/24 05:21 Urine Color Yellow (Yellow) 04/26/24 10:15 Urine Appearance Clear (CLEAR) 04/26/24 10:15 Urine pH 6 (5-7) 04/26/24 10:15 Ur Specific [place] 1.015 (1.005-1.030) 04/26/24 10:15 Urine Protein Neg (Negative) 04/26/24 10:15 Urine Glucose (UA) Norm (Normal) 04/26/24 10:15 Urine Ketones Negative (Negative) 04/26/24 10:15 Urine Blood Neg (Negative) 04/26/24 10:15 Urine Nitrate Negative (Negative) 04/26/24 10:15 Urine Bilirubin Neg (Negative) 04/26/24 10:15 Urine Urobilinogen Norm mg/dL (Negative) 04/26/24 10:15 Ur Leukocyte Esterase Negative (Negative) 04/26/24 10:15 Urine RBC None /hpf (0-2) 04/26/24 10:15 Urine WBC None /hpf (0-5) 04/26/24 10:15 Ur Squamous Epith Cells 0-4 /hpf (0-5) H 04/26/24 10:15 Amorphous Sediment Not Reportable 04/26/24 10:15 Urine Bacteria None /hpf (NONE) 04/26/24 10:15 Urine Mucus None /hpf 04/26/24 10:15 Synovial Color Pale yellow (PALE YELLOW) 04/27/24 13:15 Synovial Appearance Hazy (CLEAR) 04/27/24 13:15 Synovial pH 8.5 (7.0-7.5) H 04/27/24 13:15 Synovial WBC 62 /uL (0-150) 04/27/24 13:15 Synovial RBC 0 10^3/uL (0-0) 04/27/24 13:15 Synovial Mononuclear 0.033 10^3/uL 04/27/24 13:15 Synov Polynuclear WBCs 0.029 10^3/uL 04/27/24 13:15 Synovial Other Cells TNP 04/27/24 13:15 Synovial Polynuclear % 46.800 % 04/27/24 13:15 Synovial Mononuclear % 53.200 % 04/27/24 13:15 Synovial Specific Grav 1.025 04/27/24 13:15 Synovial Glucose 145 mg/dL 04/27/24 13:15 Synovial Total Protein 3.4 g/dL 04/27/24 13:15 Synovial Albumin 2 gm/dL 04/27/24 13:15 Synovial LDH 156.0 U/L 04/27/24 13:15 Synovial Triglycerides 25 mg/dL 04/27/24 13:15 Vancomycin Trough 20.0 ug/mL (10-15) H 05/02/24 12:52 Adenovirus (PCR) Not detected (NOT DETECT) 04/25/24 23:16 C. pneumoniae DNA (PCR) Not detected (NOT DETECT) 04/25/24 23:16 Coronavirus 229E (PCR) Not detected (NOT DETECT) 04/25/24 23:16 Human Metapneumovir PCR Not detected (NOT DETECT) 04/25/24 23:16 Influenza A (H1) PCR Not detected (NOT DETECT) 04/25/24 23:16 Influ A (H1/09) PCR Not detected (NOT DETECT) 04/25/24 23:16 Influenza A (H3) PCR Not detected (NOT DETECT) 04/25/24 23:16 Influenza Type A (PCR) Not detected (NOT DETECT) 04/25/24 23:16 Influenza Type B (PCR) Not detected (NOT DETECT) 04/25/24 23:16 M. pneumoniae (PCR) Not detected (NOT DETECT) 04/25/24 23:16 Parainfluenza 1 (PCR) Not detected (NOT DETECT) 04/25/24 23:16 Parainfluenza 2 (PCR) Not detected (NOT DETECT) 04/25/24 23:16 Parainfluenza 3 (PCR) Not detected (NOT DETECT) 04/25/24 23:16 Parainfluenza 4 (PCR) Not detected (NOT DETECT) 04/25/24 23:16 RSV Type A (PCR) Not detected (NOT DETECT) 04/25/24 23:16 RSV Type B (PCR) Not detected (NOT DETECT) 04/25/24 23:16 Entero/Rhino (PCR) Not detected (NOT DETECT) 04/25/24 23:16 SARS-CoV-2 (PCR) Not detected (NOT DETECT) 04/25/24 23:16 MRSA (PCR) Not detected (NOT DETECTED) 04/28/24 17:52 Path Cons w/Slide Yes 04/27/24 13:15 Vitals Last Vital Signs Temp 99.0 F 05/03/24 08:00 Pulse 81 05/03/24 08:00 Resp 16 05/03/24 08:15 BP 142/70 05/03/24 08:00 Pulse Ox 94 05/03/24 08:00 O2 Del Method Nasal Cannula 05/03/24 08:00 O2 Flow Rate 1 04/30/24 15:28 Discharge Plan Discharge Patient Disposition: Home Condition: Stable Prescriptions: New vancomycin 1,000 mg recon soln 1 g IV BID 38 Days Qty: 76 0RF amlodipine 5 mg Tablet 10 mg PO DAILY Qty: 60 0RF pantoprazole 40 mg Tablet,Delayed Release (Dr/Ec) 40 mg PO DAILY Qty: 30 0RF Continued calcium carbonate [Calcium 500] 500 mg calcium (1,250 mg) tablet,chewable 500 mg PO DAILY furosemide 20 mg tablet 60 mg PO QAM PRN (Reason: Edema) mupirocin 2 % ointment 1 applic topical BID Qty: 150 2RF promethazine-DM 6.25-15 mg/5 mL syrup 5 - 10 ml PO Q4H Qty: 473 1RF promethazine 25 mg tablet 25 mg PO TID PRN (Reason: nausea and vomiting) Qty: 30 1RF albuterol sulfate 90 mcg/actuation HFA aerosol inhaler See Rx Instructions .ROUTE .COMPLEX Qty: 8.5 10RF Dose Instruction: INHALE 1 TO 2 PUFFS BY MOUTH EVERY 4 HOURS NEEDED FOR SHORTNESS OF BREATH OR WHEEZING Rx Instructions: INHALE 1 TO 2 PUFFS BY MOUTH EVERY 4 HOURS NEEDED FOR SHORTNESS OF BREATH OR WHEEZING folic acid 1 mg tablet See Rx Instructions .ROUTE .COMPLEX Qty: 30 11RF Dose Instruction: TAKE ONE TABLET BY MOUTH EVERY DAY Rx Instructions: TAKE ONE TABLET BY MOUTH EVERY DAY pregabalin [Lyrica] 75 mg capsule 75 mg PO BID Qty: 60 5RF gabapentin 600 mg tablet See Rx Instructions .ROUTE .COMPLEX Qty: 135 3RF Dose Instruction: TAKE 1 AND 1/2 TABLETS BY MOUTH THREE TIMES DAILY Rx Instructions: TAKE 1 AND 1/2 TABLETS BY MOUTH THREE TIMES DAILY cholecalciferol (vitamin D3) 25 mcg (1,000 unit) tablet See Rx Instructions .ROUTE .COMPLEX Qty: 90 3RF Dose Instruction: TAKE ONE TABLET BY MOUTH EVERY DAY Rx Instructions: TAKE ONE TABLET BY MOUTH EVERY DAY prednisone 10 mg tablet See Rx Instructions .ROUTE .COMPLEX Qty: 60 5RF Dose Instruction: TAKE ONE TABLET BY MOUTH TWICE DAILY FOR ARTHRITIS / INFLAMMATION Rx Instructions: TAKE ONE TABLET BY MOUTH TWICE DAILY FOR ARTHRITIS / INFLAMMATION hydroxychloroquine 200 mg tablet See Rx Instructions .ROUTE .COMPLEX Qty: 60 5RF Dose Instruction: TAKE ONE TABLET BY MOUTH TWICE DAILY Rx Instructions: TAKE ONE TABLET BY MOUTH TWICE DAILY sulfasalazine 500 mg tablet See Rx Instructions .ROUTE .COMPLEX Qty: 180 5RF Dose Instruction: TAKE TWO TABLETS BY MOUTH THREE TIMES DAILY FOR ARTHRITIS Rx Instructions: TAKE TWO TABLETS BY MOUTH THREE TIMES DAILY FOR ARTHRITIS Anoro Ellipta 62.5-25 mcg/actuation blister with device See Rx Instructions .ROUTE .COMPLEX Qty: 60 5RF Dose Instruction: USE 1 INHALATION INTO LUNGS DAILY FOR LUNG DISEASE Rx Instructions: USE 1 INHALATION INTO LUNGS DAILY FOR LUNG DISEASE morphine 30 mg tablet 30 mg PO Q4H MDD 5 tabs PRN (Reason: pain) 30 Days Qty: 180 0RF Discharge Orders: Discharge Order (Routine); Ordered 05/03/24 Ordered By: Tony Dennison Other Ambulatory Orders: Miscellaneous Procedure (Order) Location: None Selected Ordered By: Tony Dennison Miscellaneous Test (Routine) Timeframe: 1 Week Location: Determined by Patient Ordered By: Tony Dennison Referrals: [facility]. [Other] - 05/09/24 10:00 am (You will come here for your PICC Line dressing changes and labs weekly. ) [facility] [Provider Group] - 06/06/24 10:30 am [facility] Feed [Outside] (This is the company that will be supplying your IV an tibiotics @ home. They should deliver them to you via powertrain control systems engineer on morning. ) Maciej West, [Primary Care Provider] - 05/09/24 2:20 pm Discharge Diet: Cardiac Discharge Activity: Resume usual activity and Increase activity as tolerated Patient Instructions: Amlodipine (By mouth), Vancomycin (By injection), Pantoprazole (By mouth), MRSA, Heart Failure (GEN), Bacteremia (GEN), How to Flush Your PICC (Peripherally Inserted Central Catheter) (GEN), CHF Stoplight, Opioid Safety, PICC Activity Restrictions/Additional Instructions: Weekly PICC line dressing. He should have labs drawn including CBC, creatinine, LFT and Vanco trough weekly which will be followed up with ID clinic. PICC line should be removed after the completion of IV antibiotic course. Follow-up with a primary care provider within next 1 week and with infectious disease clinic on 06/06. Discharge Attestations Time Spent in Discharge Care*: greater than 30 min Specific Discharge Activities: educating patient, discussing with pcp/other providers, discussing with casework supervisor/social workers/dc planners, documenting/other paperwork and evaluating patient/reviewing data Status at Discharge: Cognitive status at discharge: cognitively intact , Behavioral status at discharge: cooperative , Functional status at discharge: uses cane/walker , Overall status at discharge: patient is back to baseline Quality Metrics Clinical Quality Measures [ No reported AMI, CVA or VTE this stay] Coding Level of Care Code 95043 Total time (in minutes) for Discharge: 60 Diagnoses MRSA bacteremia R78.81; B95.62
[2024-05-03 13:27] LABS: Vancomycin Trough 18.4 ug/mL (10-15)
--- NOTE | 2024-05-03 15:43 | PC.NURSE ---
Pt educated on discharge paperwork. Pt's medications were removed from pyxis and handed to patient. All questions answered. Pt left by wheelchair with [id number]. Pt has PICC line in left UA for outpatient abx treatment per dr. mobley.
== END 2024-05-03 15:47 | disposition home or self-care (01) | DRG 871 ==
LOC: ER 04-26 01:16 → MEDSURG 04-26 01:26
PROVIDERS: Internal Medicine; Admitting Provider Internal Medicine; Emergency Provider Emergency Medicine; PCP Family Medicine; Visit Provider Student in an Organized Health Care Education/Training Program
DX: A41.9 Sepsis, unspecified organism (principal); I50.33 Acute on chronic diastolic (congestive) heart failure; J18.9 Pneumonia, unspecified organism; J96.01 Acute respiratory failure with hypoxia; J44.1 Chronic obstructive pulmonary disease with (acute) exacerbation; J44.0 Chronic obstructive pulmonary disease with (acute) lower respiratory infection; L03.116 Cellulitis of left lower limb; L03.115 Cellulitis of right lower limb; E87.20 Acidosis, unspecified; D84.821 Immunodeficiency due to drugs; R65.20 Severe sepsis without septic shock; I11.0 Hypertensive heart disease with heart failure; M06.00 Rheumatoid arthritis without rheumatoid factor, unspecified site; I73.9 Peripheral vascular disease, unspecified; M81.0 Age-related osteoporosis without current pathological fracture; I95.9 Hypotension, unspecified; M25.551 Pain in right hip; B95.62 Methicillin resistant Staphylococcus aureus infection as the cause of diseases classified elsewhere; D69.6 Thrombocytopenia, unspecified; G89.29 Other chronic pain; M25.461 Effusion, right knee; R07.81 Pleurodynia; Z79.52 Long term (current) use of systemic steroids; Z22.7 Latent tuberculosis; Z98.1 Arthrodesis status; Z87.891 Personal history of nicotine dependence; Z11.52 Encounter for screening for COVID-19; Z86.14 Personal history of Methicillin resistant Staphylococcus aureus infection
CPT/HCPCS: 10160; 32555; 36415; 36573; 36600; 51702; 71045; 71260; 73502; 73700; 73701; 73723; 74177; 76604; 76942; 80048; 80051; 80053; 80061; 80202; 80503; 81001; 82042; 82330; 82746; 82805; 82945; 83036; 83540; 83550; 83605; 83615; 83735; 83880; 83986; 84145; 84157; 84315; 84478; 84484; 85025; 86140; 86403; 87040; 87077; 87086; 87150; 87186; 87205; 87486; 87581; 87633; 87641; 89050; 93005; 93306; 93970; 94640; 96372; 97116; 97161; A9577; J0360; J0696; J1650; J1885; J1940; J2185; J2405; J2919; J3370; J7050; J7512; J7613; J7626; Q9967

== ENCOUNTER 2024-05-16 13:15 | Oncology outpatient (recurring) (ONCR) | payer MEDICARE, MEDICAID, SELFPAY ==
[2024-05-09 11:18] LABS: Basophils % 0.3 %; Eosinophils % 0.2 %; Hematocrit 38.1 % (36-47); Lymphocytes # 0.4 10^3/uL (0.8-4.8); Lymphocytes % 3.8 %; Mean Corpuscular Hemoglobin 29.7 pg (27-33); Mean Platelet Volume 10.1 fL (7.4-10.4); Monocytes # 0.5 10^3/uL (0.2-0.9); Monocytes % 4.6 %; Neutrophils # 9.59 10^3/uL (1.8-7.7); Neutrophils % 89.5 %; Nucleated Red Blood Cells % 0 %; Platelet Count 139 10^3/cmm (157-399); Red Blood Count 3.97 10^6/uL (3.85-5.65); Red Cell Distribution Width 13.9 % (12.1-15.1); White Blood Count 10.71 10^3/uL (3.29-11.43)
[2024-05-09 11:38] LABS: Alanine Aminotransferase 14 U/L (0-33); Albumin Level 3.3 g/dL (3.5-5.2); Alkaline Phosphatase 89 U/L (35-105); Aspartate Amino Transferase 20 U/L (0-32); Globulin 3.5 g/dL (1.3-4.6); Total Bilirubin 0.2 mg/dL (0.15-1.2); Total Protein 6.8 g/dL (6.6-8.7)
[2024-05-09 11:39] LABS: Vancomycin Trough 14.9 ug/mL (10-15)
[2024-05-16 13:54] LABS: Basophils % 0.3 %; Eosinophils % 0.5 %; Hematocrit 38.4 % (36-47); Lymphocytes # 0.6 10^3/uL (0.8-4.8); Lymphocytes % 6.9 %; Mean Corpuscular Hemoglobin 30.3 pg (27-33); Mean Corpuscular Volume 97.7 fl (85-98); Monocytes # 0.5 10^3/uL (0.2-0.9); Monocytes % 5.8 %; Neutrophils # 6.84 10^3/uL (1.8-7.7); Neutrophils % 85.4 %; Nucleated Red Blood Cells % 0 %; Platelet Count 117 10^3/cmm (157-399); Red Blood Count 3.93 10^6/uL (3.85-5.65); Red Cell Distribution Width 14.6 % (12.1-15.1)
[2024-05-16 14:09] LABS: Alanine Aminotransferase 12 U/L (0-33); Albumin Level 3.3 g/dL (3.5-5.2); Alkaline Phosphatase 126 U/L (35-105); Aspartate Amino Transferase 18 U/L (0-32); Globulin 3.2 g/dL (1.3-4.6); Glomerular Filtration Rate 98.8 mL/min (90-130); Total Bilirubin 0.2 mg/dL (0.15-1.2); Total Protein 6.5 g/dL (6.6-8.7)
[2024-05-16 14:43] LABS: Vancomycin Trough 29.5 ug/mL (10-15)
== END 2024-05-21 23:59 | disposition home or self-care (01) ==
PROVIDERS: Student in an Organized Health Care Education/Training Program; PCP Family Medicine; Visit Provider Student in an Organized Health Care Education/Training Program
DX: Z53.9 Procedure and treatment not carried out, unspecified reason (principal); R78.81 Bacteremia; B95.62 Methicillin resistant Staphylococcus aureus infection as the cause of diseases classified elsewhere
CPT/HCPCS: 36415; 80076; 80202; 82565; 85025

== ENCOUNTER → 2024-05-18 09:23 | Outpatient (BNVA) | payer MEDICARE, MEDICAID, SELFPAY | PROVIDERS: PCP Student in an Organized Health Care Education/Training Program; Visit Provider Student in an Organized Health Care Education/Training Program | DX: R78.81 Bacteremia (principal); B95.62 Methicillin resistant Staphylococcus aureus infection as the cause of diseases classified elsewhere; Z79.899 Other long term (current) drug therapy | CPT/HCPCS: 80202 ==

== ENCOUNTER 2024-05-31 15:00 | Oncology outpatient (recurring) (ONCR) | payer MEDICARE, MEDICAID, SELFPAY ==
[2024-05-23 13:31] LABS: Basophils % 0.3 %; Eosinophils # 0.1 10^3/uL (0.0-0.8); Eosinophils % 0.7 %; Hematocrit 38.3 % (36-47); Lymphocytes # 0.5 10^3/uL (0.8-4.8); Lymphocytes % 7.7 %; Mean Corpuscular HGB Conc 30.8 g/dL (30-55); Mean Corpuscular Hemoglobin 29.8 pg (27-33); Mean Corpuscular Volume 96.7 fl (85-98); Mean Platelet Volume 10.1 fL (7.4-10.4); Monocytes # 0.6 10^3/uL (0.2-0.9); Monocytes % 8.2 %; Neutrophils # 5.58 10^3/uL (1.8-7.7); Neutrophils % 82.2 %; Nucleated Red Blood Cells % 0 %; Platelet Count 145 10^3/cmm (157-399); Red Blood Count 3.96 10^6/uL (3.85-5.65); Red Cell Distribution Width 14.4 % (12.1-15.1); White Blood Count 6.79 10^3/uL (3.29-11.43)
[2024-05-23 13:51] LABS: Alanine Aminotransferase 11 U/L (0-33); Albumin Level 3.5 g/dL (3.5-5.2); Alkaline Phosphatase 139 U/L (35-105); Aspartate Amino Transferase 22 U/L (0-32); Glomerular Filtration Rate 82.7 mL/min (90-130); Total Bilirubin 0.2 mg/dL (0.15-1.2); Total Protein 6.5 g/dL (6.6-8.7)
[2024-05-23 13:52] LABS: Vancomycin Trough 16.2 ug/mL (10-15)
[2024-05-31 15:05] LABS: Basophils # 0.1 10^3/uL (0.0-0.1); Basophils % 0.6 %; Eosinophils # 0.1 10^3/uL (0.0-0.8); Eosinophils % 0.9 %; Hematocrit 39.7 % (36-47); Lymphocytes # 0.9 10^3/uL (0.8-4.8); Lymphocytes % 11.5 %; Mean Corpuscular HGB Conc 30.7 g/dL (30-55); Mean Corpuscular Hemoglobin 30.2 pg (27-33); Mean Corpuscular Volume 98.3 fl (85-98); Mean Platelet Volume 10.2 fL (7.4-10.4); Monocytes # 0.8 10^3/uL (0.2-0.9); Monocytes % 10.1 %; Neutrophils # 5.88 10^3/uL (1.8-7.7); Neutrophils % 75.1 %; Nucleated Red Blood Cells % 0 %; Platelet Count 154 10^3/cmm (157-399); Red Blood Count 4.04 10^6/uL (3.85-5.65); Red Cell Distribution Width 14.9 % (12.1-15.1); White Blood Count 7.83 10^3/uL (3.29-11.43)
[2024-05-31 15:32] LABS: Alanine Aminotransferase 9 U/L (0-33); Albumin Level 3.5 g/dL (3.5-5.2); Alkaline Phosphatase 160 U/L (35-105); Aspartate Amino Transferase 19 U/L (0-32); Globulin 3.1 g/dL (1.3-4.6); Total Bilirubin 0.2 mg/dL (0.15-1.2); Total Protein 6.6 g/dL (6.6-8.7)
[2024-05-31 16:06] LABS: Vancomycin Trough 25.9 ug/mL (10-15)
== END 2024-06-21 23:59 | disposition home or self-care (01) ==
PROVIDERS: PCP Student in an Organized Health Care Education/Training Program; Visit Provider Student in an Organized Health Care Education/Training Program
DX: Z53.9 Procedure and treatment not carried out, unspecified reason (principal); R78.81 Bacteremia; B95.62 Methicillin resistant Staphylococcus aureus infection as the cause of diseases classified elsewhere
CPT/HCPCS: 36415; 36592; 80076; 80202; 82565; 85025

== ENCOUNTER → 2024-06-06 10:33 | Outpatient (BNVA) | payer MEDICARE, MEDICAID, SELFPAY | PROVIDERS: PCP Student in an Organized Health Care Education/Training Program; Visit Provider Student in an Organized Health Care Education/Training Program | DX: R78.81 Bacteremia (principal); B95.62 Methicillin resistant Staphylococcus aureus infection as the cause of diseases classified elsewhere; Z22.322 Carrier or suspected carrier of Methicillin resistant Staphylococcus aureus; Z45.2 Encounter for adjustment and management of vascular access device | CPT/HCPCS: 99205 ==

== ENCOUNTER 2024-07-13 21:18 | Emergency (ER) | payer MEDICARE, MEDICAID, SELFPAY ==
[2024-07-13 21:18] VITALS: BP 160/120; PULSE 108; RESP 18; TEMP 38.9; O2SAT 92; BMI 27.1
--- NOTE | 2024-07-13 21:49 | ED_ITS ---
HPI - Skin/Abscess/Foreign Bdy 2 General: Chief complaint: Skin/Abscess/Foreign Body Stated complaint: Cellulitus RT Leg Time Seen by Provider: 07/13/24 21:18 History of Present Illness: Patient arrives via EMS for evaluation of fever. Patient's fever was 103 earlier today. Upon arrival to 102.1. She has recently stopped IV vancomycin and oral Zyvox for history of bacteremia MRSA and possible cellulitis of her right hip region. She was seen Dr. Trejo for this. She has pain over her right hip buttock region but there is no obvious erythema cellulitis or fluctuance. She says this pain is similar to what she had previously. Upon talking to the patient further she does states she does have some pain burning and frequency with urination for the last 3 days. Related Data Home Medications Medication Instructions Recorded Confirmed calcium carbonate (Calcium 500) 500 mg PO DAILY 11/29/23 06/06/24 furosemide 20 mg tablet 60 mg PO QAM PRN Edema 11/29/23 07/10/24 Previous Rx's Medication Instructions Recorded mupirocin 2 % topical ointment 1 applic topical BID wound care 07/23/23 #150 grams albuterol sulfate 90 mcg/actuation See Rx Instructions .Route 11/08/23 aerosol inhaler .COMPLEX #8.5 grams folic acid 1 mg tablet See Rx Instructions .Route 11/08/23 .COMPLEX #30 tabs cholecalciferol (vitamin D3) 25 See Rx Instructions .Route 01/03/24 mcg (1,000 unit) tablet .COMPLEX #90 ea hydroxychloroquine 200 mg tablet See Rx Instructions .Route 02/01/24 .COMPLEX #60 tabs prednisone 10 mg tablet See Rx Instructions .Route 02/01/24 .COMPLEX #60 tabs sulfasalazine 500 mg tablet See Rx Instructions .Route 02/01/24 .COMPLEX #180 tabs promethazine-DM 6.25 mg-15 mg/5 mL 5 - 10 ml PO Q4H cough/rib 03/03/24 oral syrup fractures #473 mL umeclidinium 62.5 mcg-vilanterol See Rx Instructions .Route 04/05/24 25 mcg/actuation powdr for .COMPLEX #60 ea inhalation (Anoro Ellipta) amlodipine 5 mg tablet 10 mg (2 x 5 mg) PO DAILY #60 tabs 05/03/24 pantoprazole 40 mg tablet,delayed 40 mg PO DAILY #30 tabs 05/03/24 release gabapentin 600 mg tablet See Rx Instructions .Route 05/15/24 .COMPLEX #135 tabs promethazine 25 mg tablet 25 mg PO TID PRN nausea and 05/29/24 vomiting #30 tabs linezolid 600 mg tablet 600 mg PO BID 4 days #8 tabs 06/06/24 mupirocin 2 % topical ointment 1 applic topical BID 06/06/24 decolonization 1 month #22 grams sulfamethoxazole 800 1 tab PO .monwedfri PJP 06/06/24 mg-trimethoprim 160 mg tablet prophylaxis 6 months #90 tabs (Bactrim DS) morphine 30 mg immediate release 30 mg PO Q4H PRN pain 1 month #180 06/15/24 tablet tabs pregabalin 75 mg capsule (Lyrica) 75 mg PO BID neuropathy #60 caps 07/13/24 nitrofurantoin 100 mg PO BID 7 days #14 caps 07/14/24 monohydrate/macrocrystals 100 mg capsule (Macrobid) Allergies Allergy/AdvReac Type Severity Reaction Status Date / Time alginic acid Allergy Severe ALGY-Rash Verified 07/10/24 10:41 [From MediHoney (moises alginate-honey)] honey Allergy Severe ALGY-Rash Verified 07/10/24 10:41 [From MediHoney (moises alginate-honey)] acetaminophen Allergy Nausea Verified 07/10/24 10:41 [From Tylenol-Codeine #3] codeine Allergy Nausea Verified 07/10/24 10:41 [From Tylenol-Codeine #3] doxycycline Allergy Nausea Verified 07/10/24 10:41 erythromycin base Allergy Respiratory Verified 07/10/24 10:41 distress ibuprofen Allergy Unknown Verified 07/13/24 21:53 isoniazid Allergy ALGY-Anaphy Verified 07/10/24 10:41 laxis leflunomide Allergy Difficulty Verified 07/10/24 10:41 Breathing levofloxacin Allergy chest pain Verified 07/10/24 10:41 rifampin Allergy ADR-Nausea Verified 07/10/24 10:41 Review of Systems 2 General: Reports: 10 or more systems reviewed and unremarkable except in HPI and below PFSH ED 2 PFSH: Medical History Benign hypertension Rheumatoid arthritis Latent tuberculosis by blood test Immunization counseling Chronic steroid use High risk medication use Seronegative rheumatoid arthritis of both hands Peripheral arterial disease Rheumatoid arthritis Osteoporosis COPD (chronic obstructive pulmonary disease) Cellulitis Surgical History S/P spinal fusion Status post colonoscopy History of D&C H/O hand surgery Left hand in 1985 x3, had infection drained by H/O elbow surgery LEFT nerve decomp[place] [address] Zaidi H/O shoulder surgery RIGHT- by Dr. Bergman in 2003 Family History Family/Other Heart disease Denies family history of Diabetes CAD (coronary artery disease) Clotting disorder Dementia Hyperlipidemia Psychiatric illness Chronic kidney disease (CKD) Suicide Anesthesia complication Bleeding disorder Family history of premature coronary artery disease Lung disease Cancer Hypertension Stroke Social History Smoking and tobacco/nicotine status: former use of tobacco/nicotine Quit status (tobacco/nicotine): has quit using Year quit tobacco: 1997 Former quit date comment: Hx of 2 PPD x 30 Years, started at age 14 Second hand smoke exposure: No Alcohol intake: never Substance/Drug Use: never Lives independently: Yes Household members: none Housing: House Marital status: Number of children: 0 Highest education level completed: 11th Grade service: No Current occupational status: disabled Pets and animals: Yes Do you think of yourself as: Straight/Heterosexual Current gender identity: Female Physical Exam 2 Const: COMMON NORMALS: no acute distress, average body habitus, patient oriented x3, no limitations, healthy appearing, alert and well nourished HENMT: COMMON NORMALS: normocephalic, atraumatic, hearing grossly normal bilaterally, external ears normal, Normal external nose present and moist oral mucous membranes HEAD & SCALP: normocephalic and atraumatic NOSE: Normal external nose present EXTERNAL EAR: Yes external ears normal Neck/C-Spine: COMMON NORMALS: no JVD Chest: COMMONS NORMALS: normal inspection of the chest and normal palpation of entire chest wall Resp: COMMON NORMALS: normal respiratory effort, No retractions, No use of accessory muscles and clear to auscultation bilaterally AUSCULTATION: clear to auscultation bilaterally Cardio: COMMON NORMALS: no JVD, regular rate, regular rhythm, S1 normal heart sound present, S2 normal heart sound present, No gallops present (Cardio), No clicks present (Cardio), No murmurs present (Cardio) and No rub (Cardio) R ATE: regular rate RHYTHM: regular rhythm HEART SOUNDS: S1 normal heart sound present and S2 normal heart sound present GI: COMMON NORMALS: Normal to inspection, nondistended, normoactive bowel sounds present, Soft to palpation, non-tender, No hepatosplenomegaly present and no masses PALPATION: Yes Soft to palpation and Yes No hepatosplenomegaly present Extremity: NARRATIVE EXTREMITY EXAM: Tenderness to palpation over right gluteus area. No obvious fluctuance erythema noted. Patient has extensive venous stasis with multiple chronic appearing wounds on both bilateral upper and lower extremities. Neuro: COMMON NORMALS: patient oriented x3 SENSORIUM/ORIENTATION: Yes alert Course 2 Vital Signs: Vital signs: Vital Signs Temperature 100.4 F H 07/14/24 01:44 Pulse Rate 96 07/14/24 01:44 Respiratory Rate 19 H 07/14/24 01:44 Blood Pressure 120/53 07/14/24 01:44 Pulse Oximetry 97 07/14/24 01:44 Oxygen Delivery Me thod Room Air 07/13/24 21:18 MDM - Skin/Abscess/Foreign Bdy Medicial Decision Making Lab work was obtained, patient is given 1 L normal saline, fever improved to 100.4. Lab work was essentially unremarkable other than trace leukocyte Estrace. With patient's urinary symptoms we will treat this. Patient was given Cipro here in ER and will be discharged home with a prescription for Cipro. Lab Data 07/13/24 23:13 07/13/24 22:26 Radiology Impressions Chest X-Ray 07/13/24 23:15 IMPRESSION: No definite acute findings. Laboratory Results WBC 9.78 10^3/uL (3.29-11.43) 07/13/24 23:13 Corrected WBC Cancelled 07/13/24 22:26 RBC 4.24 10^6/uL (3.85-5.65) 07/13/24 23:13 Hgb 12.50 g/dL (11.27-16.99) 07/13/24 23:13 Hct 41.3 % (36-47) 07/13/24 23:13 MCV 97.4 fl (85-98) 07/13/24 23:13 MCH 29.5 pg (27-33) 07/13/24 23:13 MCHC 30.3 g/dL (30-55) 07/13/24 23:13 RDW 15.1 % (12.1-15.1) 07/13/24 23:13 Plt Count 171 10^3/cmm (157-399) 07/13/24 23:13 MPV 10.1 fL (7.4-10.4) 07/13/24 23:13 Gran % Cancelled 07/13/24 22:26 Neut % (Auto) 68.9 % 07/13/24 23:13 Lymph % (Auto) 14.1 % 07/13/24 23:13 Maury % (Auto) 15.1 % 07/13/24 23:13 Eos % (Auto) 0.7 % 07/13/24 23:13 Baso % (Auto) 0.4 % 07/13/24 23:13 Neut # (Auto) 6.73 10^3/uL (1.8-7.7) 07/13/24 23:13 Lymph # (Auto) 1.4 10^3/uL (0.8-4.8) 07/13/24 23:13 Maury # (Auto) 1.5 10^3/uL (0.2-0.9) H 07/13/24 23:13 Eos # (Auto) 0.1 10^3/uL (0.0-0.8) 07/13/24 23:13 Baso # (Auto) 0.0 10^3/uL (0.0-0.1) 07/13/24 23:13 Absolute Gran (auto) Cancelled 07/13/24 22:26 Nucleated RBC % (auto) 0 % 07/13/24 23:13 Nucleated RBCs # 0.0 /100WBC 07/13/24 23:13 Sodium 139 mmol/L (136-145) 07/13/24 22:26 Potassium 3.7 mmol/L (3.5-5.1) 07/13/24 22:26 Chloride 100 mmol/L (98-107) 07/13/24 22:26 Carbon Dioxide 26 mmol/L (22-29) 07/13/24 22: Anion Gap 16.7 (5-19) 07/13/24 22: BUN 12 mg/dL (8-23) 07/13/24 22: Creatinine 0.7 mg/dL (0.5-0.9) 07/13/24 22: GFR Calculation 82.7 mL/min (90-130) L 07/13/24: Glucose 79 mg/dL (65-115) 07/13/24 22: Calculated Osmolality 287 mOsm/kg (285-295) 07/13/24: Lactic Acid 1.9 mmol/L (0.5-2.2) 07/13/24: Calcium 8.6 mg/dL (8.5-10.5) 07/13/24: Total Bilirubin 0.2 mg/dL (0.15-1.2) 07/13/24: AST 23 U/L (0-32) 07/13/24: ALT 11 U/L (0-33) 07/13/24 22: Alkaline Phosphatase 114 U/L (35-105) H 07/13/24 22: C-Reactive Protein 99.6 mg/L (0.0-4.9) H 07/13/24 22: Total Protein 6.8 g/dL (6.6-8.7) 07/13/24 22: Albumin 3.3 g/dL (3.5-5.2) L 07/13/24: Globulin 3.5 g/dL (1.3-4.6) 07/13/24 22: Procalcitonin 0.19 ng/mL (0-0.5) 07/13/24 22: Urine Color Yellow (Yellow) 07/13/24 22:45 Urine Appearance Clear (CLEAR) 07/13/24 22:45 Urine pH 5.5 (5-7) 07/13/24 22:45 Ur Specific [place] 1.010 (1.005-1.030) 07/13/24 22:45 Urine Protein Negative (Negative) 07/13/24 22:45 Urine Glucose (UA) Negative (Normal) 07/13/24 22:45 Urine Ketones Negative (Negative) 07/13/24 22:45 Urine Blood Negative (Negative) 07/13/24 22:45 Urine Nitrate Negative (Negative) 07/13/24 22:45 Urine Bilirubin Negative (Negative) 07/13/24 22:45 Urine Urobilinogen 0.2 mg/dL (Negative) 07/13/24 22:45 Ur Leukocyte Esterase Trace (Negative) A 07/13/24 22:45 Urine RBC 0-2 /hpf (0-2) 07/13/24 22:45 Urine WBC 0-5 /hpf (0-5) 07/13/24 22:45 Ur Squamous Epith Cells 0-5 /hpf (0-5) 07/13/24 22:45 Amorphous Sediment Not Reportable 07/13/24 22:45 Urine Bacteria None seen /hpf (NONE) 07/13/24 22:45 Hyaline Casts 0.81 /lpf 07/13/24 22:45 Adenovirus (PCR) Not detected (NOT DETECT) 07/13/24 23:21 C. pneumoniae DNA (PCR) Not detected (NOT DETECT) 07/13/24 23:21 Coronavirus 229E (PCR) Not detected (NOT DETECT) 07/13/24 23:21 Human Metapneumovir PCR Not detected (NOT DETECT) 07/13/24 23:21 Influenza A (H1) PCR Not detected (NOT DETECT) 07/13/24 23:21 Influ A (H1/09) PCR Not detected (NOT DETECT) 07/13/24 23:21 Influenza A (H3) PCR Not detected (NOT DETECT) 07/13/24 23:21 Influenza Type A (PCR) Not detected (NOT DETECT) 07/13/24 23:21 Influenza Type B (PCR) Not detected (NOT DETECT) 07/13/24 23:21 M. pneumoniae (PCR) Not detected (NOT DETECT) 07/13/24 23:21 Parainfluenza 1 (PCR) Not detected (NOT DETECT) 07/13/24 23:21 Parainfluenza 2 (PCR) Not detected (NOT DETECT) 07/13/24 23:21 Parainfluenza 3 (PCR) Not detected (NOT DETECT) 07/13/24 23:21 Parainfluenza 4 (PCR) Not detected (NOT DETECT) 07/13/24 23:21 RSV Type A (PCR) Not detected (NOT DETECT) 07/13/24 23:21 RSV Type B (PCR) Not detected (NOT DETECT) 07/13/24 23:21 Entero/Rhino (PCR) Not detected (NOT DETECT) 07/13/24 23:21 SARS-CoV-2 (PCR) Not detected (NOT DETECT) 07/13/24 23:21 All radiology interpretation(s) finalized by discharge Discharge Plan Discharge Patient Disposition: Home Clinical Impression: Urinary tract infection Qualifiers: Urinary tract infection type: acute cystitis Hematuria presence: without hematuria Qualified Code(s): N30.00 - Acute cystitis without hematuria Fever Qualifiers: Fever type: unspecified Qualified Code(s): R50.9 - Fever, unspecified Condition: Stable Prescriptions: New Macrobid 100 mg capsule 100 mg PO BID 7 Days Qty: 14 0RF Rx Instructions: must administer with a meal/food No Action calcium carbonate [Calcium 500] 500 mg calcium (1,250 mg) tablet,chewable 500 mg PO DAILY furosemide 20 mg tablet 60 mg PO QAM PRN (Reason: Edema) Hold Instructions: Home Medication placed on hold at Doctor's office mupirocin 2 % ointment 1 applic topical BID Qty: 150 2RF promethazine-DM 6.25-15 mg/5 mL syrup 5 - 10 ml PO Q4H Qty: 473 1RF sulfamethoxazole-trimethoprim [Bactrim DS] 800-160 mg tablet 1 tab PO .monwedfri 180 Days Qty: 90 0RF linezolid 600 mg tablet 600 mg PO BID 4 Days Qty: 8 0RF mupirocin 2 % ointment 1 applic topical BID 30 Days Qty: 22 5RF Rx Instructions: apply twice daily to nostrils as directed with q tip, axilla and groin folds albuterol sulfate 90 mcg/actuation HFA aerosol inhaler See Rx Instructions .ROUTE .COMPLEX Qty: 8.5 10RF Dose Instruction: INHALE 1 TO 2 PUFFS BY MOUTH EVERY 4 HOURS NEEDED FOR SHORTNESS OF BREATH OR WHEEZING Rx Instructions: INHALE 1 TO 2 PUFFS BY MOUTH EVERY 4 HOURS NEEDED FOR SHORTNESS OF BREATH OR WHEEZING folic acid 1 mg tablet See Rx Instructions .ROUTE .COMPLEX Qty: 30 11RF Dose Instruction: TAKE ONE TABLET BY MOUTH EVERY DAY Rx Instructions: TAKE ONE TABLET BY MOUTH EVERY DAY cholecalciferol (vitamin D3) 25 mcg (1,000 unit) tablet See Rx Instructions .ROUTE .COMPLEX Qty: 90 3RF Dose Instruction: TAKE ONE TABLET BY MOUTH EVERY DAY Rx Instructions: TAKE ONE TABLET BY MOUTH EVERY DAY prednisone 10 mg tablet See Rx Instructions .ROUTE .COMPLEX Qty: 60 5RF Dose Instruction: TAKE ONE TABLET BY MOUTH TWICE DAILY FOR ARTHRITIS / INFLAMMATION Rx Instructions: TAKE ONE TABLET BY MOUTH TWICE DAILY FOR ARTHRITIS / INFLAMMATION hydroxychloroquine 200 mg tablet See Rx Instructions .ROUTE .COMPLEX Qty: 60 5RF Dose Instruction: TAKE ONE TABLET BY MOUTH TWICE DAILY Rx Instructions: TAKE ONE TABLET BY MOUTH TWICE DAILY sulfasalazine 500 mg tablet See Rx Instructions .ROUTE .COMPLEX Qty: 180 5RF Dose Instruction: TAKE TWO TABLETS BY MOUTH THREE TIMES DAILY FOR ARTHRITIS Rx Instructions: TAKE TWO TABLETS BY MOUTH THREE TIMES DAILY FOR ARTHRITIS Anoro Ellipta 62.5-25 mcg/actuation blister with device See Rx Instructions .ROUTE .COMPLEX Qty: 60 5RF Dose Instruction: USE 1 INHALATION INTO LUNGS DAILY FOR LUNG DISEASE Rx Instructions: USE 1 INHALATION INTO LUNGS DAILY FOR LUNG DISEASE gabapentin 600 mg tablet See Rx Instructions .ROUTE .COMPLEX Qty: 135 3RF Dose Instruction: TAKE 1 AND 1/2 TABLETS BY MOUTH THREE TIMES DAILY Rx Instructions: TAKE 1 AND 1/2 TABLETS BY MOUTH THREE TIMES DAILY promethazine 25 mg tablet 25 mg PO TID PRN (Reason: nausea and vomiting) Qty: 30 5RF morphine 30 mg tablet 30 mg PO Q4H MDD 5 tabs PRN (Reason: pain) 30 Days Qty: 180 0RF pregabalin [Lyrica] 75 mg capsule 75 mg PO BID Qty: 60 5RF amlodipine 5 mg Tablet 10 mg PO DAILY Qty: 60 0RF pantoprazole 40 mg Tablet,Delayed Release (Dr/Ec) 40 mg PO DAILY Qty: 30 0RF Discharge Orders: Discharge ED (Routine); Ordered 07/14/24 Ordered By: Myron José Referrals: Maciej West DO [Primary Care Provider] - 1 week Patient Instructions: Fever - Adult, Urinary Tract Infection in Women (DC) Activity Restrictions/Additional Instructions: Your evaluation in the ER showed you may have a slight urinary tract infection. This may also account for your fever. Please take all your antibiotics as directed. Please follow-up with your family practitioner in the next 7 days for further evaluation and treatment. Coding Level of Care Code ED Grocery Clerk Checking for Cristal Mathur
[2024-07-13] MEDS: sodium chloride 0.9% 1,000 ML 999 ML IV (22:02)
[2024-07-13 22:48] LABS: Charge for UA Resulting for Rev
[2024-07-13 22:50] LABS: Bilirubin Urine Negative (Negative); Blood Urine Negative (Negative); Glucose Urine UA Negative (Normal); Ketones Urine Negative (Negative); Leukocyte Esterase Urine Trace (Negative); Nitrate Urine Negative (Negative); Protein Urine Negative (Negative); Urine Appearance Clear (CLEAR); Urine Color Yellow (Yellow); Urobilinogen Urine 0.2 mg/dL (Negative); pH Urine 5.5 (5-7)
[2024-07-13 22:55] VITALS: RESP 20
[2024-07-13] MEDS: morphine 4 mg/mL SDV 1 mL IVP (22:55)
[2024-07-13 22:56] LABS: Alanine Aminotransferase 11 U/L (0-33); Albumin Level 3.3 g/dL (3.5-5.2); Alkaline Phosphatase 114 U/L (35-105); Aspartate Amino Transferase 23 U/L (0-32); Blood Urea Nitrogen 12 mg/dL (8-23); C Reactive Protein 99.6 mg/L (0.0-4.9); Calcium 8.6 mg/dL (8.5-10.5); Carbon Dioxide 26 mmol/L (22-29); Chloride 100 mmol/L (98-107); Creatinine Clr Calc Pharmacy 68.2407; Globulin 3.5 g/dL (1.3-4.6); Glomerular Filtration Rate 82.7 mL/min (90-130); Glucose 79 mg/dL (65-115); Osmolality Calculated 287 mOsm/kg (285-295); Sodium 139 mmol/L (136-145); Total Bilirubin 0.2 mg/dL (0.15-1.2); Total Protein 6.8 g/dL (6.6-8.7)
[2024-07-13 22:57] LABS: Lactic Sepsis W/Reflex 1.9 mmol/L (0.5-2.2)
[2024-07-13] MEDS: ondansetron 2 mg/ML SDV 2 mL 4 MG IVP (22:57)
[2024-07-13 22:58] LABS: Bacteria Urine None Seen /hpf; Hyaline Casts Urine 0.81 /lpf; RBC Urine 0-2 /hpf (0-2); Squamous Epithelial Cell Urine 0-5 /hpf (0-5); WBC Urine 0-5 /hpf (0-5)
[2024-07-13 22:59] VITALS: BP 179/53; PULSE 103; RESP 19; O2SAT 91
[2024-07-13 22:59] LABS: Anion Gap 16.7 (5-19); Potassium 3.7 mmol/L (3.5-5.1)
[2024-07-13 23:03] LABS: Procalcitonin 0.19 ng/mL (0-0.5)
--- NOTE | 2024-07-13 23:15 | XRR_ITS ---
PROCEDURE INFORMATION: Exam: XR Chest Exam date and time: 07/13/2024 11:19 PM Age: 69 years old Clinical indication: Other: Fever TECHNIQUE: Imaging protocol: Radiologic exam of the chest. Views: 1 view. COMPARISON: CR XR chest 1V portable [id number] 05/02/2024 10:19 AM FINDINGS: Lungs: Unremarkable. No consolidation. Pleural spaces: Unremarkable. No pleural effusion. No pneumothorax. Heart/Mediastinum: Stable cardiomediastinal silhouette. Vasculature: Atherosclerotic aortic plaque. Bones/joints: Advanced degenerative changes of the right shoulder again seen. Spinal fusion hardware partially imaged. XR/XR chest 1V portable [id number] IMPRESSION: No definite acute findings.
[2024-07-13 23:25] LABS: Basophils % 0.4 %; Eosinophils # 0.1 10^3/uL (0.0-0.8); Eosinophils % 0.7 %; Hematocrit 41.3 % (36-47); Lymphocytes # 1.4 10^3/uL (0.8-4.8); Lymphocytes % 14.1 %; Mean Corpuscular HGB Conc 30.3 g/dL (30-55); Mean Corpuscular Hemoglobin 29.5 pg (27-33); Mean Corpuscular Volume 97.4 fl (85-98); Mean Platelet Volume 10.1 fL (7.4-10.4); Monocytes # 1.5 10^3/uL (0.2-0.9); Monocytes % 15.1 %; Neutrophils # 6.73 10^3/uL (1.8-7.7); Neutrophils % 68.9 %; Nucleated Red Blood Cells % 0 %; Platelet Count 171 10^3/cmm (157-399); Red Blood Count 4.24 10^6/uL (3.85-5.65); Red Cell Distribution Width 15.1 % (12.1-15.1); White Blood Count 9.78 10^3/uL (3.29-11.43)
[2024-07-13 23:41] VITALS: BP 107/78; PULSE 104; RESP 20; O2SAT 98
[2024-07-14 00:03] VITALS: BP 122/55; PULSE 109; RESP 21; TEMP 38.6; O2SAT 97
[2024-07-14 00:52] VITALS: BP 135/81; PULSE 105; O2SAT 100
[2024-07-14 01:06] VITALS: PULSE 102; RESP 19; O2SAT 97
[2024-07-14 01:24] LABS: Adenovirus Not Detected (NOT DETECT); Chlamydia Pneumoniae Not Detected (NOT DETECT); Coronavirus 229E,HKU1,NL63,OC4 Not Detected (NOT DETECT); Human Metapneumovirus Not Detected (NOT DETECT); Human Rhinovirus/Enterovirus Not Detected (NOT DETECT); Influenza A Not Detected (NOT DETECT); Influenza A H1 Not Detected (NOT DETECT); Influenza A H1-2009 Not Detected (NOT DETECT); Influenza A H3 Not Detected (NOT DETECT); Influenza B Not Detected (NOT DETECT); Mycoplasma Pneumoniae Not Detected (NOT DETECT); Parainfluenza Virus Type 1 Not Detected (NOT DETECT); Parainfluenza Virus Type 2 Not Detected (NOT DETECT); Parainfluenza Virus Type 3 Not Detected (NOT DETECT); Parainfluenza Virus Type 4 Not Detected (NOT DETECT); Respiratory Syncytial Virus A Not Detected (NOT DETECT); Respiratory Syncytial Virus B Not Detected (NOT DETECT); SARS-COV-2 Not Detected (NOT DETECT)
[2024-07-14 01:44] VITALS: BP 120/53; PULSE 96; RESP 19; TEMP 38; O2SAT 97
[2024-07-14] MEDS: nitrofurantoin SR (BID) 100 mg Capsule PO (02:19)
[2024-07-14 04:33] VITALS: BP 120/56; PULSE 93; RESP 17; O2SAT 92
== END 2024-07-14 04:30 | disposition home or self-care (01) ==
PROVIDERS: Emergency Provider Emergency Medicine; PCP Family Medicine
DX: N30.00 Acute cystitis without hematuria (principal); R50.9 Fever, unspecified; Z11.52 Encounter for screening for COVID-19; Z87.891 Personal history of nicotine dependence; J44.9 Chronic obstructive pulmonary disease, unspecified; I10 Essential (primary) hypertension
CPT/HCPCS: 36415; 71045; 80053; 81003; 81015; 83605; 84145; 85025; 86140; 87040; 87486; 87581; 87633; 96361; 96374; 96375; 99284; J2270; J2405; J7030

== ENCOUNTER 2024-09-06 11:05 | Oncology outpatient (recurring) (ONCR) | payer MEDICARE, MEDICAID, SELFPAY ==
--- NOTE | 2024-09-06 11:00 | MR_ITS ---
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 TECHNIQUE: Coronal STIR of the Pelvis. Coronal proton density, coronal T1, axial T2 fat sat, axial T1 , sagittal T2 fat sat, and sagittal T1 performed of the hip. After contrast, axial T1 fat sat, coron al T1 fat sat, and sagittal T1 fat sat were performed. FINDINGS: Osteopenia. Moderate degenerative narrowing RIGHT hip. Normal bone marrow signal in the RIGHT femoral head and neck. No evidence of osteomyelitis. Normal bone marrow signal in the visualized RIGHT hip t sarah. No evidence of drainable abscess or fluid collection. Chronic atrophy of the gluteus musculatur e. Normal bone marrow signal in the LEFT hip and acetabulum. Susceptibility artifact in the lower lumbar spine pelvis and sacrum due to hardware. Previously described fluid or hematoma RIGHT distal psoas h as resolved. Small amount of fluid and edema along the ischial tuberosity likely inflammatory similar to previous. Soft tissue edema of the RIGHT hip has resolved. Chronic atrophy of the gluteus medius and giulia. No evidence of joint effusion. No inguinal lymphadenopathy.Small amount of residual armando a along the RIGHT iliacus at the pelvic sidewall. MR/MR hip RT wo/w con [id number] IMPRESSION: 1. No evidence of osteomyelitis today. 2. Normal bone marrow signal in the RIGHT hip and femoral head. No joint effus ion. 3. Tiny amount of residual edema along the RIGHT iliacus. No evidence of absce ss or fluid collection. 4. Small amount of fluid and edema along the RIGHT ischial tuberosity likely i nflammatory. This can be seen with ischiogluteal bursitis
[2024-09-06] MEDS: gadobenate dimeglumine 20 mL vial 17 ML IV (12:16)
== END 2024-09-21 23:59 | disposition home or self-care (01) ==
LOC: RAD 11:06 → ONCMED 09-07 09:32
PROVIDERS: PCP Family Medicine; Visit Provider Family Medicine
DX: Z22.322 Carrier or suspected carrier of Methicillin resistant Staphylococcus aureus (principal); M87.021 Idiopathic aseptic necrosis of right humerus; R60.1 Generalized edema
CPT/HCPCS: 73723

== ENCOUNTER → 2024-10-23 12:07 | Outpatient (BNVA) | payer MEDICARE, MEDICAID, SELFPAY | PROVIDERS: PCP Family Medicine; Visit Provider Family Medicine | DX: Z79.899 Other long term (current) drug therapy (principal); E83.19 Other disorders of iron metabolism; D72.829 Elevated white blood cell count, unspecified; M06.9 Rheumatoid arthritis, unspecified | CPT/HCPCS: 80053; 85025 ==

== ENCOUNTER 2025-07-11 10:42 | Outpatient (CLI) | payer OTHER, MEDICAID, SELFPAY ==
--- NOTE | 2025-07-11 10:48 | XR_ITS ---
WS: [id number] Thoracic spine, 3 views, 07/11/2025 Clinical Data: M54.6 - Pain in thoracic spine Comparison: Thoracic spine, 03/30/2023 Findings: The thoracolumbar fusion with bilateral pedicle screws and connecting rods remains the same. The kyphosis and osteoporosis of the thoracic vertebral bodies remains the same. There is a dextroscoliosis and osteoarthritis of the thoracic vertebral bodies. The upper thoracic vertebral bodies show multiple wedge deformities unchanged. The paravertebral regions remain the same. The thoracic aorta and abdominal aorta show calcification. There are old left rib fractures. There are right lateral calcifications in the pleural space and also in the left pleural space XR/XR thoracic spine 2V [id number] Impression: 1. Extensive thoracolumbar posterior fusion. 2. Osteoarthritis, osteoporosis, kyphosis and dextroscoliosis. 3. Multiple wedge deformities of the upper thoracic vertebral bodies but no new compression fractures.
--- NOTE | 2025-07-11 10:48 | XR_ITS ---
WS: [id number] Right rib detail, 3 views, 07/11/2025 Clinical Data: M54.6 - Pain in thoracic spine Comparison: Portable chest, 07/13/2024, right rib detail, 02/23/2024. Findings: There are multiple old right rib fractures of the first through sixth ribs. There is deformity of the right first rib with a bony exuberant which extends into the right pleural space. There is pleural scarring at the right costophrenic angle. There is severe deformity of the right glenohumeral joint wi th sclerosis narrowing and bony overgrowth. There is bony overgrowth and sclerosis of the right AC joint. The thoracolumbar posterior fusion is seen. XR/XR ribs RT 2V* [id number] Impression: 1. Old right rib fractures, first through sixth ribs unchanged. 2. Right costophrenic angle pleural scarring. 3. Severe deformity of the right AC joint and right glenohumeral joint. 4. Stable thoracolumbar posterior fusion. 5. Negative for new rib fractures.
== END 2025-07-11 10:43 | disposition home or self-care (01) ==
PROVIDERS: PCP Family Medicine; Visit Provider Family Medicine
DX: M40.204 Unspecified kyphosis, thoracic region (principal); R07.81 Pleurodynia; Z98.1 Arthrodesis status; M81.0 Age-related osteoporosis without current pathological fracture; W19.XXXA Unspecified fall, initial encounter
CPT/HCPCS: 71100; 72070